=== PATIENT | male | born 1935 | race Caucasian/White ===

== ENCOUNTER 2017-08-26 12:34 | Emergency (ER) | payer OTHER, BC ==
--- NOTE | 2017-08-26 14:22 | ER ---
Nurse's Notes [facility] Name: Reji Dan Age: 82 yrs Sex: Male : 1935 Arrival Date: 08/26/2017 Time: 12:41 Bed 12 Private MD: Zaina Snowden Diagnosis: Abrasion of right forearm Presentation: 08/26 13:26 Presenting complaint: Patient states: Reports scratch on posterior right forearm that aj has been slowly bleeding since Thursday. Not currently bleeding at this time. Transition of care: patient was not received from another setting of care. Onset of symptoms was August 21, 2017. Initial Sepsis Screen: Does the patient meet any 2 criteria? No. Patient's initial sepsis screen is negative. Does the patient have a suspected source of infection? No. Patient's initial sepsis screen is negative. Care prior to arrival: None. 13:26 Method Of Arrival: Ambulatory aj 13:26 Acuity: SILVINO 4 aj Triage Assessment: 13:28 General: Appears in no apparent distress. comfortable, Behavior is calm, cooperative, aj appropriate for age. Pain: Denies pain. Neuro: Level of Consciousness is awake, alert, obeys commands, Oriented to person, place, time, situation. Respiratory: Airway is patent Respiratory effort is even, unlabored, Respiratory pattern is regular, symmetrical. Derm: Skin is intact, is healthy with good turgor, Skin is pink, warm \\T\\ dry. normal. Injury Description: Puncture sustained to palmar aspect of right forearm is superficial, was sustained 5 days. Historical: - Allergies: 13:28 Clindamycin; aj 13:28 Iodinated Contrast Media - IV Dye; aj - PMHx: 13:28 High Cholesterol; Hypertension; Hypothyroidism; Pacemaker; aj - PSHx: 13:28 Tonsillectomy; Adenoids; aj - Immunization history:: Last tetanus immunization: up to date. - Social history:: Smoking status: Patient/guardian denies using tobacco. Screenin:14 Abuse screen: Denies threats or abuse. Nutritional screening: No deficits noted. tw2 Tuberculosis screening: No symptoms or risk factors identified. Fall Risk None identified. Assessment: 14:12 Reassessment: Patient appears in no apparent distress at this time. No changes from tw2 previously documented assessment. Patient and/or family updated on plan of care and expected duration. Pain level reassessed. Patient is alert, oriented x 3, equal unlabored respirations, skin warm/dry/pink. Cardiovascular: Denies chest pain, shortness of breath, Capillary refill < 3 seconds Patient's skin is warm and dry. Respiratory: Airway is patent Respiratory effort is even, unlabored, Respiratory pattern is regular, symmetrical. Derm: Skin is fragile, is thin, Skin temperature is warm. Injury Description: Abrasion sustained to dorsal aspect of right forearm is scabbed, pressure dressing applied. Vital Signs: 13:28 BP 118 / 73; Pulse 70; Resp 16; Temp 97.8; Pulse Ox 95% on R/A; Weight 87.09 kg; Height aj 6 ft. 0 in. (182.88 cm); Pain 0/10; 14:12 BP 105 / 48; Pulse 71; Resp 16; Pulse Ox 95% on R/A; tw2 13:28 Body Mass Index 26.04 (87.09 kg, 182.88 cm) aj ED Course: 12:41 Patient arrived in ED. as 12:42 Zaina Snowden MD is Private Physician. as 13:27 Triage completed. aj 13:28 Arm band placed on left wrist. Patient placed in waiting room, Patient notified of wait aj time. 14:03 Lexi Chew FNP-C [facility]. kb 14:03 Denzel Herrera MD is Attending Physician. kb 14:12 Blanca Rascon, RN is Primary Nurse. tw2 14:14 Bed in low position. Call light in reach. Pulse ox on. NIBP on. tw2 14:24 No provider procedures requiring assistance completed. Patient did not have IV access tw2 during this emergency room visit. Administered Medications: No medications were administered Outcome: 14:22 Discharge ordered by . kb 14:24 Discharged to home ambulatory. tw2 14:24 Condition: stable 14:24 Discharge instructions given to patient, Instructed on discharge instructions, follow up and referral plans. Demonstrated understanding of instructions, follow-up care, pressure dressing, pt left PRIOR to signing discharge papers 14:25 Patient left the ED. tw2 Signatures: Lexi Chew FNP-C FNP-Ckb Myers, Amanda, RN RN aj Martinez, Amelia as Blanca Rascon, DANIELLE RN tw2 Corrections: (The following items were deleted from the chart) 14:25 14:24 Discharge instructions given to patient, Instructed on discharge instructions, tw2 follow up and referral plans. Demonstrated understanding of instructions, follow-up care, pressure dressing, pt left PRIOR to signing discharge papers "i dont need to wait around for those papers" tw2
--- NOTE | 2017-08-26 14:22 | EDPHYS ---
Physician Documentation [facility] Name: Reji Dan Age: 82 yrs Sex: Male : 1935 Arrival Date: 08/26/2017 Time: 12:41 Bed 12 Private MD: Zaina Snowden ED Physician Denzel Herrera HPI: 08/26 14:20 This 82 yrs old Male presents to ER via Ambulatory with complaints of Wound kb Check. 14:20 The patient has a laceration related to: scratched area occurred at home, and kb continuous bleeding The injury was accidental. The laceration(s) is(are) located on the palmar aspect of right forearm. Onset: The symptoms/episode began/occurred 5 day(s) ago. Associated signs and symptoms: Pertinent positives: persistent bleeding, Pertinent negatives: deformity, dizziness, heavy bleeding, loss of consciousness, numbness distal to injury, suspected foreign body. The patient has not experienced similar symptoms in the past. The patient has not recently seen a physician. Pt reports he scratched his arm and has an open wound the size of a pin that has been bleeding continuously. States there is a drop every 15 seconds or so. . Historical: - Allergies: 13:28 Clindamycin; aj 13:28 Iodinated Contrast Media - IV Dye; aj - PMHx: 13:28 High Cholesterol; Hypertension; Hypothyroidism; Pacemaker; aj - PSHx: 13:28 Tonsillectomy; Adenoids; aj - Immunization history:: Last tetanus immunization: up to date. - Social history:: Smoking status: Patient/guardian denies using tobacco. ROS: 14:19 Constitutional: Negative for fever, chills, and weight loss, Cardiovascular: Negative kb for chest pain, palpitations, and edema, Respiratory: Negative for shortness of breath, cough, wheezing, and pleuritic chest pain, Abdomen/GI: Negative for abdominal pain, nausea, vomiting, diarrhea, and constipation, MS/Extremity: Negative for injury and deformity, Neuro: Negative for headache, weakness, numbness, tingling, and seizure. 14:19 Skin: Positive for abrasion(s), of the palmar aspect of right forearm. Exam: 14:19 Constitutional: This is a well developed, well nourished patient who is awake, alert, kb and in no acute distress. Head/Face: Normocephalic, atraumatic. Chest/axilla: Normal chest wall appearance and motion. Nontender with no deformity. No lesions are appreciated. Cardiovascular: Regular rate and rhythm with a normal S1 and S2. No gallops, murmurs, or rubs. Normal PMI, no JVD. No pulse deficits. Respiratory: Lungs have equal breath sounds bilaterally, clear to auscultation and percussion. No rales, rhonchi or wheezes noted. No increased work of breathing, no retractions or nasal flaring. Abdomen/GI: Soft, non-tender, with normal bowel sounds. No distension or tympany. No guarding or rebound. No evidence of tenderness throughout. MS/ Extremity: Pulses equal, no cyanosis. Neurovascular intact. Full, normal range of motion. Neuro: Awake and alert, GCS 15, oriented to person, place, time, and situation. Cranial nerves II-XII grossly intact. Motor strength 5/5 in all extremities. Sensory grossly intact. Cerebellar exam normal. Normal gait. 14:19 Skin: injury, abrasion(s), very small abrasion noted, of the palmar aspect of right forearm. Vital Signs: 13:28 BP 118 / 73; Pulse 70; Resp 16; Temp 97.8; Pulse Ox 95% on R/A; Weight 87.09 kg; Height aj 6 ft. 0 in. (182.88 cm); Pain 0/10; 14:12 BP 105 / 48; Pulse 71; Resp 16; Pulse Ox 95% on R/A; tw2 13:28 Body Mass Index 26.04 (87.09 kg, 182.88 cm) MDM: 14:03 Patient medically screened. kb 14:19 Data reviewed: vital signs, nurses notes. Data interpreted: Pulse oximetry: on room air kb is 95 %. Interpretation: normal. Counseling: I had a detailed discussion with the patient and/or guardian regarding: the historical points, exam findings, and any diagnostic results supporting the discharge/admit diagnosis, the need for outpatient follow up, a family practitioner, to return to the emergency department if symptoms worsen or persist or if there are any questions or concerns that arise at home. 14:22 ED course: Bleeding controlled.. kb Administered Medications: No medications were administered Disposition: 16:39 Co-signature as Attending Physician, Denzel Herrera MD. rn Disposition: 08/26/17 14:22 Discharged to Home. Impression: Abrasion of right forearm. - Condition is Stable. - Discharge Instructions: Abrasion, [id number]. - Medication Reconciliation Form, Thank You Letter, Antibiotic Education, Prescription Opioid Use form. - Follow up: Emergency Department; When: As needed; Reason: Worsening of condition. Follow up: Private Physician; When: 2 - 3 days; Reason: Recheck today's complaints, Continuance of care, Re-evaluation by your physician. Signatures: Lexi Chew, ELECTRONIC SECURITY SPECIALIST-C ELECTRONIC SECURITY SPECIALIST-Jayne Morales, RN RN Denzel Lora MD MD rn Wise, Tara RN RN tw2
[2017-08-26 14:30] VITALS: TEMP 97.8; O2SAT 95
[2017-08-26 14:32] VITALS: BP 105/48
== END 2017-08-26 14:25 | disposition home or self-care (01) ==
LOC: ER 12:34
DX: S50.811D Abrasion of right forearm, subsequent encounter (principal); X58.XXXD Exposure to other specified factors, subsequent encounter
CPT/HCPCS: 99283

== ENCOUNTER → 2018-02-04 | Day surgery (SDC) | payer OTHER, BC ==
[2018-02-03 13:14] LABS: Absolute Lymphocytes (CBC) 0.5 K/uL (0.7-4.9); Absolute Monocytes 0.8 K/uL (0.1-1.3); Absolute Neutrophil 4.3 K/uL (1.8-8.0); Basophils % 1.4 % (0-1.3); Hematocrit 40.8 % (39.6-49.0); Lymphocytes % 8.5 % (15.3-44.8); MCH 33.1 pg (27.0-35.0); MCV 97.4 fL (80-100); MPV 7.9 fL (7.6-11.3); Monocytes % 12.7 % (3.3-12.3); RBC Red Blood Cell Count 4.19 M/uL (4.33-5.43)
--- NOTE | 2018-02-03 13:14 | RAD REPORT ---
EXAM DESCRIPTION: Zafar Single View02/03/2018 1:05 pm CLINICAL HISTORY: Coronary artery disease. Preop. COMPARISON: 2014 FINDINGS: The lungs appear clear of acute infiltrate. The heart is moderately enlarged. Pacemaker l nikhil are in place. Blunting of the left costophrenic sulcus is unchanged probably representing pleura l thickening IMPRESSION: No acute abnormalities displayed
--- NOTE | 2018-02-03 15:15 | EKG ---
Test Date: 2018-02-03 Test Time: 12:55:37 Limb Driver: VIOLETA MEASUREMENT RESULTS: Intervals: Rate: 70 NE: QRSD: 158 QT: 484 QTc: 522 Cammal: P: NE: QRS: -81 T: 76 INTERPRETIVE STATEMENTS: Electronic ventricular pacemaker Compared to ECG 02/20/2016 07:17:19 No significant changes Electronically Signed On 02-03-18 15:14:36 CDT by Almas Hamilton
[~2018-02-04] MED LIST: ATROPINE SULF 1 MG/10 ML SYR IV ONE; FENTANYL CITR 100 MCG/2 ML ONE; HEPA 1000U/500MLS 1,000 UNIT/500 ML BAG IV ONE; LIDOCAINE 1% MPF 30 ML VIAL ONE; METHYLPREDNISOLONE 125 MG INJ ONE; MIDAZOLAM HCL 2 MG/2 ML INJ ONE; NA CHLORIDE 0.9% 0 ML IV ONE; NA CHLORIDE 0.9% 0 ML ONE; NA CHLORIDE 0.9% 100 ML IV ONE; NA CHLORIDE 0.9% 500 ML ONE
[2018-02-04 07:52] LABS: Protime INR 1.06
[2018-02-04 12:05] VITALS: BP 101/51; O2SAT 96
[2018-02-04 12:06] VITALS: TEMP 98.3
--- NOTE | 2018-02-04 18:21 | OP ---
Surgeon: Marco Albright MD Admitted to my service as an outpatient for left heart catheterization and right heart catheterizatio n. Indication: CAD and aortic stenosis that are symptomatic. Procedure In Detail: The patient brought to the lab tester, given 2 mg of Versed for IV sedation, was given 125 mg Solu-Medrol for allergy to contrast. 6-Tristanian sheath introduced in the right common fem oral artery. 7-Tristanian sheath introduced in the right common femoral vein. Buckhorn-Ernestine catheter was in troduced into the right atrium, then right ventricle, then the PA. O2 saturations were done in the P A, RV, RA, inferior vena cava, and femoral artery. Saturations are pending as at the time of the dic tation. Cardiac output was 3.93 L/minute. Left heart catheterization was done. The patient had 40% proximal and mid LAD, very large LAD, very large circumflex and RCA. No significant focal stenosis that needed to be intervened with. I attempted to cross the aortic valve for few minutes with a Worl ey wire and was unsuccessful. It was apparent the aortic valve was very calcified by fluoroscopy. T he patient has a pacemaker. 6-Tristanian catheters were used for the coronary angiogram. There were no complications. Blood Loss: 5 cc. Postoperative Diagnoses: Mild coronary artery disease, severe aortic stenosis. Plan: For possible TAVR. Co-humid system operator: Iwona Walter. Anesthesia: Conscious sedation was 45 minutes. NERIS/LORRI Voice ID: [id number] Report ID: [id number]
== END | disposition home or self-care (01) ==
LOC: CCL 06:29
DX: I35.0 Nonrheumatic aortic (valve) stenosis (principal); I25.10 Atherosclerotic heart disease of native coronary artery without angina pectoris; I10 Essential (primary) hypertension; E78.5 Hyperlipidemia, unspecified; J44.9 Chronic obstructive pulmonary disease, unspecified; I48.2 Chronic atrial fibrillation; Z95.0 Presence of cardiac pacemaker; Z87.891 Personal history of nicotine dependence; Z91.041 Radiographic dye allergy status
CPT/HCPCS: 36415; 71045; 85025; 85610; 85730; 93005; 93460; C1893; J2250; J2930; J3010; J0583

== ENCOUNTER 2018-09-22 13:31 | Emergency (ER) | payer OTHER, BC ==
--- OUTSIDE RECORDS SUMMARY | 2018-09-22 14:23 | XMS REPORT | Clinical Summary ---
:1935 Author Organization [facility] Address [address] [place] [address] Care Team Providers Name Role Phone Pcp, No Primary Care Provider Unavailable Allergies Active Allergy Reactions Severity Noted Date Comments Iodinated Contrast- Oral And 02/23/2018 Iv Dye Iodine And Iodide Containing Hives, Shortness Of Breath High 02/17/2018 contrast Products Medications Medication Sig Dispensed Refills Start End Status Date Date metoprolol Take 100 mg by 0 Active (TOPROL-XL) 100 MG mouth daily. 24 hr tablet spironolactone Take 25 mg by 0 Active (ALDACTONE) 25 MG mouth 3 (three) tablet times daily. rivaroxaban Take by mouth 0 Active (XARELTO) 15 mg daily with Tab tablet dinner. atorvastatin Take 40 mg by 0 Active (LIPITOR) 40 MG mouth daily. tablet potassium chloride Take 20 mEq by 0 Active SA mouth daily . (K-DUR,KLOR-CON) 20 MEQ tablet omeprazole Take 20 mg by 0 Active (PRILOSEC) 20 MG mouth daily. capsule furosemide (LASIX) Take 50 mg by 0 Active 20 MG tablet mouth daily Patient has the 20 mg tablets. He takes 2 and 1/2 tablets once daily. levothyroxine Take 50 mcg by 0 Active (SYNTHROID, mouth Every LEVOTHROID) 50 MCG morning on an tablet empty stomach. fluticasone-vilant Inhale 1 puff by 0 Active cecilio (BREO mouth via inhaler ELLIPTA) 200-25 daily. mcg/dose DsDv predniSONE Take 10 mg by 0 Active (DELTASONE) 10 MG mouth 2 (two) tablet times daily as needed . albuterol Take 1 ampule by 0 Active (ACCUNEB) 0.63 nebulization 2 mg/3 mL nebulizer (two) times daily solution as needed for Wheezing . vitamins Take by mouth 2 0 Active A,C,D-jumx-qkqssl (two) times (PRESERVISION daily. AREDS) [phone] wgzo-lo-zypu Cap docusate sodium Take 200 mg by 0 Active (COLACE) 100 MG mouth 2 (two) capsule times daily. glucosamine-chondr Take 1 tablet by 0 Active oitin 500-400 mg mouth 2 (two) tablet times daily. omega Take 1 capsule by 0 Active 8-vds-nao-fish oil mouth daily. (FISH OIL) 1,000 mg (120 mg-180 mg) Cap polycarbophil Take 1,000 mg by 0 Active (EQUALACTIN) 500 mouth 2 (two) mg Chew chewable times daily. tablet lactobacillus Take 1 capsule by 0 Active rhamnosus, GG, mouth daily. (CULTURELLE) 10 billion cell capsule magnesium oxide Take 400 mg by 0 Active (MAG-OX) 400 mg mouth 2 (two) tablet times daily. metOLazone Take 1.5 mg by 0 Active (ZAROXOLYN) 2.5 MG mouth daily. tablet arformoterol Take 2 mLs (15 0 09/22/19 Active (BROVANA) 15 mcg/2 mcg total) by 19 mL nebulizer nebulization 2 solution (two) times daily. aspirin 81 MG EC Take 1 tablet (81 0 09/23/19 Active tablet mg total) by 19 020 mouth daily. bisacodyl Take 2 tablets 30 tablet 0 09/22/19 Active (DULCOLAX) 5 mg EC (10 mg total) by 19 019 tablet mouth daily as needed for Constipation for up to [address] 1 12 suppository 0 09/22/19 Active (DULCOLAX) 10 mg suppository (10 019 suppository mg total) rectally daily as needed for up to 10 days. dextrose 50 % in Inject 25 mLs 0 09/22/19 Active water (DEXTROSE (12.5 g total) 19 50%, D50W,) Syrg intravenously as injection needed (blood sugar less than 70 and patient unable to take PO juice or soda). insulin lispro Inject 0-12 Units 10 mL 0 09/22/19 Active (HUMALOG) 100 subcutaneously as 19 020 unit/mL injection needed (High blood sugar). insulin lispro Inject 0-4 Units 10 mL 0 09/22/19 Active (HUMALOG) 100 subcutaneously 19 020 unit/mL injection every night as needed (High blood sugar). ipratropium-albute Take 3 mLs by 0 09/22/19 Active rol (DUO-NEB) 0.5 nebulization 19 020 mg-3 mg(2.5 mg every 6 (six) base)/3 mL hours for 360 nebulizer solution days. metoprolol Take 1 tablet (25 0 09/22/19 Active (LOPRESSOR) 25 MG mg total) by 19 020 tablet mouth 2 (two) times daily. pantoprazole Take 1 tablet (40 0 09/23/19 Active (PROTONIX) 40 MG mg total) by 19 tablet mouth daily. polyethylene Take 17 g by 14 each 0 09/22/19 Active glycol (GLYCOLAX) mouth 2 (two) 19 019 17 gram packet times daily for 3 days. senna-docusate Take 2 tablets by 0 09/22/19 Active (SENOKOT S) 8.6-50 mouth 2 (two) 19 020 mg per tablet times daily. sildenafil, Take 0.5 tablets 0 09/22/19 Active antihypertensive, (10 mg total) by 020 (REVATIO,VIAGRA) mouth 2 (two) 20 mg tablet times daily. acetaminophen-code Take 1 tablet by 30 tablet 0 09/22/19 Active ine (TYLENOL #3) mouth every 4 019 300-30 mg per (four) hours as tablet needed for up to 10 days. Max Daily Amount: 6 tablets tadalafil (CIALIS) Take 5 mg by 0 Discontinued 5 MG tablet mouth 2 (two) 019 times daily . METOLAZONE ORAL Take 1.5 mg by 0 Discontinued mouth daily. 019 ferrous sulfate Take 325 mg by 0 Discontinued 325 (65 FE) MG mouth daily with 019 tablet breakfast. ECHINACEA, BULK, by Miscellaneous 0 Discontinued MISC route daily. 019 HYDROcodone-acetam Take 1 tablet by 30 tablet 0 09/22/19 Discontinued inophen (NORCO mouth every 6 19 019 5-325) 5-325 mg (six) hours as per tablet needed for up to 10 days. Max Daily Amount: 4 tablets traMADol (ULTRAM) Take 1 tablet (50 30 tablet 0 09/22/19 Discontinued 50 mg tablet mg total) by 19 019 mouth every 6 (six) hours as needed for Pain for up to 10 days. Max Daily Amount: 200 mg Active Problems Problem Noted Date Mitral regurgitation 09/13/2018 S/P MVR bioprosthetic, LAAL 09/13/[address] Brand 09/13/2018 Acute respiratory insufficiency, postoperative 09/13/2018 Pulmonary hypertension 09/13/2018 Aortic stenosis 03/04/2018 Pacemaker Hypertension Persistent atrial fibrillation CHF (congestive heart failure) Advanced age COPD with hypoxia Severe aortic stenosis Encounters Date Type Specialty Care Team Description 09/14/2018 Travel 09/13/2018 Surgery Pillo Brand REPLACEMENT,VALVE MD Camelia MITRAL MINIMALLY INVASIVE 09/13/2018 Anesthesia Event Roderick Merchant MD 09/13/2018 - Hospital Encounter Cardiology Pillo Brand Mitral valve insufficiency, unspecified etiology; 09/21/2018 MD Camelia Acute respiratory insufficiency, postoperative; Rani Dominguez Chronic obstructive pulmonary disease, unspecified COPD type (HCC); MD Amanda Pacemaker; Persistent atrial fibrillation (HCC); Pulmonary hypertension (HCC); S/P MVR (mitral valve replacement) 09/07/2018 Hospital Encounter Pre-Admission Pillo Brand Advanced age Testing MD Camelia 09/07/2018 Orders Only General Internal Medicine 03/04/2018 Anesthesia Event Nupur Marin MD 03/04/2018 Surgery Mauricio Clark TAVR / JANET GAYE Garrison MD IP PROC ONLY 03/04/2018 - Hospital Encounter Cardiology Mauricio Clark 03/05/2018 MD Bladimir (Primary Dx) 03/04/2018 Orders Only General Internal Medicine 03/02/2018 Office Visit Cardiology Shane Heck Severe aortic MD Ana stenosis 02/18/2018 Office Visit Cardiology Jesse Hayes Pacemaker; MD Brennen Essential hypertension; Chronic atrial fibrillation (HCC); Chronic diastolic congestive heart failure (HCC); Advanced age; Chronic obstructive pulmonary disease, unspecified COPD type (HCC) 02/17/2018 Hospital Encounter Radiology Mauricio Clark Abdominal aortic aneurysm without rupture (HCC); MD Bladimir Nonrheumatic aortic valve disorder 02/17/2018 Hospital Encounter Radiology Mauricio Clark Nonrheumatic aortic valve disorder; MD Bladimir Abdominal aortic aneurysm without rupture (HCC) 02/15/2018 Outside Orders Central Scheduling Mauricio Clark Nonrheumatic aortic valve stenosis (Primary Dx); MD Bladimir Nonrheumatic aortic valve disorder; Abdominal aortic aneurysm without rupture (HCC) after 09/21/2017 Family History Medical History Relation Name Comments Cancer Brother Heart disease Brother Aortic stenosis Father Heart attack Father Heart disease Father Cancer Mother Heart failure Paternal Grandfather Stroke Paternal Grandmother Relation Name Status Comments Brother Father Mother Paternal Grandfather Paternal Grandmother Social History Tobacco Use Types Packs/Day Years Used Date Former Smoker 1 24 Quit: 05/1980 Smokeless Tobacco: Never Used Alcohol Use Drinks/Week oz/Week Comments Yes 1 or 2 drinks a month Sex Assigned at Date Recorded Not on file Job Start Date Occupation Industry Not on file Not on file Not on file Travel History Travel Start Travel End No recent travel history available. Last Filed Vital Signs Vital Sign Reading Time Taken Blood Pressure 102/58 09/21/2018 11:20 AM CDT Pulse 79 09/21/2018 11:20 AM CDT Temperature 36.6 C (97.8 F) 09/21/2018 11:20 AM CDT Respiratory Rate 18 09/21/2018 11:20 AM CDT Oxygen Saturation 97% 09/21/2018 11:20 AM CDT Inhaled Oxygen Concentration 32% 09/15/2018 8:37 AM CDT Weight 99.6 kg (219 lb 9.6 oz) 09/20/2018 5:56 AM CDT Height 182.9 cm (6') 09/13/2018 6:19 AM CDT Body Mass Index 29.78 09/20/2018 5:56 AM CDT Plan of Treatment Not on file Implants Implanted Type Area Bonderizer Device Shelf Model / Identifier Expiration Serial / Lot Date Patch Vasc Paulette-Grd 4x4cm [id number] - [id number] IMPLANTS N/A: [employer] 12/23/2022 [id number] / Implanted: Qty: 1 on 09/13/2018 by Pillo Brand MD Chest TECH: SURG INNOV / [id number] Valve Mitrl Epic 33mm [id number] - [id number] IMPLANTS N/A: [facility] MARVA 06/2021 [id number] / Implanted: Qty: 1 on 09/13/2018 by Pillo Brand MD Chest MED: CARDIAC SURG [id number] / Valve Heart Bambi 3 29mm [id number] - [id number] Valves Aorta KENT LIFESCI 12/15/2019 [id number] / Implanted: Qty: 1 on 03/04/2018 by Mauricio Clark MD [id number] / Procedures Procedure Name Priority Date/Time Associated Diagnosis Comments RHYTHM STRIP - SCAN 09/22/2018 1:31 PM CDT RHYTHM STRIP - SCAN 09/22/2018 11:04 AM CDT POCT-GLUCOSE METER Routine 09/21/2018 12:24 PM Results for this CDT procedure are in the results section. CBC (HEMOGRAM ONLY) Routine 09/21/2018 6:14 AM Results for this CDT procedure are in the results section. MAGNESIUM Routine 09/21/2018 6:14 AM Results for this CDT procedure are in the results section. BASIC METABOLIC Routine 09/21/2018 6:14 AM Results for this PANEL (7) CDT procedure are in the results section. CBC (HEMOGRAM ONLY) Routine 09/20/2018 10:39 AM Results for this CDT procedure are in the results section. MAGNESIUM Routine 09/20/2018 4:47 AM Results for this CDT procedure are in the results section. BASIC METABOLIC Routine 09/20/2018 4:47 AM Results for this PANEL (7) CDT procedure are in the results section. BLOOD GAS, ARTERIAL STAT 09/19/2018 4:25 PM Results for this CDT procedure are in the results section. POCT-GLUCOSE METER Routine 09/19/2018 7:47 AM Results for this CDT procedure are in the results section. XR CHEST 1 VIEW Routine 09/19/2018 6:48 AM Results for this PORTABLE/BEDSIDE CDT procedure are in the results section. MAGNESIUM Routine 09/19/2018 6:40 AM Results for this CDT procedure are in the results section. BASIC METABOLIC Routine 09/19/2018 6:40 AM Results for this PANEL (7) CDT procedure are in the results section. POCT-GLUCOSE METER Routine 09/18/2018 9:26 PM Results for this CDT procedure are in the results section. POCT-GLUCOSE METER Routine 09/18/2018 5:34 PM Results for this CDT procedure are in the results section. POCT-GLUCOSE METER Routine 09/18/2018 11:58 AM Results for this CDT procedure are in the results section. POCT-GLUCOSE METER Routine 09/18/2018 7:22 AM Results for this CDT procedure are in the results section. XR CHEST 1 VIEW Routine 09/18/2018 5:59 AM Results for this PORTABLE/BEDSIDE CDT procedure are in the results section. MAGNESIUM STAT 09/18/2018 1:04 AM Results for this CDT procedure are in the results section. BASIC METABOLIC STAT 09/18/2018 1:04 AM Results for this PANEL (7) CDT procedure are in the results section. ECG 12-LEAD STAT 09/18/2018 12:54 AM Results for this CDT procedure are in the results section. ECG 12-LEAD Routine 09/18/2018 12:54 AM CDT Procedure Note - Interface, External Ris In - 09/18/2018 12:58 AM CDT Ventricular Rate 80 BPM Atrial Rate 80 BPM QRS Duration 150 ms Q-T Interval 438 ms QTC Calculation(Bazett) 505 ms R Nedrow 268 degrees T Nedrow 79 degrees Ventricular-paced rhythm Abnormal ECG When compared with ECG of 13-SEP-2018 17:27, No significant change was found ECG 12-LEAD STAT 09/18/2018 12:54 AM CDT XR CHEST 1 VIEW Routine 09/17/2018 10:26 PM CDT Results for this PORTABLE/BEDSIDE procedure are in the results section. POCT-GLUCOSE METER Routine 09/17/2018 9:18 PM CDT POCT-GLUCOSE METER Routine 09/17/2018 5:08 PM CDT POCT-GLUCOSE METER Routine 09/17/2018 12:34 PM CDT XR CHEST 1 VIEW Routine 09/17/2018 9:07 AM CDT Results for this PORTABLE/BEDSIDE procedure are in the results section. POCT-GLUCOSE METER Routine 09/17/2018 8:50 AM CDT CBC W/PLT COUNT & AUTO Routine 09/17/2018 5:49 AM CDT Results for this DIFFERENTIAL procedure are in the results section. CBC W/PLT COUNT & AUTO Routine 09/17/2018 5:49 AM CDT Results for this DIFFERENTIAL procedure are in the results section. MAGNESIUM Routine 09/17/2018 5:49 AM CDT BASIC METABOLIC PANEL (7) Routine 09/17/2018 5:49 AM CDT POCT-GLUCOSE METER Routine 09/16/2018 5:28 PM CDT POCT-GLUCOSE METER Routine 09/16/2018 11:50 AM CDT POCT-GLUCOSE METER Routine 09/16/2018 7:40 AM CDT OXYGEN SATURATION, MEASURED Routine 09/16/2018 6:01 AM CDT CBC (HEMOGRAM ONLY) Routine 09/16/2018 6:01 AM CDT CALCIUM, IONIZED Routine 09/16/2018 6:01 AM CDT BLOOD GAS, ARTERIAL Routine 09/16/2018 6:01 AM CDT MAGNESIUM Routine 09/16/2018 6:01 AM CDT BASIC METABOLIC PANEL (7) Routine 09/16/2018 6:01 AM CDT XR CHEST 1 VIEW Routine 09/16/2018 5:08 AM CDT Results for this PORTABLE/BEDSIDE procedure are in the results section. POCT-GLUCOSE METER Routine 09/15/2018 10:21 PM CDT POCT-GLUCOSE METER Routine 09/15/2018 4:56 PM CDT POTASSIUM Routine 09/15/2018 3:32 PM CDT POCT-GLUCOSE METER Routine 09/15/2018 11:53 AM CDT POTASSIUM Routine 09/15/2018 11:53 AM CDT CALCIUM, IONIZED Routine 09/15/2018 11:51 AM CDT XR CHEST 1 VIEW STAT 09/15/2018 9:51 AM CDT Results for this PORTABLE/BEDSIDE procedure are in the results section. POCT-GLUCOSE METER Routine 09/15/2018 7:51 AM CDT XR CHEST 1 VIEW Routine 09/15/2018 5:29 AM CDT Results for this PORTABLE/BEDSIDE procedure are in the results section. OXYGEN SATURATION, MEASURED STAT 09/15/2018 5:21 AM CDT OXYGEN SATURATION, MEASURED Routine 09/15/2018 4:21 AM CDT CBC (HEMOGRAM ONLY) Routine 09/15/2018 4:21 AM CDT CALCIUM, IONIZED Routine 09/15/2018 4:21 AM CDT BLOOD GAS, ARTERIAL Routine 09/15/2018 4:21 AM CDT MAGNESIUM Routine 09/15/2018 4:21 AM CDT BASIC METABOLIC PANEL (7) Routine 09/15/2018 4:21 AM CDT PHOSPHORUS Routine 09/15/2018 4:21 AM CDT POCT-GLUCOSE METER Routine 09/14/2018 9:57 PM CDT POCT-GLUCOSE METER Routine 09/14/2018 5:55 PM CDT POCT-GLUCOSE METER Routine 09/14/2018 1:01 PM CDT HEPATIC FUNCTION PANEL STAT 09/14/2018 10:12 AM CDT POCT-GLUCOSE METER Routine 09/14/2018 8:08 AM CDT POCT-GLUCOSE METER Routine 09/14/2018 6:34 AM CDT POCT-GLUCOSE METER Routine 09/14/2018 4:47 AM CDT BLOOD GAS, ARTERIAL Routine 09/14/2018 4:47 AM CDT XR CHEST 1 VIEW Routine 09/14/2018 4:27 AM CDT Results for this PORTABLE/BEDSIDE procedure are in the results section. CBC (HEMOGRAM ONLY) Routine 09/14/2018 2:46 AM CDT CALCIUM, IONIZED Routine 09/14/2018 2:46 AM CDT LACTIC ACID, ARTERIAL Routine 09/14/2018 2:46 AM CDT MAGNESIUM Routine 09/14/2018 2:46 AM CDT BASIC METABOLIC PANEL (7) Routine 09/14/2018 2:46 AM CDT PHOSPHORUS Routine 09/14/2018 2:46 AM CDT POCT-GLUCOSE METER Routine 09/14/2018 2:41 AM CDT OXYGEN SATURATION, MEASURED Routine 09/14/2018 2:41 AM CDT POCT-GLUCOSE METER Routine 09/14/2018 1:15 AM CDT LACTIC ACID, ARTERIAL Routine 09/14/2018 1:14 AM CDT OXYGEN SATURATION, MEASURED Routine 09/13/2018 11:37 PM CDT BLOOD GAS, ARTERIAL Routine 09/13/2018 11:37 PM CDT GLUCOSE-STAT LAB STAT 09/13/2018 11:37 PM CDT HGB/HCT (H&H) - STAT LAB STAT 09/13/2018 8:32 PM CDT POTASSIUM-STAT LAB STAT 09/13/2018 8:32 PM CDT SODIUM NA-STAT LAB STAT 09/13/2018 8:32 PM CDT BLOOD GAS, ARTERIAL STAT 09/13/2018 8:32 PM CDT MAGNESIUM Routine 09/13/2018 8:32 PM CDT LACTIC ACID, ARTERIAL Routine 09/13/2018 8:32 PM CDT OXYGEN SATURATION, MEASURED STAT 09/13/2018 8:32 PM CDT CALCIUM, IONIZED STAT 09/13/2018 8:32 PM CDT RRL CRITICAL LABS STAT 09/13/2018 8:32 PM CDT Results for this (ABG,NA,K,H&H,GLUCOSE) procedure are in the results section. LACTIC ACID, ARTERIAL NEVILLE 09/13/2018 6:08 PM CDT ECG 12-LEAD Routine 09/13/2018 5:28 PM CDT Procedure Note - Interface, External Ris In - 09/13/2018 5:52 PM CDT Ventricular Rate 80 BPM Atrial Rate 71 BPM QRS Duration 150 ms Q-T Interval 472 ms QTC Calculation(Bazett) 544 ms R Nedrow 267 degrees T Nedrow 69 degrees Ventricular-paced rhythm Abnormal ECG ECG 12-LEAD Routine 09/13/2018 5:27 PM CDT ECG 12-LEAD Routine 09/13/2018 5:27 PM CDT Procedure Note - Interface, External Ris In - 09/13/2018 5:51 PM CDT Ventricular Rate 80 BPM Atrial Rate 58 BPM QRS Duration 150 ms Q-T Interval 470 ms QTC Calculation(Bazett) 542 ms R Nedrow 268 degrees T Nedrow 65 degrees Ventricular-paced rhythm Abnormal ECG OXYGEN SATURATION, STAT 09/13/2018 4:20 Results for this MEASURED PM CDT procedure are in the results section. XR CHEST 1 VIEW STAT 09/13/2018 2:35 Results for this PORTABLE/BEDSIDE PM CDT procedure are in the results section. LACTIC ACID, STAT 09/13/2018 2:15 Results for this ARTERIAL PM CDT procedure are in the results section. FIBRINOGEN STAT 09/13/2018 2:15 Results for this PM CDT procedure are in the results section. CALCIUM, IONIZED STAT 09/13/2018 2:15 Results for this PM CDT procedure are in the results section. PROTHROMBIN TIME/INR STAT 09/13/2018 2:15 Results for this PM CDT procedure are in the results section. APTT STAT 09/13/2018 2:15 Results for this PM CDT procedure are in the results section. CBC W/PLT COUNT & STAT 09/13/2018 2:12 Results for this AUTO DIFFERENTIAL PM CDT procedure are in the results section. PHOSPHORUS STAT 09/13/2018 2:12 Results for this PM CDT procedure are in the results section. MAGNESIUM STAT 09/13/2018 2:12 Results for this PM CDT procedure are in the results section. BLOOD GAS, ARTERIAL STAT 09/13/2018 2:12 Results for this PM CDT procedure are in the results section. BASIC METABOLIC STAT 09/13/2018 2:12 Results for this PANEL (7) PM CDT procedure are in the results section. CBC W/PLT COUNT & STAT 09/13/2018 2:12 Results for this AUTO DIFFERENTIAL PM CDT procedure are in the results section. POCT-ACT Routine 09/13/2018 12:50 Results for this PM CDT procedure are in the results section. HGB/HCT (H&H) - STAT STAT 09/13/2018 12:47 Results for this LAB PM CDT procedure are in the results section. GLUCOSE-STAT LAB STAT 09/13/2018 12:47 Results for this PM CDT procedure are in the results section. POTASSIUM-STAT LAB STAT 09/13/2018 12:47 Results for this PM CDT procedure are in the results section. SODIUM NA-STAT LAB STAT 09/13/2018 12:47 Results for this PM CDT procedure are in the results section. BLOOD GAS, ARTERIAL STAT 09/13/2018 12:47 Results for this PM CDT procedure are in the results section. CALCIUM, IONIZED STAT 09/13/2018 12:47 Results for this PM CDT procedure are in the results section. RRL CRITICAL LABS STAT 09/13/2018 12:47 Results for this (ABG,NA,K,H&H,GLUCOS PM CDT procedure are in E) the results section. POCT-ACT Routine 09/13/2018 11:48 Results for this AM CDT procedure are in the results section. TISSUE EXAM AP Routine 09/13/2018 11:46 Results for this AM CDT procedure are in the results section. HGB/HCT (H&H) - STAT STAT 09/13/2018 11:45 Results for this LAB AM CDT procedure are in the results section. GLUCOSE-STAT LAB STAT 09/13/2018 11:45 Results for this AM CDT procedure are in the results section. POTASSIUM-STAT LAB STAT 09/13/2018 11:45 Results for this AM CDT procedure are in the results section. SODIUM NA-STAT LAB STAT 09/13/2018 11:45 Results for this AM CDT procedure are in the results section. BLOOD GAS, ARTERIAL STAT 09/13/2018 11:45 Results for this AM CDT procedure are in the results section. RRL CRITICAL LABS STAT 09/13/2018 11:45 Results for this (ABG,NA,K,H&H,GLUCOS AM CDT procedure are in E) the results section. POCT-ACT Routine 09/13/2018 11:20 Results for this AM CDT procedure are in the results section. LACTIC ACID, STAT 09/13/2018 11:17 Results for this ARTERIAL AM CDT procedure are in the results section. HGB/HCT (H&H) - STAT STAT 09/13/2018 11:17 Results for this LAB AM CDT procedure are in the results section. GLUCOSE-STAT LAB STAT 09/13/2018 11:17 Results for this AM CDT procedure are in the results section. POTASSIUM-STAT LAB STAT 09/13/2018 11:17 Results for this AM CDT procedure are in the results section. SODIUM NA-STAT LAB STAT 09/13/2018 11:17 Results for this AM CDT procedure are in the results section. BLOOD GAS, ARTERIAL STAT 09/13/2018 11:17 Results for this AM CDT procedure are in the results section. RRL CRITICAL LABS STAT 09/13/2018 11:17 Results for this (ABG,NA,K,H&H,GLUCOS AM CDT procedure are in E) the results section. POCT-ACT Routine 09/13/2018 10:47 Results for this AM CDT procedure are in the results section. HGB/HCT (H&H) - STAT STAT 09/13/2018 10:45 Results for this LAB AM CDT procedure are in the results section. GLUCOSE-STAT LAB STAT 09/13/2018 10:45 Results for this AM CDT procedure are in the results section. POTASSIUM-STAT LAB STAT 09/13/2018 10:45 Results for this AM CDT procedure are in the results section. SODIUM NA-STAT LAB STAT 09/13/2018 10:45 Results for this AM CDT procedure are in the results section. BLOOD GAS, ARTERIAL STAT 09/13/2018 10:45 Results for this AM CDT procedure are in the results section. RRL CRITICAL LABS STAT 09/13/2018 10:45 Results for this (ABG,NA,K,H&H,GLUCOS AM CDT procedure are in E) the results section. LACTIC ACID, STAT 09/13/2018 10:28 Results for this ARTERIAL AM CDT procedure are in the results section. POCT-ACT Routine 09/13/2018 10:14 Results for this AM CDT procedure are in the results section. HGB/HCT (H&H) - STAT STAT 09/13/2018 10:12 Results for this LAB AM CDT procedure are in the results section. GLUCOSE-STAT LAB STAT 09/13/2018 10:12 Results for this AM CDT procedure are in the results section. POTASSIUM-STAT LAB STAT 09/13/2018 10:12 Results for this AM CDT procedure are in the results section. SODIUM NA-STAT LAB STAT 09/13/2018 10:12 Results for this AM CDT procedure are in the results section. BLOOD GAS, ARTERIAL STAT 09/13/2018 10:12 Results for this AM CDT procedure are in the results section. RRL CRITICAL LABS STAT 09/13/2018 10:12 Results for this (ABG,NA,K,H&H,GLUCOS AM CDT procedure are in E) the results section. POCT-ACT Routine 09/13/2018 9:46 Results for this AM CDT procedure are in the results section. ANESTHESIA SRINIVASA Routine 09/13/2018 9:09 Results for this AM CDT procedure are in the results section. HGB/HCT (H&H) - STAT STAT 09/13/2018 9:02 Results for this LAB AM CDT procedure are in the results section. GLUCOSE-STAT LAB STAT 09/13/2018 9:02 Results for this AM CDT procedure are in the results section. POTASSIUM-STAT LAB STAT 09/13/2018 9:02 Results for this AM CDT procedure are in the results section. SODIUM NA-STAT LAB STAT 09/13/2018 9:02 Results for this AM CDT procedure are in the results section. BLOOD GAS, ARTERIAL STAT 09/13/2018 9:02 Results for this AM CDT procedure are in the results section. CALCIUM, IONIZED STAT 09/13/2018 9:02 Results for this AM CDT procedure are in the results section. RRL CRITICAL LABS STAT 09/13/2018 9:02 Results for this (ABG,NA,K,H&H,GLUCOS AM CDT procedure are in E) the results section. SRINIVASA 09/13/2018 8:00 Mitral valve AM CDT insufficiency, unspecified etiology Case Notes 4 HOURS Special Needs (TISSUE VALVE, ICU BED) LIGATION,ATRIAL APPENDAGE 09/13/2018 8:00 AM CDT Mitral valve insufficiency, unspecified etiology Case Notes 4 HOURS Special Needs (TISSUE VALVE, ICU BED) REPLACEMENT,VALVE MITRAL 09/13/2018 8:00 AM CDT Mitral valve insufficiency , MINIMALLY INVASIVE unspecified etiology Case Notes 4 HOURS Special Needs (TISSUE VALVE, ICU BED) POCT-GLUCOSE METER Routine 09/13/2018 6:23 AM CDT TRANSFUSION SERVICE REPORT 09/08/2018 6:04 PM CDT - SCAN ECG 12-LEAD Routine 09/07/2018 2:04 PM CDT Procedure Note - Interface, External Ris In - 09/07/2018 4:18 PM CDT Ventricular Rate 70 BPM Atrial Rate 53 BPM QRS Duration 174 ms Q-T Interval 502 ms QTC Calculation(Bazett) 542 ms R Nedrow -89 degrees T Nedrow 81 degrees Ventricular-paced rhythm Biventricular pacemaker detected Abnormal ECG When compared with ECG of 04-MAR-2018 07:38, Premature ventricular complexes are no longer Present Vent. rate has decreased BY 3 BPM ECG 12-LEAD Routine 09/07/2018 2:04 PM CDT CBC W/PLT COUNT & AUTO Routine 09/07/2018 2:00 PM CDT Results for this DIFFERENTIAL procedure are in the results section. TYPE AND SCREEN, AUTOMATED Routine 09/07/2018 2:00 PM CDT MAGNESIUM Routine 09/07/2018 2:00 PM CDT APTT Routine 09/07/2018 2:00 PM CDT PROTHROMBIN TIME/INR Routine 09/07/2018 2:00 PM CDT LIPID PANEL Routine 09/07/2018 2:00 PM CDT CBC W/PLT COUNT & AUTO Routine 09/07/2018 2:00 PM CDT Results for this DIFFERENTIAL procedure are in the results section. HEMOGLOBIN A1C Routine 09/07/2018 2:00 PM CDT COMPREHENSIVE METABOLIC Routine 09/07/2018 2:00 PM CDT Results for this PANEL procedure are in the results section. CARDIAC CATH REPORT - SCAN 03/09/2018 10:40 AM MATERIALS AND PROCESSES MANAGER RHYTHM STRIP - SCAN 03/09/2018 10:40 AM MATERIALS AND PROCESSES MANAGER TRANSFUSION SERVICE REPORT - 03/05/2018 5:52 PM CDT SCAN ECHOCARDIOGRAM REPORT - SCAN 03/05/2018 10:20 AM CDT XR CHEST 1 VIEW Routine 03/05/2018 4:53 AM CDT Results for this PORTABLE/BEDSIDE procedure are in the results section. CBC W/PLT COUNT & AUTO Routine 03/05/2018 3:19 AM CDT Results for this DIFFERENTIAL procedure are in the results section. BASIC METABOLIC PANEL (7) Routine 03/05/2018 3:19 AM CDT CBC W/PLT COUNT & AUTO Routine 03/05/2018 3:19 AM CDT Results for this DIFFERENTIAL procedure are in the results section. PREPARE LEUKO-REDUCED RBC Routine 03/04/2018 11:52 AM CDT POCT-ACT Routine 03/04/2018 10:23 AM CDT HGB/HCT (H&H) - STAT LAB STAT 03/04/2018 10:10 AM CDT GLUCOSE-STAT LAB STAT 03/04/2018 10:10 AM CDT POTASSIUM-STAT LAB STAT 03/04/2018 10:10 AM CDT SODIUM NA-STAT LAB STAT 03/04/2018 10:10 AM CDT BLOOD GAS, ARTERIAL STAT 03/04/2018 10:10 AM CDT CALCIUM, IONIZED STAT 03/04/2018 10:10 AM CDT RRL CRITICAL LABS STAT 03/04/2018 10:10 AM CDT Results for this (ABG,NA,K,H&H,GLUCOSE) procedure are in the results section. ECG 12-LEAD Routine 03/04/2018 7:38 AM CDT Procedure Note - Interface, External Ris In - 03/04/2018 7:43 AM CDT Ventricular Rate 73 BPM Atrial Rate 70 BPM QRS Duration 156 ms Q-T Interval 446 ms QTC Calculation(Bazett) 491 ms R Nedrow -81 degrees T Nedrow 78 degrees Ventricular-paced rhythm with occasional Premature ventricular complexes Biventricular pacemaker detected Abnormal ECG No previous ECGs available ECG 12-LEAD Routine 03/04/2018 7:38 AM Results for this CDT procedure are in the results section. TRANSESOPHAGEAL ECHO Routine 03/04/2018 7:32 AM Results for this CDT procedure are in the results section. TAVR / JANET MCR - IP 03/04/2018 7:30 AM Acquired stenosis PROC ONLY CDT of aortic valve Case Notes (1) CASE POP6 SDA / TRD / TAVR SRINIVASA / CV ANESTHESIA CONT WAVE PULSED Routine 03/04/2018 7:01 AM DOPPLER CDT COLOR-FLOW MAPPING Routine 03/04/2018 7:01 AM CDT CBC W/PLT COUNT & STAT 03/04/2018 7:00 AM Results for this AUTO DIFFERENTIAL CDT procedure are in the results section. TYPE AND SCREEN, STAT 03/04/2018 7:00 AM Results for this AUTOMATED CDT procedure are in the results section. B-TYPE NATRIURETIC Routine 03/04/2018 7:00 AM Results for this FACTOR (BNP) CDT procedure are in the results section. ALBUMIN Routine 03/04/2018 7:00 AM Results for this CDT procedure are in the results section. PT/APTT Routine 03/04/2018 7:00 AM Results for this CDT procedure are in the results section. BASIC METABOLIC PANEL STAT 03/04/2018 7:00 AM Results for this (7) CDT procedure are in the results section. CBC W/PLT COUNT & STAT 03/04/2018 7:00 AM Results for this AUTO DIFFERENTIAL CDT procedure are in the results section. 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 after 09/21/2017 Results RHYTHM STRIP - SCAN (09/22/2018 1:31 PM CDT)Only the most recent of3 resultswithin the time period is included. Narrative Performed At POC-Glucose meter (09/21/2018 12:24 PM CDT)Only the most recent of26 resultswithin the time period is included. POC-Glucose Meter 151 (H)Comment: TESTED AT 70 - 110 mg/dL [address] [address] Specimen Blood Performing Organization Address City/State/Zipcode Phone Number [address] [phone] CENTER CBC (Hemogram only) (09/21/2018 6:14 AM CDT)Only the most recent of5 resultswithin the time period is included. WBC 7.8 3.5 - 10.5 K/L [facility] RBC 3.57 (L) 4.63 - 6.08 M/L [facility] Hemoglobin 10.9 (L) 13.7 - 17.5 GM/DL [facility] Hematocrit 36.5 (L) 40.1 - 51.0 % [facility] MCV 102.2 (H) 79.0 - 92.2 fL [facility] MCH 30.5 25.7 - 32.2 pg [facility] MCHC 29.9 (L) 32.3 - 36.5 GM/DL [facility] RDW 13.6 11.6 - 14.4 % [facility] Platelets 182 150 - 450 K/CU MM [facility] MPV 9.5 9.4 - 12.4 fL [facility] nRBC 0 0 - 0 /100 WBC [facility] Specimen Blood Performing Organization Address City/[facility] Phone Number [address] [address] [phone] CENTER Magnesium (09/21/2018 6:14 AM CDT)Only the most recent of11 resultswithin the time period is included. Magnesium 2.1 1.6 - 2.6 mg/dL [facility] Specimen Blood Performing Organization Address [facility] Phone Number [address] [address] CENTER Basic Metabolic Panel (09/21/2018 6:14 AM CDT)Only the most recent of11 resultswithin the time period is included. Sodium 138 136 - 145 meq/L [facility] Potassium 4.4 3.5 - 5.1 meq/L [facility] Chloride 97 (L) 98 - 107 meq/L [facility] CO2 34 (H) 22 - 29 meq/L [facility] BUN 19 7 - 21 mg/dL [facility] Creatinine 0.90 0.57 - 1.25 mg/dL [facility] Glucose 88 70 - 105 mg/dL [facility] Calcium 8.7 8.4 - 10.2 mg/dL [facility] EGFR 81Comment: ESTIMATED GFR IS mL/min/1.73 sq m [facility] NOT ACCURATE [facility] CLEARANCE IN PREDICTING GLOMERULAR FILTRATION RATE. ESTIMATED GFR IS NOT APPLICABLE FOR DIALYSIS PATIENTS. Specimen Blood Performing Organization Address City/[facility] Phone Number [facility] [address] [place], [place] [phone] [place] Blood gas, arterial (09/19/2018 4:25 PM CDT)Only the most recent of14 resultswithin the time period is included. pH, Arterial 7.48 (H) 7.35 - 7.45 [facility] pCO2, Arterial 52 (H) 35 - 45 mmHg [facility] pO2, Arterial 84 80 - 90 mmHg [facility] O2 Sat, Arterial 96.9 96.0 - 97.0 % [facility] HCO3, Arterial 38 (H) 21 - 29 mmol/L [facility] Base Excess, Arterial 12.8 (H) -2.0 - 3.0 mmol/L [facility] Patient Temperature 36.4 C [facility] FIO2 28.0 % [facility] Specimen Blood, Arterial Performing Organization Address City/[facility]/Zipcode Phone Number [facility] [address] [place] [address] [phone] [place] XR chest 1 view portable / bedside (09/19/2018 6:48 AM CDT)Only the most recent of10 resultswithin the time period is included. Specimen Narrative Performed At FINAL REPORT GE RIS Comparison: 09/18/2018 TECHNIQUE: Single view of the chest FINDINGS: There are nonspecific mildly prominent interstitial markings laterally. Small left pleural effusion with adjacent airspace disease. No gross new lung parenchymal changes. Support lines and tubes are stable. Signed: Dick Brown MD Report Verified Date/Time:09/19/2018 08:20:07 Reading Location: [facility] C0[facility] Transitional Reading Room Procedure Note Interface, External Ris In - 09/19/2018 8:22 AM CDT FINAL REPORT Comparison: 09/18/2018 TECHNIQUE: Single view of the chest FINDINGS: There are nonspecific mildly prominent interstitial markings laterally. Small left pleural effusion with adjacent airspace disease. No gross new lung parenchymal changes. Support lines and tubes are stable. Signed: Dick Brown MD Report Verified Date/Time: 09/19/2018 08:20:07 Reading Location: [facility] [id number] Transitional Reading Room Performing Organization Address City/[facility] Phone Number [employer] RIS ECG 12 lead (09/18/2018 12:54 AM CDT)Only the most recent of5 resultswithin the time period is included. Specimen Narrative Performed At Ventricular Rate 73 BPM GE MUSE Atrial Rate 43 BPM QRS Duration 156 ms Q-T Interval 442 ms QTC Calculation(Bazett) 486 ms R Nedrow -89 degrees T Nedrow 83 degrees Ventricular-paced rhythm Abnormal ECG When compared with ECG of 18-SEP-2018 00:54, Significant changes have occurred Confirmed by Alon ONEIL MICHAEL ([id number]) on 09/20/2018 7:44:57 AM Procedure Note Interface, External Ris In - 09/20/2018 7:45 AM CDT Ventricular Rate 73 BPM Atrial Rate 43 BPM QRS Duration 156 ms Q-T Interval 442 ms QTC Calculation(Bazett) 486 ms R Nedrow -89 degrees T Nedrow 83 degrees Ventricular-paced rhythm Abnormal ECG When compared with ECG of 18-SEP-2018 00:54, Significant changes have occurred Confirmed by Alon ONEIL MICHAEL ([id number]) on 09/20/2018 7:44:57 AM Performing Organization Address [facility] Phone Number [employer] MUSE CBC with platelet count + automated diff (09/17/2018 5:49 AM CDT)Only the most recent of5 resultswithin the time period is included. WBC 6.0 3.5 - 10.5 K/L [facility] RBC 3.15 (L) 4.63 - 6.08 M/L [facility] Hemoglobin 9.8 (L) 13.7 - 17.5 GM/DL [facility] Hematocrit 31.0 (L) 40.1 - 51.0 % [facility] MCV 98.4 (H) 79.0 - 92.2 fL [facility] MCH 31.1 25.7 - 32.2 pg [facility] MCHC 31.6 (L) 32.3 - 36.5 GM/DL [facility] RDW 13.6 11.6 - 14.4 % [facility] Platelets 95 (L) 150 - 450 K/CU MM [facility] MPV 10.2 9.4 - 12.4 fL [facility] nRBC 0 0 - 0 /100 WBC [facility] % Neutros 89 % [facility] % Lymphs 4 % [facility] % Monos 6 % [facility] % Eos 0 % [facility] % Baso 0 % [facility] # Neutros 5.30 1.78 - 5.38 K/L [facility] # Lymphs 0.25 (L) 1.32 - 3.57 K/L [facility] # Monos 0.38 0.30 - 0.82 K/L [facility] # Eos 0.00 (L) 0.04 - 0.54 K/L [facility] # Baso 0.01 0.01 - 0.08 K/L [facility] Immature Granulocytes-Relative 1 0 - 1 % [facility] Specimen Blood Performing Organization Address City/State/Zipcode Phone Number [facility] [address] [place] [address] [phone] CENTER Oxygen saturation, measured (09/16/2018 6:01 AM CDT)Only the most recent of7 resultswithin the time period is included. O2 Saturation (Measured) 69.7 % [facility] Specimen Blood Performing Organization Address [facility] Cent[facility]ode Phone Number [address] [address] [phone] [place] Calcium, Ionized (09/16/2018 6:01 AM CDT)Only the most recent of9 resultswithin the time period is included. Calcium, Ion 1.13 1.12 - 1.27 mmol/L [facility] pH, Blood 7.42 [facility] Specimen Blood Performing Organization Address [facility] Cent[facility]ode Phone Number [address] [address] [phone] CENTER Potassium (09/15/2018 3:32 PM CDT)Only the most recent of2 resultswithin the time period is included. Potassium 4.3 3.5 - 5.1 meq/L [facility] Specimen Blood Narrative Performed At Check Serum Potassium level 2 hours after [facility] oral potassium replacement completed or 30 min after intravenous potassium replacement. Performing Organization Address [facility] Phone Number [address] [address] CENTER Phosphorus (09/15/2018 4:21 AM CDT)Only the most recent of3 resultswithin the time period is included. Phosphorus 3.0 2.3 - 4.7 mg/dL [facility] Specimen Blood Performing Organization Address City/[facility]/Zipcode Phone Number [address] [address] [place] Hepatic function panel (09/14/2018 10:12 AM CDT) Protein, Total 5.4 (L) 6.0 - 8.3 gm/dL [facility] Albumin 3.1 (L) 3.5 - 5.0 g/dL [facility] Total Bilirubin 0.4 0.2 - 1.2 mg/dL [facility] Bilirubin, Direct 0.3 0.1 - 0.5 mg/dL [facility] Alkaline Phosphatase 36 (L) 40 - 150 U/L [facility] AST 53 (H) 5 - 34 U/L [facility] ALT 17 6 - 55 U/L [facility] Specimen Blood Performing Organization Address [facility] Phone Number [address] [address] [phone] CENTER Lactic Acid, Arterial (09/14/2018 2:46 AM CDT)Only the most recent of7 resultswithin the time period is included. Lactate, Art 2.9 (H) 0.5 - 2.2 mmol/L [facility] Specimen Blood, Arterial Performing Organization Address [facility] Phone Number [address] [address] CENTER Glucose-Stat Lab (09/13/2018 11:37 PM CDT)Only the most recent of8 resultswithin the time period is included. Glucose 192 (H) 70 - 110 mg/dL [facility] Specimen Blood, Arterial Performing Organization Address [facility] Phone Number [address] [address] [phone] CENTER Potassium-Stat Lab (09/13/2018 8:32 PM CDT)Only the most recent of8 resultswithin the time period is included. Potassium 3.2 (L) 3.6 - 5.5 meq/L [facility] Specimen Blood, Arterial Performing Organization Address [facility] Phone Number [address] [address] [phone] CENTER Sodium Na-Stat Lab (09/13/2018 8:32 PM CDT)Only the most recent of8 resultswithin the time period is included. Sodium 140 135 - 148 meq/L [facility] Specimen Blood, Arterial Performing Organization Address [facility] Phone Number [address] [address] [phone] CENTER HGB/HCT (H&H)-Stat Lab (09/13/2018 8:32 PM CDT)Only the most recent of8 resultswithin the time period is included. Hemoglobin 11.5 (L) 13.0 - 16.8 g/dL [facility] Hematocrit 34.0 (L) 40.0 - 50.0 % [facility] Specimen Blood, Arterial Performing Organization Address [facility] Phone Number [address] [address] CENTER aPTT (09/13/2018 2:15 PM CDT)Only the most recent of2 resultswithin the time period is included. PTT 30.0 22.5 - 36.0 seconds [facility] Specimen Blood Performing Organization Address [facility] Phone Number [address] [address] CENTER Prothrombin time/INR (09/13/2018 2:15 PM CDT)Only the most recent of2 resultswithin the time period is included. Protime 16.8 (H) 11.7 - 14.7 seconds [facility] INR 1.4 <=5.9 [facility] Specimen Blood Narrative Performed At RECOMMENDED COUMADIN/WARFARIN INR THERAPY [facility] RANGES STANDARD DOSE: 2.0 - 3.0 Includes: PROPHYLAXIS for venous thrombosis, systemic embolization; TREATMENT for venous thrombosis and/or pulmonary embolus. HIGH RISK: Target INR is 2.5-3.5 for patients with mechanical heart valves. Performing Organization Address City/[facility] Phone Number [address] [place] [address] [phone] CENTER Fibrinogen (09/13/2018 2:15 PM CDT) Fibrinogen 321 225 - 434 mg/dl [facility] Specimen Blood Performing Organization Address City/[facility] Phone Number [address] [address] CENTER POC ACTIVATED CLOTTING TIME (09/13/2018 12:50 PM CDT)Only the most recent of7 resultswithin the time period is included. Activated Clotting Time 114Comment: TESTED AT sec [address] [address] Specimen Blood Performing Organization Address [facility] Phone Number [address] [address] [place] Tissue Exam (09/13/2018 11:46 AM CDT) Case Report Surgical Pathology Report Case: [id number] [facility] Authorizing Provider:Pillo Brand, Collected: 09/13/2018 1146 [facility] MD Ordering Location: [facility] Received: 09/13/2018 1237 [employer] Pathologist: Yousif Alfonso MD Specimen:Leaflets DIAGNOSIS HEART, MITRAL VALVE, VALVULECTOMY: [facility] FIBROMYXOID THICKENING WITH FOCAL SCLEROSIS [facility] Signing Pathologist Direct Phone Line: [phone] CPT Code(s) 04583; 73238 [facility] CLINICAL HISTORY Mitral valve insufficiency, [facility] unspecified etiology [facility] GROSS DESCRIPTION The specimen is received in [facility] formalin labeled with the [facility] patient's information as well as "leaflets". It contains a 4.5 x 2.5 x 0.6 cm aggregate of ash-white membranous mitral valve leaflets. The leaflets are flexible ash-yellow focal flat end. Pinpoint calcification is present. No vegetations are seen. No masses are appreciated. The specimen is submitted representatively in a single cassette following decalcification. RC/pl MICROSCOPIC DESCRIPTION Performed [facility] Specimen Tissue Performing Organization Address City/State/Zipcode Phone Number [facility] [address] [place] [address] CENTER SRINIVASA (09/13/2018 9:09 AM CDT) Narrative Performed At Luis Armando Chew MD 09/13/20181:02 PM SRINIVASA Pre Intervention Summary: Aorta: No aneurysm, no dissection, grade III atheroma (distal arch,descending) AV: prosthetic valve visualized, no aortic stenosis, no aortic regurgitation LV: normal chamber size , no LVH, normal systolic function (EF 55% by qualitative assessment), no RWMA, no thrombus MV: P3 leaflet flail, severe mitral regurgitation (VC 0.7), no mitral stenosis LA: no IBAN thrombus, severely enlarged size and function PV: limited visualization RV: normal sized chamber, normal function, no thrombus TV: normal morphology, mild tricuspid regurgitation RA: no thrombus no PFO by color dopper flow All findings communicated to surgical team. Post Intervention Summary:S/p 33mm bioprosthetic MVR and LAAL. On 2 mcg/m epi gtt New bioprosthetic MVR appears well seated. Leaflets opening well. No paravalvular leak. Mean PG 3. No interval change in AV or TV. Mildly impaired RV function. No interval aortic pathology. The above was communicated to the surgical team Procedure Note Luis Armando Chew MD - 09/13/2018 9:09 AM CDT SRINIVASA Pre Intervention Summary: Aorta: No aneurysm, no dissection, grade III atheroma (distal arch,descending) AV: prosthetic valve visualized, no aortic stenosis, no aortic regurgitation LV: normal chamber size , no LVH, normal systolic function (EF 55% by qualitative assessment), no RWMA, no thrombus MV: P3 leaflet flail, severe mitral regurgitation (VC 0.7), no mitral stenosis LA: no IBAN thrombus, severely enlarged size and function PV: limited visualization RV: normal sized chamber, normal function, no thrombus TV: normal morphology, mild tricuspid regurgitation RA: no thrombus no PFO by color dopper flow All findings communicated to surgical team. Post Intervention Summary: S/p 33mm bioprosthetic MVR and LAAL. On 2 mcg/m epi gtt New bioprosthetic MVR appears well seated. Leaflets opening well. No paravalvular leak. Mean PG 3. No interval change in AV or TV. Mildly impaired RV function. No interval aortic pathology. The above was communicated to the surgical team TRANSFUSION SERVICE REPORT - SCAN (09/08/2018 6:04 PM CDT)Only the most recent of2 resultswithin the time period is included. Narrative Performed At Type and screen, automated (09/07/2018 2:00 PM CDT)Only the most recent of2 resultswithin the time period is included. ABO/RH AUTOMATED (BEAKER) A POSITIVE [facility] Ab Scrn NEGATIVE [facility] Specimen Blood Performing Organization Address City/[facility] Phone Number [address] [address] [phone] Hemoglobin A1c (09/07/2018 2:00 PM CDT) Hemoglobin A1C 6.0 4.3 - 6.1 % [facility] Specimen Blood Performing Organization Address [facility] Phone Number [address] [address] CENTER Lipid panel (09/07/2018 2:00 PM CDT) Triglycerides 143 mg/dL [facility] Cholesterol 143 mg/dL [facility] HDL 40 mg/dL [facility] LDL Calculated 74 mg/dL [facility] Specimen Blood Narrative Performed At Triglyceride Reference Range: [facility] Low Risk <150 [id number] High Risk 200-499 Very High Risk>=500 Cholesterol Reference Range: Low Risk <200 [id number] High Risk>240 HDL Cholesterol Reference Range: Low Risk >=60 High Risk <40 LDL Cholesterol Reference Range: Optimal<100 Near [id number] Very High >=190 Performing Organization Address City/[facility] Phone Number [place] [address] [place] [address] [phone] [place] Comprehensive metabolic panel (09/07/2018 2:00 PM CDT) Protein, Total 7.5 6.0 - 8.3 gm/dL [facility] Albumin 4.1 3.5 - 5.0 g/dL [facility] Alkaline Phosphatase 56 40 - 150 U/L [facility] Total Bilirubin 0.5 0.2 - 1.2 mg/dL [facility] Sodium 135 (L) 136 - 145 meq/L [facility] Potassium 3.0 (L) 3.5 - 5.1 meq/L [facility] Chloride 84 (L) 98 - 107 meq/L [facility] CO2 39 (H) 22 - 29 meq/L [facility] BUN 64 (H) 7 - 21 mg/dL [facility] Creatinine 1.96 (H) 0.57 - 1.25 mg/dL [facility] Glucose 114 (H) 70 - 105 mg/dL [facility] Calcium 9.9 8.4 - 10.2 mg/dL [facility] AST 23 5 - 34 U/L [facility] ALT 16 6 - 55 U/L [facility] EGFR 33Comment: ESTIMATED GFR mL/min/1.73 sq m [facility] IS NOT ACCURATE [facility] CREATININE CLEARANCE IN PREDICTING GLOMERULAR FILTRATION RATE. ESTIMATED GFR IS NOT APPLICABLE FOR DIALYSIS PATIENTS. Specimen Blood Performing Organization Address City/State/Zipcode Phone Number [address] [address] [place] CARDIAC CATH REPORT - SCAN (03/09/2018 10:40 AM MATERIALS AND PROCESSES MANAGER) Narrative Performed At ECHOCARDIOGRAM REPORT - SCAN (03/05/2018 10:20 AM CDT) Narrative Performed At Prepare Leuko-Red RBC (03/04/2018 11:52 AM CDT) CROSSMATCH COMPATIBLE SAFETRACE TX Unit ABO A Pos SAFETRACE TX UNIT NUMBER [id number] SAFETRACE TX Status RETURNED FROM ISSUE SAFETRACE TX Blood Bank Product RED BLOOD CELLS SAF[place]ACE [place] PRODUCT CODE [id number] SAFETRACE [place] CROSSMATCH COMPATIBLE SAFETRACE TX Unit ABO A Pos SAFETRACE TX UNIT NUMBER [id number] SAFETRACE [place] Status RETURNED FROM ISSUE SAFETRACE [place] Blood Bank Product RED BLOOD CELLS SAFETRACE [place] PRODUCT CODE [id number] SAFETRACE [place] Specimen Other Performing Organization Address City/State/Zipcode Phone Number [place] Transesophageal echo (03/04/2018 7:32 AM CDT) Ejection Fraction [facility] E[facility]ART[facility] Response [employer] [facility] Specimen Narrative Performed At Transesophageal Echocardiography Report (SRINIVASA) [facility] ECHO HEARTLAB [employer] [facility] Demographics Patient Name Billie DAN of Study 03/04/2018 MUSTAPHA [id number] GenderMale Visit Number [id number] [id number] Room Number C633 Number Date of Birth1935 Referring Physician Amber Martínez MD Age82 year(s) Machine Feeder Jam Lopez Physician MD Josep Fellow DANG Ellis Procedure Type of Study SRINIVASA procedure:TRANSESOPHAGEAL ECHO Indications:TAVR. Clinical History ANEMIA,A-FIB,CANCER,CHF,COPD,VELASCO,EDEMA,GERD,HLD,HT N,PACEMAKER,,SOB Height: 72 inches Weight: 92.08 kg (203 lbs) BSA: 2.14 m^2 BMI: 27.53 kg/m^2 HR: 72 bpm BP: 113/63 mmHg Procedure Informed Consent SRINIVASA procedure notes General endotracheal anesthesia (GETA) provided by CV Anesthesia. . Summary Pre-operative and post-operative SRINIVASA for TAVR deployment. Successful TAVR deployment. Following deployment, probably severe eccentric MR better characterized as noted. 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 No apparent segmental wall motion abnormalities. Mild tricuspid regurgitation. Estimated peak systolic PA pressure is 45-50 mmHg + RA pressure. Signature Findings LeftNormal left ventricular chamber size. Normal wall thickness. Ventricle Normal overall left ventricular systolic function. No apparent segmental wall motion abnormalities. Left Atrium LA is enlarged but severity assessment is unreliable due to known SRINIVASA sector size limitation. LA appendage thrombus is not present. Right The right ventricular chamber size and systolic function are Ventricle within normal limits. Right AtriumRA cavity size is normal . Atrial Septum A patent foramen ovale (PFO) is not demonstrated by color Doppler. Aortic ValveSevere aortic stenosis. Following TAVR depolyment: Prosthetic AoV regurgitaton is trivial to mild . Prosthetic AR locations(s) are paravalvular at approximately 4 and 11 o''clock. . AoV dimensionless obstructive index (DOI)) is 0.83 . Post deployment gradient are noted in the data columns Mitral ValveThere is prolapse of the P3 scallop with probable small chordal rupture. 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 Valve Mild tricuspid regurgitation. Estimated peak systolic PA pressure is 45-50 mmHg + RA pressure. Pericardium No pericardial effusion is visualized. Chambers/Structures Left Ventricle LVOT Diameter: 2.29 cm Doppler/Quantitative Measurements Aortic Valve Peak Velocity: 1.11 m/sMean Velocity: 0.65 m/s Peak Gradient: 4.92 mmHg Mean Gradient: 2.13 mmHg AV Area (continuity): 3.41 cm^2 AV VTI: 17.29 cm AV DVI: 0.83 LVOT Peak Velocity: 0.88 m/s Peak Gradient: 3.13 mmHg Mean Velocity: 0.61 m/s Mean Gradient: 1.67 mmHg LVOT Diameter: 2.29 cmLVOT VTI: 14.33 cm LVOT Area: 4.12 cm^2LVOT SV:58.99 ml LVOT CO: 4.25 l/min LVOT CI: 1.99 l/min/m^2 Tricuspid Valve TR Velocity: 3.38 m/s TR Gradient: 45.63 mmHg Procedure Note Interface, External Ris In - 03/05/2018 9:32 AM CDT Transesophageal Echocardiography Report (SRINIVASA) Demographics Patient Name REJI DAN Date of Study 03/04/2018 MUSTAPHA Gender Male Visit Number [id number] Race Unknown Room Number C633 Number Date of 1935 Referring Physician Amber Martínez MD Age 82 year(s) 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 Clinical History ANEMIA,A-FIB,CANCER,CHF,COPD,VELASCO,EDEMA,GERD,HLD,HTN,PACEMAKER,,SOB Height: 72 inches Weight: 92.08 kg (203 lbs) BSA: 2.14 m^2 BMI: 27.53 kg/m^2 HR: 72 bpm BP: 113/63 mmHg Procedure Informed Consent SRINIVASA procedure notes General endotracheal anesthesia (GETA) provided by CV Anesthesia. . Summary Pre-operative and post-operative SRINIVASA for TAVR deployment. Successful TAVR deployment. Following deployment, probably severe eccentric MR better characterized as noted. 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 No apparent segmental wall motion abnormalities. Mild tricuspid regurgitation. Estimated peak systolic PA pressure is 45-50 mmHg + RA pressure. Signature Findings Left Normal left ventricular chamber size. Normal wall thickness. Ventricle Normal overall left ventricular systolic function. No apparent segmental wall motion abnormalities. Left Atrium LA is enlarged but severity assessment is unreliable due to known SRINIVASA sector size limitation. LA appendage thrombus is not present. Right The right ventricular chamber size and systolic function are Ventricle within normal limits. Right Atrium RA cavity size is normal . Atrial Septum A patent foramen ovale (PFO) is not demonstrated by color Doppler. Aortic Valve Severe aortic stenosis. Following TAVR depolyment: Prosthetic AoV regurgitaton is trivial to mild . Prosthetic AR locations(s) are paravalvular at approximately 4 and 11 o''clock. . AoV dimensionless obstructive index (DOI)) is 0.83 . 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 Valve Mild tricuspid regurgitation. Estimated peak systolic PA pressure is 45-50 mmHg + RA pressure. Pericardium No pericardial effusion is visualized. Chambers/Structures Left Ventricle LVOT Diameter: 2.29 cm Doppler/Quantitative Measurements Aortic Valve Peak Velocity: 1.11 m/s Mean Velocity: 0.65 m/s Peak Gradient: 4.92 mmHg Mean Gradient: 2.13 mmHg AV Area (continuity): 3.41 cm^2 AV VTI: 17.29 cm AV DVI: 0.83 LVOT Peak Velocity: 0.88 m/s Peak Gradient: 3.13 mmHg Mean Velocity: 0.61 m/s Mean Gradient: 1.67 mmHg LVOT Diameter: 2.29 cm LVOT VTI: 14.33 cm LVOT Area: 4.12 cm^2 LVOT SV:58.99 ml LVOT CO: 4.25 l/min LVOT CI: 1.99 l/min/m^2 Tricuspid Valve TR Velocity: 3.38 m/s TR Gradient: 45.63 mmHg Performing Organization Address City/[facility]/Zipcode Phone Number [facility] ECHO HEARTLAB MKCKESSON CPACS PT/aPTT (03/04/2018 7:00 AM CDT) Protime 13.7 11.7 - 14.7 seconds [facility] INR 1.0 <=5.9 [facility] PTT 23.9 22.5 - 36.0 seconds [facility] Specimen Blood Narrative Performed At RECOMMENDED COUMADIN/WARFARIN INR THERAPY [facility] RANGES STANDARD DOSE: 2.0 - 3.0 Includes: PROPHYLAXIS for venous thrombosis, systemic embolization; TREATMENT for venous thrombosis and/or pulmonary embolus. HIGH RISK: Target INR is 2.5-3.5 for patients with mechanical heart valves. Performing Organization Address [facility] Phone Number [address] [address] [place] B-type Natriuretic Factor (BNP) (03/04/2018 7:00 AM CDT) BNP 187 (H) 0 - 100 pg/mL [facility] Specimen Blood Performing Organization Address [facility] Phone Number [address] [address] [place] Albumin (03/04/2018 7:00 AM CDT) Albumin 3.6 3.5 - 5.0 g/dL [facility] Specimen Blood Performing Organization Address [facility] Phone Number [address] [address] CENTER CTA chest (02/17/2018 2:27 PM CDT) Specimen Narrative Performed At Addendum Begins GE RIS REPORT STATUS:A Addendum: I agree with the previously described non vascular findings by Dr. Viramontes. Signed: Cleve Stacy MD Report Verified Date/Time:02/18/2018 14:14:33 Reading Location: [facility] B1 P048 Angio Body Reading Room Addendum Ends FINAL REPORT CT angiography of the thoracoabdominal aorta and pelvic arteries, 17 February 2018 INDICATION: This is and 82 years old male, with a diagnosis of aortic stenosis, presents for preprocedure TAVR assessment.This study is performed in an attempt to avoid an invasive procedure. TECHNIQUE: Spiral acquisition before and during intravenous contrast administration using a Art multidetector CT scanner. Images were obtained before and during the dynamic passage of intravenous contrast material.Multi-planar 3-D volume-rendering reconstruction was performed using an independent workstation interactively by the interpreting physician as well as the 3-D specialist for optimal visualization of the thoracoabdominal aorta, the pelvic arteries as well as its proximal branches. Please refer to the contrast sheet scanned in the EPIC system for the amount and route of contrast given. This exam was performed according to our departmental dose-optimisation programme, which includes automated exposure control, adjustment of the mA and/or kV according to patient size and/or use of iterative reconstruction technique. Dose modulation, iterative reconstruction, and/or weight based adjustment of the mA/kV was utilized to reduce the radiation dose to as low as reasonably achievable. FINDINGS: VASCULAR: An electronic device is identified in the left upper chest with pacing leads identified in the right-sided cardiac chambers. In addition, could be a CS lead identified. Assessment is limited; please correlate with implantation history. The central pulmonary artery is prominent. The cardiac chambers demonstrate normal atrioventricular and ventriculoarterial concordance, and systemic and pulmonary venous return. The left ventricle is minimally prominent. Left and right atrial enlargement are seen. Mitral annular calcification is seen anteriorly and posteriorly. Coronary artery origins are normal. Scattered coronary artery calcification is identified in the left main coronary artery, LAD, LCx, as well as in the RCA territories. Patient has a diagnosis of aortic stenosis. The aortic valve is tricuspid. Aortic Agatston score is 2818. The location of aortic valvular calcification can be seen in reformatted data set sent to PACS. Aortic valve area 69 sq mm by planimetry. Regarding the aorta, only minimal calcification is identified in the ascending thoracic aorta. Dilation is seen in the ascending thoracic aorta with dimensions as described below. The transverse arch and descending thoracic aorta also mild calcific atherosclerosis identified. There is circumferential calcification seen in the infrarenal abdominal aorta. No acute aortic pathology is seen and no dissection or contained rupture is identified. Left common carotid artery arises from the innominate artery, ache, and variant. Arch vessel branching pattern is normal. The left subclavian artery, at image 32, measures approximately 9 mm in diameter. The right subclavian artery, at image 27, measures approximately 8 mm in diameter. The common iliac, external iliac, common femoral, and the visualised superficial femoral arteries, bilaterally, widely patent with only eccentric nonobstructive calcific atherosclerosis identified. The coeliac axis is patent with minimal calcific atherosclerosis present. Proximally, it measures 1.2 cm in diameter. The hepatic and splenic arteries are well seen. The SMA is widely patent, with replaced right hepatic artery. The PRETTY is patent. There are single left and right renal arteries seen with eccentric nonobstructive calcific atherosclerosis identified. Single left and right renal veins are seen draining normally the IVC. Dimensions that may be helpful for TAVR as follows: Only minimal calcification is seen in the ascending thoracic aorta. The major and minor aortic annulus diameter measures 31.1 and 23.9 mm, respectively. The aortic annulus perimeter measured 88 mm and the cross-sectional area measures 588 mm2. The aortic annulus diameter at the traditional LVOT and coronal LVOT measures 26.9 and 28.0 mm, respectively. For reference purpose, per KENT S3 brochure, recommendation are as follows: CT area between 273 to 345 mm2 (20 mm valve); 338 to 430 mm2 (23 mm valve); 430 to 546 mm2 (26 mm valve); 540 to 683 mm2 (29 mm valve). For reference purpose, per CoreValve Evolut R brochure, recommendation are as follows: CT perimeter between 56.5-62.8 mm (23 mm valve); 62.8-72.3 mm (26 mm valve); 72.3-81.7 mm (29 mm valve); and 81.7-94.2. mm (34 mm valve). Agatston Score is 2818.Planimetry, aortic valve area 69 sq mm. The sinus of Valsalva height to the takeoff of the coronary artery ostium, RCC (diastole): 12.7 mm The sinus of Valsalva height to the takeoff of the coronary artery ostium, LCC (diastole): 14.5 mm The sinus of Valsalva diameter, RCC (diastole): 37.7 mm The sinus of Valsalva diameter, LCC (diastole): 39.8 mm The sinus of Valsalva diameter, NCC (diastole): 37.6 mm The mid ascending thoracic aorta measure 4.7 x 4.7 cm in diameter. The sinotubular junction measures approximately 4.5 x 4.2 cm. The aortic root angulation measures 43.3 degrees. The minimal and perpendicular abdominal aortic diameter measures 14.7 x 15.9 mm, respectively. There is no evidence of thoracoabdominal aortic aneurysm or stent placement present. The minimum and the perpendicular left common iliac artery measures 12.9 and 13.3 mm, respectively with mildtortuosity and minimal calcific atherosclerosis present. The minimum and the perpendicular left external iliac artery measures 9.1 and 9.3 mm, respectively with jyvt-ki-bqxljscvdencylcdvd and nocalcific atherosclerosis present. The minimum and the perpendicular left femoral artery measures 9.1 and 10.0 mm, respectively with minimaltortuosity and minimalcalcific atherosclerosis present. The minimum and the perpendicular right common iliac artery measures 13.7 and 13.8 mm, respectively with mildtortuosity and minimal calcific atherosclerosis present. The minimum and the perpendicular rightexternal iliac artery measures 9.3 and 9.4 mm, respectively with borderlinetortuosity and nocalcific atherosclerosis present. The minimum and the perpendicular right femoral artery measures 9.7 and 10.0 mm, respectively with minimaltortuosity and minimal calcific atherosclerosis present. NON-VASCULAR: The visualised thyroid gland appears unremarkable. The chest wall and mediastinum has no acute abnormalities identified. No pericardial effusion is seen. Some small lymph nodes identified in the mediastinum, considered nonspecific in nature. In the lung windows, no obvious endobronchial lesion is seen, and no pleural effusions identified. Some segmental atelectatic changes are seen especially in the left lungs. Overall, no suspicious pulmonary nodule is identified, i.e. no nodule greater than 6 mm is present. In the abdomen, the liver and spleen appears unremarkable. The liver edge is smooth. No abnormal enhancing structure is identified. The gallbladder is contracted. Small gallstones are seen in the gallbladder with no wall thickening identified. The adrenal glands are unremarkable. The pancreas unremarkable. No acute renal pathology is seen and no hydronephrosis or perirenal fluid collections identified. Some cortical scarring is present. Bowel is not well assessed by CT angiography as enteric contrast not given. No obvious bowel dilation is seen. A hiatus hernia is present. Small bilateral fat-containing inguinal hernia is present. The prostate gland appears unremarkable. The bladder is mildly dilated. No free air or free fluid seen abdomen and pelvis. No significant retroperitoneal adenopathy is identified. Some nonspecific para-aortic lymph nodes are seen. In the bony windows, no acute bony pathology is identified. Some degenerative changes are noted. CONCLUSIONS: 1.Patient has a diagnosis of aortic stenosis, presents for preprocedure TAVR assessment. Aortic valve is tricuspid, and the Agatston score is over 2800. By planimetry, aortic valve area 69 sq mm. Location of aortic valvular calcification can be seen in reformatted data set sent to PACS. The ascending thoracic aorta only had minimal calcific atherosclerosis identified though dilation is seen maximum diameter measure 4.7 cm at the mid ascending level. No acute aortic pathology is identified. Dimensions that may be helpful for TAVR as described above. 2.Normal coronary artery origins.Scattered coronary artery calcification is seen in all three coronary territories. 3.No acute pulmonary pathology is identified. The central pulmonary artery is prominent. Other findings as described above. 4.An addendum will be dictated by the Stone Sandblaster Radiologist regarding the nonvascular findings. Signed: Sg Viramontes MD Report Verified Date/Time:02/17/2018 16:19:13 Reading Location: [place] [address] Cardiology MRI Procedure Note Interface, External Ris In - 02/18/2018 2:16 PM CDT Addendum Begins REPORT STATUS:A Addendum: I agree with the previously described non vascular findings by Dr. Viramontes. Signed: Cleve Stacy MD Report Verified Date/Time: 02/18/2018 14:14:33 Reading Location: [place] [address] Angio Body Reading Room Addendum Ends FINAL REPORT CT angiography of the thoracoabdominal aorta and pelvic arteries, 17 February 2018 INDICATION: This is and 82 years old male, with a diagnosis of aortic stenosis, presents for preprocedure TAVR assessment. This study is performed in an attempt to avoid an invasive procedure. TECHNIQUE: Spiral acquisition before and during intravenous contrast administration using a Art multidetector CT scanner. Images were obtained before and during the dynamic passage of intravenous contrast material. Multi-planar 3-D volume-rendering reconstruction was performed using an independent workstation interactively by the interpreting physician as well as the 3-D specialist for optimal visualization of the thoracoabdominal aorta, the pelvic arteries as well as its proximal branches. Please refer to the contrast sheet scanned in the EPIC system for the amount and route of contrast given. This exam was performed according to our departmental dose-optimisation programme, which includes automated exposure control, adjustment of the mA and/or kV according to patient size and/or use of iterative reconstruction technique. Dose modulation, iterative reconstruction, and/or weight based adjustment of the mA/kV was utilized to reduce the radiation dose to as low as reasonably achievable. FINDINGS: VASCULAR: An electronic device is identified in the left upper chest with pacing leads identified in the right-sided cardiac chambers. In addition, could be a CS lead identified. Assessment is limited; please correlate with implantation history. The central pulmonary artery is prominent. The cardiac chambers demonstrate normal atrioventricular and ventriculoarterial concordance, and systemic and pulmonary venous return. The left ventricle is minimally prominent. Left and right atrial enlargement are seen. Mitral annular calcification is seen anteriorly and posteriorly. Coronary artery origins are normal. Scattered coronary artery calcification is identified in the left main coronary artery, LAD, LCx, as well as in the RCA territories. Patient has a diagnosis of aortic stenosis. The aortic valve is tricuspid. Aortic Agatston score is 2818. The location of aortic valvular calcification can be seen in reformatted data set sent to PACS. Aortic valve area 69 sq mm by planimetry. Regarding the aorta, only minimal calcification is identified in the ascending thoracic aorta. Dilation is seen in the ascending thoracic aorta with dimensions as described below. The transverse arch and descending thoracic aorta also mild calcific atherosclerosis identified. There is circumferential calcification seen in the infrarenal abdominal aorta. No acute aortic pathology is seen and no dissection or contained rupture is identified. Left common carotid artery arises from the innominate artery, ache, and variant. Arch vessel branching pattern is normal. The left subclavian artery, at image 32, measures approximately 9 mm in diameter. The right subclavian artery, at image 27, measures approximately 8 mm in diameter. The common iliac, external iliac, common femoral, and the visualised superficial femoral arteries, bilaterally, widely patent with only eccentric nonobstructive calcific atherosclerosis identified. The coeliac axis is patent with minimal calcific atherosclerosis present. Proximally, it measures 1.2 cm in diameter. The hepatic and splenic arteries are well seen. The SMA is widely patent, with replaced right hepatic artery. The PRETTY is patent. There are single left and right renal arteries seen with eccentric nonobstructive calcific atherosclerosis identified. Single left and right renal veins are seen draining normally the IVC. Dimensions that may be helpful for TAVR as follows: Only minimal calcification is seen in the ascending thoracic aorta. The major and minor aortic annulus diameter measures 31.1 and 23.9 mm, respectively. The aortic annulus perimeter measured 88 mm and the cross-sectional area measures 588 mm2. The aortic annulus diameter at the traditional LVOT and coronal LVOT measures 26.9 and 28.0 mm, respectively. For reference purpose, per KENT S3 brochure, recommendation are as follows: CT area between 273 to 345 mm2 (20 mm valve); 338 to 430 mm2 (23 mm valve); 430 to 546 mm2 (26 mm valve); 540 to 683 mm2 (29 mm valve). For reference purpose, per [employer]Valve Evolut R brochure, recommendation are as follows: CT perimeter between 56.5-62.8 mm (23 mm valve); 62.8-72.3 mm (26 mm valve); 72.3-81.7 mm (29 mm valve); and 81.7-94.2. mm (34 mm valve). Agatston Score is 2818. Planimetry, aortic valve area 69 sq mm. The sinus of Valsalva height to the takeoff of the coronary artery ostium, RCC (diastole): 12.7 mm The sinus of Valsalva height to the takeoff of the coronary artery ostium, LCC (diastole): 14.5 mm The sinus of Valsalva diameter, RCC (diastole): 37.7 mm The sinus of Valsalva diameter, LCC (diastole): 39.8 mm The sinus of Valsalva diameter, NCC (diastole): 37.6 mm The mid ascending thoracic aorta measure 4.7 x 4.7 cm in diameter. The sinotubular junction measures approximately 4.5 x 4.2 cm. The aortic root angulation measures 43.3 degrees. The minimal and perpendicular abdominal aortic diameter measures 14.7 x 15.9 mm, respectively. There is no evidence of thoracoabdominal aortic aneurysm or stent placement present. The minimum and the perpendicular left common iliac artery measures 12.9 and 13.3 mm, respectively with mild tortuosity and minimal calcific atherosclerosis present. The minimum and the perpendicular left external iliac artery measures 9.1 and 9.3 mm, respectively with udqr-yf-ljcqlsms tortuosity and no calcific atherosclerosis present. The minimum and the perpendicular left femoral artery measures 9.1 and 10.0 mm, respectively with minimal tortuosity and minimal calcific atherosclerosis present. The minimum and the perpendicular right common iliac artery measures 13.7 and 13.8 mm, respectively with mild tortuosity and minimal calcific atherosclerosis present. The minimum and the perpendicular right external iliac artery measures 9.3 and 9.4 mm, respectively with borderline tortuosity and no calcific atherosclerosis present. The minimum and the perpendicular right femoral artery measures 9.7 and 10.0 mm, respectively with minimal tortuosity and minimal calcific atherosclerosis present. NON-VASCULAR: The visualised thyroid gland appears unremarkable. The chest wall and mediastinum has no acute abnormalities identified. No pericardial effusion is seen. Some small lymph nodes identified in the mediastinum, considered nonspecific in nature. In the lung windows, no obvious endobronchial lesion is seen, and no pleural effusions identified. Some segmental atelectatic changes are seen especially in the left lungs. Overall, no suspicious pulmonary nodule is identified, i.e. no nodule greater than 6 mm is present. In the abdomen, the liver and spleen appears unremarkable. The liver edge is smooth. No abnormal enhancing structure is identified. The gallbladder is contracted. Small gallstones are seen in the gallbladder with no wall thickening identified. The adrenal glands are unremarkable. The pancreas unremarkable. No acute renal pathology is seen and no hydronephrosis or perirenal fluid collections identified. Some cortical scarring is present. Bowel is not well assessed by CT angiography as enteric contrast not given. No obvious bowel dilation is seen. A hiatus hernia is present. Small bilateral fat-containing inguinal hernia is present. The prostate gland appears unremarkable. The bladder is mildly dilated. No free air or free fluid seen abdomen and pelvis. No significant retroperitoneal adenopathy is identified. Some nonspecific para-aortic lymph nodes are seen. In the bony windows, no acute bony pathology is identified. Some degenerative changes are noted. CONCLUSIONS: 1. Patient has a diagnosis of aortic stenosis, presents for preprocedure TAVR assessment. Aortic valve is tricuspid, and the Agatston score is over 2800. By planimetry, aortic valve area 69 sq mm. Location of aortic valvular calcification can be seen in reformatted data set sent to PACS. The ascending thoracic aorta only had minimal calcific atherosclerosis identified though dilation is seen maximum diameter measure 4.7 cm at the mid ascending level. No acute aortic pathology is identified. Dimensions that may be helpful for TAVR as described above. 2. Normal coronary artery origins. Scattered coronary artery calcification is seen in all three coronary territories. 3. No acute pulmonary pathology is identified. The central pulmonary artery is prominent. Other findings as described above. 4. An addendum will be dictated by the Stone Sandblaster Radiologist regarding the nonvascular findings. Signed: Sg Viramontes MD Report Verified Date/Time: 02/17/2018 16:19:13 Reading Location: [place] [id number] Cardiology MRI Performing Organization Address City/State/Zipcode Phone Number [facility] CTA abdomen & pelvis (02/17/2018 2:27 PM CDT) Specimen Narrative Performed At Addendum Begins [facility] REPORT STATUS:A Addendum: I agree with the previously described non vascular findings by Dr. Viramontes. Signed: Cleve Stacy MD Report Verified Date/Time:02/18/2018 14:14:33 Reading Location: [facility] P048 Angio Body Reading Room Addendum Ends FINAL REPORT CT angiography of the thoracoabdominal aorta and pelvic arteries, 17 February 2018 INDICATION: This is and 82 years old male, with a diagnosis of aortic stenosis, presents for preprocedure TAVR assessment.This study is performed in an attempt to avoid an invasive procedure. TECHNIQUE: Spiral acquisition before and during intravenous contrast administration using a Art multidetector CT scanner. Images were obtained before and during the dynamic passage of intravenous contrast material.Multi-planar 3-D volume-rendering reconstruction was performed using an independent workstation interactively by the interpreting physician as well as the 3-D specialist for optimal visualization of the thoracoabdominal aorta, the pelvic arteries as well as its proximal branches. Please refer to the contrast sheet scanned in the EPIC system for the amount and route of contrast given. This exam was performed according to our departmental dose-optimisation programme, which includes automated exposure control, adjustment of the mA and/or kV according to patient size and/or use of iterative reconstruction technique. Dose modulation, iterative reconstruction, and/or weight based adjustment of the mA/kV was utilized to reduce the radiation dose to as low as reasonably achievable. FINDINGS: VASCULAR: An electronic device is identified in the left upper chest with pacing leads identified in the right-sided cardiac chambers. In addition, could be a CS lead identified. Assessment is limited; please correlate with implantation history. The central pulmonary artery is prominent. The cardiac chambers demonstrate normal atrioventricular and ventriculoarterial concordance, and systemic and pulmonary venous return. The left ventricle is minimally prominent. Left and right atrial enlargement are seen. Mitral annular calcification is seen anteriorly and posteriorly. Coronary artery origins are normal. Scattered coronary artery calcification is identified in the left main coronary artery, LAD, LCx, as well as in the RCA territories. Patient has a diagnosis of aortic stenosis. The aortic valve is tricuspid. Aortic Agatston score is 2818. The location of aortic valvular calcification can be seen in reformatted data set sent to PACS. Aortic valve area 69 sq mm by planimetry. Regarding the aorta, only minimal calcification is identified in the ascending thoracic aorta. Dilation is seen in the ascending thoracic aorta with dimensions as described below. The transverse arch and descending thoracic aorta also mild calcific atherosclerosis identified. There is circumferential calcification seen in the infrarenal abdominal aorta. No acute aortic pathology is seen and no dissection or contained rupture is identified. Left common carotid artery arises from the innominate artery, ache, and variant. Arch vessel branching pattern is normal. The left subclavian artery, at image 32, measures approximately 9 mm in diameter. The right subclavian artery, at image 27, measures approximately 8 mm in diameter. The common iliac, external iliac, common femoral, and the visualised superficial femoral arteries, bilaterally, widely patent with only eccentric nonobstructive calcific atherosclerosis identified. The coeliac axis is patent with minimal calcific atherosclerosis present. Proximally, it measures 1.2 cm in diameter. The hepatic and splenic arteries are well seen. The SMA is widely patent, with replaced right hepatic artery. The PRETTY is patent. There are single left and right renal arteries seen with eccentric nonobstructive calcific atherosclerosis identified. Single left and right renal veins are seen draining normally the IVC. Dimensions that may be helpful for TAVR as follows: Only minimal calcification is seen in the ascending thoracic aorta. The major and minor aortic annulus diameter measures 31.1 and 23.9 mm, respectively. The aortic annulus perimeter measured 88 mm and the cross-sectional area measures 588 mm2. The aortic annulus diameter at the traditional LVOT and coronal LVOT measures 26.9 and 28.0 mm, respectively. For reference purpose, per [employer] S3 brochure, recommendation are as follows: CT area between 273 to 345 mm2 (20 mm valve); 338 to 430 mm2 (23 mm valve); 430 to 546 mm2 (26 mm valve); 540 to 683 mm2 (29 mm valve). For reference purpose, per [employer] Evolut R brochure, recommendation are as follows: CT perimeter between 56.5-62.8 mm (23 mm valve); 62.8-72.3 mm (26 mm valve); 72.3-81.7 mm (29 mm valve); and 81.7-94.2. mm (34 mm valve). Agatston Score is 2818.Planimetry, aortic valve area 69 sq mm. The sinus of Valsalva height to the takeoff of the coronary artery ostium, RCC (diastole): 12.7 mm The sinus of Valsalva height to the takeoff of the coronary artery ostium, LCC (diastole): 14.5 mm The sinus of Valsalva diameter, RCC (diastole): 37.7 mm The sinus of Valsalva diameter, LCC (diastole): 39.8 mm The sinus of Valsalva diameter, NCC (diastole): 37.6 mm The mid ascending thoracic aorta measure 4.7 x 4.7 cm in diameter. The sinotubular junction measures approximately 4.5 x 4.2 cm. The aortic root angulation measures 43.3 degrees. The minimal and perpendicular abdominal aortic diameter measures 14.7 x 15.9 mm, respectively. There is no evidence of thoracoabdominal aortic aneurysm or stent placement present. The minimum and the perpendicular left common iliac artery measures 12.9 and 13.3 mm, respectively with mildtortuosity and minimal calcific atherosclerosis present. The minimum and the perpendicular left external iliac artery measures 9.1 and 9.3 mm, respectively with dbgr-[id number] and nocalcific atherosclerosis present. The minimum and the perpendicular left femoral artery measures 9.1 and 10.0 mm, respectively with minimaltortuosity and minimalcalcific atherosclerosis present. The minimum and the perpendicular right common iliac artery measures 13.7 and 13.8 mm, respectively with mildtortuosity and minimal calcific atherosclerosis present. The minimum and the perpendicular rightexternal iliac artery measures 9.3 and 9.4 mm, respectively with borderlinetortuosity and nocalcific atherosclerosis present. The minimum and the perpendicular right femoral artery measures 9.7 and 10.0 mm, respectively with minimaltortuosity and minimal calcific atherosclerosis present. NON-VASCULAR: The visualised thyroid gland appears unremarkable. The chest wall and mediastinum has no acute abnormalities identified. No pericardial effusion is seen. Some small lymph nodes identified in the mediastinum, considered nonspecific in nature. In the lung windows, no obvious endobronchial lesion is seen, and no pleural effusions identified. Some segmental atelectatic changes are seen especially in the left lungs. Overall, no suspicious pulmonary nodule is identified, i.e. no nodule greater than 6 mm is present. In the abdomen, the liver and spleen appears unremarkable. The liver edge is smooth. No abnormal enhancing structure is identified. The gallbladder is contracted. Small gallstones are seen in the gallbladder with no wall thickening identified. The adrenal glands are unremarkable. The pancreas unremarkable. No acute renal pathology is seen and no hydronephrosis or perirenal fluid collections identified. Some cortical scarring is present. Bowel is not well assessed by CT angiography as enteric contrast not given. No obvious bowel dilation is seen. A hiatus hernia is present. Small bilateral fat-containing inguinal hernia is present. The prostate gland appears unremarkable. The bladder is mildly dilated. No free air or free fluid seen abdomen and pelvis. No significant retroperitoneal adenopathy is identified. Some nonspecific para-aortic lymph nodes are seen. In the bony windows, no acute bony pathology is identified. Some degenerative changes are noted. CONCLUSIONS: 1.Patient has a diagnosis of aortic stenosis, presents for preprocedure TAVR assessment. Aortic valve is tricuspid, and the Agatston score is over 2800. By planimetry, aortic valve area 69 sq mm. Location of aortic valvular calcification can be seen in reformatted data set sent to PACS. The ascending thoracic aorta only had minimal calcific atherosclerosis identified though dilation is seen maximum diameter measure 4.7 cm at the mid ascending level. No acute aortic pathology is identified. Dimensions that may be helpful for TAVR as described above. 2.Normal coronary artery origins.Scattered coronary artery calcification is seen in all three coronary territories. 3.No acute pulmonary pathology is identified. The central pulmonary artery is prominent. Other findings as described above. 4.An addendum will be dictated by the Stone Sandblaster Radiologist regarding the nonvascular findings. Signed: Sg Viramontes MD Report Verified Date/Time:02/17/2018 16:19:13 Reading Location: [place] [id number] Cardiology MRI Procedure Note Interface, External Ris In - 02/18/2018 2:16 PM CDT Addendum Begins REPORT STATUS:A Addendum: I agree with the previously described non vascular findings by Dr. Viramontes. Signed: Cleve Stacy MD Report Verified Date/Time: 02/18/2018 14:14:33 Reading Location: [place] [address] Angio Body Reading Room Addendum Ends FINAL REPORT CT angiography of the thoracoabdominal aorta and pelvic arteries, 17 February 2018 INDICATION: This is and 82 years old male, with a diagnosis of aortic stenosis, presents for preprocedure TAVR assessment. This study is performed in an attempt to avoid an invasive procedure. TECHNIQUE: Spiral acquisition before and during intravenous contrast administration using a Art multidetector CT scanner. Images were obtained before and during the dynamic passage of intravenous contrast material. Multi-planar 3-D volume-rendering reconstruction was performed using an independent workstation interactively by the interpreting physician as well as the 3-D specialist for optimal visualization of the thoracoabdominal aorta, the pelvic arteries as well as its proximal branches. Please refer to the contrast sheet scanned in the EPIC system for the amount and route of contrast given. This exam was performed according to our departmental dose-optimisation programme, which includes automated exposure control, adjustment of the mA and/or kV according to patient size and/or use of iterative reconstruction technique. Dose modulation, iterative reconstruction, and/or weight based adjustment of the mA/kV was utilized to reduce the radiation dose to as low as reasonably achievable. FINDINGS: VASCULAR: An electronic device is identified in the left upper chest with pacing leads identified in the right-sided cardiac chambers. In addition, could be a CS lead identified. Assessment is limited; please correlate with implantation history. The central pulmonary artery is prominent. The cardiac chambers demonstrate normal atrioventricular and ventriculoarterial concordance, and systemic and pulmonary venous return. The left ventricle is minimally prominent. Left and right atrial enlargement are seen. Mitral annular calcification is seen anteriorly and posteriorly. Coronary artery origins are normal. Scattered coronary artery calcification is identified in the left main coronary artery, LAD, LCx, as well as in the RCA territories. Patient has a diagnosis of aortic stenosis. The aortic valve is tricuspid. Aortic Agatston score is 2818. The location of aortic valvular calcification can be seen in reformatted data set sent to PACS. Aortic valve area 69 sq mm by planimetry. Regarding the aorta, only minimal calcification is identified in the ascending thoracic aorta. Dilation is seen in the ascending thoracic aorta with dimensions as described below. The transverse arch and descending thoracic aorta also mild calcific atherosclerosis identified. There is circumferential calcification seen in the infrarenal abdominal aorta. No acute aortic pathology is seen and no dissection or contained rupture is identified. Left common carotid artery arises from the innominate artery, ache, and variant. Arch vessel branching pattern is normal. The left subclavian artery, at image 32, measures approximately 9 mm in diameter. The right subclavian artery, at image 27, measures approximately 8 mm in diameter. The common iliac, external iliac, common femoral, and the visualised superficial femoral arteries, bilaterally, widely patent with only eccentric nonobstructive calcific atherosclerosis identified. The coeliac axis is patent with minimal calcific atherosclerosis present. Proximally, it measures 1.2 cm in diameter. The hepatic and splenic arteries are well seen. The SMA is widely patent, with replaced right hepatic artery. The PRETTY is patent. There are single left and right renal arteries seen with eccentric nonobstructive calcific atherosclerosis identified. Single left and right renal veins are seen draining normally the IVC. Dimensions that may be helpful for TAVR as follows: Only minimal calcification is seen in the ascending thoracic aorta. The major and minor aortic annulus diameter measures 31.1 and 23.9 mm, respectively. The aortic annulus perimeter measured 88 mm and the cross-sectional area measures 588 mm2. The aortic annulus diameter at the traditional LVOT and coronal LVOT measures 26.9 and 28.0 mm, respectively. For reference purpose, per [employer] S3 brochure, recommendation are as follows: CT area between 273 to 345 mm2 (20 mm valve); 338 to 430 mm2 (23 mm valve); 430 to 546 mm2 (26 mm valve); 540 to 683 mm2 (29 mm valve). For reference purpose, per [employer] Evolut R brochure, recommendation are as follows: CT perimeter between 56.5-62.8 mm (23 mm valve); 62.8-72.3 mm (26 mm valve); 72.3-81.7 mm (29 mm valve); and 81.7-94.2. mm (34 mm valve). Agatston Score is 2818. Planimetry, aortic valve area 69 sq mm. The sinus of Valsalva height to the takeoff of the coronary artery ostium, RCC (diastole): 12.7 mm The sinus of Valsalva height to the takeoff of the coronary artery ostium, LCC (diastole): 14.5 mm The sinus of Valsalva diameter, RCC (diastole): 37.7 mm The sinus of Valsalva diameter, LCC (diastole): 39.8 mm The sinus of Valsalva diameter, NCC (diastole): 37.6 mm The mid ascending thoracic aorta measure 4.7 x 4.7 cm in diameter. The sinotubular junction measures approximately 4.5 x 4.2 cm. The aortic root angulation measures 43.3 degrees. The minimal and perpendicular abdominal aortic diameter measures 14.7 x 15.9 mm, respectively. There is no evidence of thoracoabdominal aortic aneurysm or stent placement present. The minimum and the perpendicular left common iliac artery measures 12.9 and 13.3 mm, respectively with mild tortuosity and minimal calcific atherosclerosis present. The minimum and the perpendicular left external iliac artery measures 9.1 and 9.3 mm, respectively with [id number] tortuosity and no calcific atherosclerosis present. The minimum and the perpendicular left femoral artery measures 9.1 and 10.0 mm, respectively with minimal tortuosity and minimal calcific atherosclerosis present. The minimum and the perpendicular right common iliac artery measures 13.7 and 13.8 mm, respectively with mild tortuosity and minimal calcific atherosclerosis present. The minimum and the perpendicular right external iliac artery measures 9.3 and 9.4 mm, respectively with borderline tortuosity and no calcific atherosclerosis present. The minimum and the perpendicular right femoral artery measures 9.7 and 10.0 mm, respectively with minimal tortuosity and minimal calcific atherosclerosis present. NON-VASCULAR: The visualised thyroid gland appears unremarkable. The chest wall and mediastinum has no acute abnormalities identified. No pericardial effusion is seen. Some small lymph nodes identified in the mediastinum, considered nonspecific in nature. In the lung windows, no obvious endobronchial lesion is seen, and no pleural effusions identified. Some segmental atelectatic changes are seen especially in the left lungs. Overall, no suspicious pulmonary nodule is identified, i.e. no nodule greater than 6 mm is present. In the abdomen, the liver and spleen appears unremarkable. The liver edge is smooth. No abnormal enhancing structure is identified. The gallbladder is contracted. Small gallstones are seen in the gallbladder with no wall thickening identified. The adrenal glands are unremarkable. The pancreas unremarkable. No acute renal pathology is seen and no hydronephrosis or perirenal fluid collections identified. Some cortical scarring is present. Bowel is not well assessed by CT angiography as enteric contrast not given. No obvious bowel dilation is seen. A hiatus hernia is present. Small bilateral fat-containing inguinal hernia is present. The prostate gland appears unremarkable. The bladder is mildly dilated. No free air or free fluid seen abdomen and pelvis. No significant retroperitoneal adenopathy is identified. Some nonspecific para-aortic lymph nodes are seen. In the bony windows, no acute bony pathology is identified. Some degenerative changes are noted. CONCLUSIONS: 1. Patient has a diagnosis of aortic stenosis, presents for preprocedure TAVR assessment. Aortic valve is tricuspid, and the Agatston score is over 2800. By planimetry, aortic valve area 69 sq mm. Location of aortic valvular calcification can be seen in reformatted data set sent to PACS. The ascending thoracic aorta only had minimal calcific atherosclerosis identified though dilation is seen maximum diameter measure 4.7 cm at the mid ascending level. No acute aortic pathology is identified. Dimensions that may be helpful for TAVR as described above. 2. Normal coronary artery origins. Scattered coronary artery calcification is seen in all three coronary territories. 3. No acute pulmonary pathology is identified. The central pulmonary artery is prominent. Other findings as described above. 4. An addendum will be dictated by the Stone Sandblaster Radiologist regarding the nonvascular findings. Signed: Sg Viramontes MD Report Verified Date/Time: 02/17/2018 16:19:13 Reading Location: [place] [address] Cardiology MRI Performing Organization Address City/[facility] Phone Number [facility] POC-Creatinine (02/17/2018 2:01 PM CDT) POC-Creatinine 1.7 (H)Comment: TESTED AT 0.6 - 1.3 mg/dL [facility] [address] [place] [address] POC-EGFR 39 mL/min/1.73M2 [facility] Specimen Blood Performing Organization Address City/[facility] Phone Number [facility] [address] [place] [address] CENTER after 09/21/2017 Insurance Payer Benefit Plan / Subscriber ID Type Phone Address Group MEDICARE MEDICARE A B xxxxxxxxxxx Medicare BLUE CROSS/BLUE BCBS INDEMNITY CT xxxxxxxxxxxx PPO [phone] [address] [place] [address] Advance Directives For more information, please contact:[address] [phone] Code Status Date Activated Date Inactivated Comments Full Code 09/14/2018 1:10 PM 09/21/2018 3:41 PM This code status was determined by: Patient Full Code 03/04/2018 1:51 PM 09/13/2018 6:19 AM This code status was determined by: Patient Full Code 03/04/2018 1:51 PM 03/04/2018 1:51 PM This code status was determined by: Patient
--- OUTSIDE RECORDS SUMMARY | 2018-09-22 14:26 | XMS REPORT ---
:1935 [facility] [address] [place] [address] [address] [place] [address] Care Team Providers Name Role Phone FARHAN BRAND Unavailable Unavailable KEISHA DIEHL Unavailable Unavailable Problems This patient has no known problems. Allergies, Adverse Reactions, Alerts This patient has no known allergies or adverse reactions. Medications This patient has no known medications. Results Test Description Test Time Test Comments Text Results Atomic Results Result Comments POCT-GLUCOSE METER 2018-09-21 12:26:00 Test Item Value Reference Range Comments POC-GLUCOSE METER (BEAKER) (test 151 mg/dL 70-110 TESTED AT [facility] [address] [facility] rqbd=1587) [facility] [address] [id number] 07:58:00 Test Item Value Reference Range Comments MAGNESIUM (BEAKER) (test swan=752) 2.1 mg/dL 1.6-2.6 BASIC METABOLIC [id number] 07:58:00 Test Item Value Reference Range Comments SODIUM (BEAKER) (test 138 meq/L 136-145 ttpo=139) POTASSIUM (BEAKER) (test 4.4 meq/L 3.5-5.1 hhcr=231) CHLORIDE (BEAKER) (test 97 meq/L 98-107 zfye=177) CO2 (BEAKER) (test 34 meq/L 22-29 uhkf=805) BLOOD UREA NITROGEN 19 mg/dL 7-21 (BEAKER) (test ixxq=089) CREATININE (BEAKER) (test 0.90 mg/dL 0.57-1.25 npbd=035) GLUCOSE RANDOM (BEAKER) 88 mg/dL 70-105 (test xlqd=157) CALCIUM (BEAKER) (test 8.7 mg/dL 8.4-10.2 mavc=015) EGFR (BEAKER) (test 81 mL/min/1.73 sq m ESTIMATED GFR IS NOT qeip=1411) ACCURATE CREATININE CLEARANCE IN PREDICTING GLOMERULAR FILTRATION RATE. ESTIMATED GFR IS NOT APPLICABLE FOR DIALYSIS PATIENTS. CBC (HEMOGRAM ONLY)2018-09-21 06:38:00 Test Item Value Reference Range Comments WHITE BLOOD CELL COUNT (BEAKER) (test xwha=426) 7.8 K/ L 3.5-10.5 RED BLOOD CELL COUNT (BEAKER) (test lpca=285) 3.57 M/ L 4.63-6.08 HEMOGLOBIN (BEAKER) (test xean=981) 10.9 GM/DL 13.7-17.5 HEMATOCRIT (BEAKER) (test xcop=981) 36.5 % 40.1-51.0 MEAN CORPUSCULAR VOLUME (BEAKER) (test nqpt=262) 102.2 fL 79.0-92.2 MEAN CORPUSCULAR HEMOGLOBIN (BEAKER) (test 30.5 pg 25.7-32.2 jvfh=924) MEAN CORPUSCULAR HEMOGLOBIN CONC (BEAKER) (test 29.9 GM/DL 32.3-36.5 rftc=476) RED CELL DISTRIBUTION WIDTH (BEAKER) (test 13.6 % 11.6-14.4 phws=568) PLATELET COUNT (BEAKER) (test njmo=770) 182 K/CU MM 150-450 MEAN PLATELET VOLUME (BEAKER) (test wagv=763) 9.5 fL 9.4-12.4 NUCLEATED RED BLOOD CELLS (BEAKER) (test 0 /100 WBC 0-0 opxj=176) TISSUE [id number] 11:06:00Surgical Pathology Report Case: [id number] Authorizing Provider: Farhan Brand, Collected: 09/13/2018 1146 OrderingLocation: [facility] Received: 2018 1237 PERIOPERATIVE SERVICES Pathologist: Yousif Alfonso MD Specimen: Leaflets HEART, MITRAL VALVE, VALVULECTOMY:FIBROMYXOID THICKENING WITH FOCAL SCLEROSIS Signing Pathologist Direct Phone Line:[phone] signed by Yousif Alfonso MD on 09/20/2018 at 11:06 [id number]; [id number] valve insufficiency, unspecified etiology The specimen is received in formalin labeled with the patient's information as well as "leaflets". It contains a 4.5 x 2.5 x 0.6 cm aggregate of ash-white membranous mitral valve leaflets. The leaflets are flexible ash-yellow focal flat end. Pinpoint calcification is present. No vegetations are seen. No masses are appreciated. The specimen is submitted representatively in a single cassette following decalcification. [facility]/ [facility] ([facility] ONLY)2018-09-20 10:51:00 Test Item Value Reference Range Comments WHITE BLOOD CELL COUNT (BEAKER) (test hxje=606) 9.3 K/ L 3.5-10.5 RED BLOOD CELL COUNT (BEAKER) (test cpct=266) 3.29 M/ L 4.63-6.08 HEMOGLOBIN (BEAKER) (test xync=148) 10.4 GM/DL 13.7-17.5 HEMATOCRIT (BEAKER) (test hzbm=105) 33.4 % 40.1-51.0 MEAN CORPUSCULAR VOLUME (BEAKER) (test msna=757) 101.5 fL 79.0-92.2 MEAN CORPUSCULAR HEMOGLOBIN (BEAKER) (test 31.6 pg 25.7-32.2 vwww=318) MEAN CORPUSCULAR HEMOGLOBIN CONC (BEAKER) (test 31.1 GM/DL 32.3-36.5 jfxf=970) RED CELL DISTRIBUTION WIDTH (BEAKER) (test 13.7 % 11.6-14.4 llxg=764) PLATELET COUNT (BEAKER) (test ecrq=053) 168 K/CU MM 150-450 MEAN PLATELET VOLUME (BEAKER) (test dpee=145) 9.7 fL 9.4-12.4 NUCLEATED RED BLOOD CELLS (BEAKER) (test 0 /100 WBC 0-0 rvwu=060) [id number] 05:51:00 Test Item Value Reference Range Comments MAGNESIUM (BEAKER) (test huri=832) 2.4 mg/dL 1.6-2.6 BASIC METABOLIC [id number] 05:51:00 Test Item Value Reference Range Comments SODIUM (BEAKER) (test 139 meq/L 136-145 wxvr=249) POTASSIUM (BEAKER) (test 4.5 meq/L 3.5-5.1 oubu=804) CHLORIDE (BEAKER) (test 95 meq/L 98-107 wdbs=086) CO2 (BEAKER) (test 38 meq/L 22-29 wqab=862) BLOOD UREA NITROGEN 20 mg/dL 7-21 (BEAKER) (test ebci=115) CREATININE (BEAKER) (test 0.90 mg/dL 0.57-1.25 ebyr=975) GLUCOSE RANDOM (BEAKER) 100 mg/dL 70-105 (test xtnb=609) CALCIUM (BEAKER) (test 8.8 mg/dL 8.4-10.2 xeqv=608) EGFR (BEAKER) (test 81 mL/min/1.73 sq m ESTIMATED GFR IS NOT akmf=7768) ACCURATE CREATININE CLEARANCE IN PREDICTING GLOMERULAR FILTRATION RATE. ESTIMATED GFR IS NOT APPLICABLE FOR DIALYSIS PATIENTS. BLOOD GAS, [id number] 16:58:00 Test Item Value Reference Range Comments PH ARTERIAL (BEAKER) (test gwvb=821) 7.48 7.35-7.45 PCO2 ARTERIAL (BEAKER) (test wrlo=044) 52 mmHg 35-45 PO2 ARTERIAL (BEAKER) (test hpvo=156) 84 mmHg 80-90 O2 SATURATION ARTERIAL (BEAKER) (test mqep=011) 96.9 % 96.0-97.0 HCO3 ARTERIAL (BEAKER) (test juyv=560) 38 mmol/L 21-29 BASE EXCESS ARTERIAL (BEAKER) (test dfdk=089) 12.8 mmol/L -2.0-3.0 PATIENT TEMPERATURE (BEAKER) (test nbzc=1126) 36.4 C FIO2 (BEAKER) (test rfxz=4372) 28.0 % RAD, CHEST, 1 VIEW, NON [id number] 08:20:00Reason for exam:->s/p MVRShould this be performed at the bedside?->YesFINAL REPORT Comparison: 09/18/2018 TECHNIQUE: Single view of the chest FINDINGS: There are nonspecific mildly prominent interstitial markings laterally. Small left pleural effusion with adjacent airspace disease. No gross new lung parenchymal changes. Support lines and tubes arestable. Signed: Dick Browneport Verified Date/Time: 09/19/2018 08:20:07 Reading Location: [address] Reading Room POCT-GLUCOSE [id number] 07:51:00 Test Item Value Reference Range Comments POC-GLUCOSE METER (BEAKER) 128 mg/dL 70-110 TESTED AT [address] (test atfs=0801) [facility] [address] BASIC METABOLIC [id number] 07:46:00 Test Item Value Reference Range Comments SODIUM (BEAKER) (test 140 meq/L 136-145 vsvp=469) POTASSIUM (BEAKER) (test 4.3 meq/L 3.5-5.1 kejh=327) CHLORIDE (BEAKER) (test 94 meq/L 98-107 dego=662) CO2 (BEAKER) (test 42 meq/L 22-29 ilii=379) BLOOD UREA NITROGEN 21 mg/dL 7-21 (BEAKER) (test rflj=356) CREATININE (BEAKER) (test 1.03 mg/dL 0.57-1.25 xzuy=287) GLUCOSE RANDOM (BEAKER) 97 mg/dL 70-105 (test iudp=989) CALCIUM (BEAKER) (test 8.8 mg/dL 8.4-10.2 qdkn=659) EGFR (BEAKER) (test 69 mL/min/1.73 sq m ESTIMATED GFR IS NOT ahig=5345) ACCURATE CREATININE CLEARANCE IN PREDICTING GLOMERULAR FILTRATION RATE. ESTIMATED GFR IS NOT APPLICABLE FOR DIALYSIS PATIENTS. [id number] 07:32:00 Test Item Value Reference Range Comments MAGNESIUM (BEAKER) (test vxpz=707) 2.2 mg/dL 1.6-2.6 POCT-GLUCOSE [id number] 21:39:00 Test Item Value Reference Range Comments POC-GLUCOSE METER (BEAKER) 131 mg/dL 70-110 TESTED AT [address] (test kufk=5855) [facility] [address] POCT-GLUCOSE [id number] 17:39:00 Test Item Value Reference Range Comments POC-GLUCOSE METER (BEAKER) 143 mg/dL 70-110 TESTED AT [address] (test tozf=9280) [facility] [address] POCT-GLUCOSE [id number] 12:32:00 Test Item Value Reference Range Comments POC-GLUCOSE METER (BEAKER) 123 mg/dL 70-110 TESTED AT [address] (test zdit=1471) [facility] [address] RAD, CHEST, 1 VIEW, NON [id number] 08:29:00Reason for exam:->s/p MVRShould this be performed at the bedside?->YesFINAL REPORT Chest one view. Clinical history: s/p MVR Comparison: September 17, 2018 Discussion: A frontal chest is provided. Cardiomediastinal contours are unchanged. Left-sided pacemaker again noted. Are small bilateral effusions. Minimal vascular prominence. Unchanged right upper lung linear opacities likely reflects scarring. No pneumothorax. Signed: Erin Marrero MDReport Verified Date/Time : 09/18/2018 08:29:07 Reading Location: [address] Neuro Reading Room POCT-GLUCOSE [id number] 08:06:00 Test Item Value Reference Range Comments POC-GLUCOSE METER (BEAKER) 97 mg/dL 70-110 TESTED AT [address] (test vrkd=7042) [place] [address] [id number] 01:49:00 Test Item Value Reference Range Comments MAGNESIUM (BEAKER) (test cvqd=715) 2.3 mg/dL 1.6-2.6 BASIC METABOLIC [id number] 01:49:00 Test Item Value Reference Range Comments SODIUM (BEAKER) (test 138 meq/L 136-145 zzmz=906) POTASSIUM (BEAKER) (test 3.8 meq/L 3.5-5.1 kygo=308) CHLORIDE (BEAKER) (test 94 meq/L 98-107 hxhe=495) CO2 (BEAKER) (test 36 meq/L 22-29 jixr=472) BLOOD UREA NITROGEN 30 mg/dL 7-21 (BEAKER) (test rwrh=947) CREATININE (BEAKER) (test 1.04 mg/dL 0.57-1.25 otnh=308) GLUCOSE RANDOM (BEAKER) 122 mg/dL 70-105 (test smgp=678) CALCIUM (BEAKER) (test 8.8 mg/dL 8.4-10.2 sape=324) EGFR (BEAKER) (test 69 mL/min/1.73 sq m ESTIMATED GFR IS NOT aail=5028) ACCURATE CREATININE CLEARANCE IN PREDICTING GLOMERULAR FILTRATION RATE. ESTIMATED GFR IS NOT APPLICABLE FOR DIALYSIS PATIENTS. RAD, CHEST, 1 VIEW, NON [id number] 22:42:00Reason for exam:->shortness of breathShould this be performed at the bedside?->YesFINAL REPORT Chest one view. Clinical history: shortness of breath Comparison: Chest radiograph 09/17/2018, 9:07 AM Technique: A single frontal view of the chest was obtained. Findings:There is a left-sided pacemaker with leads unchanged. The patient is status post TAVR.The cardiomediastinal contours are stable. There is persistent mild pulmonary vascular congestion. There is discoid atelectasis and/or linear scarring in the right upper lobe and right lung base. There is blunting of the left lateral costophrenic angle which may represent pleural thickening or small pleural effusion. There is no pneumothorax. Signed: Antonia Johnsoneport Verified Date/Time: 2018 22:42:10 Reading Location: [facility] C013Y CT Body Reading Room POCT- GLUCOSE [id number] 21:28:00 Test Item Value Reference Range Comments POC-GLUCOSE METER (BEAKER) 148 mg/dL 70-110 TESTED AT [address] (test uhbk=4200) [facility] [address] POCT-GLUCOSE [id number] 17:16:00 Test Item Value Reference Range Comments POC-GLUCOSE METER (BEAKER) 231 mg/dL 70-110 TESTED AT [address] (test lhaa=0826) [facility] [address] POCT-GLUCOSE [id number] 12:37:00 Test Item Value Reference Range Comments POC-GLUCOSE METER (BEAKER) 150 mg/dL 70-110 TESTED AT [address] (test orrs=2380) [facility] [address] RAD, CHEST, 1 VIEW, NON [id number] 09:37:00Reason for exam:->s/p MVRShould this be performed at the bedside?->YesFINAL REPORT Chest one view. Clinical history: s/p MVR Comparison: 2018Discussion: A frontal chest is provided. Cardiomediastinal contours are unchanged. 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 There is mild vascular congestion. Small bilateral pleural effusions. No new consolidation. No pneumothorax. Signed: Erin Marrero Verified Date/Time: 09/17/2018 09:37:37 Reading Location: [facility] Radiology Reading Room POCT-GLUCOSE [id number] 09:04:00 Test Item Value Reference Range Comments POC-GLUCOSE METER (BEAKER) 159 mg/dL 70-110 TESTED AT [facility] [address] [facility] (test wokt=6196) [facility] [address] [id number] 06:49:00 Test Item Value Reference Range Comments MAGNESIUM (BEAKER) (test dhhs=469) 1.8 mg/dL 1.6-2.6 BASIC METABOLIC [id number] 06:49:00 Test Item Value Reference Range Comments SODIUM (BEAKER) (test 135 meq/L 136-145 szth=638) POTASSIUM (BEAKER) (test 4.0 meq/L 3.5-5.1 xdwd=232) CHLORIDE (BEAKER) (test 94 meq/L 98-107 imsx=912) CO2 (BEAKER) (test 35 meq/L 22-29 knib=931) BLOOD UREA NITROGEN 28 mg/dL 7-21 (BEAKER) (test miro=559) CREATININE (BEAKER) (test 1.00 mg/dL 0.57-1.25 iuyr=447) GLUCOSE RANDOM (BEAKER) 141 mg/dL 70-105 (test wzcf=849) CALCIUM (BEAKER) (test 8.6 mg/dL 8.4-10.2 grmk=388) EGFR (BEAKER) (test 72 mL/min/1.73 sq m ESTIMATED GFR IS NOT igag=2874) ACCURATE CREATININE CLEARANCE IN PREDICTING GLOMERULAR FILTRATION RATE. ESTIMATED GFR IS NOT APPLICABLE FOR DIALYSIS PATIENTS. CBC W/PLT COUNT & AUTO [id number] 06:14:00 Test Item Value Reference Range Comments WHITE BLOOD CELL COUNT (BEAKER) (test bjub=961) 6.0 K/ L 3.5-10.5 RED BLOOD CELL COUNT (BEAKER) (test kfvw=801) 3.15 M/ L 4.63-6.08 HEMOGLOBIN (BEAKER) (test knwe=161) 9.8 GM/DL 13.7-17.5 HEMATOCRIT (BEAKER) (test tvge=245) 31.0 % 40.1-51.0 MEAN CORPUSCULAR VOLUME (BEAKER) (test ikrh=661) 98.4 fL 79.0-92.2 MEAN CORPUSCULAR HEMOGLOBIN (BEAKER) (test 31.1 pg 25.7-32.2 haib=932) MEAN CORPUSCULAR HEMOGLOBIN CONC (BEAKER) (test 31.6 GM/DL 32.3-36.5 dhpr=087) RED CELL DISTRIBUTION WIDTH (BEAKER) (test 13.6 % 11.6-14.4 fzcu=612) PLATELET COUNT (BEAKER) (test ovxy=452) 95 K/CU MM 150-450 MEAN PLATELET VOLUME (BEAKER) (test atyo=152) 10.2 fL 9.4-12.4 NUCLEATED RED BLOOD CELLS (BEAKER) (test 0 /100 WBC 0-0 iecb=590) NEUTROPHILS RELATIVE PERCENT (BEAKER) (test 89 % jczv=219) LYMPHOCYTES RELATIVE PERCENT (BEAKER) (test 4 % gymf=935) MONOCYTES RELATIVE PERCENT (BEAKER) (test 6 % ctwa=068) EOSINOPHILS RELATIVE PERCENT (BEAKER) (test 0 % njpj=493) BASOPHILS RELATIVE PERCENT (BEAKER) (test 0 % yicd=039) NEUTROPHILS ABSOLUTE COUNT (BEAKER) (test 5.30 K/ L 1.78-5.38 rlsk=166) LYMPHOCYTES ABSOLUTE COUNT (BEAKER) (test 0.25 K/ L 1.32-3.57 cgis=367) MONOCYTES ABSOLUTE COUNT (BEAKER) (test zvbr=894) 0.38 K/ L 0.30-0.82 EOSINOPHILS ABSOLUTE COUNT (BEAKER) (test 0.00 K/ L 0.04-0.54 mida=691) BASOPHILS ABSOLUTE COUNT (BEAKER) (test jqbn=082) 0.01 K/ L 0.01-0.08 IMMATURE GRANULOCYTES-RELATIVE PERCENT (BEAKER) 1 % 0-1 (test xwsh=6513) POCT-GLUCOSE [id number] 17:47:00 Test Item Value Reference Range Comments POC-GLUCOSE METER (BEAKER) 178 mg/dL 70-110 TESTED AT [address] (test xfky=1245) [facility] [address] POCT-GLUCOSE [id number] 15:19:00 Test Item Value Reference Range Comments POC-GLUCOSE METER (BEAKER) 173 mg/dL 70-110 TESTED AT [address] (test fxjx=8530) [facility] [address] POCT-GLUCOSE [id number] 12:18:00 Test Item Value Reference Range Comments POC-GLUCOSE METER (BEAKER) 166 mg/dL 70-110 TESTED AT [address] (test kmfb=7778) [facility] [address] POCT-GLUCOSE [id number] 07:56:00 Test Item Value Reference Range Comments POC-GLUCOSE METER (BEAKER) 127 mg/dL 70-110 TESTED AT [address] (test gays=4523) [facility] [address] [id number] 07:34:00 Test Item Value Reference Range Comments MAGNESIUM (BEAKER) (test dpzd=161) 2.0 mg/dL 1.6-2.6 BASIC METABOLIC [id number] 07:34:00 Test Item Value Reference Range Comments SODIUM (BEAKER) (test 133 meq/L 136-145 ofrv=341) POTASSIUM (BEAKER) (test 4.0 meq/L 3.5-5.1 muub=333) CHLORIDE (BEAKER) (test 98 meq/L 98-107 wdlf=091) CO2 (BEAKER) (test 30 meq/L 22-29 yxus=920) BLOOD UREA NITROGEN 22 mg/dL 7-21 (BEAKER) (test eqik=489) CREATININE (BEAKER) (test 0.93 mg/dL 0.57-1.25 gnwv=972) GLUCOSE RANDOM (BEAKER) 127 mg/dL 70-105 (test dycx=941) CALCIUM (BEAKER) (test 8.7 mg/dL 8.4-10.2 zzhu=890) EGFR (BEAKER) (test 78 mL/min/1.73 sq m ESTIMATED GFR IS NOT expx=2398) ACCURATE CREATININE CLEARANCE IN PREDICTING GLOMERULAR FILTRATION RATE. ESTIMATED GFR IS NOT APPLICABLE FOR DIALYSIS PATIENTS. OXYGEN SATURATION, [id number] 07:10:00 Test Item Value Reference Range Comments O2 SATURATION (MEASURED) (BEAKER) (test xyek=4835) 69.7 % CALCIUM, [id number] 07:05:00 Test Item Value Reference Range Comments CALCIUM IONIZED (BEAKER) (test rmax=166) 1.13 mmol/L 1.12-1.27 PH, BLOOD (BEAKER) (test nixg=3661) 7.42 RAD, CHEST, 1 VIEW, NON [id number] 06:56:00Reason for exam:->pOST oPShould this be performed at the bedside?->YesFINAL REPORT Chest one view. Clinical history: pOST oP Comparison: Chest radiograph 09/15/2018, 9:47 AM Technique: A single frontal view of the chest was obtained. Findings:There is a right IJ vascular sheath with tip in the SVC. The patient is status post TAVR. There is a left-sided pacemaker with leads overlying the right atrium and right ventricle.The cardiomediastinal contours are stable. There is improved aeration in the bilateral lung bases. There is a small left pleural effusion. There is discoid atelectasis in the right upper lobe and bilateral lower lobes. There is pulmonary vascular congestion. There is no pneumothorax. Signed: Antonia Johnson MDReport Verified Date/Time: 06:56:55 Reading Location: [address] Body Reading Room CBC ( HEMOGRAM ONLY)2018-09-16 06:54:00 Test Item Value Reference Range Comments WHITE BLOOD CELL COUNT (BEAKER) (test cedr=609) 6.6 K/ L 3.5-10.5 RED BLOOD CELL COUNT (BEAKER) (test jgoz=047) 3.02 M/ L 4.63-6.08 HEMOGLOBIN (BEAKER) (test bkoi=190) 9.6 GM/DL 13.7-17.5 HEMATOCRIT (BEAKER) (test rtui=132) 29.5 % 40.1-51.0 MEAN CORPUSCULAR VOLUME (BEAKER) (test adou=348) 97.7 fL 79.0-92.2 MEAN CORPUSCULAR HEMOGLOBIN (BEAKER) (test 31.8 pg 25.7-32.2 cora=018) MEAN CORPUSCULAR HEMOGLOBIN CONC (BEAKER) (test 32.5 GM/DL 32.3-36.5 gfbg=944) RED CELL DISTRIBUTION WIDTH (BEAKER) (test 13.6 % 11.6-14.4 xekj=458) PLATELET COUNT (BEAKER) (test zgne=623) 66 K/CU MM 150-450 MEAN PLATELET VOLUME (BEAKER) (test bkcy=677) 10.5 fL 9.4-12.4 NUCLEATED RED BLOOD CELLS (BEAKER) (test 0 /100 WBC 0-0 nsvx=188) BLOOD GAS, [id number] 06:45:00 Test Item Value Reference Range Comments PH ARTERIAL (BEAKER) (test sqes=872) 7.41 7.35-7.45 PCO2 ARTERIAL (BEAKER) (test cagk=622) 54 mmHg 35-45 PO2 ARTERIAL (BEAKER) (test rqib=222) 108 mmHg 80-90 O2 SATURATION ARTERIAL (BEAKER) (test lekc=552) 97.9 % 96.0-97.0 HCO3 ARTERIAL (BEAKER) (test bnlw=590) 34 mmol/L 21-29 BASE EXCESS ARTERIAL (BEAKER) (test ehwo=176) 8.1 mmol/L -2.0-3.0 PATIENT TEMPERATURE (BEAKER) (test sqkc=5228) 37.0 C FIO2 (BEAKER) (test btpb=6016) 32.0 % POCT-GLUCOSE [id number] 22:27:00 Test Item Value Reference Range Comments POC-GLUCOSE METER (BEAKER) 124 mg/dL 70-110 TESTED AT [address] (test acwp=3242) [facility] [address] POCT-GLUCOSE [id number] 17:04:00 Test Item Value Reference Range Comments POC-GLUCOSE METER (BEAKER) 118 mg/dL 70-110 TESTED AT [address] (test cxgd=3586) [place] [id number] 15:54:00 Test Item Value Reference Range Comments POTASSIUM (BEAKER) (test hkrc=713) 4.3 meq/L 3.5-5.1 Check Serum Potassium level 2 hours after oral potassium replacement completed or 30 min after intravenous potassium replacement.POCT-GLUCOSE [id number] 13:42:00 Test Item Value Reference Range Comments POC-GLUCOSE METER (BEAKER) 156 mg/dL 70-110 TESTED AT [address] (test graj=1922) [place] [id number] 12:27:00 Test Item Value Reference Range Comments POTASSIUM (BEAKER) (test jveq=808) 3.8 meq/L 3.5-5.1 Check Serum Potassium level 2 hours after oral potassium replacement completed or 30 min after intravenous potassium replacement.CALCIUM, [id number] 12: 00:00 Test Item Value Reference Range Comments CALCIUM IONIZED (BEAKER) (test frkl=893) 1.15 mmol/L 1.12-1.27 PH, BLOOD (BEAKER) (test uade=1712) 7.44 Check serum Ionized Calcium level after 4 hours after IV Calcium replacement.RAD , CHEST, 1 VIEW, NON [id number] 09:53:00Reason for exam:-> PneumothoraxShould this be performed at the bedside?->YesFINAL REPORT Portable chest. CLINICAL HISTORY: Pneumothorax. COMPARISON STUDY: September 15, 2018. FINDINGS: The cardiac silhouette is enlarged. A TAVR is noted. The pulmonary parenchyma demonstrates increased interstitial markings with atelectatic changes in the lung bases. The rightchest tube has been removed. A right jugular line remains. No pneumothorax is seen. Degenerative changes are noted. IMPRESSION: Status post right chest tube removal. No pneumothorax. Signed: Harris Salas MDReport Verified Date/Time: 09/15/2018 09:53:56 Reading Location: [facility] Radiology Reading Room POCT- GLUCOSE [id number] 08:07:00 Test Item Value Reference Range Comments POC-GLUCOSE METER (BEAKER) 148 mg/dL 70-110 TESTED AT [address] (test pfqv=6126) [place] [address] RAD, CHEST, 1 VIEW, NON [id number] 06:19:00Reason for exam:->pOST oPShould this be performed at the bedside?->YesFINAL REPORT RAD, CHEST, 1 VIEW, NON DEPT INDICATION: pOST oP COMPARISON: Prior day' s exam FINDINGS: Portable frontal view of the chest. IMPRESSION: Support Lines: Right-sidedchest tube and cardiac support hardware unchanged. Lungs and pleura: Mild basilar subsegmental atelectasis is unchanged No pneumothorax.Heart and mediastinum: Stable contours. Stable surgical changes.Additional findings: None. Signed: Vera Butlereport Verified Date/Time: 09/15/2018 06:19:31 Reading Location: [address] Neuro Reading Room OXYGEN SATURATION, [id number] 05:38:00 Test Item Value Reference Range Comments O2 SATURATION (MEASURED) (BEAKER) (test ffqv=9484) 70.0 % [id number] 05:28:00 Test Item Value Reference Range Comments PHOSPHORUS (BEAKER) (test mrcu=570) 3.0 mg/dL 2.3-4.7 [id number] 05:28:00 Test Item Value Reference Range Comments MAGNESIUM (BEAKER) (test nmnd=128) 2.3 mg/dL 1.6-2.6 BASIC METABOLIC [id number] 05:28:00 Test Item Value Reference Range Comments SODIUM (BEAKER) (test 137 meq/L 136-145 ximy=545) POTASSIUM (BEAKER) (test 3.6 meq/L 3.5-5.1 fknu=166) CHLORIDE (BEAKER) (test 101 meq/L 98-107 cpni=402) CO2 (BEAKER) (test 29 meq/L 22-29 oldt=256) BLOOD UREA NITROGEN 25 mg/dL 7-21 (BEAKER) (test fgay=504) CREATININE (BEAKER) (test 1.21 mg/dL 0.57-1.25 fywz=791) GLUCOSE RANDOM (BEAKER) 122 mg/dL 70-105 (test eiic=611) CALCIUM (BEAKER) (test 8.5 mg/dL 8.4-10.2 ddyt=676) EGFR (BEAKER) (test 58 mL/min/1.73 sq m ESTIMATED GFR IS NOT nzlj=6409) ACCURATE CREATININE CLEARANCE IN PREDICTING GLOMERULAR FILTRATION RATE. ESTIMATED GFR IS NOT APPLICABLE FOR DIALYSIS PATIENTS. CBC (HEMOGRAM ONLY)2018-09-15 05:00:00 Test Item Value Reference Range Comments WHITE BLOOD CELL COUNT (BEAKER) (test aprr=693) 6.8 K/ L 3.5-10.5 RED BLOOD CELL COUNT (BEAKER) (test xgmy=752) 3.13 M/ L 4.63-6.08 HEMOGLOBIN (BEAKER) (test vwlr=264) 9.7 GM/DL 13.7-17.5 HEMATOCRIT (BEAKER) (test ufpq=493) 31.2 % 40.1-51.0 MEAN CORPUSCULAR VOLUME (BEAKER) (test xyoc=044) 99.7 fL 79.0-92.2 MEAN CORPUSCULAR HEMOGLOBIN (BEAKER) (test 31.0 pg 25.7-32.2 fant=866) MEAN CORPUSCULAR HEMOGLOBIN CONC (BEAKER) (test 31.1 GM/DL 32.3-36.5 dbls=100) RED CELL DISTRIBUTION WIDTH (BEAKER) (test 13.9 % 11.6-14.4 ljsp=716) PLATELET COUNT (BEAKER) (test curm=106) 58 K/CU MM 150-450 MEAN PLATELET VOLUME (BEAKER) (test gdvr=547) 10.1 fL 9.4-12.4 NUCLEATED RED BLOOD CELLS (BEAKER) (test 0 /100 WBC 0-0 jddt=801) OXYGEN SATURATION, [id number] 04:53:00 Test Item Value Reference Range Comments O2 SATURATION (MEASURED) (BEAKER) (test bkcq=2547) 96.3 % CALCIUM, [id number] 04:52:00 Test Item Value Reference Range Comments CALCIUM IONIZED (BEAKER) (test gepj=564) 1.07 mmol/L 1.12-1.27 PH, BLOOD (BEAKER) (test dvxx=3692) 7.41 BLOOD GAS, [id number] 04:51:00 Test Item Value Reference Range Comments PH ARTERIAL (BEAKER) (test ujxg=129) 7.42 7.35-7.45 PCO2 ARTERIAL (BEAKER) (test ejht=244) 51 mmHg 35-45 PO2 ARTERIAL (BEAKER) (test jlux=835) 98 mmHg 80-90 O2 SATURATION ARTERIAL (BEAKER) (test rqtr=819) 97.6 % 96.0-97.0 HCO3 ARTERIAL (BEAKER) (test lbkl=240) 33 mmol/L 21-29 BASE EXCESS ARTERIAL (BEAKER) (test iqbd=718) 6.8 mmol/L -2.0-3.0 PATIENT TEMPERATURE (BEAKER) (test idea=6005) 36.5 C FIO2 (BEAKER) (test zkui=1911) 32.0 % POCT-GLUCOSE [id number] 22:08:00 Test Item Value Reference Range Comments POC-GLUCOSE METER (BEAKER) 139 mg/dL 70-110 TESTED AT [address] (test aqmz=2488) [facility] [address] POCT-GLUCOSE [id number] 18:13:00 Test Item Value Reference Range Comments POC-GLUCOSE METER (BEAKER) 137 mg/dL 70-110 TESTED AT [address] (test czsg=6305) [facility] [address] POCT-GLUCOSE [id number] 14:12:00 Test Item Value Reference Range Comments POC-GLUCOSE METER (BEAKER) 129 mg/dL 70-110 TESTED AT [address] (test hann=3493) [facility] [address] HEPATIC FUNCTION [id number] 10:48:00 Test Item Value Reference Range Comments TOTAL PROTEIN (BEAKER) (test wjqi=873) 5.4 gm/dL 6.0-8.3 ALBUMIN (BEAKER) (test zbzo=5713) 3.1 g/dL 3.5-5.0 BILIRUBIN TOTAL (BEAKER) (test omch=530) 0.4 mg/dL 0.2-1.2 BILIRUBIN DIRECT (BEAKER) (test cowt=150) 0.3 mg/dL 0.1-0.5 ALKALINE PHOSPHATASE (BEAKER) (test yzrw=223) 36 U/L 40-150 AST (SGOT) (BEAKER) (test gqrz=703) 53 U/L 5-34 ALT (SGPT) (BEAKER) (test qghu=421) 17 U/L 6-55 RAD, CHEST, 1 VIEW, NON [id number] 07:56:00Reason for exam:->pOST oPShould this be performed at the bedside?->YesFINAL REPORT Chest one view. Clinical history: pOST oP Comparison: 2018Discussion: A frontal chest is provided. Cardiomediastinal contours are unchanged. [place]-Ernestine catheter tip has been advanced, and now projects over the expected location of right interlobar/lower lobar artery. ET and feeding tube have been removed. Right IJ line, right chest tube are in stable position. There is mild interstitial edema. Small left effusion with mild bibasilar atelectasis. No pneumothorax. Signed: Erin Marrero Verified Date/Time: 07:56:51 Reading Location: [facility] Radiology Reading Room POCT-GLUCOSE [id number] 06:37:00 Test Item Value Reference Range Comments POC-GLUCOSE METER ([employer]) 128 mg/dL 70-110 TESTED AT [address] (test ixun=2241) [place] [address] POCT-GLUCOSE [id number] 06:37:00 Test Item Value Reference Range Comments POC-GLUCOSE METER ([employer]) 164 mg/dL 70-110 TESTED AT [address] (test onpy=1493) [place] [id number] 06:10:00 Test Item Value Reference Range Comments ACTIVATED CLOTTING TIME 114 sec TESTED AT [place] [address] [facility] ([employer]) (test cchj=355) [place] [address] [id number] 06:10:00 Test Item Value Reference Range Comments ACTIVATED CLOTTING TIME 522 sec TESTED AT [place] [id number] [facility] ([facility]) (test qmvm=319) [place] [address] [id number] 06:10:00 Test Item Value Reference Range Comments ACTIVATED CLOTTING TIME 510 sec TESTED AT [place] [address] [facility] ([employer]) (test hknl=133) [place] [address] [id number] 06:10:00 Test Item Value Reference Range Comments ACTIVATED CLOTTING TIME 549 sec TESTED AT [place] [address] [facility] ([employer]) (test rart=862) [place] [address] [id number] 06:10:00 Test Item Value Reference Range Comments ACTIVATED CLOTTING TIME 516 sec TESTED AT [place] [address] [facility] (test ulhg=337) [place] [address] [id number] 06:09:00 Test Item Value Reference Range Comments ACTIVATED CLOTTING TIME 472 sec TESTED AT [address] (BEAKER) (test rxlc=074) [place] [address] BLOOD GAS, [id number] 04:55:00 Test Item Value Reference Range Comments PH ARTERIAL (BEAKER) (test uebo=432) 7.37 7.35-7.45 PCO2 ARTERIAL (BEAKER) (test jspg=305) 54 mmHg 35-45 PO2 ARTERIAL (BEAKER) (test jbtn=622) 93 mmHg 80-90 O2 SATURATION ARTERIAL (BEAKER) (test vcok=093) 96.6 % 96.0-97.0 HCO3 ARTERIAL (BEAKER) (test mxwt=280) 30 mmol/L 21-29 BASE EXCESS ARTERIAL (BEAKER) (test pvjt=190) 4.3 mmol/L -2.0-3.0 PATIENT TEMPERATURE (BEAKER) (test xzis=9426) 37.3 C FIO2 (BEAKER) (test jhfa=4495) 40.0 % POCT-GLUCOSE [id number] 03:53:00 Test Item Value Reference Range Comments POC-GLUCOSE METER (BEAKER) 212 mg/dL 70-110 TESTED AT [address] (test hbkx=5968) [place] [address] POCT-GLUCOSE [id number] 03:53:00 Test Item Value Reference Range Comments POC-GLUCOSE METER (BEAKER) 211 mg/dL 70-110 TESTED AT [address] (test nrrb=8284) [place] [address] BASIC METABOLIC [id number] 03:23:00 Test Item Value Reference Range Comments SODIUM (BEAKER) (test 143 meq/L 136-145 ptnj=877) POTASSIUM (BEAKER) (test 4.2 meq/L 3.5-5.1 txli=861) CHLORIDE (BEAKER) (test 105 meq/L 98-107 cday=949) CO2 (BEAKER) (test 29 meq/L 22-29 znrt=116) BLOOD UREA NITROGEN 32 mg/dL 7-21 (BEAKER) (test hsxx=864) CREATININE (BEAKER) (test 1.43 mg/dL 0.57-1.25 mwmm=631) GLUCOSE RANDOM (BEAKER) 193 mg/dL 70-105 (test yhrb=915) CALCIUM (BEAKER) (test 8.2 mg/dL 8.4-10.2 cdkj=717) EGFR (BEAKER) (test 47 mL/min/1.73 sq m ESTIMATED GFR IS NOT aehu=2509) ACCURATE CREATININE CLEARANCE IN PREDICTING GLOMERULAR FILTRATION RATE. ESTIMATED GFR IS NOT APPLICABLE FOR DIALYSIS PATIENTS. [id number] 03:23:00 Test Item Value Reference Range Comments MAGNESIUM (BEAKER) (test vgth=304) 2.6 mg/dL 1.6-2.6 [id number] 03:23:00 Test Item Value Reference Range Comments PHOSPHORUS (BEAKER) (test posb=841) 3.0 mg/dL 2.3-4.7 LACTIC ACID, [id number] 03:17:00 Test Item Value Reference Range Comments LACTATE BLOOD ARTERIAL (2) (BEAKER) (test 2.9 mmol/L 0.5-2.2 lsnt=5970) CBC (HEMOGRAM ONLY)2018-09-14 02:56:00 Test Item Value Reference Range Comments WHITE BLOOD CELL COUNT (BEAKER) (test zctc=251) 8.2 K/ L 3.5-10.5 RED BLOOD CELL COUNT (BEAKER) (test bxda=145) 3.09 M/ L 4.63-6.08 HEMOGLOBIN (BEAKER) (test aggh=508) 9.8 GM/DL 13.7-17.5 HEMATOCRIT (BEAKER) (test rujv=114) 31.2 % 40.1-51.0 MEAN CORPUSCULAR VOLUME (BEAKER) (test vsmz=269) 101.0 fL 79.0-92.2 MEAN CORPUSCULAR HEMOGLOBIN (BEAKER) (test 31.7 pg 25.7-32.2 ynlr=387) MEAN CORPUSCULAR HEMOGLOBIN CONC (BEAKER) (test 31.4 GM/DL 32.3-36.5 guyo=222) RED CELL DISTRIBUTION WIDTH (BEAKER) (test 14.0 % 11.6-14.4 zmts=450) PLATELET COUNT (BEAKER) (test xgby=266) 76 K/CU MM 150-450 MEAN PLATELET VOLUME (BEAKER) (test sthg=277) 9.6 fL 9.4-12.4 NUCLEATED RED BLOOD CELLS (BEAKER) (test 0 /100 WBC 0-0 xpus=941) CALCIUM, [id number] 02:56:00 Test Item Value Reference Range Comments CALCIUM IONIZED (BEAKER) (test ghmg=041) 1.09 mmol/L 1.12-1.27 PH, BLOOD (BEAKER) (test xzye=5514) 7.32 OXYGEN SATURATION, [id number] 02:56:00 Test Item Value Reference Range Comments O2 SATURATION (MEASURED) (BEAKER) (test bsio=9868) 72.5 % LACTIC ACID, [id number] 02:25:00 Test Item Value Reference Range Comments LACTATE BLOOD ARTERIAL (2) (BEAKER) (test 3.2 mmol/L 0.5-2.2 hyeg=3347) BLOOD GAS, [id number] 23:43:00 Test Item Value Reference Range Comments PH ARTERIAL (BEAKER) (test tkat=594) 7.31 7.35-7.45 PCO2 ARTERIAL (BEAKER) (test kblt=528) 55 mmHg 35-45 PO2 ARTERIAL (BEAKER) (test vekg=356) 83 mmHg 80-90 O2 SATURATION ARTERIAL (BEAKER) (test aazj=416) 95.5 % 96.0-97.0 HCO3 ARTERIAL (BEAKER) (test pbyq=101) 27 mmol/L 21-29 BASE EXCESS ARTERIAL (BEAKER) (test xbfg=432) 0.3 mmol/L -2.0-3.0 PATIENT TEMPERATURE (BEAKER) (test kzeb=6610) 36.4 C FIO2 (BEAKER) (test yjcz=1560) 40.0 % GLUCOSE-STAT [id number] 23:43:00 Test Item Value Reference Range Comments GLUCOSE RANDOM (BEAKER) (test igdz=364) 192 mg/dL 70-110 OXYGEN SATURATION, [id number] 23:42:00 Test Item Value Reference Range Comments O2 SATURATION (MEASURED) (BEAKER) (test wavr=3630) 72.2 % BLOOD GAS, [id number] 21:02:00 Test Item Value Reference Range Comments PH ARTERIAL (BEAKER) (test zjnb=236) 7.35 7.35-7.45 PCO2 ARTERIAL (BEAKER) (test kftz=728) 49 mmHg 35-45 PO2 ARTERIAL (BEAKER) (test ybln=190) 78 mmHg 80-90 O2 SATURATION ARTERIAL (BEAKER) (test gtkz=189) 94.4 % 96.0-97.0 HCO3 ARTERIAL (BEAKER) (test rlyf=497) 26 mmol/L 21-29 BASE EXCESS ARTERIAL (BEAKER) (test cjda=600) 0.3 mmol/L -2.0-3.0 PATIENT TEMPERATURE (BEAKER) (test xolf=1496) 37.6 C FIO2 (BEAKER) (test dpat=9723) 40.0 % POTASSIUM-STAT [id number] 21:02:00 Test Item Value Reference Range Comments POTASSIUM (BEAKER) (test fgtg=289) 3.2 meq/L 3.6-5.5 HGB/HCT (H&H) - STAT [id number] 21:02:00 Test Item Value Reference Range Comments HEMOGLOBIN (BEAKER) (test gfqi=646) 11.5 g/dL 13.0-16.8 HEMATOCRIT (BEAKER) (test radw=979) 34.0 % 40.0-50.0 LACTIC ACID, [id number] 21:02:00 Test Item Value Reference Range Comments LACTATE BLOOD ARTERIAL (2) (BEAKER) (test 6.2 mmol/L 0.5-2.2 meuc=1895) SODIUM NA-STAT [id number] 21:01:00 Test Item Value Reference Range Comments SODIUM (BEAKER) (test ycqc=458) 140 meq/L 135-148 [id number] 21:01:00 Test Item Value Reference Range Comments MAGNESIUM (BEAKER) (test atbr=126) 2.6 mg/dL 1.6-2.6 OXYGEN SATURATION, [id number] 20:55:00 Test Item Value Reference Range Comments O2 SATURATION (MEASURED) (BEAKER) (test kvzp=0527) 66.6 % CALCIUM, [id number] 20:53:00 Test Item Value Reference Range Comments CALCIUM IONIZED (BEAKER) (test dmuj=171) 1.16 mmol/L 1.12-1.27 PH, BLOOD (BEAKER) (test emks=9252) 7.33 LACTIC ACID, [id number] 18:37:00 Test Item Value Reference Range Comments LACTATE BLOOD ARTERIAL (2) 3.9 mmol/L 0.5-2.2 Specimen slightly hemolyzed (BEAKER) (test llgs=5062) OXYGEN SATURATION, [id number] 16:34:00 Test Item Value Reference Range Comments O2 SATURATION (MEASURED) (BEAKER) (test odfy=9715) 68.1 % RAD, CHEST, 1 VIEW, NON [id number] 15:01:00Reason for exam:->pOST oPShould this be performed at the bedside?->YesFINAL REPORT EXAM: Frontal chest radiograph HISTORY PROVIDED: Postop COMPARISON: 03/05/2018 IMPRESSION:The tip of an endotracheal tube terminates approximately 3.8 cm above the ahsan. An enteric tube descends below the diaphragm with its tip off the field of view. The tip of a right IJ approach [place]-Ernestine catheter projects over the pulmonary outflow tract. Unchanged positioning of the left chest wall pacing device. A right thoracostomy tube is in place. There is pulmonary vascular congestion and bilateral interstitial opacities compatible with mild interstitial edema. A small right apical pneumothorax is suspected and a thoracostomy tube is already in place. Attention to thisarea is recommended upon follow-up. There is a small left pleural effusion with bibasilar opacities likely representing a combination of atelectasis and edema. The cardiac silhouette is enlarged. The patient is status post cardiac valve replacement. No acute osseous abnormality. Signed: Mike Neville MDReport Verified Date/Time: 09/13/2018 15:01:54 Reading Location: [facility] Reading Room [id number] 14:46:00 Test Item Value Reference Range Comments MAGNESIUM (BEAKER) (test 3.0 mg/dL 1.6-2.6 Specimen slightly hemolyzed wxic=999) [id number] 14:46:00 Test Item Value Reference Range Comments PHOSPHORUS (BEAKER) (test 2.0 mg/dL 2.3-4.7 Specimen slightly hemolyzed umgh=028) BASIC METABOLIC [id number] 14:46:00 Test Item Value Reference Range Comments SODIUM (BEAKER) (test 142 meq/L 136-145 wvys=614) POTASSIUM (BEAKER) (test 3.4 meq/L 3.5-5.1 Specimen slightly mcnn=831) hemolyzed CHLORIDE (BEAKER) (test 102 meq/L 98-107 vctm=239) CO2 (BEAKER) (test 29 meq/L 22-29 bqap=105) BLOOD UREA NITROGEN 33 mg/dL 7-21 (BEAKER) (test pthz=280) CREATININE (BEAKER) (test 1.23 mg/dL 0.57-1.25 Specimen slightly dtet=615) hemolyzed GLUCOSE RANDOM (BEAKER) 165 mg/dL 70-105 (test rwfq=763) CALCIUM (BEAKER) (test 8.8 mg/dL 8.4-10.2 btqo=934) EGFR (BEAKER) (test 56 mL/min/1.73 sq m ESTIMATED GFR IS NOT ljyi=2361) ACCURATE CREATININE CLEARANCE IN PREDICTING GLOMERULAR FILTRATION RATE. ESTIMATED GFR IS NOT APPLICABLE FOR DIALYSIS PATIENTS. LACTIC ACID, [id number] 14:42:00 Test Item Value Reference Range Comments LACTATE BLOOD ARTERIAL (2) 1.5 mmol/L 0.5-2.2 Specimen slightly hemolyzed (BEAKER) (test lsrq=9249) [id number] 14:38:00 Test Item Value Reference Range Comments FIBRINOGEN LEVEL (BEAKER) (test lafl=977) 321 mg/dl 225-434 [id number] 14:38:00 Test Item Value Reference Range Comments PARTIAL THROMBOPLASTIN TIME (BEAKER) (test 30.0 seconds 22.5-36.0 etfh=356) PROTHROMBIN [id number] 14:37:00 Test Item Value Reference Range Comments PROTIME (BEAKER) (test fkbr=881) 16.8 seconds 11.7-14.7 INR (BEAKER) (test hxij=859) 1.4 <=5.9 RECOMMENDED COUMADIN/WARFARIN INR THERAPY RANGESSTANDARD DOSE: 2.0 - 3.0 Includes: PROPHYLAXIS forvenous thrombosis, systemic embolization; TREATMENT for venous thrombosis and/or pulmonary embolus.HIGH RISK: Target INR is 2.5-3.5 for patients with mechanical heart valves.CBC W/PLT COUNT & AUTO [id number] 14:35:00 Test Item Value Reference Range Comments WHITE BLOOD CELL COUNT (BEAKER) (test akxm=257) 9.4 K/ L 3.5-10.5 RED BLOOD CELL COUNT (BEAKER) (test njmp=859) 3.49 M/ L 4.63-6.08 HEMOGLOBIN (BEAKER) (test tilh=881) 11.0 GM/DL 13.7-17.5 HEMATOCRIT (BEAKER) (test xaih=029) 34.5 % 40.1-51.0 MEAN CORPUSCULAR VOLUME (BEAKER) (test razc=886) 98.9 fL 79.0-92.2 MEAN CORPUSCULAR HEMOGLOBIN (BEAKER) (test 31.5 pg 25.7-32.2 yihu=149) MEAN CORPUSCULAR HEMOGLOBIN CONC (BEAKER) (test 31.9 GM/DL 32.3-36.5 srvz=249) RED CELL DISTRIBUTION WIDTH (BEAKER) (test 13.5 % 11.6-14.4 apap=209) PLATELET COUNT (BEAKER) (test haia=011) 91 K/CU MM 150-450 MEAN PLATELET VOLUME (BEAKER) (test pzhq=752) 9.5 fL 9.4-12.4 NUCLEATED RED BLOOD CELLS (BEAKER) (test 0 /100 WBC 0-0 ccpj=044) NEUTROPHILS RELATIVE PERCENT (BEAKER) (test 86 % dgcz=935) LYMPHOCYTES RELATIVE PERCENT (BEAKER) (test 5 % dvkb=216) MONOCYTES RELATIVE PERCENT (BEAKER) (test 8 % libx=475) EOSINOPHILS RELATIVE PERCENT (BEAKER) (test 0 % ccgk=619) BASOPHILS RELATIVE PERCENT (BEAKER) (test 1 % slhr=712) NEUTROPHILS ABSOLUTE COUNT (BEAKER) (test 8.01 K/ L 1.78-5.38 koig=762) LYMPHOCYTES ABSOLUTE COUNT (BEAKER) (test 0.48 K/ L 1.32-3.57 lomn=475) MONOCYTES ABSOLUTE COUNT (BEAKER) (test fpjk=680) 0.75 K/ L 0.30-0.82 EOSINOPHILS ABSOLUTE COUNT (BEAKER) (test 0.02 K/ L 0.04-0.54 tlns=111) BASOPHILS ABSOLUTE COUNT (BEAKER) (test vszt=360) 0.05 K/ L 0.01-0.08 IMMATURE GRANULOCYTES-RELATIVE PERCENT (BEAKER) 1 % 0-1 (test akvt=2663) CALCIUM, [id number] 14:24:00 Test Item Value Reference Range Comments CALCIUM IONIZED (BEAKER) (test jghg=440) 1.14 mmol/L 1.12-1.27 PH, BLOOD (BEAKER) (test ybiq=5272) 7.36 BLOOD GAS, [id number] 14:22:00 Test Item Value Reference Range Comments PH ARTERIAL (BEAKER) (test vdst=984) 7.41 7.35-7.45 PCO2 ARTERIAL (BEAKER) (test nzuj=330) 48 mmHg 35-45 PO2 ARTERIAL (BEAKER) (test dnng=994) 111 mmHg 80-90 O2 SATURATION ARTERIAL (BEAKER) (test fkdw=015) 98.1 % 96.0-97.0 HCO3 ARTERIAL (BEAKER) (test ecjz=481) 30 mmol/L 21-29 BASE EXCESS ARTERIAL (BEAKER) (test pmxd=060) 4.1 mmol/L -2.0-3.0 PATIENT TEMPERATURE (BEAKER) (test wgac=1366) 36.6 C FIO2 (BEAKER) (test ijfk=6391) 60.0 % SODIUM NA-STAT [id number] 12:58:00 Test Item Value Reference Range Comments SODIUM (BEAKER) (test pyby=394) 138 meq/L 135-148 CALCIUM, [id number] 12:58:00 Test Item Value Reference Range Comments CALCIUM IONIZED (BEAKER) (test mguy=791) 1.26 mmol/L 1.12-1.27 PH, BLOOD (BEAKER) (test pims=7631) 7.41 BLOOD GAS, [id number] 12:58:00 Test Item Value Reference Range Comments PH ARTERIAL (BEAKER) (test ypmy=409) 7.42 7.35-7.45 PCO2 ARTERIAL (BEAKER) (test yhhm=390) 53 mmHg 35-45 PO2 ARTERIAL (BEAKER) (test jgok=138) 237 mmHg 80-90 O2 SATURATION ARTERIAL (BEAKER) (test mxif=844) 99.5 % 96.0-97.0 HCO3 ARTERIAL (BEAKER) (test wtly=804) 34 mmol/L 21-29 BASE EXCESS ARTERIAL (BEAKER) (test jnqs=241) 7.7 mmol/L -2.0-3.0 PATIENT TEMPERATURE (BEAKER) (test wibt=3533) 36.4 C FIO2 (BEAKER) (test ptka=7766) 100.0 % POTASSIUM-STAT [id number] 12:58:00 Test Item Value Reference Range Comments POTASSIUM (BEAKER) (test wepn=810) 2.9 meq/L 3.6-5.5 GLUCOSE-STAT [id number] 12:58:00 Test Item Value Reference Range Comments GLUCOSE RANDOM (BEAKER) (test spvf=186) 162 mg/dL 70-110 HGB/HCT (H&H) - STAT [id number] 12:58:00 Test Item Value Reference Range Comments HEMOGLOBIN (BEAKER) (test bjub=407) 9.6 g/dL 13.0-16.8 HEMATOCRIT (BEAKER) (test cxtg=101) 28.0 % 40.0-50.0 LACTIC ACID, [id number] 11:53:00 Test Item Value Reference Range Comments LACTATE BLOOD ARTERIAL (2) 0.7 mmol/L 0.5-2.2 Specimen slightly hemolyzed (BEAKER) (test tccc=3145) SODIUM NA-STAT [id number] 11:52:00 Test Item Value Reference Range Comments SODIUM (BEAKER) (test gxas=725) 137 meq/L 135-148 POTASSIUM-STAT [id number] 11:52:00 Test Item Value Reference Range Comments POTASSIUM (BEAKER) (test wdrc=655) 3.9 meq/L 3.6-5.5 BLOOD GAS, [id number] 11:52:00 Test Item Value Reference Range Comments PH ARTERIAL (BEAKER) (test mpuf=626) 7.46 7.35-7.45 PCO2 ARTERIAL (BEAKER) (test ujpl=018) 47 mmHg 35-45 PO2 ARTERIAL (BEAKER) (test ecxz=301) 320 mmHg 80-90 O2 SATURATION ARTERIAL (BEAKER) (test hrfi=550) 99.7 % 96.0-97.0 HCO3 ARTERIAL (BEAKER) (test nncb=405) 33 mmol/L 21-29 BASE EXCESS ARTERIAL (BEAKER) (test fihe=489) 8.0 mmol/L -2.0-3.0 PATIENT TEMPERATURE (BEAKER) (test gvti=8239) 35.2 C FIO2 (BEAKER) (test pxhf=9630) 70.0 % GLUCOSE-STAT [id number] 11:52:00 Test Item Value Reference Range Comments GLUCOSE RANDOM (BEAKER) (test hjca=200) 161 mg/dL 70-110 HGB/HCT (H&H) - STAT [id number] 11:52:00 Test Item Value Reference Range Comments HEMOGLOBIN (BEAKER) (test bxws=769) 9.4 g/dL 13.0-16.8 HEMATOCRIT (BEAKER) (test jdwo=574) 28.0 % 40.0-50.0 BLOOD GAS, [id number] 11:25:00 Test Item Value Reference Range Comments PH ARTERIAL (BEAKER) (test ngjr=479) 7.46 7.35-7.45 PCO2 ARTERIAL (BEAKER) (test hcus=626) 48 mmHg 35-45 PO2 ARTERIAL (BEAKER) (test izpe=924) 294 mmHg 80-90 O2 SATURATION ARTERIAL (BEAKER) (test dtjp=757) 99.7 % 96.0-97.0 HCO3 ARTERIAL (BEAKER) (test rbcu=310) 36 mmol/L 21-29 BASE EXCESS ARTERIAL (BEAKER) (test lglp=397) 8.6 mmol/L -2.0-3.0 PATIENT TEMPERATURE (BEAKER) (test bnzh=1959) 30.8 C FIO2 (BEAKER) (test impy=3374) 65.0 % POTASSIUM-STAT [id number] 11:25:00 Test Item Value Reference Range Comments POTASSIUM (BEAKER) (test zdpf=353) 3.3 meq/L 3.6-5.5 GLUCOSE-STAT [id number] 11:25:00 Test Item Value Reference Range Comments GLUCOSE RANDOM (BEAKER) (test xcey=699) 152 mg/dL 70-110 HGB/HCT (H&H) - STAT [id number] 11:25:00 Test Item Value Reference Range Comments HEMOGLOBIN (BEAKER) (test ucdq=635) 10.5 g/dL 13.0-16.8 HEMATOCRIT (BEAKER) (test lpqh=304) 31.0 % 40.0-50.0 SODIUM NA-STAT [id number] 11:24:00 Test Item Value Reference Range Comments SODIUM (BEAKER) (test yvwd=879) 139 meq/L 135-148 BLOOD GAS, [id number] 10:59:00 Test Item Value Reference Range Comments PH ARTERIAL (BEAKER) (test pdro=315) 7.52 7.35-7.45 PCO2 ARTERIAL (BEAKER) (test srrb=906) 41 mmHg 35-45 PO2 ARTERIAL (BEAKER) (test mrnd=646) 278 mmHg 80-90 O2 SATURATION ARTERIAL (BEAKER) (test zbey=205) 99.7 % 96.0-97.0 HCO3 ARTERIAL (BEAKER) (test aoig=158) 35 mmol/L 21-29 BASE EXCESS ARTERIAL (BEAKER) (test mtub=846) 9.2 mmol/L -2.0-3.0 PATIENT TEMPERATURE (BEAKER) (test xogg=6675) 30.8 C FIO2 (BEAKER) (test qjzy=6484) 65.0 % POTASSIUM-STAT [id number] 10:59:00 Test Item Value Reference Range Comments POTASSIUM (BEAKER) (test fruo=346) 3.4 meq/L 3.6-5.5 GLUCOSE-STAT [id number] 10:59:00 Test Item Value Reference Range Comments GLUCOSE RANDOM (BEAKER) (test zqlo=728) 131 mg/dL 70-110 HGB/HCT (H&H) - STAT [id number] 10:59:00 Test Item Value Reference Range Comments HEMOGLOBIN (BEAKER) (test zwex=616) 10.1 g/dL 13.0-16.8 HEMATOCRIT (BEAKER) (test lnzb=540) 30.0 % 40.0-50.0 SODIUM NA-STAT [id number] 10:58:00 Test Item Value Reference Range Comments SODIUM (BEAKER) (test xcia=335) 137 meq/L 135-148 LACTIC ACID, [id number] 10:56:00 Test Item Value Reference Range Comments LACTATE BLOOD ARTERIAL (2) (BEAKER) (test 0.7 mmol/L 0.5-2.2 vejy=7839) POTASSIUM-STAT [id number] 10:28:00 Test Item Value Reference Range Comments POTASSIUM (BEAKER) (test zkbf=505) 2.3 meq/L 3.6-5.5 BLOOD GAS, [id number] 10:27:00 Test Item Value Reference Range Comments PH ARTERIAL (BEAKER) (test upwf=858) 7.50 7.35-7.45 PCO2 ARTERIAL (BEAKER) (test zefo=461) 45 mmHg 35-45 PO2 ARTERIAL (BEAKER) (test iarp=623) 393 mmHg 80-90 O2 SATURATION ARTERIAL (BEAKER) (test yiah=866) 99.8 % 96.0-97.0 HCO3 ARTERIAL (BEAKER) (test kxty=610) 37 mmol/L 21-29 BASE EXCESS ARTERIAL (BEAKER) (test qkvz=923) 10.4 mmol/L -2.0-3.0 PATIENT TEMPERATURE (BEAKER) (test txoz=1765) 30.5 C FIO2 (BEAKER) (test jkju=8373) 65.0 % GLUCOSE-STAT [id number] 10:27:00 Test Item Value Reference Range Comments GLUCOSE RANDOM (BEAKER) (test xada=384) 135 mg/dL 70-110 HGB/HCT (H&H) - STAT [id number] 10:27:00 Test Item Value Reference Range Comments HEMOGLOBIN (BEAKER) (test bgyz=914) 9.9 g/dL 13.0-16.8 HEMATOCRIT (BEAKER) (test ftwj=702) 29.0 % 40.0-50.0 SODIUM NA-STAT [id number] 10:26:00 Test Item Value Reference Range Comments SODIUM (BEAKER) (test eyqn=039) 136 meq/L 135-148 CALCIUM, [id number] 09:11:00 Test Item Value Reference Range Comments CALCIUM IONIZED (BEAKER) (test ctsp=159) 1.07 mmol/L 1.12-1.27 PH, BLOOD (BEAKER) (test vmpg=3175) 7.49 BLOOD GAS, [id number] 09:09:00 Test Item Value Reference Range Comments PH ARTERIAL (BEAKER) (test ipjp=722) 7.50 7.35-7.45 PCO2 ARTERIAL (BEAKER) (test ascw=247) 50 mmHg 35-45 PO2 ARTERIAL (BEAKER) (test qwsn=906) 450 mmHg 80-90 O2 SATURATION ARTERIAL (BEAKER) (test pcry=677) 99.9 % 96.0-97.0 HCO3 ARTERIAL (BEAKER) (test njqu=720) 39 mmol/L 21-29 BASE EXCESS ARTERIAL (BEAKER) (test cmty=473) 13.3 mmol/L -2.0-3.0 PATIENT TEMPERATURE (BEAKER) (test gnbr=4197) 36.0 C FIO2 (BEAKER) (test ppvd=5516) 100.0 % POTASSIUM-STAT [id number] 09:09:00 Test Item Value Reference Range Comments POTASSIUM (BEAKER) (test kgfr=607) 2.7 meq/L 3.6-5.5 GLUCOSE-STAT [id number] 09:09:00 Test Item Value Reference Range Comments GLUCOSE RANDOM (BEAKER) (test uajw=963) 120 mg/dL 70-110 HGB/HCT (H&H) - STAT [id number] 09:09:00 Test Item Value Reference Range Comments HEMOGLOBIN (BEAKER) (test ugfs=553) 12.2 g/dL 13.0-16.8 HEMATOCRIT (BEAKER) (test cpyp=822) 36.0 % 40.0-50.0 SODIUM NA-STAT [id number] 09:08:00 Test Item Value Reference Range Comments SODIUM (BEAKER) (test kmvj=712) 139 meq/L 135-148 POCT-GLUCOSE [id number] 06:29:00 Test Item Value Reference Range Comments POC-GLUCOSE METER (BEAKER) 124 mg/dL 70-110 TESTED AT [facility] [address] [place] [address] (test dnkk=3642) [facility] [address] HEMOGLOBIN [id number] 15:34:00 Test Item Value Reference Range Comments HEMOGLOBIN A1C (BEAKER) (test hthb=704) 6.0 % 4.3-6.1 [id number] 14:48:00 Test Item Value Reference Range Comments MAGNESIUM (BEAKER) (test mgya=955) 2.5 mg/dL 1.6-2.6 COMPREHENSIVE METABOLIC [id number] 14:48:00 Test Item Value Reference Range Comments TOTAL PROTEIN (BEAKER) 7.5 gm/dL 6.0-8.3 (test sygs=312) ALBUMIN (BEAKER) (test 4.1 g/dL 3.5-5.0 mcko=5274) ALKALINE PHOSPHATASE 56 U/L 40-150 (BEAKER) (test coob=999) BILIRUBIN TOTAL (BEAKER) 0.5 mg/dL 0.2-1.2 (test svzd=972) SODIUM (BEAKER) (test 135 meq/L 136-145 gqtq=578) POTASSIUM (BEAKER) (test 3.0 meq/L 3.5-5.1 nfcz=809) CHLORIDE (BEAKER) (test 84 meq/L 98-107 kyfc=885) CO2 (BEAKER) (test 39 meq/L 22-29 lzkx=371) BLOOD UREA NITROGEN 64 mg/dL 7-21 (BEAKER) (test mcmd=260) CREATININE (BEAKER) (test 1.96 mg/dL 0.57-1.25 scla=595) GLUCOSE RANDOM (BEAKER) 114 mg/dL 70-105 (test dtml=284) CALCIUM (BEAKER) (test 9.9 mg/dL 8.4-10.2 evnw=795) AST (SGOT) (BEAKER) (test 23 U/L 5-34 ioeb=624) ALT (SGPT) (BEAKER) (test 16 U/L 6-55 zikk=796) EGFR (BEAKER) (test 33 mL/min/1.73 sq m ESTIMATED GFR IS NOT lrqs=3853) ACCURATE CREATININE CLEARANCE IN PREDICTING GLOMERULAR FILTRATION RATE. ESTIMATED GFR IS NOT APPLICABLE FOR DIALYSIS PATIENTS. LIPID [id number] 14:48:00 Test Item Value Reference Range Comments TRIGLYCERIDES (BEAKER) (test kqmh=558) 143 mg/dL CHOLESTEROL (BEAKER) (test ozhd=660) 143 mg/dL HDL CHOLESTEROL (BEAKER) (test pzro=362) 40 mg/dL LDL CHOLESTEROL CALCULATED (BEAKER) (test 74 mg/dL xjvr=186) Triglyceride Reference Range: Low Risk <150 Borderline 150- 199 High Risk 200-499 Very High Risk >=500Cholesterol Reference Range: Low Risk <200 Borderline 200-239 High Risk > 240HDL Cholesterol Reference Range: Low Risk >=60 High Risk <40LDL Cholesterol Reference Range: Optimal <100 Near Optimal 100-129 Borderline 130-159 High 160-189 Very High >=190PROTHROMBIN TIME/[id number] 14:42:00 Test Item Value Reference Range Comments PROTIME (BEAKER) (test nbge=202) 15.8 seconds 11.7-14.7 INR (BEAKER) (test svyj=771) 1.3 <=5.9 RECOMMENDED COUMADIN/WARFARIN INR THERAPY RANGESSTANDARD DOSE: 2.0 - 3.0 Includes: PROPHYLAXIS forvenous thrombosis, systemic embolization; TREATMENT for venous thrombosis and/or pulmonary embolus.HIGH RISK: Target INR is 2.5-3.5 for patients with mechanical heart valves.[id number] 14:42:00 Test Item Value Reference Range Comments PARTIAL THROMBOPLASTIN TIME (BEAKER) (test 31.6 seconds 22.5-36.0 lcwe=614) CBC W/PLT COUNT & AUTO [id number] 14:34:00 Test Item Value Reference Range Comments WHITE BLOOD CELL COUNT (BEAKER) (test rnbi=947) 6.9 K/ L 3.5-10.5 RED BLOOD CELL COUNT (BEAKER) (test xbvt=423) 4.45 M/ L 4.63-6.08 HEMOGLOBIN (BEAKER) (test dfga=648) 13.9 GM/DL 13.7-17.5 HEMATOCRIT (BEAKER) (test nngf=390) 43.0 % 40.1-51.0 MEAN CORPUSCULAR VOLUME (BEAKER) (test bqht=199) 96.6 fL 79.0-92.2 MEAN CORPUSCULAR HEMOGLOBIN (BEAKER) (test 31.2 pg 25.7-32.2 gyzn=954) MEAN CORPUSCULAR HEMOGLOBIN CONC (BEAKER) (test 32.3 GM/DL 32.3-36.5 brlj=571) RED CELL DISTRIBUTION WIDTH (BEAKER) (test 13.2 % 11.6-14.4 mkox=970) PLATELET COUNT (BEAKER) (test omhw=947) 179 K/CU MM 150-450 MEAN PLATELET VOLUME (BEAKER) (test cwym=917) 9.8 fL 9.4-12.4 NUCLEATED RED BLOOD CELLS (BEAKER) (test 0 /100 WBC 0-0 ehna=700) NEUTROPHILS RELATIVE PERCENT (BEAKER) (test 74 % llau=853) LYMPHOCYTES RELATIVE PERCENT (BEAKER) (test 9 % eyib=136) MONOCYTES RELATIVE PERCENT (BEAKER) (test 13 % crmu=155) EOSINOPHILS RELATIVE PERCENT (BEAKER) (test 3 % ldci=750) BASOPHILS RELATIVE PERCENT (BEAKER) (test 1 % gpkc=650) NEUTROPHILS ABSOLUTE COUNT (BEAKER) (test 5.08 K/ L 1.78-5.38 gjro=710) LYMPHOCYTES ABSOLUTE COUNT (BEAKER) (test 0.58 K/ L 1.32-3.57 ozmq=983) MONOCYTES ABSOLUTE COUNT (BEAKER) (test 0.89 K/ L 0.30-0.82 gvpw=364) EOSINOPHILS ABSOLUTE COUNT (BEAKER) (test 0.20 K/ L 0.04-0.54 grns=394) BASOPHILS ABSOLUTE COUNT (BEAKER) (test 0.08 K/ L 0.01-0.08 qtro=932) IMMATURE GRANULOCYTES-RELATIVE PERCENT (BEAKER) 0 % 0-1 (test agbq=9362) RAD, CHEST, 1 VIEW, NON [id number] 05:11:00post-operative day 1Reason for exam:->chfShould this be performed at the bedside?->YesFINAL REPORT RAD, CHEST, 1 VIEW, NON DEPT INDICATION: chf COMPARISON: CTA chest dated 02/17/2018. FINDINGS: Portable frontal view of the chest. IMPRESSION: Support Lines: Leftchest wall pacer device with leads overlying the right ventricle and coronary sinus. Lungs and pleura: Blunting of the left costophrenic angle may be related to small pleural effusion versus scarring/ atelectasis. Left mid lung bandlike opacities consistent with atelectasis. No lobar consolidation. No pneumothorax.Heart and mediastinum: Enlarged cardiac mediastinal silhouette. Postsurgical changes of an aortic valve repair.Additional findings: Healed right posterior rib fracture deformities. Signed: Moses Simental Verified Date/Time: 03/05/2018 05:11:04 Reading Location: [address] Reading Room BASIC METABOLIC [id number] 04:22:00 Test Item Value Reference Range Comments SODIUM (BEAKER) (test 136 meq/L 136-145 aqxr=417) POTASSIUM (BEAKER) (test 4.9 meq/L 3.5-5.1 Specimen slightly yywu=708) hemolyzed CHLORIDE (BEAKER) (test 98 meq/L 98-107 qgnk=037) CO2 (BEAKER) (test 31 meq/L 22-29 smfy=383) BLOOD UREA NITROGEN 44 mg/dL 7-21 (BEAKER) (test nkoh=086) CREATININE (BEAKER) (test 1.48 mg/dL 0.57-1.25 Specimen slightly vayc=347) hemolyzed GLUCOSE RANDOM (BEAKER) 98 mg/dL 70-105 (test ifsh=471) CALCIUM (BEAKER) (test 9.6 mg/dL 8.4-10.2 wjxb=068) EGFR (BEAKER) (test 46 mL/min/1.73 sq m ESTIMATED GFR IS NOT fryi=5661) ACCURATE CREATININE CLEARANCE IN PREDICTING GLOMERULAR FILTRATION RATE. ESTIMATED GFR IS NOT APPLICABLE FOR DIALYSIS PATIENTS. CBC W/PLT COUNT & AUTO [id number] 03:39:00 Test Item Value Reference Range Comments WHITE BLOOD CELL COUNT (BEAKER) (test tcun=249) 10.2 K/ L 3.5-10.5 RED BLOOD CELL COUNT (BEAKER) (test gnxt=159) 4.09 M/ L 4.63-6.08 HEMOGLOBIN (BEAKER) (test kwcu=719) 13.0 GM/DL 13.7-17.5 HEMATOCRIT (BEAKER) (test apuo=227) 40.8 % 40.1-51.0 MEAN CORPUSCULAR VOLUME (BEAKER) (test ocqm=686) 99.8 fL 79.0-92.2 MEAN CORPUSCULAR HEMOGLOBIN (BEAKER) (test 31.8 pg 25.7-32.2 nktr=364) MEAN CORPUSCULAR HEMOGLOBIN CONC (BEAKER) (test 31.9 GM/DL 32.3-36.5 fett=151) RED CELL DISTRIBUTION WIDTH (BEAKER) (test 14.7 % 11.6-14.4 cytz=876) PLATELET COUNT (BEAKER) (test hdhd=909) 134 K/CU MM 150-450 MEAN PLATELET VOLUME (BEAKER) (test qpul=695) 9.6 fL 9.4-12.4 NUCLEATED RED BLOOD CELLS (BEAKER) (test 0 /100 WBC 0-0 vrnb=393) NEUTROPHILS RELATIVE PERCENT (BEAKER) (test 82 % cgws=024) LYMPHOCYTES RELATIVE PERCENT (BEAKER) (test 7 % sznv=333) MONOCYTES RELATIVE PERCENT (BEAKER) (test 9 % ivvg=233) EOSINOPHILS RELATIVE PERCENT (BEAKER) (test 1 % dqdb=965) BASOPHILS RELATIVE PERCENT (BEAKER) (test 0 % uwcj=705) NEUTROPHILS ABSOLUTE COUNT (BEAKER) (test 8.40 K/ L 1.78-5.38 tszu=061) LYMPHOCYTES ABSOLUTE COUNT (BEAKER) (test 0.73 K/ L 1.32-3.57 rpxh=312) MONOCYTES ABSOLUTE COUNT (BEAKER) (test 0.89 K/ L 0.30-0.82 lxjk=347) EOSINOPHILS ABSOLUTE COUNT (BEAKER) (test 0.07 K/ L 0.04-0.54 izfl=426) BASOPHILS ABSOLUTE COUNT (BEAKER) (test 0.01 K/ L 0.01-0.08 zwtz=985) IMMATURE GRANULOCYTES-RELATIVE PERCENT (BEAKER) 1 % 0-1 (test ubez=7168) [id number] 10:36:00 Test Item Value Reference Range Comments ACTIVATED CLOTTING TIME 235 sec TESTED AT [facility] [address] [facility] (BEAKER) (test kdns=319) [facility] [address] SODIUM NA-STAT [id number] 10:24:00 Test Item Value Reference Range Comments SODIUM (BEAKER) (test ulxq=889) 136 meq/L 135-148 POTASSIUM-STAT [id number] 10:24:00 Test Item Value Reference Range Comments POTASSIUM (BEAKER) (test jhhe=675) 4.2 meq/L 3.6-5.5 BLOOD GAS, [id number] 10:24:00 Test Item Value Reference Range Comments PH ARTERIAL (BEAKER) (test eytp=143) 7.40 7.35-7.45 PCO2 ARTERIAL (BEAKER) (test sqng=489) 50 mmHg 35-45 PO2 ARTERIAL (BEAKER) (test jcbr=234) 507 mmHg 80-90 O2 SATURATION ARTERIAL (BEAKER) (test tlob=295) 99.9 % 96.0-97.0 HCO3 ARTERIAL (BEAKER) (test ybyo=790) 30 mmol/L 21-29 BASE EXCESS ARTERIAL (BEAKER) (test gmwd=541) 4.3 mmol/L -2.0-3.0 PATIENT TEMPERATURE (BEAKER) (test uxxh=8328) 37.0 C FIO2 (BEAKER) (test zngi=0132) 21.0 % GLUCOSE-STAT [id number] 10:24:00 Test Item Value Reference Range Comments GLUCOSE RANDOM (BEAKER) (test lphd=942) 131 mg/dL 70-110 HGB/HCT (H&H) - STAT [id number] 10:24:00 Test Item Value Reference Range Comments HEMOGLOBIN (BEAKER) (test irbx=475) 13.2 g/dL 13.0-16.8 HEMATOCRIT (BEAKER) (test ydui=365) 39.0 % 40.0-50.0 CALCIUM, [id number] 10:24:00 Test Item Value Reference Range Comments CALCIUM IONIZED (BEAKER) (test gboz=109) 1.01 mmol/L 1.12-1.27 PH, BLOOD (BEAKER) (test vawl=0422) 7.40 B-TYPE NATRIURETIC FACTOR (BNP)2018-03-04 07:29:00 Test Item Value Reference Range Comments B-TYPE NATRIURETIC PEPTIDE (BEAKER) (test 187 pg/mL 0-100 pzyy=582) BASIC METABOLIC [id number] 07:22:00 Test Item Value Reference Range Comments SODIUM (BEAKER) (test 138 meq/L 136-145 nryn=055) POTASSIUM (BEAKER) (test 4.3 meq/L 3.5-5.1 ufsd=073) CHLORIDE (BEAKER) (test 98 meq/L 98-107 ggyq=529) CO2 (BEAKER) (test 32 meq/L 22-29 rqwk=173) BLOOD UREA NITROGEN 57 mg/dL 7-21 (BEAKER) (test oruq=612) CREATININE (BEAKER) (test 1.54 mg/dL 0.57-1.25 xnrw=679) GLUCOSE RANDOM (BEAKER) 115 mg/dL 70-105 (test mztt=145) CALCIUM (BEAKER) (test 9.3 mg/dL 8.4-10.2 ioan=671) EGFR (BEAKER) (test 44 mL/min/1.73 sq m ESTIMATED GFR IS NOT uzrx=8132) ACCURATE CREATININE CLEARANCE IN PREDICTING GLOMERULAR FILTRATION RATE. ESTIMATED GFR IS NOT APPLICABLE FOR DIALYSIS PATIENTS. [id number] 07:16:00 Test Item Value Reference Range Comments PROTIME (BEAKER) (test ddys=568) 13.7 seconds 11.7-14.7 INR (BEAKER) (test jmzq=449) 1.0 <=5.9 PARTIAL THROMBOPLASTIN TIME (BEAKER) (test 23.9 seconds 22.5-36.0 xqxo=002) RECOMMENDED COUMADIN/WARFARIN INR THERAPY RANGESSTANDARD DOSE: 2.0 - 3.0 Includes: PROPHYLAXIS forvenous thrombosis, systemic embolization; TREATMENT for venous thrombosis and/or pulmonary embolus.HIGH RISK: Target INR is 2.5-3.5 for patients with mechanical heart valves.[id number] 07:16:00 Test Item Value Reference Range Comments ALBUMIN (BEAKER) (test nzey=0418) 3.6 g/dL 3.5-5.0 CBC W/PLT COUNT & AUTO [id number] 07:11:00 Test Item Value Reference Range Comments WHITE BLOOD CELL COUNT (BEAKER) (test iara=438) 8.6 K/ L 3.5-10.5 RED BLOOD CELL COUNT (BEAKER) (test mgns=812) 4.62 M/ L 4.63-6.08 HEMOGLOBIN (BEAKER) (test ulzt=613) 14.6 GM/DL 13.7-17.5 HEMATOCRIT (BEAKER) (test jzqv=003) 46.0 % 40.1-51.0 MEAN CORPUSCULAR VOLUME (BEAKER) (test cblh=390) 99.6 fL 79.0-92.2 MEAN CORPUSCULAR HEMOGLOBIN (BEAKER) (test 31.6 pg 25.7-32.2 qvcn=963) MEAN CORPUSCULAR HEMOGLOBIN CONC (BEAKER) (test 31.7 GM/DL 32.3-36.5 beco=879) RED CELL DISTRIBUTION WIDTH (BEAKER) (test 14.7 % 11.6-14.4 wnyi=304) PLATELET COUNT (BEAKER) (test awhb=000) 160 K/CU MM 150-450 MEAN PLATELET VOLUME (BEAKER) (test zveh=734) 9.0 fL 9.4-12.4 NUCLEATED RED BLOOD CELLS (BEAKER) (test 0 /100 WBC 0-0 fdyr=635) NEUTROPHILS RELATIVE PERCENT (BEAKER) (test 89 % tgrg=122) LYMPHOCYTES RELATIVE PERCENT (BEAKER) (test 4 % pied=050) MONOCYTES RELATIVE PERCENT (BEAKER) (test 5 % ixsr=562) EOSINOPHILS RELATIVE PERCENT (BEAKER) (test 1 % ptit=325) BASOPHILS RELATIVE PERCENT (BEAKER) (test 0 % secn=284) NEUTROPHILS ABSOLUTE COUNT (BEAKER) (test 7.65 K/ L 1.78-5.38 aonc=231) LYMPHOCYTES ABSOLUTE COUNT (BEAKER) (test 0.34 K/ L 1.32-3.57 qnzi=133) MONOCYTES ABSOLUTE COUNT (BEAKER) (test 0.41 K/ L 0.30-0.82 esta=992) EOSINOPHILS ABSOLUTE COUNT (BEAKER) (test 0.06 K/ L 0.04-0.54 tpap=252) BASOPHILS ABSOLUTE COUNT (BEAKER) (test 0.02 K/ L 0.01-0.08 yfvb=873) IMMATURE GRANULOCYTES-RELATIVE PERCENT (BEAKER) 1 % 0-1 (test enpm=5206) CT, CTA, [id number] 14:14:00Addendum BeginsREPORT STATUS:A Addendum: I agree with the previously described non vascular findings by Dr. Viramontes. Signed: Cleve Stacy MDReport Verified Date/Time: 02/18/201814: 14:33 Reading Location: [place] [address] Angio Body Reading RoomAddendum EndsFINAL REPORT CT angiography of the thoracoabdominal aorta [...] the dynamic passage of intravenous contrast material. Multi- planar 3-D volume-rendering reconstruction was performed using an independent workstation interactively by the interpreting physician as well as the 3-D specialist for optimal visualization ofthe thoracoabdominal aorta, the pelvic arteries as well as its proximal branches. Please refer to the contrast sheet scanned in the EPIC system for the amount and route of contrast given. This exam wasperformed according to our departmental dose-optimisation programme, which [...] The SMA is widely patent, with replaced righthepatic artery. The PRETTY is patent. There are [...] mm valve); 430 to 546 mm2 (26 mmvalve); 540 to 683 mm2 (29 mm valve). For reference purpose, per [employer]ve [employer]ol[employer] R brochure, recommendation are as follows: CT perimeter between 56.5-62.8 mm (23 mm valve); 62.8-72.3 mm (26 mm valve);72.3-81.7 mm (29 mm valve); and 81.7-94.2. mm (34 mm valve). Agatston Score is 2818. Planimetry , aortic valve area 69 sq mm. The sinus of Valsalva height to the takeoff of the coronary artery ostium, RCC (diastole): 12.7 mmThe sinus of Valsalva height to the takeoff of the coronary artery ostium, LCC(diastole): 14.5 mm The sinus of Valsalva diameter, RCC (diastole): 37.7 mmThe sinus of Valsalva diameter, LCC (diastole): 39.8 mmThe sinus of Valsalva diameter, NCC (diastole): 37.6 [...] measures 9.1 and 9.3 mm, respectively with wbno-ew-nqntontm tortuosity and no calcific atherosclerosis present. The minimum and the perpendicular left femoral artery measures 9.1 and 10.0 mm, respectively with minimal tortuosity andminimal calcific atherosclerosis present. The minimum and the [...] in the mediastinum, considered nonspecific in nature. Inthe lung windows, no obvious endobronchial lesion is seen, and no pleural effusions identified. Somesegmental atelectatic changes are seen especially in the left lungs. Overall , no suspicious pulmonary nodule is identified, i.e. no nodule greater than 6 mm is present. In the abdomen, the liver and spleen appears unremarkable. The liver edge is smooth. No abnormal enhancing structure is identified. The gallbladder is contracted. Small gallstones are seen in the gallbladder with no wall thickening identified. The adrenal glands are unremarkable. The pancreas unremarkable. No acute renal pathology isseen and no hydronephrosis or perirenal fluid collections identified. Some cortical scarring is present. Bowel is not well assessed by CT angiography as enteric contrast not given. No obvious bowel dilation is seen. A hiatus hernia is present. Small bilateral fat- containing inguinal hernia is present.The prostate gland appears unremarkable. The bladder is [...] cm at the mid ascending level. No acuteaortic pathology is identified. Dimensions that may be helpful for TAVR as described above. 2. Normal coronary artery origins. Scattered coronary artery calcification is seen in all three coronary territories. 3. No acute pulmonary pathology is identified. The central pulmonary artery is prominent. Other findings as described above. 4. An addendum will be dictated by the [employer] Radiologist regarding the nonvascular findings. Signed: Sg Viramontes MDReport Verified Date/Time: 02/17/2018 16:19:13 Reading Location: [place] [address], CTA [id number] 14:14:00Addendum BeginsREPORT STATUS:A Addendum: I agree with the previously described non vascular findings by Dr. Viramontes. Signed: Cleve Stacy MDReport Verified Date/ Time: 02/18/201814:14:33 Reading Location: [place] [address] Angio Body Reading RoomAddendum EndsFINAL REPORT CT angiography of the thoracoabdominal aorta [...] as the 3-D specialist for optimal visualization ofthe thoracoabdominal aorta, the pelvic arteries as well as its proximal branches. Please refer to the contrast sheet scanned in the EPIC system for the amount and route of contrast given. This exam wasperformed according to our departmental dose-optimisation programme, which [...] The SMA is widely patent, with replaced righthepatic artery. The PRETTY is patent. There are [...] annulus perimeter measured 88 mm and the cross- sectional area measures 588 mm2. The aortic annulus diameter at the traditional LVOT and coronal LVOT measures 26.9 and 28.0 mm, respectively. For reference purpose, per [employer] S3 brochure, recommendation are as follows: CT area between 273 to 345 mm2 (20 mm valve); 338 to 430 mm2 (23 mm valve); 430 to 546 mm2 (26 mmvalve); 540 to 683 mm2 (29 mm valve). For reference purpose, per [employer]Valve Evolut R brochure, recommendation are as follows: CT perimeter between 56.5-62.8 mm (23 mm valve); 62.8-72.3 mm (26 mm valve);72.3-81.7 mm (29 mm valve); and 81.7-94.2. mm (34 mm valve). Agatston Score is 2818. Planimetry , aortic valve area 69 sq mm. The sinus of Valsalva height to the takeoff of the coronary artery ostium, RCC (diastole): 12.7 mmThe sinus of Valsalva height to the takeoff of the coronary artery ostium, LCC(diastole): 14.5 mm The sinus of Valsalva diameter, RCC (diastole): 37.7 mmThe sinus of Valsalva diameter, LCC (diastole): 39.8 mmThe sinus of Valsalva diameter, NCC (diastole): 37.6 [...] measures 9.1 and 9.3 mm, respectively with gcnt-in-htzesijz tortuosity and no calcific atherosclerosis present. The minimum and the perpendicular left femoral artery measures 9.1 and 10.0 mm, respectively with minimal tortuosity andminimal calcific atherosclerosis present. The minimum and the [...] in the mediastinum, considered nonspecific in nature. Inthe lung windows, no obvious endobronchial lesion is seen, and no pleural effusions identified. Somesegmental atelectatic changes are seen especially in the left lungs. Overall , no suspicious pulmonary nodule is identified, i.e. no nodule greater than 6 mm is present. In the abdomen, the liver and spleen appears unremarkable. The liver edge is smooth. No abnormal enhancing structure is identified. The gallbladder is contracted. Small gallstones are seen in the gallbladder with no wall thickening identified. The adrenal glands are unremarkable. The pancreas unremarkable. No acute renal pathology isseen and no hydronephrosis or perirenal fluid collections identified. Some cortical scarring is present. Bowel is not well assessed by CT angiography as enteric contrast not given. No obvious bowel dilation is seen. A hiatus hernia is present. Small bilateral fat- containing inguinal hernia is present.The prostate gland appears unremarkable. The bladder is [...] cm at the mid ascending level. No acuteaortic pathology is identified. Dimensions that may be helpful for TAVR as described above. 2. Normal coronary artery origins. Scattered coronary artery calcification is seen in all three coronary territories. 3. No acute pulmonary pathology is identified. The central pulmonary artery is prominent. Other findings as described above. 4. An addendum will be dictated by the [employer] Radiologist regarding the nonvascular findings. Signed: Sg Viramontes MDReport Verified Date/Time: 02/17/2018 16:19:13 Reading Location: [place] [address] Cardiology MRI [id number] 14:05:00 Test Item Value Reference Range Comments POC-CREATININE (NOE) 1.7 mg/dL 0.6-1.3 TESTED AT [facility] [address] [facility] (test bfak=5218) [facility] [address] POC-EGFR (BEAKER) (test 39 mL/min/1.73M2 svaf=4864)
--- OUTSIDE RECORDS SUMMARY | 2018-09-22 14:26 | XMS REPORT ---
:1935 Author Organization eClinicalWorks Care Team Providers Name Role Phone Zaina Snowden Provider Role Unavailable Allergies, Adverse Reactions, Alerts Substance Reaction Event Type Iodine breathing problems Drug Allergy Problems Problem Type Condition Code Onset Dates Condition Status Problem CHF (congestive heart failure) I50.9 Active Problem Hyperlipemia E78.5 Active Problem Murmur R01.1 Active Problem Pneumonia of left lower lobe due to J18.1 Active infectious organism Assessment Chronic kidney disease, unspecified N18.9 Active CKD stage Problem Hyperkalemia E87.5 Active Assessment Chronic obstructive pulmonary J44.9 Active disease, unspecified COPD type Assessment Hypothyroidism, unspecified type E03.9 Active Problem Peripheral edema R60.9 Active Problem Aortic valve stenosis I35.0 Active Problem Abdominal aortic aneurysm I71.4 Active Problem Cough R05 Active Problem Atrial fibrillation I48.91 Active Assessment Hypertension, unspecified type I10 Active Assessment Status cardiac pacemaker Z95.0 Active Assessment Peripheral edema R60.9 Active Problem Chronic kidney disease, unspecified N18.9 Active CKD stage Problem Hypothyroidism, unspecified type E03.9 Active Problem Hypokalemia E87.6 Active Problem Chronic obstructive pulmonary J44.9 Active disease, unspecified COPD type Problem Hypertension, unspecified type I10 Active Problem Status cardiac pacemaker Z95.0 Active Medications Medication Code Code Instructions Start End Status Dosage System Date Date Clonidine HCl [facility] 31949938362 0.3 MG Orally Active 1 tablet Once a day Lipitor [facility] 15542744711 40 MG Orally Active 1 tablet Once a day Breo Ellipta [facility] 33810221006 100-25 MCG/INH Active 1 puff Inhalation Once a day Albuterol Sulfate [facility] 66590107683 108 (90 Base) Active 2 puffs as HFA MCG/ACT needed Inhalation every 6 hrs Uloric [facility] 47501043493 40 MG Orally Active 1 tablet Once a day Omeprazole ND 46672006526 20 MG Orally Active 1 capsule Once a day Ferrous Gluconate [facility] 59571986807 324 (38 Fe) MG Active 1 tablet Orally Once a day Potassium [facility] 15282720552 20 MEQ Orally Active 1 packet Chloride Twice a day with food Magnesium [facility] 62678722800 400 MG Orally Active 1 capsule Twice a day with food PredniSONE [facility] 96668030862 10 MG Orally Active 1 tablet Once a day as needed Diamox Sequels NDC 0 Active not defined Nasonex [facility] 12229991071 50 MCG/ACT Active 2 sprays Nasally Once a in each day nostril Levothyroxine [facility] 35436113479 50 MCG Orally Active 1 tablet Sodium Once a day on an empty stomach in the morning Tadalafil [facility] 32161922288 5 MG Orally Active 1 tablet Eight a day as needed Furosemide [facility] 37797757988 20 MG Orally Active 1 tablet Three times a day Xarelto [facility] 33427808794 15 MG Orally Active 1 tablet Once a day with food Atorvastatin [facility] 46880547234 40 MG Orally Active 1 tablet Calcium Once a day Amoxicillin-Pot [facility] 01260396168 500-125 MG Active not Clavulanate Orally defined Docusate Sodium [facility] 41639867594 100 MG Orally Active 1 capsule Once a day as needed Colace [facility] 47144998936 100 MG Orally Active 1 capsule Once a day as needed Fish Oil [facility] 09273538239 1200 MG Orally Active 1 capsule Twice a day Metoprolol [facility] 14323344817 100 MG Orally Active 1 capsule Succinate Once a day MiraLax [facility] 43587171320 - Orally Once a Active 1 packet day mixed with 8 ounces of fluid Prilosec [facility] 74444490943 20 MG Orally Active 1 capsule Once a day Spironolactone [facility] 51570503228 25 MG Orally Active 1 tablet Three times a day Results No Known Results Summary Purpose eClinicalWorks Submission
--- OUTSIDE RECORDS SUMMARY | 2018-09-22 14:27 | XMS REPORT ---
:1935 Author Organization [employer] Care Team Providers Name Role Phone Zaina Snowden Provider Role Unavailable Allergies No Known Allergies Problems Problem Type Condition Code Onset Dates Condition Status Problem CHF (congestive heart failure) I50.9 Active Problem Hyperlipemia E78.5 Active Problem Murmur R01.1 Active Problem Pneumonia of left lower lobe due to J18.1 Active infectious organism Problem Hyperkalemia E87.5 Active Problem Peripheral edema R60.9 Active Problem Aortic valve stenosis I35.0 Active Problem Abdominal aortic aneurysm I71.4 Active Problem Cough R05 Active Problem Atrial fibrillation I48.91 Active Problem Chronic kidney disease, unspecified N18.9 Active CKD stage Problem Hypothyroidism, unspecified type E03.9 Active Problem Hypokalemia E87.6 Active Problem Chronic obstructive pulmonary J44.9 Active disease, unspecified COPD type Problem Hypertension, unspecified type I10 Active Problem Status cardiac pacemaker Z95.0 Active Medications No Known Medications Results No Known Results Summary Purpose [employer] Submission
[2018-09-22 14:51] LABS: Absolute Lymphocytes (CBC) 0.2 K/uL (0.7-4.9); Absolute Monocytes 0.5 K/uL (0.1-1.3); Absolute Neutrophil 7.2 K/uL (1.8-8.0); Basophils % 0.2 % (0-1.3); Eosinophils % 1.3 % (0-4.4); Hematocrit 31.8 % (39.6-49.0); Lymphocytes % 2.7 % (15.3-44.8); MPV 7.5 fL (7.6-11.3); Monocytes % 5.9 % (3.3-12.3); RBC Red Blood Cell Count 3.27 M/uL (4.33-5.43)
[2018-09-22 15:05] LABS: Potassium 4.8 mmol/L (3.5-5.1)
--- NOTE | 2018-09-22 15:13 | RAD REPORT ---
EXAM DESCRIPTION: RAD - Chest Single View - 09/22/2018 2:54 pm CLINICAL HISTORY: Chest pain, shortness of breath COMPARISON: April 2018 TECHNIQUE: AP portable chest image was obtained 1442 hours . FINDINGS: Scattered chronic interstitial lung changes are present. Left costophrenic angle blunting and parenchymal opacity at the left base are not clearly different from comparison. Left-sided pacema ker is in place. Ill-defined focal opacification present in the lateral mid right lung field. Heart a nd vasculature are normal. No measurable pleural effusion and no pneumothorax. No acute bony abnormal ity seen. No acute aortic findings suspected. IMPRESSION: Ill-defined opacification in the lateral right midlung field. This is seen on 1 of the t wo views and may be external soft tissue. Pneumonia or mass of the lung parenchyma lesser in likeliho od. No failure or volume overload.
--- NOTE | 2018-09-22 15:58 | RAD REPORT ---
EXAM DESCRIPTION: CT - Thorax Wo Con CLINICAL HISTORY: Chest pain drainage from GABRIELLE drain stoma COMPARISON: Thorax Wo Con dated 08/17/2018; Chest Single View dated 09/22/2018; CT CHEST ABD PELVIS WO CONT dated 05/17/2014 FINDINGS: Emphysematous changes are noted throughout the lungs. Linear atelectasis is present both l hira bases, greater on the left. Trace amount of pleural fluid bilaterally, slightly greater on the ri ght. No pneumothorax. Cardiac size is enlarged with mitral valve replacement changes as well as a multilead pacer device in place. A small hiatal hernia is present. Several gallstones are present gallbladder. A drain is not seen wit hin the chest cavity. All CT scans are performed using dose optimization technique as appropriate and may include automated exposure control or mA/KV adjustment according to patient size. IMPRESSION: No acute intrathoracic abnormality seen.
[2018-09-22 16:37] LABS: Platelet Estimate ADEQ; Toxic Granulation 1+
[2018-09-22 16:38] LABS: Blood Morphology Comment NOT SEEN (NOT SEEN)
--- NOTE | 2018-09-22 17:00 | EDPHYS ---
Physician Documentation [facility] Name: Reji Dan Age: 83 yrs Sex: Male : 1935 Arrival Date: 09/22/2018 Time: 13:35 Bed 3 Private MD: ED Physician Denzel Herrera HPI: 09/22 15:05 This 83 yrs old Male presents to ER via EMS with complaints of Incisional pm1 Drainage. 15:05 Drainage from GABRIELLE Drain stoma. Onset: The symptoms/episode began/occurred this morning. pm1 Severity of symptoms: in the emergency department the symptoms have resolved. The patient has not experienced similar symptoms in the past. Patient had a mitral valve replacement on 09/[address] Brand. On 09/15 or 09/16, his two GABRIELLE drains were removed. Patient reported some drainage initially on the day of removal but he had some drainage this AM. Patient was bending over and felt his shirt get wet. He did not know where the drainage came from until he coughed. [facility] and when cough and some fluid came out of the right chest medial GABRIELLE drainage stoma. No fevers, shortness of breath, or chest pain. Patient with dry cough. Historical: - Allergies: 13:50 Clindamycin; ph 13:50 Iodinated Contrast Media - IV Dye; ph - PMHx: 13:50 High Cholesterol; Hypertension; Hypothyroidism; Pacemaker; ph - PSHx: 13:50 Tonsillectomy; Adenoids; mitral valve repair; ph - Immunization history:: Adult Immunizations unknown. - Social history:: Smoking status: Patient/guardian denies using tobacco. - Ebola Screening: : No symptoms or risks identified at this time. ROS: 15:05 Constitutional: Negative for fever, chills, and weight loss, Eyes: Negative for injury, pm1 pain, redness, and discharge, ENT: Negative for injury, pain, and discharge, Neck: Negative for injury, pain, and swelling, Cardiovascular: Negative for chest pain, palpitations, and edema. 15:05 Abdomen/GI: Negative for abdominal pain, nausea, vomiting, diarrhea, and constipation, Back: Negative for injury and pain, : Negative for injury, bleeding, discharge, and swelling, MS/Extremity: Negative for injury and deformity, Skin: Negative for injury, rash, and discoloration, Neuro: Negative for headache, weakness, numbness, tingling, and seizure. 15:05 Respiratory: Negative for shortness of breath, sputum production, wheezing. Exam: 15:05 Constitutional: This is a well developed, well nourished patient who is awake, alert, pm1 and in no acute distress. Head/Face: Normocephalic, atraumatic. Neck: Trachea midline, no thyromegaly or masses palpated, and no cervical lymphadenopathy. Supple, full range of motion without nuchal rigidity, or vertebral point tenderness. No Meningismus. Cardiovascular: Regular rate and rhythm with a normal S1 and S2. No gallops, murmurs, or rubs. Normal PMI, no JVD. No pulse deficits. Respiratory: Lungs have equal breath sounds bilaterally, clear to auscultation and percussion. No rales, rhonchi or wheezes noted. No increased work of breathing, no retractions or nasal flaring. 15:05 Abdomen/GI: Soft, non-tender, with normal bowel sounds. No distension or tympany. No guarding or rebound. No evidence of tenderness throughout. Back: No spinal tenderness. No costovertebral tenderness. Full range of motion. Skin: Warm, dry with normal turgor. Normal color with no rashes, no lesions, and no evidence of cellulitis. MS/ Extremity: Pulses equal, no cyanosis. Neurovascular intact. Full, normal range of motion. 15:05 Chest/axilla: Inspection: well healing surgical incision without surrounding cellulitis, erythema, drainage, or dehiscence to right upper chest. Right lateral chest GABRIELLE drain stoma without surrounding cellulitis, erythema, or drainage. Right medial chest GABRIELLE drain stoma without surrounding cellulitis, erythema, or drainage, Palpation: crepitus, is not appreciated, tenderness, is not appreciated. 15:05 Neuro: Orientation: is normal, Motor: is normal, moves all fours. Vital Signs: 13:47 BP 106 / 70; Pulse 80; Resp 20; Temp 97.8; Pulse Ox 99% on 2 lpm NC; Weight 92.53 kg; ph Height 6 ft. 0 in. (182.88 cm); Pain 2/10; 13:51 BP 112 / 58; ph 15:00 BP 109 / 62; Pulse 80; Resp 18; Pulse Ox 98% on 2 lpm NC; ph 16:13 BP 104 / 56; Pulse 80; Resp 16; Pulse Ox 98% on 2 lpm NC; ph 17:30 BP 111 / 60; Pulse 81; Resp 16; Pulse Ox 98% on 2 lpm NC; ph 18:30 BP 106 / 64; Pulse 82; Resp 16; Temp 97.4(TE); Pulse Ox 98% on 2 lpm NC; ph 19:15 BP 102 / 69; Pulse 82; Resp 16 S; Temp 98.3(O); Pulse Ox 97% on R/A; cc3 19:34 BP 98 / 54; Pulse 80; Resp 16; Pulse Ox 98% on 2 lpm NC; oe 21:40 BP 123 / 85; Pulse 82; Resp 20; Pulse Ox 99% on 2 lpm NC; oe 13:47 Body Mass Index 27.67 (92.53 kg, 182.88 cm) ph MDM: 13:48 Patient medically screened. pm1 16:45 Physician consultation: Pillo Brand was called at 16:39, was contacted at 16:39, pm1 regarding consult, patient's condition, Discussed patient presentation with Neri Cheema who was next to Dr. Brand. Dr. Brand in surgery. Informed them of CT chest results and current labs. Can anticipate drainage from GABRIELLE drain stoma for 2 weeks and just to keep them covered with 4x4 to observe serosanguinous drainage. Keep the surgical sites clean. No need for transfer or hospitalization. Provided his direct number for any questions that Dr. Hill may have. [phone]. 16:51 Data reviewed: vital signs. Data interpreted: Pulse oximetry: on room air is 98 %. pm1 Interpretation: normal. 16:56 Physician consultation: Josiah Hill MD was called at 16:47, regarding Left message pm1 regarding consultation with Dr. Brand's PA, Neri Harvey. 16:57 Counseling: I had a detailed discussion with the patient and/or guardian regarding: the pm1 historical points, exam findings, and any diagnostic results supporting the discharge/admit diagnosis, lab results, radiology results, the need for outpatient follow up, to return to the emergency department if symptoms worsen or persist or if there are any questions or concerns that arise at home. 17:53 Physician consultation: Josiah Hill MD was contacted at 18:04, regarding patient's pm1 condition, Dr. Herrera discussed findings and consultation with Dr. Brand's P.A. that the patient's findings are normal and expected for 2-3 weeks. Patient does not need to be transferred to the medical center and a GABRIELLE drain does not need to be placed. 09/22 14:17 Order name: CBC with Manual Differential; Complete Time: 16:40 pm1 09/22 14:17 Order name: BMP; Complete Time: 15:33 pm1 09/22 14:17 Order name: IV Saline Lock; Complete Time: 14:41 pm1 09/22 14:17 Order name: Chest Single View XRAY; Complete Time: 15:33 pm1 09/22 15:39 Order name: CT Chest Wo Con; Complete Time: 16:01 pm1 Administered Medications: No medications were administered Disposition: 09/22/18 17:00 Discharged to Home. Impression: Drainage from incisional site - GABRIELLE drain stoma. - Condition is Stable. - Medication Reconciliation Form, Thank You Letter, Antibiotic Education, Prescription Opioid Use form. - Follow up: Emergency Department; When: As needed; Reason: Worsening of condition. Follow up: Private Physician; When: 2 - 3 days; Reason: Recheck today's complaints, Continuance of care, Re-evaluation by your physician. - Problem is new. - Symptoms have improved. Signatures: Dispatcher [employer] EDMS Denzel Herrera MD MD rn Hall, Patricia, RN RN Alberto Mackey, [employer] pm1 Marya Dyer cc3 Corrections: (The following items were deleted from the chart) 22:05 17:00 09/22/2018 17:00 Discharged to Home. Impression: Drainage from incisional site - cc3 GABRIELLE drain stoma. Condition is Stable. Forms are Medication Reconciliation Form, Thank You Letter, Antibiotic Education, Prescription Opioid Use. Follow up: Emergency Department; When: As needed; Reason: Worsening of condition. Follow up: Private Physician; When: 2 - 3 days; Reason: Recheck today's complaints, Continuance of care, Re-evaluation by your physician. Problem is new. Symptoms have improved. pm1
--- NOTE | 2018-09-22 17:00 | ER ---
Nurse's Notes [facility] Name: Reji Dan Age: 83 yrs Sex: Male : 1935 Arrival Date: 09/22/2018 Time: 13:35 Bed 3 Private MD: Diagnosis: Drainage from incisional site - GABRIELLE drain stoma Presentation: 09/22 13:44 Presenting complaint: EMS states: Pt from [facility], there for rehab r/t mitral valve ph sx on the , GABRIELLE drain in place, staff reports copious amount of serosanguinous drainage from site of drain, soaked through 2 dressings today and staff was concerned, dry dressing in place upon EMS arrival, VSS en route. Transition of care: patient was received from another setting of care (long-term care facility), [facility]. Onset of symptoms was September 22, 2018. Risk Assessment: Do you want to hurt yourself or someone else? Patient reports no desire to harm self or others. Initial Sepsis Screen: Does the patient meet any 2 criteria? No. Patient's initial sepsis screen is negative. Does the patient have a suspected source of infection? No. Patient's initial sepsis screen is negative. Care prior to arrival: None. 13:44 Method Of Arrival: EMS: [facility] ph 13:44 Acuity: SILVINO 3 ph 14:10 Note Pt reports that GABRIELLE drain was removed approx 3 days ago. ph Historical: - Allergies: 13:50 Clindamycin; ph 13:50 Iodinated Contrast Media - IV Dye; ph - PMHx: 13:50 High Cholesterol; Hypertension; Hypothyroidism; Pacemaker; ph - PSHx: 13:50 Tonsillectomy; Adenoids; mitral valve repair; ph - Immunization history:: Adult Immunizations unknown. - Social history:: Smoking status: Patient/guardian denies using tobacco. - Ebola Screening: : No symptoms or risks identified at this time. Screenin:31 Abuse screen: Denies threats or abuse. Denies injuries from another. Nutritional ph screening: No deficits noted. Tuberculosis screening: No symptoms or risk factors identified. Fall Risk No fall in past 12 months (0 pts). No secondary diagnosis (0 pts). IV access (20 points). Ambulatory Aid- None/Bed Rest/Nurse Assist (0 pts). Gait- Normal/Bed Rest/Wheelchair (0 pts) Mental Status- Oriented to own ability (0 pts). Total Cox Fall Scale indicates No Risk (0-24 pts). Assessment: 14:29 Reassessment: Patient appears in no apparent distress at this time. ERP at bedside to ak1 speak w/ pt, pt reports that GABRIELLE drain was removed apprx 3 days. 14:30 General: Appears in no apparent distress. comfortable, Behavior is calm, cooperative, ph appropriate for age, Denies fever, feeling ill. Pain: Complains of pain in right lateral anterior chest Pain currently is 2 out of 10 on a pain scale. Neuro: Level of Consciousness is awake, alert, obeys commands, Oriented to person, place, time, situation. Cardiovascular: Capillary refill < 3 seconds in bilateral fingers Patient's skin is warm and dry. Respiratory: Airway is patent Respiratory effort is even, unlabored, Respiratory pattern is regular, symmetrical, Denies shortness of breath. GI: No signs and/or symptoms were reported involving the gastrointestinal system. Patient currently denies abdominal pain, nausea, vomiting. Derm: Skin is healthy with good turgor, Skin is pink, warm \T\ dry. incisions x 2 to R side of chest, no bleeding noted at his time, vaseline gauze and dressings in place. 16:12 Reassessment: Patient appears in no apparent distress at this time. Patient and/or ph family updated on plan of care and expected duration. Pain level reassessed. Patient is alert, oriented x 3, equal unlabored respirations, skin warm/dry/pink. Pt resting quietly, awaiting radiology results, family at [facility]. 17:40 Reassessment: Patient appears in no apparent distress at this time. Patient and/or ph family updated on plan of care and expected duration. Pain level reassessed. Patient is alert, oriented x 3, equal unlabored respirations, skin warm/dry/pink. Pt to be d/c back to [facility], attempted to call report to [facility], nurse unavailable, was told that she would c all back. 18:05 Reassessment: Report given to Harriett SANTOS at [facility], facility to arrange transport. ph 18:49 Reassessment: Patient appears in no apparent distress at this time. Patient and/or ph family updated on plan of care and expected duration. Pain level reassessed. Patient is alert, oriented x 3, equal unlabored respirations, skin warm/dry/pink. Pt resting quietly, sitting at bedside eating chips, tolerating well, awaiting transport back to [facility]. 19:15 Reassessment: Patient appears in no apparent distress at this time. Patient and/or cc3 family updated on plan of care and expected duration. Pain level reassessed. Patient is alert, oriented x 3, equal unlabored respirations, skin warm/dry/pink. Received this male patient from morning shift RN Deb as a case of incisional drainage for discharge back to [facility] just waiting on transport as endorsed. No IV cannula in situ. Patient denies pain at this time. Patient states feeling better. 19:18 Reassessment: Charge nurse Shaista working on as to what time the transport from [address] will arrive, housekeeper cleaning cooking Izabella informed and will call [facility], patient's son informed. 19:47 Reassessment: Izabella Lopez Postulant spoke with [facility] and [facility] transport will arrive in 1 hour per [facility] staff. family informed. 20:48 Reassessment: Reassessment: pt family left to go attend to dog at home, will return ak1 before 2130. Pito, pt family, can be reached at [phone]. pt belongings are in a brown bag at bedside. 21:46 Reassessment: family back at bedside, [facility] contacted by [employer] stating ak1 they were picking up pt's oxygen from [facility]. [facility] is now at the bedside. 22:00 Reassessment: Patient appears in no apparent distress at this time. Patient and/or cc3 family updated on plan of care and expected duration. Pain level reassessed. Patient is alert, oriented x 3, equal unlabored respirations, skin warm/dry/pink. Patient discharged to [facility] fetched by [employer] by wheelchair and went out of ER vitally stable on oxygen therapy by nasal cannula. Patient denies pain at this time. Patient states feeling better. Patient states symptoms have improved. Vital Signs: 13:47 BP 106 / 70; Pulse 80; Resp 20; Temp 97.8; Pulse Ox 99% on 2 lpm NC; Weight 92.53 kg; ph Height 6 ft. 0 in. (182.88 cm); Pain 2/10; 13:51 BP 112 / 58; ph 15:00 BP 109 / 62; Pulse 80; Resp 18; Pulse Ox 98% on 2 lpm NC; ph 16:13 BP 104 / 56; Pulse 80; Resp 16; Pulse Ox 98% on 2 lpm NC; ph 17:30 BP 111 / 60; Pulse 81; Resp 16; Pulse Ox 98% on 2 lpm NC; ph 18:30 BP 106 / 64; Pulse 82; Resp 16; Temp 97.4(TE); Pulse Ox 98% on 2 lpm NC; ph 19:15 BP 102 / 69; Pulse 82; Resp 16 S; Temp 98.3(O); Pulse Ox 97% on R/A; cc3 19:34 BP 98 / 54; Pulse 80; Resp 16; Pulse Ox 98% on 2 lpm NC; oe 21:40 BP 123 / 85; Pulse 82; Resp 20; Pulse Ox 99% on 2 lpm NC; oe 13:47 Body Mass Index 27.67 (92.53 kg, 182.88 cm) ph ED Course: 13:35 Patient arrived in ED. hb 13:37 Alberto Guerrero NP is PHCP. pm1 13:37 Denzel Herrera MD is Attending Physician. pm1 13:47 Triage completed. ph 13:50 Arm band placed on Patient placed in an exam room, on a stretcher, on monitoring and evaluation advisor, ph on pulse oximetry. 14:28 Deb Ott, RN is Primary Nurse. ph 14:32 Patient has correct armband on for positive identification. Placed in gown. Bed in low ph position. Call light in reach. Side rails up X2. quality assurance monitor final on. Pulse ox on. NIBP on. Door closed. Noise minimized. Warm blanket given. 14:41 Initial lab(s) drawn, by me, sent to lab. Inserted saline lock: 22 gauge in left jb1 antecubital area, using aseptic technique. Blood collected. 14:43 Chest Single View XRAY In Process Unspecified. EDMS 15:52 CT Chest Wo Con In Process Unspecified. EDMS 16:20 CT completed. Patient tolerated procedure well. Patient moved to FL. Patient moved back va from CT. 17:34 No provider procedures requiring assistance completed. IV discontinued, intact, ph bleeding controlled, No redness/swelling at site. Pressure dressing applied. Administered Medications: No medications were administered Outcome: 17:00 Discharge ordered by MD. pm1 22:00 Discharged to [facility] cc3 22:00 Condition: stable 22:00 Discharge instructions given to patient, family, Instructed on discharge instructions, follow up and referral plans. Demonstrated understanding of instructions, follow-up care. 22:05 Patient left the ED. cc3 Signatures: Dispatcher [employer] EDMS Torsten Rg jb1 Mary Lou Hobson RN RN ak1 Deb Ott RN RN Alberto Guerrero, DRY CLEANER PRESSER DRY CLEANER PRESSER pm1 Christina Arboleda, DANIELLE RN Bhanu Gastelum Orlando oe Cordel, Charlene cc3 Corrections: (The following items were deleted from the chart) 16:21 14:30 Derm: Skin is healthy with good turgor, Skin is pink, warm \T\ dry. ph ph 20:53 14:29 Reassessment: Patient appears in no apparent distress at this time. ERP at ak1 bedside to speak w/ pt, pt reports that GABRIELLE drain was removed apprx 3 days ph 20:53 20:48 Reassessment: ak1 ak1 22:11 19:15 Reassessment: Patient appears in no apparent distress at this time. Patient cc3 and/or family updated on plan of care and expected duration. Pain level reassessed. Patient is alert, oriented x 3, equal unlabored respirations, skin warm/dry/pink. Received this male patient from morning shift DANIELLE Boyd as a case of incisional drainage for discharge back to [facility] just waiting on transport as endorsed. Patient denies pain at this time. Patient states feeling better. cc3
[2018-09-22 22:48] VITALS: TEMP 98.3
[2018-09-22 22:51] VITALS: BP 123/85; O2SAT 99
== END 2018-09-22 22:05 | disposition home or self-care (01) ==
LOC: ER 13:31
DX: T81.89XA Other complications of procedures, not elsewhere classified, initial encounter (principal)
CPT/HCPCS: 36415; 71045; 71250; 80048; 85025; 99285

== ENCOUNTER 2018-10-03 19:16 | Inpatient (IN) | payer OTHER, BC ==
--- OUTSIDE RECORDS SUMMARY | 2018-10-03 19:20 | XMS REPORT | Clinical Summary ---
:[address] [facility] Address [address] [place] [address] Care Team Providers Name Role Phone Pcp, [...] vitamins Take by mouth 2 0 Active A,C,R-bxqh-jnctfa (two) times (PRESERVISION daily. AREDS) [phone] jcdu-hl-fpma Cap docusate sodium Take 200 mg by 0 Active (COLACE) 100 MG mouth 2 (two) capsule times daily. glucosamine-chondr Take 1 tablet by 0 Active oitin 500-400 mg mouth 2 (two) tablet times daily. omega Take 1 capsule by 0 Active 1-wok-rfi-fish oil mouth daily. (FISH OIL) 1,000 mg [...] MG EC Take 1 tablet (81 0 09/23/192 Active tablet mg total) by 19 020 mouth daily. bisacodyl Take 2 tablets 30 tablet 0 09/22/1910/21/2 Active (DULCOLAX) 5 mg EC (10 mg total) by 19 019 tablet mouth daily as needed for Constipation for up to 30 days. dextrose 50 % in Inject 25 mLs 0 09/22/19 Active water (DEXTROSE (12.5 g total) 19 50%, D50W,) Syrg intravenously as injection needed (blood sugar less than 70 and patient unable to take PO juice or soda). insulin lispro Inject 0-12 Units 10 mL 0 09/22/19//2 Active (HUMALOG) 100 subcutaneously as 19 020 unit/mL injection needed (High blood sugar). insulin lispro Inject 0-4 Units 10 mL 0 09/22/19 05//2 Active (HUMALOG) 100 subcutaneously 19 020 unit/mL injection every night as needed (High blood sugar). ipratropium-albute Take 3 mLs by 0 09/21/ Active rol (DUO-NEB) 0.5 nebulization 19 020 mg-3 mg(2.5 mg every 6 (six) base)/3 mL hours for 360 nebulizer solution days. metoprolol Take 1 tablet (25 0 09/21/ Active (LOPRESSOR) 25 MG mg total) by 19 020 tablet mouth 2 (two) times daily. pantoprazole Take 1 tablet (40 0 09/23/19 Active (PROTONIX) 40 MG mg total) by 19 tablet mouth daily. senna-docusate Take 2 tablets by 0 09/22/19 Active (SENOKOT S) 8.6-50 mouth 2 (two) 19 020 mg per tablet times daily. sildenafil, Take 0.5 tablets 0 09/21/ Active antihypertensive, (10 mg total) by 020 (REVATIO,VIAGRA) mouth 2 (two) 20 mg tablet times daily. tadalafil (CIALIS) Take 5 mg by 0 Discontinued 5 MG tablet mouth 2 (two) 019 times daily . METOLAZONE ORAL Take 1.5 mg by 0 Discontinued mouth daily. 019 ferrous sulfate Take 325 mg by 0 Discontinued 325 (65 FE) MG mouth daily with 019 tablet breakfast. ECHINACEA, BULK, by Miscellaneous 0 Discontinued MISC route daily. [address] 1 12 suppository 0 09/22/19 (DULCOLAX) 10 mg suppository (10 019 suppository mg total) rectally daily as needed for up to 10 days. HYDROcodone-acetam Take 1 tablet by 30 tablet 0 09/21/ Discontinued inophen (NORCO mouth every 6 019 5-325) 5-325 mg (six) hours as per tablet needed for up to 10 days. Max Daily Amount: 4 tablets polyethylene Take 17 g by 14 each 0 09/21/09/24/ glycol (GLYCOLAX) mouth 2 (two) 019 17 gram packet times daily for 3 days. traMADol (ULTRAM) Take 1 tablet (50 30 tablet 0 05/21/20 05/21/2 Discontinued 50 mg tablet mg total) by 19 019 mouth every 6 (six) hours as needed for Pain for up to 10 days. Max Daily Amount: 200 mg acetaminophen-code Take 1 tablet by 30 tablet 0 09/22/19 ine (TYLENOL #3) mouth every 4 19 019 300-30 mg per (four) hours as tablet needed for up to 10 days. Max Daily Amount: 6 tablets Active Problems Problem Noted Date Mitral regurgitation [...] Abdominal aortic aneurysm without rupture (HCC) after 10/02/2017 Family History Medical History Relation Name Comments [...] Not on file Implants Implanted Type Area Journalism Intern Device Shelf Model / Identifier Expiration Serial / Lot Date Patch Vasc Paulette-Grd 4x4cm [id number] - [id number] IMPLANTS N/A: [employer] 12/23/2022 [id number] / Implanted: Qty: 1 on 09/13/2018 by Pillo Brand MD Chest TECH: SURG INNOV / [id number] Valve Mitrl Epic 33mm [id number] - [id number] IMPLANTS N/A: [facility] MARVA 06/2021 [id number] / Implanted: Qty: 1 on 09/13/2018 by Pillo Brand MD Chest MED: CARDIAC SURG [id number] / Valve Heart Bambi 3 29mm [id number] - [id number] Valves Aorta KENT [employer] 12/15/2019 [id number] / Implanted: Qty: 1 on 03/04/2018 by Mauricio Clark MD [id number] / Procedures Procedure Name Priority Date/Time Associated [...] 438 ms QTC Calculation(Bazett) 505 ms R [place] 268 degrees [place] 79 degrees Ventricular-paced rhythm Abnormal ECG When [...] 472 ms QTC Calculation(Bazett) 544 ms R [place] 267 degrees [place] 69 degrees Ventricular-paced rhythm Abnormal ECG ECG 12-LEAD Routine 09/13/2018 5:27 PM CDT ECG 12-LEAD Routine 09/13/2018 5:27 PM CDT Procedure Note - Interface, External Ris In - 09/13/2018 5:51 PM CDT Ventricular Rate 80 BPM Atrial Rate 58 BPM QRS Duration 150 ms Q-T Interval 470 ms QTC Calculation(Bazett) 542 ms R [place] 268 degrees [place] 65 degrees Ventricular-paced rhythm Abnormal ECG OXYGEN [...] 502 ms QTC Calculation(Bazett) 542 ms [place] -89 degrees [place] 81 degrees Ventricular-paced rhythm Biventricular pacemaker detected [...] CATH REPORT - SCAN 03/09/2018 10:40 AM CLAIMS VICE PRESIDENT RHYTHM STRIP - SCAN 03/09/2018 10:40 AM CLAIMS VICE PRESIDENT TRANSFUSION SERVICE REPORT - 03/05/2018 5:52 PM [...] 446 ms QTC Calculation(Bazett) 491 ms R [place] -81 degrees [place] 78 degrees Ventricular-paced rhythm with occasional Premature [...] procedure are in the results section. after 10/02/2017 Results RHYTHM STRIP - SCAN (09/22/2018 1:31 PM CDT)Only the most recent of3 resultswithin the time period is included. Narrative Performed At POC-Glucose meter (09/21/2018 12:24 PM CDT)Only the most recent of26 resultswithin the time period is included. POC-Glucose Meter 151 (H)Comment: TESTED AT 70 - 110 mg/dL [place] [id number] [facility] [id number] Specimen Blood Performing Organization Address City/State/Zipcode Phone Number [address] [phone] CENTER CBC (Hemogram only) (09/21/2018 6:14 AM CDT)Only the most recent of5 resultswithin the time period is included. WBC 7.8 3.5 - 10.5 K/L [facility] RBC 3.57 (L) 4.63 - 6.08 M/L [facility] Hemoglobin 10.9 (L) 13.7 - 17.5 GM/DL [facility] Hematocrit 36.5 (L) 40.1 - 51.0 % [facility] MCV 102.2 (H) 79.0 - 92.2 fL [facility] MCH 30.5 25.7 - 32.2 pg [facility] MCHC 29.9 (L) 32.3 - 36.5 GM/DL [facility] RDW 13.6 11.6 - 14.4 % [facility] Platelets 182 150 - 450 K/CU MM [facility] MPV 9.5 9.4 - 12.4 fL [facility] nRBC 0 0 - 0 /100 WBC [facility] Specimen Blood Performing Organization Address City/[facility]/Zipcode Phone Number [address] [phone] CENTER Magnesium (09/21/2018 6:14 AM CDT)Only the most recent of11 resultswithin the time period is included. Magnesium 2.1 1.6 - 2.6 mg/dL [facility] Specimen Blood Performing Organization Address [facility] Phone Number [address] [phone] CENTER Basic Metabolic Panel (09/21/2018 6:14 AM CDT)Only the most recent of11 resultswithin the time period is included. Sodium 138 136 - 145 meq/L [facility] Potassium 4.4 3.5 - 5.1 meq/L [facility] Chloride 97 (L) 98 - 107 meq/L [facility] CO2 34 (H) 22 - 29 meq/L [facility] BUN 19 7 - 21 mg/dL [facility] Creatinine 0.90 0.57 - 1.25 mg/dL [facility] Glucose 88 70 - 105 mg/dL [facility] Calcium 8.7 8.4 - 10.2 mg/dL [facility] EGFR 81Comment: ESTIMATED GFR IS mL/min/1.73 sq m [facility] NOT ACCURATE [facility] CLEARANCE IN PREDICTING GLOMERULAR FILTRATION RATE. ESTIMATED GFR IS NOT APPLICABLE FOR DIALYSIS PATIENTS. Specimen Blood Performing Organization Address City/State/Zipcode Phone Number [facility] [address] [place] [phone] [place] Blood gas, arterial (09/19/2018 4:25 PM CDT)Only the most recent of14 resultswithin the time period is included. pH, Arterial 7.48 (H) 7.35 - 7.45 [facility] pCO2, Arterial 52 (H) 35 - 45 mmHg [facility] pO2, Arterial 84 80 - 90 mmHg [facility] O2 Sat, Arterial 96.9 96.0 - 97.0 % [facility] HCO3, Arterial 38 (H) 21 - 29 mmol/L [facility] Base Excess, Arterial 12.8 (H) -2.0 - 3.0 mmol/L [facility] Patient Temperature 36.4 C [facility] FIO2 28.0 % [facility] Specimen Blood, Arterial Performing Organization Address City/[facility]/Zipcode Phone Number [facility] [address] [place] [phone] [place] XR chest 1 view portable / bedside [...] MD Report Verified Date/Time:09/19/2018 08:20:07 Reading Location: [facility] C0[facility] Transitional Reading Room Procedure Note Interface, External [...] Report Verified Date/Time: 09/19/2018 08:20:07 Reading Location: [facility] C013T Transitional Reading Room Performing Organization Address City/[facility] Phone Number [employer] RIS ECG 12 lead (09/18/2018 12:54 AM CDT)Only the most recent of5 resultswithin the time period is included. Specimen Narrative Performed At Ventricular Rate 73 BPM GE MUSE Atrial Rate 43 BPM QRS Duration 156 ms Q-T Interval 442 ms QTC Calculation(Bazett) 486 ms R [place] -89 degrees T [place] 83 degrees Ventricular-paced rhythm Abnormal ECG When compared with ECG of 18-SEP-2018 00:54, Significant changes have occurred Confirmed by Alon ONEIL MICHAEL ([id number]) on 09/20/2018 7:44:57 AM Procedure Note Interface, External Ris In - 09/20/2018 7:45 AM CDT Ventricular Rate 73 BPM Atrial Rate 43 BPM QRS Duration 156 ms Q-T Interval 442 ms QTC Calculation(Bazett) 486 ms R [place] -89 degrees [place] 83 degrees Ventricular-paced rhythm Abnormal ECG When compared with ECG of 18-SEP-2018 00:54, Significant changes have occurred Confirmed by Alon ONEIL MICHAEL ([id number]) on 09/20/2018 7:44:57 AM Performing Organization Address [facility] Phone Number THUBIT CBC with platelet count + automated diff (09/17/2018 5:49 AM CDT)Only the most recent of5 resultswithin the time period is included. WBC 6.0 3.5 - 10.5 K/L [facility] RBC 3.15 (L) 4.63 - 6.08 M/L [facility] Hemoglobin 9.8 (L) 13.7 - 17.5 GM/DL [facility] Hematocrit 31.0 (L) 40.1 - 51.0 % [facility] MCV 98.4 (H) 79.0 - 92.2 fL [facility] MCH 31.1 25.7 - 32.2 pg [facility] MCHC 31.6 (L) 32.3 - 36.5 GM/DL [facility] RDW 13.6 11.6 - 14.4 % [facility] Platelets 95 (L) 150 - 450 K/CU MM [facility] MPV 10.2 9.4 - 12.4 fL [facility] nRBC 0 0 - 0 /100 WBC [facility] % Neutros 89 % [facility] % Lymphs 4 % [facility] % Monos 6 % [facility] % Eos 0 % [facility] % Baso 0 % [facility] # Neutros 5.30 1.78 - 5.38 K/L [facility] # Lymphs 0.25 (L) 1.32 - 3.57 K/L [facility] # Monos 0.38 0.30 - 0.82 K/L [facility] # Eos 0.00 (L) 0.04 - 0.54 K/L [facility] # Baso 0.01 0.01 - 0.08 K/L [facility] Immature Granulocytes-Relative 1 0 - 1 % [facility] Specimen Blood Performing Organization Address City/State/Zipcode Phone Number [facility] [address] [place] [address] CENTER Oxygen saturation, measured (09/16/2018 6:01 AM CDT)Only the most recent of7 resultswithin the time period is included. O2 Saturation (Measured) 69.7 % [facility] Specimen Blood Performing Organization Address City/State/Zipcode Phone Number [address] [address] CENTER Calcium, Ionized (09/16/2018 6:01 AM CDT)Only the most recent of9 resultswithin the time period is included. Calcium, Ion 1.13 1.12 - 1.27 mmol/L [facility] pH, Blood 7.42 [facility] Specimen Blood Performing Organization Address City/[facility]/Zipcode Phone Number [address] [address] CENTER Potassium (09/15/2018 3:32 PM CDT)Only the most recent of2 resultswithin the time period is included. Potassium 4.3 3.5 - 5.1 meq/L [facility] Specimen Blood Narrative Performed At Check Serum Potassium level 2 hours after [facility] oral potassium replacement completed or 30 min after intravenous potassium replacement. Performing Organization Address City/[facility] Phone Number [address] [address] [phone] CENTER Phosphorus (09/15/2018 4:21 AM CDT)Only the most recent of3 resultswithin the time period is included. Phosphorus 3.0 2.3 - 4.7 mg/dL [facility] Specimen Blood Performing Organization Address City/State/Zipcode Phone Number [address] [address] CENTER Hepatic function panel (09/14/2018 10:12 AM CDT) Protein, Total 5.4 (L) 6.0 - 8.3 gm/dL [facility] Albumin 3.1 (L) 3.5 - 5.0 g/dL [facility] Total Bilirubin 0.4 0.2 - 1.2 mg/dL [facility] Bilirubin, Direct 0.3 0.1 - 0.5 mg/dL [facility] Alkaline Phosphatase 36 (L) 40 - 150 U/L [facility] AST 53 (H) 5 - 34 U/L [facility] ALT 17 6 - 55 U/L [facility] Specimen Blood Performing Organization Address [facility] Phone Number [address] [address] [phone] CENTER Lactic Acid, Arterial (09/14/2018 2:46 AM CDT)Only the most recent of7 resultswithin the time period is included. Lactate, Art 2.9 (H) 0.5 - 2.2 mmol/L [facility] Specimen Blood, Arterial Performing Organization Address [facility] Phone Number [address] [address] [phone] CENTER Glucose-Stat Lab (09/13/2018 11:37 PM CDT)Only the most recent of8 resultswithin the time period is included. Glucose 192 (H) 70 - 110 mg/dL [facility] Specimen Blood, Arterial Performing Organization Address [facility] Phone Number [address] [address] CENTER Potassium-Stat Lab (09/13/2018 8:32 PM CDT)Only the most recent of8 resultswithin the time period is included. Potassium 3.2 (L) 3.6 - 5.5 meq/L [facility] Specimen Blood, Arterial Performing Organization Address [facility] Phone Number [address] [address] [phone] CENTER Sodium Na-Stat Lab (09/13/2018 8:32 PM CDT)Only the most recent of8 resultswithin the time period is included. Sodium 140 135 - 148 meq/L [facility] Specimen Blood, Arterial Performing Organization Address [facility] Phone Number [address] [address] CENTER HGB/HCT (H&H)-Stat Lab (09/13/2018 8:32 PM CDT)Only the most recent of8 resultswithin the time period is included. Hemoglobin 11.5 (L) 13.0 - 16.8 g/dL [facility] Hematocrit 34.0 (L) 40.0 - 50.0 % [facility] Specimen Blood, Arterial Performing Organization Address [facility] Phone Number [address] [address] [phone] CENTER aPTT (09/13/2018 2:15 PM CDT)Only the most recent of2 resultswithin the time period is included. PTT 30.0 22.5 - 36.0 seconds [facility] Specimen Blood Performing Organization Address [facility] Phone Number [address] [address] [phone] CENTER Prothrombin time/INR (09/13/2018 2:15 PM CDT)Only the most recent of2 resultswithin the time period is included. Protime 16.8 (H) 11.7 - 14.7 seconds [facility] INR 1.4 <=5.9 [facility] Specimen Blood Narrative Performed At RECOMMENDED COUMADIN/WARFARIN INR THERAPY [facility] RANGES STANDARD DOSE: 2.0 - 3.0 Includes: PROPHYLAXIS for venous thrombosis, systemic embolization; TREATMENT for venous thrombosis and/or pulmonary embolus. HIGH RISK: Target INR is 2.5-3.5 for patients with mechanical heart valves. Performing Organization Address City/[facility] Phone Number [facility] [address] [address] [place] Fibrinogen (09/13/2018 2:15 PM CDT) Fibrinogen 321 225 - 434 mg/dl [facility] Specimen Blood Performing Organization Address City/[facility] Phone Number [address] [address] [phone] CENTER POC ACTIVATED CLOTTING TIME (09/13/2018 12:50 PM CDT)Only the most recent of7 resultswithin the time period is included. Activated Clotting Time 114Comment: TESTED AT sec [facility] [address] [address] Specimen Blood Performing Organization Address [facility] Phone Number [address] [address] [place] Tissue Exam (09/13/2018 11:46 AM CDT) Case Report Surgical Pathology Report Case: [id number] [facility] Authorizing Provider:Pillo Brand, Collected: 09/13/2018 1146 [facility] Ordering Location: [facility] Received: 09/13/2018 1237 [employer] [employer] Pathologist: Yousif Alfonso MD Specimen:Leaflets DIAGNOSIS HEART, MITRAL VALVE, VALVULECTOMY: [facility] FIBROMYXOID THICKENING WITH FOCAL SCLEROSIS [facility] Signing Pathologist Direct Phone Line: [phone] CPT Code(s) 26792; 15086 [facility] CLINICAL HISTORY Mitral valve insufficiency, [facility] unspecified etiology [facility] GROSS DESCRIPTION The specimen is received in [facility] formalin labeled with the [facility] patient's information as well as "leaflets". It contains a 4.5 x 2.5 x 0.6 cm aggregate of ash-white membranous mitral valve leaflets. The leaflets are flexible ash-yellow focal flat end. Pinpoint calcification is present. No vegetations are seen. No masses are appreciated. The specimen is submitted representatively in a single cassette following decalcification. RC/pl MICROSCOPIC DESCRIPTION Performed [facility] Specimen Tissue Performing Organization Address City/State/Zipcode Phone Number [facility] [address] [place] [address] CENTER SRINIVASA (09/13/2018 9:09 AM CDT) Narrative [...] is included. ABO/RH AUTOMATED (BEAKER) A POSITIVE [facility] Ab Scrn NEGATIVE [facility] Specimen Blood Performing Organization Address City/[facility] Phone Number [address] [address] Hemoglobin A1c (09/07/2018 2:00 PM CDT) Hemoglobin A1C 6.0 4.3 - 6.1 % [facility] Specimen Blood Performing Organization Address City/[facility] Phone Number [address] [address] [phone] CENTER Lipid panel (09/07/2018 2:00 PM CDT) Triglycerides 143 mg/dL [facility] Cholesterol 143 mg/dL [facility] HDL 40 mg/dL [facility] LDL Calculated 74 mg/dL [facility] Specimen Blood Narrative Performed At Triglyceride Reference Range: [facility] Low Risk <150 [id number] High Risk 200-499 Very High Risk>=500 Cholesterol Reference Range: Low Risk <200 [id number] High Risk>240 HDL Cholesterol Reference Range: Low Risk >=60 High Risk <40 LDL Cholesterol Reference Range: Optimal<100 Near [id number] [id number] Very High >=190 Performing Organization Address City/[facility] Phone Number [facility] [address] [place] [address] [place] Comprehensive metabolic panel (09/07/2018 2:00 PM CDT) Protein, Total 7.5 6.0 - 8.3 gm/dL [facility] Albumin 4.1 3.5 - 5.0 g/dL [facility] Alkaline Phosphatase 56 40 - 150 U/L [facility] Total Bilirubin 0.5 0.2 - 1.2 mg/dL [facility] Sodium 135 (L) 136 - 145 meq/L [facility] Potassium 3.0 (L) 3.5 - 5.1 meq/L [facility] Chloride 84 (L) 98 - 107 meq/L [facility] CO2 39 (H) 22 - 29 meq/L [facility] BUN 64 (H) 7 - 21 mg/dL [facility] Creatinine 1.96 (H) 0.57 - 1.25 mg/dL [facility] Glucose 114 (H) 70 - 105 mg/dL [facility] Calcium 9.9 8.4 - 10.2 mg/dL [facility] AST 23 5 - 34 U/L [facility] ALT 16 6 - 55 U/L [facility] EGFR 33Comment: ESTIMATED GFR mL/min/1.[address] [facility] IS NOT ACCURATE [facility] CREATININE CLEARANCE IN PREDICTING GLOMERULAR FILTRATION RATE. ESTIMATED GFR IS NOT APPLICABLE FOR DIALYSIS PATIENTS. Specimen Blood Performing Organization Address City/State/Zipcode Phone Number [facility] [address] [place] [address] [place] CARDIAC CATH REPORT - SCAN (03/09/2018 10:40 AM CLAIMS VICE PRESIDENT) Narrative Performed At ECHOCARDIOGRAM REPORT - SCAN (03/05/2018 10:20 AM CDT) Narrative Performed At Prepare Leuko-Red RBC (03/04/2018 11:52 AM CDT) CROSSMATCH COMPATIBLE SAFETRACE TX Unit ABO A Pos SAFETRACE TX UNIT NUMBER [id number] SAFETRACE TX Status RETURNED FROM ISSUE SAFETRACE TX Blood Bank Product RED BLOOD CELLS SAFETRACE TX PRODUCT CODE [id number] SAFETRACE TX CROSSMATCH COMPATIBLE SAFETRACE TX Unit ABO A Pos SAFETRACE TX UNIT NUMBER [id number] SAFETRACE TX Status RETURNED FROM ISSUE SAFETRACE TX Blood Bank Product RED BLOOD CELLS SAFETRACE TX PRODUCT CODE [id number] SAFETRACE TX Specimen Other Performing Organization Address City/State/Zipcode Phone Number SAFETRACE [place] Transesophageal echo (03/04/2018 7:32 AM CDT) Ejection Fraction [facility] ECHO HEARTLAB MKCKESSON CPA Specimen Narrative Performed At Transesophageal Echocardiography Report (SRINIVASA) [facility] Demographics Patient Name Billie DAN of Study 03/04/2018 MUSTAPHA [id number] GenderMale Visit Number [id number] RaceUnkno [id number] Room Number C633 Number Date of Birth1935 Referring Physician Amber Martínez MD Age82 year(s) 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 Resource 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 Jam Lopez Physician MD Josep Fellow DANG [...] Study 03/04/2018 MUSTAPHA Gender Male Visit Number [id number] Race Unknown Room Number C633 Number Date of 1935 Referring Physician Amber Martínez MD Age 82 year(s) 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 Resource Specialist Jam Lopez Physician MD Josep Fellow DANG [...] TR Gradient: 45.63 mmHg Performing Organization Address City/[facility] Cent[facility] Phone Number [facility] MKCKESSON CPACS PT/aPTT (03/04/2018 7:00 AM CDT) Protime 13.7 11.7 - 14.7 seconds [facility] INR 1.0 <=5.9 [facility] PTT 23.9 22.5 - 36.0 seconds [facility] Specimen Blood Narrative Performed At RECOMMENDED COUMADIN/WARFARIN INR THERAPY [facility] RANGES STANDARD DOSE: 2.0 - 3.0 Includes: PROPHYLAXIS for venous thrombosis, systemic embolization; TREATMENT for venous thrombosis and/or pulmonary embolus. HIGH RISK: Target INR is 2.5-3.5 for patients with mechanical heart valves. Performing Organization Address [facility] Phone Number [address] [address] [phone] NEVIS B-type Natriuretic Factor (BNP) (03/04/2018 7:00 AM CDT) BNP 187 (H) 0 - 100 pg/mL [facility] Specimen Blood Performing Organization Address [facility] Phone Number [address] [address] NEVIS Albumin (03/04/2018 7:00 AM CDT) Albumin 3.6 3.5 - 5.0 g/dL [facility] Specimen Blood Performing Organization Address [facility] Phone Number [address] [address] CENTER CTA chest (02/17/2018 2:27 PM CDT) Specimen Narrative Performed At Addendum Begins GE RIS REPORT STATUS:A Addendum: I agree with the previously described non vascular findings by Dr. Viramontes. Signed: Cleve Stacy MD Report Verified Date/Time:02/18/2018 14:14:33 Reading Location: [facility] P048 Angio Body Reading Room Addendum Ends [...] measures 9.1 and 9.3 mm, respectively with zyli-tc-vbbcyhaidagciyqmry and nocalcific atherosclerosis present. The minimum and [...] 4.An addendum will be dictated by the Phototypesetter Operator Radiologist regarding the nonvascular findings. Signed: Sg Viramontes MD Report Verified Date/Time:02/17/2018 16:19:13 Reading Location: [place] [address] Cardiology MRI Procedure Note Interface, External Ris In - 02/18/2018 2:16 PM CDT Addendum Begins REPORT STATUS:A Addendum: I agree with the previously described non vascular findings by Dr. Viramontes. Signed: Cleve Stacy MD Report Verified Date/Time: 02/18/2018 14:14:33 Reading Location: [place] [address] Angio Body Reading Room Addendum Ends FINAL [...] measures 9.1 and 9.3 mm, respectively with qivd-eg-znnzouks tortuosity and no calcific atherosclerosis present. The [...] An addendum will be dictated by the Phototypesetter Operator Radiologist regarding the nonvascular findings. Signed: Sg Viramontes MD Report Verified Date/Time: 02/17/2018 16:19:13 Reading Location: [place] [id number] Cardiology MRI Performing Organization Address City/State/Zipcode Phone Number [facility]creen CTA abdomen & pelvis (02/17/2018 2:27 PM CDT) Specimen Narrative Performed At Addendum Begins [facility] REPORT STATUS:A Addendum: I agree with the previously described non vascular findings by Dr. Viramontes. Signed: Cleve Stacy MD Report Verified Date/Time:02/18/2018 14:14:33 Reading Location: [facility] P048 Angio Body Reading Room Addendum Ends [...] measures 9.1 and 9.3 mm, respectively with vmcu-av-uaguzccueieevopjvh and nocalcific atherosclerosis present. The minimum and [...] 4.An addendum will be dictated by the Phototypesetter Operator Radiologist regarding the nonvascular findings. Signed: Sg Viramontes MD Report Verified Date/Time:02/17/2018 16:19:13 Reading Location: [place] [address] Cardiology MRI Procedure Note Interface, External Ris In - 02/18/2018 2:16 PM CDT Addendum Begins REPORT STATUS:A Addendum: I agree with the previously described non vascular findings by Dr. Viramontes. Signed: Cleve Stacy MD Report Verified Date/Time: 02/18/2018 14:14:33 Reading Location: [place] [address] Angio Body Reading Room Addendum Ends FINAL [...] measures 9.1 and 9.3 mm, respectively with hfne-xl-esspattp tortuosity and no calcific atherosclerosis present. The [...] An addendum will be dictated by the Phototypesetter Operator Radiologist regarding the nonvascular findings. Signed: Sg Viramontes MD Report Verified Date/Time: 02/17/2018 16:19:13 Reading Location: [place] [address] Cardiology MRI Performing Organization Address City/[facility] Cent[facility]ode Phone Number GE RIS POC-Creatinine (02/17/2018 2:01 PM CDT) POC-Creatinine 1.7 (H)Comment: TESTED AT 0.6 - 1.3 mg/dL [facility] [address] [place] [address] POC-EGFR 39 mL/min/1.73M2 [facility] Specimen Blood Performing Organization Address [facility] Centercode Phone Number [facility] [address] [place] [address] CENTER after 10/02/2017 Insurance Payer Benefit Plan / Subscriber ID Type Phone Address Group MEDICARE MEDICARE A B xxxxxxxxxxx Medicare BLUE CROSS/BLUE [place] xxxxxxxxxxxx PPO [phone] [address] [facility] [place] [address] Advance Directives For more information, please contact:[address] [phone] Code Status Date Activated Date Inactivated Comments Full Code 09/14/2018 1:10 PM 09/21/2018 3:41 PM This code status was determined by: Patient Full Code 03/04/2018 1:51 PM 09/13/2018 6:19 AM This code status was determined by: Patient Full Code 03/04/2018 1:51 PM 03/04/2018 1:51 PM This code status was determined by: Patient
--- OUTSIDE RECORDS SUMMARY | 2018-10-03 19:23 | XMS REPORT ---
:1935 Author Organization [facility] Address [address] [place] [address] [address] [place] [address] Care Team Providers Name Role Phone FARHAN [...] (BEAKER) (test 151 mg/dL 70-[address] [facility] [address] [facility] icdt=1405) [facility] [address] [id number] 07:58:00 Test Item Value Reference Range Comments MAGNESIUM (BEAKER) (test sbgg=240) 2.1 mg/dL 1.6-2.6 BASIC METABOLIC [id number] 07:58:00 Test Item Value Reference Range Comments SODIUM (BEAKER) (test 138 meq/L 136-145 drxg=864) POTASSIUM (BEAKER) (test 4.4 meq/L 3.5-5.1 pdtj=549) CHLORIDE (BEAKER) (test 97 meq/L 98-107 nkey=785) CO2 (BEAKER) (test 34 meq/L 22-29 opjh=438) BLOOD UREA NITROGEN 19 mg/dL 7-21 (BEAKER) (test ferd=090) CREATININE (BEAKER) (test 0.90 mg/dL 0.57-1.25 wpkc=695) GLUCOSE RANDOM (BEAKER) 88 mg/dL 70-105 (test vujt=259) CALCIUM (BEAKER) (test 8.7 mg/dL 8.4-10.2 gsfr=746) EGFR (BEAKER) (test 81 mL/min/1.73 sq m ESTIMATED GFR IS NOT hpcj=5525) ACCURATE CREATININE CLEARANCE IN PREDICTING GLOMERULAR FILTRATION RATE. ESTIMATED GFR IS NOT APPLICABLE FOR DIALYSIS PATIENTS. CBC (HEMOGRAM ONLY)2018-09-21 06:38:00 Test Item Value Reference Range Comments WHITE BLOOD CELL COUNT (BEAKER) (test zgsj=902) 7.8 K/ L 3.5-10.5 RED BLOOD CELL COUNT (BEAKER) (test muoe=308) 3.57 M/ L 4.63-6.08 HEMOGLOBIN (BEAKER) (test bosk=545) 10.9 GM/DL 13.7-17.5 HEMATOCRIT (BEAKER) (test oymh=458) 36.5 % 40.1-51.0 MEAN CORPUSCULAR VOLUME (BEAKER) (test lwhr=544) 102.2 fL 79.0-92.2 MEAN CORPUSCULAR HEMOGLOBIN (BEAKER) (test 30.5 pg 25.7-32.2 lytu=414) MEAN CORPUSCULAR HEMOGLOBIN CONC (BEAKER) (test 29.9 GM/DL 32.3-36.5 xcuo=214) RED CELL DISTRIBUTION WIDTH (BEAKER) (test 13.6 % 11.6-14.4 wusn=076) PLATELET COUNT (BEAKER) (test jvvf=566) 182 K/CU MM 150-450 MEAN PLATELET VOLUME (BEAKER) (test essh=649) 9.5 fL 9.4-12.4 NUCLEATED RED BLOOD CELLS (BEAKER) (test 0 /100 WBC 0-0 zcqb=365) TISSUE [id number] 11:06:00Surgical Pathology Report Case: [id number] Authorizing Provider: Farhan Brand, Collected: 09/13/2018 1146 OrderingLocation: [facility] Received: 2018 1237 PERIOPERATIVE SERVICES Pathologist: Yousif Alfonso MD Specimen: Leaflets HEART, MITRAL VALVE, VALVULECTOMY:FIBROMYXOID THICKENING WITH FOCAL SCLEROSIS Signing Pathologist Direct Phone Line:[phone] signed by Yousif Alfonso MD on 09/20/2018 at 11:06 [id number]; [id number] valve insufficiency, unspecified etiology The specimen is [...] in a single cassette following decalcification. [facility] ([facility] ONLY)2018-09-20 10:51:00 Test Item Value Reference Range Comments WHITE BLOOD CELL COUNT (BEAKER) (test ppol=716) 9.3 K/ L 3.5-10.5 RED BLOOD CELL COUNT (BEAKER) (test kaya=946) 3.29 M/ L 4.63-6.08 HEMOGLOBIN (BEAKER) (test jctc=557) 10.4 GM/DL 13.7-17.5 HEMATOCRIT (BEAKER) (test kqdx=469) 33.4 % 40.1-51.0 MEAN CORPUSCULAR VOLUME (BEAKER) (test appz=367) 101.5 fL 79.0-92.2 MEAN CORPUSCULAR HEMOGLOBIN (BEAKER) (test 31.6 pg 25.7-32.2 iuqv=833) MEAN CORPUSCULAR HEMOGLOBIN CONC (BEAKER) (test 31.1 GM/DL 32.3-36.5 tfen=136) RED CELL DISTRIBUTION WIDTH (BEAKER) (test 13.7 % 11.6-14.4 ghnj=887) PLATELET COUNT (BEAKER) (test fzag=818) 168 K/CU MM 150-450 MEAN PLATELET VOLUME (BEAKER) (test ufxa=805) 9.7 fL 9.4-12.4 NUCLEATED RED BLOOD CELLS (BEAKER) (test 0 /100 WBC 0-0 pxop=835) [id number] 05:51:00 Test Item Value Reference Range Comments MAGNESIUM (BEAKER) (test jkrp=607) 2.4 mg/dL 1.6-2.6 BASIC METABOLIC [id number] 05:51:00 Test Item Value Reference Range Comments SODIUM (BEAKER) (test 139 meq/L 136-145 ssee=724) POTASSIUM (BEAKER) (test 4.5 meq/L 3.5-5.1 jezo=359) CHLORIDE (BEAKER) (test 95 meq/L 98-107 hgqt=765) CO2 (BEAKER) (test 38 meq/L 22-29 zalg=867) BLOOD UREA NITROGEN 20 mg/dL 7-21 (BEAKER) (test uhwh=820) CREATININE (BEAKER) (test 0.90 mg/dL 0.57-1.25 yogq=706) GLUCOSE RANDOM (BEAKER) 100 mg/dL 70-105 (test xbha=787) CALCIUM (BEAKER) (test 8.8 mg/dL 8.4-10.2 mpoa=400) EGFR (BEAKER) (test 81 mL/min/1.73 sq m ESTIMATED GFR IS NOT xczt=2579) ACCURATE CREATININE CLEARANCE IN PREDICTING GLOMERULAR FILTRATION RATE. ESTIMATED GFR IS NOT APPLICABLE FOR DIALYSIS PATIENTS. BLOOD GAS, [id number] 16:58:00 Test Item Value Reference Range Comments PH ARTERIAL (BEAKER) (test ljyl=138) 7.48 7.35-7.45 PCO2 ARTERIAL (BEAKER) (test ehus=302) 52 mmHg 35-45 PO2 ARTERIAL (BEAKER) (test csbi=686) 84 mmHg 80-90 O2 SATURATION ARTERIAL (BEAKER) (test nxrl=417) 96.9 % 96.0-97.0 HCO3 ARTERIAL (BEAKER) (test nekw=459) 38 mmol/L 21-29 BASE EXCESS ARTERIAL (BEAKER) (test yyty=781) 12.8 mmol/L -2.0-3.0 PATIENT TEMPERATURE (BEAKER) (test qnhn=1991) 36.4 C FIO2 (BEAKER) (test algi=3845) 28.0 % RAD, CHEST, 1 VIEW, NON [id number] 08:20:00Reason for exam:->s/p MVRShould this be performed at the bedside?->YesFINAL REPORT Comparison: 09/18/2018 TECHNIQUE: Single view of the chest FINDINGS: There are nonspecific mildly prominent interstitial markings laterally. Small left pleural effusion with adjacent airspace disease. No gross new lung parenchymal changes. Support lines and tubes arestable. Signed: Dick [place] Verified Date/Time: 09/19/2018 08:20:07 Reading Location: [address] Reading Room POCT-GLUCOSE [id number] 07:51:00 Test Item Value Reference Range Comments POC-GLUCOSE METER (BEAKER) 128 mg/dL 70-[address] (test vwij=1265) [facility] [address] BASIC METABOLIC [id number] 07:46:00 Test Item Value Reference Range Comments SODIUM (BEAKER) (test 140 meq/L 136-145 kzvz=245) POTASSIUM (BEAKER) (test 4.3 meq/L 3.5-5.1 iymv=763) CHLORIDE (BEAKER) (test 94 meq/L 98-107 lcjd=362) CO2 (BEAKER) (test 42 meq/L 22-29 ichn=313) BLOOD UREA NITROGEN 21 mg/dL 7-21 (BEAKER) (test jdxd=794) CREATININE (BEAKER) (test 1.03 mg/dL 0.57-1.25 ivmy=478) GLUCOSE RANDOM (BEAKER) 97 mg/dL 70-105 (test ychq=473) CALCIUM (BEAKER) (test 8.8 mg/dL 8.4-10.2 pjky=653) EGFR (BEAKER) (test 69 mL/min/1.73 sq m ESTIMATED GFR IS NOT owkh=3950) ACCURATE CREATININE CLEARANCE IN PREDICTING GLOMERULAR FILTRATION RATE. ESTIMATED GFR IS NOT APPLICABLE FOR DIALYSIS PATIENTS. [id number] 07:32:00 Test Item Value Reference Range Comments MAGNESIUM (BEAKER) (test lrvn=693) 2.2 mg/dL 1.6-2.6 POCT-GLUCOSE [id number] 21:39:00 Test Item Value Reference Range Comments POC-GLUCOSE METER (BEAKER) 131 mg/dL 70-[address] (test weny=7943) [facility] [address] POCT-GLUCOSE [id number] 17:39:00 Test Item Value Reference Range Comments POC-GLUCOSE METER (BEAKER) 143 mg/dL 70-[address] (test knjp=5134) [facility] [address] POCT-GLUCOSE [id number] 12:32:00 Test Item Value Reference Range Comments POC-GLUCOSE METER (BEAKER) 123 mg/dL 70-[address] (test kwtx=2912) [facility] [address] RAD, CHEST, 1 VIEW, NON [id number] 08:29:00Reason for exam:->s/p MVRShould this be performed [...] Verified Date/Time : 09/18/2018 08:29:07 Reading Location: [address] Neuro Reading Room POCT-GLUCOSE [id number] 08:06:00 Test Item Value Reference Range Comments POC-GLUCOSE METER (BEAKER) 97 mg/dL 70-[address] (test zkuc=8490) [place] [address] [id number] 01:49:00 Test Item Value Reference Range Comments MAGNESIUM (BEAKER) (test jmcj=160) 2.3 mg/dL 1.6-2.6 BASIC METABOLIC [id number] 01:49:00 Test Item Value Reference Range Comments SODIUM (BEAKER) (test 138 meq/L 136-145 aifq=168) POTASSIUM (BEAKER) (test 3.8 meq/L 3.5-5.1 oenu=585) CHLORIDE (BEAKER) (test 94 meq/L 98-107 plgu=687) CO2 (BEAKER) (test 36 meq/L 22-29 ybks=664) BLOOD UREA NITROGEN 30 mg/dL 7-21 (BEAKER) (test alix=692) CREATININE (BEAKER) (test 1.04 mg/dL 0.57-1.25 asbw=504) GLUCOSE RANDOM (BEAKER) 122 mg/dL 70-105 (test omqb=756) CALCIUM (BEAKER) (test 8.8 mg/dL 8.4-10.2 okon=373) EGFR (BEAKER) (test 69 mL/min/1.73 sq m ESTIMATED GFR IS NOT rebg=9569) ACCURATE CREATININE CLEARANCE IN PREDICTING GLOMERULAR FILTRATION RATE. ESTIMATED GFR IS NOT APPLICABLE FOR DIALYSIS PATIENTS. RAD, CHEST, 1 VIEW, NON [id number] 22:42:00Reason for exam:->shortness of breathShould this be [...] [place] Verified Date/Time: 2018 22:42:10 Reading Location: [facility] C013Y CT Body Reading Room POCT- GLUCOSE [id number] 21:28:00 Test Item Value Reference Range Comments POC-GLUCOSE METER (BEAKER) 148 mg/dL 70-[address] (test ydhi=8741) [facility] [address] POCT-GLUCOSE [id number] 17:16:00 Test Item Value Reference Range Comments POC-GLUCOSE METER (BEAKER) 231 mg/dL 70-[address] (test jlky=4127) [facility] [address] POCT-GLUCOSE [id number] 12:37:00 Test Item Value Reference Range Comments POC-GLUCOSE METER (BEAKER) 150 mg/dL 70-[address] (test zdye=4892) [facility] [address] RAD, CHEST, 1 VIEW, NON [id number] 09:37:00Reason for exam:->s/p MVRShould this be performed at the bedside?->YesFINAL REPORT Chest one view. Clinical history: s/p MVR Comparison: 2018Discussion: A frontal chest is provided. Cardiomediastinal contours are unchanged. 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 There is mild vascular congestion. Small bilateral pleural effusions. No new consolidation. No pneumothorax. Signed: Erin Marrero Verified Date/Time: 09/17/2018 09:37:37 Reading Location: [facility] Radiology Reading Room POCT-GLUCOSE [id number] 09:04:00 Test Item Value Reference Range Comments POC-GLUCOSE METER (BEAKER) 159 mg/dL 70-[address] [facility] [address] [facility] (test lqon=0753) [facility] [address] [id number] 06:49:00 Test Item Value Reference Range Comments MAGNESIUM (BEAKER) (test mtnk=809) 1.8 mg/dL 1.6-2.6 BASIC METABOLIC [id number] 06:49:00 Test Item Value Reference Range Comments SODIUM (BEAKER) (test 135 meq/L 136-145 flji=490) POTASSIUM (BEAKER) (test 4.0 meq/L 3.5-5.1 oceb=843) CHLORIDE (BEAKER) (test 94 meq/L 98-107 fzrl=458) CO2 (BEAKER) (test 35 meq/L 22-29 rnsc=545) BLOOD UREA NITROGEN 28 mg/dL 7-21 (BEAKER) (test dlow=850) CREATININE (BEAKER) (test 1.00 mg/dL 0.57-1.25 fzmh=111) GLUCOSE RANDOM (BEAKER) 141 mg/dL 70-105 (test iunf=404) CALCIUM (BEAKER) (test 8.6 mg/dL 8.4-10.2 zouu=534) EGFR (BEAKER) (test 72 mL/min/1.73 sq m ESTIMATED GFR IS NOT jtph=7444) ACCURATE CREATININE CLEARANCE IN PREDICTING GLOMERULAR FILTRATION RATE. ESTIMATED GFR IS NOT APPLICABLE FOR DIALYSIS PATIENTS. CBC W/PLT COUNT & AUTO [id number] 06:14:00 Test Item Value Reference Range Comments WHITE BLOOD CELL COUNT (BEAKER) (test oymw=113) 6.0 K/ L 3.5-10.5 RED BLOOD CELL COUNT (BEAKER) (test dkln=580) 3.15 M/ L 4.63-6.08 HEMOGLOBIN (BEAKER) (test nfgd=975) 9.8 GM/DL 13.7-17.5 HEMATOCRIT (BEAKER) (test wewq=186) 31.0 % 40.1-51.0 MEAN CORPUSCULAR VOLUME (BEAKER) (test jftr=078) 98.4 fL 79.0-92.2 MEAN CORPUSCULAR HEMOGLOBIN (BEAKER) (test 31.1 pg 25.7-32.2 jjyu=713) MEAN CORPUSCULAR HEMOGLOBIN CONC (BEAKER) (test 31.6 GM/DL 32.3-36.5 ejug=003) RED CELL DISTRIBUTION WIDTH (BEAKER) (test 13.6 % 11.6-14.4 ptgz=629) PLATELET COUNT (BEAKER) (test phcb=608) 95 K/CU MM 150-450 MEAN PLATELET VOLUME (BEAKER) (test rxhz=396) 10.2 fL 9.4-12.4 NUCLEATED RED BLOOD CELLS (BEAKER) (test 0 /100 WBC 0-0 kauh=948) NEUTROPHILS RELATIVE PERCENT (BEAKER) (test 89 % ixix=386) LYMPHOCYTES RELATIVE PERCENT (BEAKER) (test 4 % yzqf=974) MONOCYTES RELATIVE PERCENT (BEAKER) (test 6 % lyjg=373) EOSINOPHILS RELATIVE PERCENT (BEAKER) (test 0 % dtvo=677) BASOPHILS RELATIVE PERCENT (BEAKER) (test 0 % rxbq=729) NEUTROPHILS ABSOLUTE COUNT (BEAKER) (test 5.30 K/ L 1.78-5.38 atrm=716) LYMPHOCYTES ABSOLUTE COUNT (BEAKER) (test 0.25 K/ L 1.32-3.57 lgfr=869) MONOCYTES ABSOLUTE COUNT (BEAKER) (test anyn=964) 0.38 K/ L 0.30-0.82 EOSINOPHILS ABSOLUTE COUNT (BEAKER) (test 0.00 K/ L 0.04-0.54 iasc=704) BASOPHILS ABSOLUTE COUNT (BEAKER) (test mbxb=940) 0.01 K/ L 0.01-0.08 IMMATURE GRANULOCYTES-RELATIVE PERCENT (BEAKER) 1 % 0-1 (test paqw=4921) POCT-GLUCOSE [id number] 17:47:00 Test Item Value Reference Range Comments POC-GLUCOSE METER (BEAKER) 178 mg/dL 70-[address] (test cpbj=9340) [facility] [address] POCT-GLUCOSE [id number] 15:19:00 Test Item Value Reference Range Comments POC-GLUCOSE METER (BEAKER) 173 mg/dL 70-[address] (test xtlz=9714) [facility] [address] POCT-GLUCOSE [id number] 12:18:00 Test Item Value Reference Range Comments POC-GLUCOSE METER (BEAKER) 166 mg/dL 70-[address] (test bkgy=4330) [facility] [address] POCT-GLUCOSE [id number] 07:56:00 Test Item Value Reference Range Comments POC-GLUCOSE METER (BEAKER) 127 mg/dL 70-[address] (test tedj=6467) [facility] [address] [id number] 07:34:00 Test Item Value Reference Range Comments MAGNESIUM (BEAKER) (test xska=299) 2.0 mg/dL 1.6-2.6 BASIC METABOLIC [id number] 07:34:00 Test Item Value Reference Range Comments SODIUM (BEAKER) (test 133 meq/L 136-145 ixec=288) POTASSIUM (BEAKER) (test 4.0 meq/L 3.5-5.1 yzgw=790) CHLORIDE (BEAKER) (test 98 meq/L 98-107 jvgz=483) CO2 (BEAKER) (test 30 meq/L 22-29 tmza=442) BLOOD UREA NITROGEN 22 mg/dL 7-21 (BEAKER) (test dwdv=365) CREATININE (BEAKER) (test 0.93 mg/dL 0.57-1.25 kzpl=795) GLUCOSE RANDOM (BEAKER) 127 mg/dL 70-105 (test qrko=148) CALCIUM (BEAKER) (test 8.7 mg/dL 8.4-10.2 olmb=074) EGFR (BEAKER) (test 78 mL/min/1.73 sq m ESTIMATED GFR IS NOT mfyt=3938) ACCURATE CREATININE CLEARANCE IN PREDICTING GLOMERULAR FILTRATION RATE. ESTIMATED GFR IS NOT APPLICABLE FOR DIALYSIS PATIENTS. OXYGEN SATURATION, [id number] 07:10:00 Test Item Value Reference Range Comments O2 SATURATION (MEASURED) (BEAKER) (test cnjg=8824) 69.7 % CALCIUM, [id number] 07:05:00 Test Item Value Reference Range Comments CALCIUM IONIZED (BEAKER) (test kpzi=640) 1.13 mmol/L 1.12-1.27 PH, BLOOD (BEAKER) (test okgh=2758) 7.42 RAD, CHEST, 1 VIEW, NON [id number] 06:56:00Reason for exam:->pOST oPShould this be performed [...] [place] Verified Date/Time: 06:56:55 Reading Location: [address] Body Reading Room CBC ( HEMOGRAM ONLY)2018-09-16 06:54:00 Test Item Value Reference Range Comments WHITE BLOOD CELL COUNT (BEAKER) (test vpte=763) 6.6 K/ L 3.5-10.5 RED BLOOD CELL COUNT (BEAKER) (test vnxy=242) 3.02 M/ L 4.63-6.08 HEMOGLOBIN (BEAKER) (test tvac=055) 9.6 GM/DL 13.7-17.5 HEMATOCRIT (BEAKER) (test chbk=887) 29.5 % 40.1-51.0 MEAN CORPUSCULAR VOLUME (BEAKER) (test qzql=125) 97.7 fL 79.0-92.2 MEAN CORPUSCULAR HEMOGLOBIN (BEAKER) (test 31.8 pg 25.7-32.2 astv=238) MEAN CORPUSCULAR HEMOGLOBIN CONC (BEAKER) (test 32.5 GM/DL 32.3-36.5 xkon=040) RED CELL DISTRIBUTION WIDTH (BEAKER) (test 13.6 % 11.6-14.4 tpsn=270) PLATELET COUNT (BEAKER) (test ltay=962) 66 K/CU MM 150-450 MEAN PLATELET VOLUME (BEAKER) (test upzc=960) 10.5 fL 9.4-12.4 NUCLEATED RED BLOOD CELLS (BEAKER) (test 0 /100 WBC 0-0 fpdb=983) BLOOD GAS, [id number] 06:45:00 Test Item Value Reference Range Comments PH ARTERIAL (BEAKER) (test iyla=447) 7.41 7.35-7.45 PCO2 ARTERIAL (BEAKER) (test zath=024) 54 mmHg 35-45 PO2 ARTERIAL (BEAKER) (test jabd=728) 108 mmHg 80-90 O2 SATURATION ARTERIAL (BEAKER) (test omlv=993) 97.9 % 96.0-97.0 HCO3 ARTERIAL (BEAKER) (test nrmv=252) 34 mmol/L 21-29 BASE EXCESS ARTERIAL (BEAKER) (test gdii=129) 8.1 mmol/L -2.0-3.0 PATIENT TEMPERATURE (BEAKER) (test lwqa=5750) 37.0 C FIO2 (BEAKER) (test msyt=7573) 32.0 % POCT-GLUCOSE [id number] 22:27:00 Test Item Value Reference Range Comments POC-GLUCOSE METER (BEAKER) 124 mg/dL 70-[address] (test grmf=8369) [facility] [address] POCT-GLUCOSE [id number] 17:04:00 Test Item Value Reference Range Comments POC-GLUCOSE METER (BEAKER) 118 mg/dL 70-[address] (test xokr=7336) [place] [id number] 15:54:00 Test Item Value Reference Range Comments POTASSIUM (BEAKER) (test ptay=274) 4.3 meq/L 3.5-5.1 Check Serum Potassium level 2 hours after oral potassium replacement completed or 30 min after intravenous potassium replacement.POCT-GLUCOSE [id number] 13:42:00 Test Item Value Reference Range Comments POC-GLUCOSE METER (BEAKER) 156 mg/dL 70-[address] (test dudi=8373) [place] [id number] [id number] 12:27:00 Test Item Value Reference Range Comments POTASSIUM (BEAKER) (test uxac=697) 3.8 meq/L 3.5-5.1 Check Serum Potassium level 2 hours after oral potassium replacement completed or 30 min after intravenous potassium replacement.CALCIUM, [id number] 12: 00:00 Test Item Value Reference Range Comments CALCIUM IONIZED (BEAKER) (test vjeu=557) 1.15 mmol/L 1.12-1.27 PH, BLOOD (BEAKER) (test vdce=2398) 7.44 Check serum Ionized Calcium level after 4 hours after IV Calcium replacement.RAD , CHEST, 1 VIEW, NON [id number] 09:53:00Reason for exam:-> PneumothoraxShould this be performed [...] [place] Verified Date/Time: 09/15/2018 09:53:56 Reading Location: [facility] Radiology Reading Room POCT- GLUCOSE [id number] 08:07:00 Test Item Value Reference Range Comments POC-GLUCOSE METER (BEAKER) 148 mg/dL 70-[address] (test edzg=4794) [place] [address] RAD, CHEST, 1 VIEW, NON [id number] 06:19:00Reason for exam:->pOST oPShould this be performed [...] [place] Verified Date/Time: 09/15/2018 06:19:31 Reading Location: [address] Neuro Reading Room OXYGEN SATURATION, [id number] 05:38:00 Test Item Value Reference Range Comments O2 SATURATION (MEASURED) (BEAKER) (test lnol=4321) 70.0 % [id number] 05:28:00 Test Item Value Reference Range Comments PHOSPHORUS (BEAKER) (test msym=724) 3.0 mg/dL 2.3-4.7 [id number] 05:28:00 Test Item Value Reference Range Comments MAGNESIUM (BEAKER) (test yjxl=795) 2.3 mg/dL 1.6-2.6 BASIC METABOLIC [id number] 05:28:00 Test Item Value Reference Range Comments SODIUM (BEAKER) (test 137 meq/L 136-145 zzun=575) POTASSIUM (BEAKER) (test 3.6 meq/L 3.5-5.1 ekks=719) CHLORIDE (BEAKER) (test 101 meq/L 98-107 qmlx=528) CO2 (BEAKER) (test 29 meq/L 22-29 rkcz=892) BLOOD UREA NITROGEN 25 mg/dL 7-21 (BEAKER) (test uyci=010) CREATININE (BEAKER) (test 1.21 mg/dL 0.57-1.25 fsho=132) GLUCOSE RANDOM (BEAKER) 122 mg/dL 70-105 (test hcro=324) CALCIUM (BEAKER) (test 8.5 mg/dL 8.4-10.2 tums=732) EGFR (BEAKER) (test 58 mL/min/1.73 sq m ESTIMATED GFR IS NOT khsw=1355) ACCURATE CREATININE CLEARANCE IN PREDICTING GLOMERULAR FILTRATION RATE. ESTIMATED GFR IS NOT APPLICABLE FOR DIALYSIS PATIENTS. CBC (HEMOGRAM ONLY)2018-09-15 05:00:00 Test Item Value Reference Range Comments WHITE BLOOD CELL COUNT (BEAKER) (test wldz=328) 6.8 K/ L 3.5-10.5 RED BLOOD CELL COUNT (BEAKER) (test hjkc=529) 3.13 M/ L 4.63-6.08 HEMOGLOBIN (BEAKER) (test hcxy=302) 9.7 GM/DL 13.7-17.5 HEMATOCRIT (BEAKER) (test ehby=034) 31.2 % 40.1-51.0 MEAN CORPUSCULAR VOLUME (BEAKER) (test hafy=013) 99.7 fL 79.0-92.2 MEAN CORPUSCULAR HEMOGLOBIN (BEAKER) (test 31.0 pg 25.7-32.2 uhiu=701) MEAN CORPUSCULAR HEMOGLOBIN CONC (BEAKER) (test 31.1 GM/DL 32.3-36.5 zsvn=398) RED CELL DISTRIBUTION WIDTH (BEAKER) (test 13.9 % 11.6-14.4 twcx=749) PLATELET COUNT (BEAKER) (test lxmh=676) 58 K/CU MM 150-450 MEAN PLATELET VOLUME (BEAKER) (test ngxi=968) 10.1 fL 9.4-12.4 NUCLEATED RED BLOOD CELLS (BEAKER) (test 0 /100 WBC 0-0 kwyj=361) OXYGEN SATURATION, [id number] 04:53:00 Test Item Value Reference Range Comments O2 SATURATION (MEASURED) (BEAKER) (test vecl=5018) 96.3 % CALCIUM, [id number] 04:52:00 Test Item Value Reference Range Comments CALCIUM IONIZED (BEAKER) (test whkh=207) 1.07 mmol/L 1.12-1.27 PH, BLOOD (BEAKER) (test skqo=9255) 7.41 BLOOD GAS, [id number] 04:51:00 Test Item Value Reference Range Comments PH ARTERIAL (BEAKER) (test slcx=863) 7.42 7.35-7.45 PCO2 ARTERIAL (BEAKER) (test veby=074) 51 mmHg 35-45 PO2 ARTERIAL (BEAKER) (test dluq=105) 98 mmHg 80-90 O2 SATURATION ARTERIAL (BEAKER) (test auoe=547) 97.6 % 96.0-97.0 HCO3 ARTERIAL (BEAKER) (test wsjk=492) 33 mmol/L 21-29 BASE EXCESS ARTERIAL (BEAKER) (test mypr=784) 6.8 mmol/L -2.0-3.0 PATIENT TEMPERATURE (BEAKER) (test iozx=8157) 36.5 C FIO2 (BEAKER) (test dmys=7904) 32.0 % POCT-GLUCOSE [id number] 22:08:00 Test Item Value Reference Range Comments POC-GLUCOSE METER (BEAKER) 139 mg/dL 70-[address] (test qtjk=9104) [facility] [address] POCT-GLUCOSE [id number] 18:13:00 Test Item Value Reference Range Comments POC-GLUCOSE METER (BEAKER) 137 mg/dL 70-[address] (test kawe=4401) [facility] [address] POCT-GLUCOSE [id number] 14:12:00 Test Item Value Reference Range Comments POC-GLUCOSE METER (BEAKER) 129 mg/dL 70-[address] (test vrbd=8521) [facility] [address] HEPATIC FUNCTION [id number] 10:48:00 Test Item Value Reference Range Comments TOTAL PROTEIN (BEAKER) (test hxzb=579) 5.4 gm/dL 6.0-8.3 ALBUMIN (BEAKER) (test xqyr=3820) 3.1 g/dL 3.5-5.0 BILIRUBIN TOTAL (BEAKER) (test cjuj=804) 0.4 mg/dL 0.2-1.2 BILIRUBIN DIRECT (BEAKER) (test yrsc=659) 0.3 mg/dL 0.1-0.5 ALKALINE PHOSPHATASE (BEAKER) (test klfh=623) 36 U/L 40-150 AST (SGOT) (BEAKER) (test byiz=249) 53 U/L 5-34 ALT (SGPT) (BEAKER) (test uoay=730) 17 U/L 6-55 RAD, CHEST, 1 VIEW, NON [id number] 07:56:00Reason for exam:->pOST oPShould this be performed at the bedside?->YesFINAL REPORT Chest one view. Clinical history: pOST oP Comparison: 2018Discussion: A frontal chest is provided. Cardiomediastinal contours are unchanged. [place] catheter tip has been advanced, and now projects over the expected location of right interlobar/lower lobar artery. ET and feeding tube have been removed. Right IJ line, right chest tube are in stable position. There is mild interstitial edema. Small left effusion with mild bibasilar atelectasis. No pneumothorax. Signed: Erin Marrero Verified Date/Time: 07:56:51 Reading Location: [facility] Radiology Reading Room POCT-GLUCOSE [id number] 06:37:00 Test Item Value Reference Range Comments POC-GLUCOSE METER (ObsEva) 128 mg/dL 70-[address] (test scck=4126) [place] [address] POCT-GLUCOSE [id number] 06:37:00 Test Item Value Reference Range Comments POC-GLUCOSE METER (ObsEva) 164 mg/dL 70-[address] (test yzip=1298) [place] [id number] 06:10:00 Test Item Value Reference Range Comments ACTIVATED CLOTTING TIME 114 sec TESTED AT [place] [address] [facility] ([facility]) (test pvbw=992) [place] [address] [id number] 06:10:00 Test Item Value Reference Range Comments ACTIVATED CLOTTING TIME 522 sec TESTED AT [place] [id number] [facility] ([facility]) (test zdpd=034) [place] [address] [id number] 06:10:00 Test Item Value Reference Range Comments ACTIVATED CLOTTING TIME 510 sec TESTED AT [place] [address] [facility] ([employer]) (test zvju=820) [place] [address] [id number] 06:10:00 Test Item Value Reference Range Comments ACTIVATED CLOTTING TIME 549 sec TESTED AT [place] [address] [facility] ([employer]) (test vitb=095) [place] [address] [id number] 06:10:00 Test Item Value Reference Range Comments ACTIVATED CLOTTING TIME 516 sec TESTED AT [place] [address] [facility] (test iwzu=549) [place] [address] [id number] 06:09:00 Test Item Value Reference Range Comments ACTIVATED CLOTTING TIME 472 sec TESTED AT [address] (BEAKER) (test rvbm=898) [place] [address] BLOOD GAS, [id number] 04:55:00 Test Item Value Reference Range Comments PH ARTERIAL (BEAKER) (test obqi=729) 7.37 7.35-7.45 PCO2 ARTERIAL (BEAKER) (test jlum=098) 54 mmHg 35-45 PO2 ARTERIAL (BEAKER) (test rgjo=115) 93 mmHg 80-90 O2 SATURATION ARTERIAL (BEAKER) (test lguj=064) 96.6 % 96.0-97.0 HCO3 ARTERIAL (BEAKER) (test mrvo=609) 30 mmol/L 21-29 BASE EXCESS ARTERIAL (BEAKER) (test kjka=018) 4.3 mmol/L -2.0-3.0 PATIENT TEMPERATURE (BEAKER) (test dpii=3189) 37.3 C FIO2 (BEAKER) (test pwyh=7347) 40.0 % POCT-GLUCOSE [id number] 03:53:00 Test Item Value Reference Range Comments POC-GLUCOSE METER (BEAKER) 212 mg/dL 70-[address] (test sfol=5312) [place] [address] POCT-GLUCOSE [id number] 03:53:00 Test Item Value Reference Range Comments POC-GLUCOSE METER (BEAKER) 211 mg/dL 70-110 [address] AT [address] (test asqw=5067) [place] [address] BASIC METABOLIC [id number] 03:23:00 Test Item Value Reference Range Comments SODIUM (BEAKER) (test 143 meq/L 136-145 doub=980) POTASSIUM (BEAKER) (test 4.2 meq/L 3.5-5.1 jokl=903) CHLORIDE (BEAKER) (test 105 meq/L 98-107 qmry=909) CO2 (BEAKER) (test 29 meq/L 22-29 xdmk=778) BLOOD UREA NITROGEN 32 mg/dL 7-21 (BEAKER) (test jtfl=409) CREATININE (BEAKER) (test 1.43 mg/dL 0.57-1.25 comr=584) GLUCOSE RANDOM (BEAKER) 193 mg/dL 70-105 (test tbsy=191) CALCIUM (BEAKER) (test 8.2 mg/dL 8.4-10.2 idbn=506) EGFR (BEAKER) (test 47 mL/min/1.73 sq m ESTIMATED GFR IS NOT zadv=0894) ACCURATE CREATININE CLEARANCE IN PREDICTING GLOMERULAR FILTRATION RATE. ESTIMATED GFR IS NOT APPLICABLE FOR DIALYSIS PATIENTS. [id number] 03:23:00 Test Item Value Reference Range Comments MAGNESIUM (BEAKER) (test sveg=585) 2.6 mg/dL 1.6-2.6 [id number] 03:23:00 Test Item Value Reference Range Comments PHOSPHORUS (BEAKER) (test lycz=418) 3.0 mg/dL 2.3-4.7 LACTIC ACID, [id number] 03:17:00 Test Item Value Reference Range Comments LACTATE BLOOD ARTERIAL (2) (BEAKER) (test 2.9 mmol/L 0.5-2.2 yfst=0143) CBC (HEMOGRAM ONLY)[id number] 02:56:00 Test Item Value Reference Range Comments WHITE BLOOD CELL COUNT (BEAKER) (test bfta=784) 8.2 K/ L 3.5-10.5 RED BLOOD CELL COUNT (BEAKER) (test acca=598) 3.09 M/ L 4.63-6.08 HEMOGLOBIN (BEAKER) (test oxmg=840) 9.8 GM/DL 13.7-17.5 HEMATOCRIT (BEAKER) (test bouz=147) 31.2 % 40.1-51.0 MEAN CORPUSCULAR VOLUME (BEAKER) (test lzty=984) 101.0 fL 79.0-92.2 MEAN CORPUSCULAR HEMOGLOBIN (BEAKER) (test 31.7 pg 25.7-32.2 jgzm=254) MEAN CORPUSCULAR HEMOGLOBIN CONC (BEAKER) (test 31.4 GM/DL 32.3-36.5 fwoe=422) RED CELL DISTRIBUTION WIDTH (BEAKER) (test 14.0 % 11.6-14.4 tcwc=867) PLATELET COUNT (BEAKER) (test jpex=663) 76 K/CU MM 150-450 MEAN PLATELET VOLUME (BEAKER) (test ljzb=282) 9.6 fL 9.4-12.4 NUCLEATED RED BLOOD CELLS (BEAKER) (test 0 /100 WBC 0-0 bqgi=334) CALCIUM, [id number] 02:56:00 Test Item Value Reference Range Comments CALCIUM IONIZED (BEAKER) (test zskr=871) 1.09 mmol/L 1.12-1.27 PH, BLOOD (BEAKER) (test tvan=1174) 7.32 OXYGEN SATURATION, [id number] 02:56:00 Test Item Value Reference Range Comments O2 SATURATION (MEASURED) (BEAKER) (test iymk=8460) 72.5 % LACTIC ACID, [id number] 02:25:00 Test Item Value Reference Range Comments LACTATE BLOOD ARTERIAL (2) (BEAKER) (test 3.2 mmol/L 0.5-2.2 uqcn=5611) BLOOD GAS, [id number] 23:43:00 Test Item Value Reference Range Comments PH ARTERIAL (BEAKER) (test esxb=491) 7.31 7.35-7.45 PCO2 ARTERIAL (BEAKER) (test ujfs=041) 55 mmHg 35-45 PO2 ARTERIAL (BEAKER) (test hnfp=523) 83 mmHg 80-90 O2 SATURATION ARTERIAL (BEAKER) (test bxqf=542) 95.5 % 96.0-97.0 HCO3 ARTERIAL (BEAKER) (test pxrl=797) 27 mmol/L 21-29 BASE EXCESS ARTERIAL (BEAKER) (test lusc=098) 0.3 mmol/L -2.0-3.0 PATIENT TEMPERATURE (BEAKER) (test gkcq=0256) 36.4 C FIO2 (BEAKER) (test atdp=7503) 40.0 % GLUCOSE-STAT [id number] 23:43:00 Test Item Value Reference Range Comments GLUCOSE RANDOM (BEAKER) (test emht=356) 192 mg/dL 70-110 OXYGEN SATURATION, [id number] 23:42:00 Test Item Value Reference Range Comments O2 SATURATION (MEASURED) (BEAKER) (test milj=8742) 72.2 % BLOOD GAS, [id number] 21:02:00 Test Item Value Reference Range Comments PH ARTERIAL (BEAKER) (test ufzb=157) 7.35 7.35-7.45 PCO2 ARTERIAL (BEAKER) (test fnpn=297) 49 mmHg 35-45 PO2 ARTERIAL (BEAKER) (test mygi=450) 78 mmHg 80-90 O2 SATURATION ARTERIAL (BEAKER) (test lher=385) 94.4 % 96.0-97.0 HCO3 ARTERIAL (BEAKER) (test opki=099) 26 mmol/L 21-29 BASE EXCESS ARTERIAL (BEAKER) (test vexd=696) 0.3 mmol/L -2.0-3.0 PATIENT TEMPERATURE (BEAKER) (test hsdb=3851) 37.6 C FIO2 (BEAKER) (test kswm=6599) 40.0 % POTASSIUM-STAT [id number] 21:02:00 Test Item Value Reference Range Comments POTASSIUM (BEAKER) (test esxz=267) 3.2 meq/L 3.6-5.5 HGB/HCT (H&H) - STAT [id number] 21:02:00 Test Item Value Reference Range Comments HEMOGLOBIN (BEAKER) (test iaoa=446) 11.5 g/dL 13.0-16.8 HEMATOCRIT (BEAKER) (test difi=082) 34.0 % 40.0-50.0 LACTIC ACID, [id number] 21:02:00 Test Item Value Reference Range Comments LACTATE BLOOD ARTERIAL (2) (BEAKER) (test 6.2 mmol/L 0.5-2.2 afwg=7069) SODIUM NA-STAT [id number] 21:01:00 Test Item Value Reference Range Comments SODIUM (BEAKER) (test gytu=623) 140 meq/L 135-148 [id number] 21:01:00 Test Item Value Reference Range Comments MAGNESIUM (BEAKER) (test pqzo=954) 2.6 mg/dL 1.6-2.6 OXYGEN SATURATION, [id number] 20:55:00 Test Item Value Reference Range Comments O2 SATURATION (MEASURED) (BEAKER) (test zzmp=4874) 66.6 % CALCIUM, [id number] 20:53:00 Test Item Value Reference Range Comments CALCIUM IONIZED (BEAKER) (test foei=246) 1.16 mmol/L 1.12-1.27 PH, BLOOD (BEAKER) (test ydon=1920) 7.33 LACTIC ACID, [id number] 18:37:00 Test Item Value Reference Range Comments LACTATE BLOOD ARTERIAL (2) 3.9 mmol/L 0.5-2.2 Specimen slightly hemolyzed (BEAKER) (test klbw=7789) OXYGEN SATURATION, [id number] 16:34:00 Test Item Value Reference Range Comments O2 SATURATION (MEASURED) (BEAKER) (test wcvl=5790) 68.1 % RAD, CHEST, 1 VIEW, NON [id number] 15:01:00Reason for exam:->pOST oPShould this be performed at the bedside?->YesFINAL REPORT EXAM: Frontal chest radiograph HISTORY PROVIDED: Postop COMPARISON: 03/05/2018 IMPRESSION:The tip of an endotracheal tube terminates approximately 3.8 cm above the ahsan. An enteric tube descends below the diaphragm with its tip off the field of view. The tip of a right IJ approach [place] catheter projects over the pulmonary outflow tract. [...] MDReport Verified Date/Time: 09/13/2018 15:01:54 Reading Location: [facility] Reading Room [id number] 14:46:00 Test Item Value Reference Range Comments MAGNESIUM (BEAKER) (test 3.0 mg/dL 1.6-2.6 Specimen slightly hemolyzed xenh=989) [id number] 14:46:00 Test Item Value Reference Range Comments PHOSPHORUS (BEAKER) (test 2.0 mg/dL 2.3-4.7 Specimen slightly hemolyzed lhgk=650) BASIC METABOLIC [id number] 14:46:00 Test Item Value Reference Range Comments SODIUM (BEAKER) (test 142 meq/L 136-145 awlw=571) POTASSIUM (BEAKER) (test 3.4 meq/L 3.5-5.1 Specimen slightly cklb=632) hemolyzed CHLORIDE (BEAKER) (test 102 meq/L 98-107 nzff=235) CO2 (BEAKER) (test 29 meq/L 22-29 rfxu=248) BLOOD UREA NITROGEN 33 mg/dL 7-21 (BEAKER) (test xcob=915) CREATININE (BEAKER) (test 1.23 mg/dL 0.57-1.25 Specimen slightly ojlj=056) hemolyzed GLUCOSE RANDOM (BEAKER) 165 mg/dL 70-105 (test gaoy=548) CALCIUM (BEAKER) (test 8.8 mg/dL 8.4-10.2 pyiy=368) EGFR (BEAKER) (test 56 mL/min/1.73 sq m ESTIMATED GFR IS NOT vvsu=2066) ACCURATE CREATININE CLEARANCE IN PREDICTING GLOMERULAR FILTRATION RATE. ESTIMATED GFR IS NOT APPLICABLE FOR DIALYSIS PATIENTS. LACTIC ACID, [id number] 14:42:00 Test Item Value Reference Range Comments LACTATE BLOOD ARTERIAL (2) 1.5 mmol/L 0.5-2.2 Specimen slightly hemolyzed (BEAKER) (test ybqo=1525) [id number] 14:38:00 Test Item Value Reference Range Comments FIBRINOGEN LEVEL (BEAKER) (test xbqa=102) 321 mg/dl 225-434 [id number] 14:38:00 Test Item Value Reference Range Comments PARTIAL THROMBOPLASTIN TIME (BEAKER) (test 30.0 seconds 22.5-36.0 bles=673) PROTHROMBIN [id number] 14:37:00 Test Item Value Reference Range Comments PROTIME (BEAKER) (test paho=761) 16.8 seconds 11.7-14.7 INR (BEAKER) (test nidy=134) 1.4 <=5.9 RECOMMENDED COUMADIN/WARFARIN INR THERAPY RANGESSTANDARD DOSE: 2.0 - 3.0 Includes: PROPHYLAXIS forvenous thrombosis, systemic embolization; TREATMENT for venous thrombosis and/or pulmonary embolus.HIGH RISK: Target INR is 2.5-3.5 for patients with mechanical heart valves.CBC W/PLT COUNT & AUTO [id number] 14:35:00 Test Item Value Reference Range Comments WHITE BLOOD CELL COUNT (BEAKER) (test kyoh=253) 9.4 K/ L 3.5-10.5 RED BLOOD CELL COUNT (BEAKER) (test chpe=101) 3.49 M/ L 4.63-6.08 HEMOGLOBIN (BEAKER) (test hxcm=230) 11.0 GM/DL 13.7-17.5 HEMATOCRIT (BEAKER) (test bunr=418) 34.5 % 40.1-51.0 MEAN CORPUSCULAR VOLUME (BEAKER) (test zlox=561) 98.9 fL 79.0-92.2 MEAN CORPUSCULAR HEMOGLOBIN (BEAKER) (test 31.5 pg 25.7-32.2 vkdz=085) MEAN CORPUSCULAR HEMOGLOBIN CONC (BEAKER) (test 31.9 GM/DL 32.3-36.5 zxxv=808) RED CELL DISTRIBUTION WIDTH (BEAKER) (test 13.5 % 11.6-14.4 stvo=019) PLATELET COUNT (BEAKER) (test pwmg=508) 91 K/CU MM 150-450 MEAN PLATELET VOLUME (BEAKER) (test rxue=956) 9.5 fL 9.4-12.4 NUCLEATED RED BLOOD CELLS (BEAKER) (test 0 /100 WBC 0-0 gtzj=366) NEUTROPHILS RELATIVE PERCENT (BEAKER) (test 86 % pmrc=228) LYMPHOCYTES RELATIVE PERCENT (BEAKER) (test 5 % npbr=381) MONOCYTES RELATIVE PERCENT (BEAKER) (test 8 % gmjw=502) EOSINOPHILS RELATIVE PERCENT (BEAKER) (test 0 % xkmx=213) BASOPHILS RELATIVE PERCENT (BEAKER) (test 1 % xqlh=786) NEUTROPHILS ABSOLUTE COUNT (BEAKER) (test 8.01 K/ L 1.78-5.38 leim=354) LYMPHOCYTES ABSOLUTE COUNT (BEAKER) (test 0.48 K/ L 1.32-3.57 wcyq=046) MONOCYTES ABSOLUTE COUNT (BEAKER) (test zyyr=842) 0.75 K/ L 0.30-0.82 EOSINOPHILS ABSOLUTE COUNT (BEAKER) (test 0.02 K/ L 0.04-0.54 sggi=794) BASOPHILS ABSOLUTE COUNT (BEAKER) (test ouep=740) 0.05 K/ L 0.01-0.08 IMMATURE GRANULOCYTES-RELATIVE PERCENT (BEAKER) 1 % 0-1 (test cahb=0501) CALCIUM, [id number] 14:24:00 Test Item Value Reference Range Comments CALCIUM IONIZED (BEAKER) (test ugrs=952) 1.14 mmol/L 1.12-1.27 PH, BLOOD (BEAKER) (test smec=4134) 7.36 BLOOD GAS, [id number] 14:22:00 Test Item Value Reference Range Comments PH ARTERIAL (BEAKER) (test ksbe=880) 7.41 7.35-7.45 PCO2 ARTERIAL (BEAKER) (test gnwk=821) 48 mmHg 35-45 PO2 ARTERIAL (BEAKER) (test yfef=585) 111 mmHg 80-90 O2 SATURATION ARTERIAL (BEAKER) (test cqav=989) 98.1 % 96.0-97.0 HCO3 ARTERIAL (BEAKER) (test vked=376) 30 mmol/L 21-29 BASE EXCESS ARTERIAL (BEAKER) (test faif=031) 4.1 mmol/L -2.0-3.0 PATIENT TEMPERATURE (BEAKER) (test cfue=0727) 36.6 C FIO2 (BEAKER) (test zujq=5477) 60.0 % SODIUM NA-STAT [id number] 12:58:00 Test Item Value Reference Range Comments SODIUM (BEAKER) (test jlgw=647) 138 meq/L 135-148 CALCIUM, [id number] 12:58:00 Test Item Value Reference Range Comments CALCIUM IONIZED (BEAKER) (test ftfl=183) 1.26 mmol/L 1.12-1.27 PH, BLOOD (BEAKER) (test jppj=4814) 7.41 BLOOD GAS, [id number] 12:58:00 Test Item Value Reference Range Comments PH ARTERIAL (BEAKER) (test oaoj=418) 7.42 7.35-7.45 PCO2 ARTERIAL (BEAKER) (test xhxd=819) 53 mmHg 35-45 PO2 ARTERIAL (BEAKER) (test sewv=032) 237 mmHg 80-90 O2 SATURATION ARTERIAL (BEAKER) (test ebmg=486) 99.5 % 96.0-97.0 HCO3 ARTERIAL (BEAKER) (test jhlb=213) 34 mmol/L 21-29 BASE EXCESS ARTERIAL (BEAKER) (test hnma=303) 7.7 mmol/L -2.0-3.0 PATIENT TEMPERATURE (BEAKER) (test tdel=8115) 36.4 C FIO2 (BEAKER) (test xskx=4394) 100.0 % POTASSIUM-STAT [id number] 12:58:00 Test Item Value Reference Range Comments POTASSIUM (BEAKER) (test jqst=174) 2.9 meq/L 3.6-5.5 GLUCOSE-STAT [id number] 12:58:00 Test Item Value Reference Range Comments GLUCOSE RANDOM (BEAKER) (test zmem=833) 162 mg/dL 70-110 HGB/HCT (H&H) - STAT [id number] 12:58:00 Test Item Value Reference Range Comments HEMOGLOBIN (BEAKER) (test kqll=073) 9.6 g/dL 13.0-16.8 HEMATOCRIT (BEAKER) (test hjbf=889) 28.0 % 40.0-50.0 LACTIC ACID, [id number] 11:53:00 Test Item Value Reference Range Comments LACTATE BLOOD ARTERIAL (2) 0.7 mmol/L 0.5-2.2 Specimen slightly hemolyzed (BEAKER) (test touz=0849) SODIUM NA-STAT [id number] 11:52:00 Test Item Value Reference Range Comments SODIUM (BEAKER) (test vdid=026) 137 meq/L 135-148 POTASSIUM-STAT [id number] 11:52:00 Test Item Value Reference Range Comments POTASSIUM (BEAKER) (test vfgb=662) 3.9 meq/L 3.6-5.5 BLOOD GAS, [id number] 11:52:00 Test Item Value Reference Range Comments PH ARTERIAL (BEAKER) (test iokl=836) 7.46 7.35-7.45 PCO2 ARTERIAL (BEAKER) (test pbis=346) 47 mmHg 35-45 PO2 ARTERIAL (BEAKER) (test wyhq=193) 320 mmHg 80-90 O2 SATURATION ARTERIAL (BEAKER) (test pvde=616) 99.7 % 96.0-97.0 HCO3 ARTERIAL (BEAKER) (test megv=045) 33 mmol/L 21-29 BASE EXCESS ARTERIAL (BEAKER) (test sjaa=407) 8.0 mmol/L -2.0-3.0 PATIENT TEMPERATURE (BEAKER) (test fvkw=6976) 35.2 C FIO2 (BEAKER) (test utgp=3318) 70.0 % GLUCOSE-STAT [id number] 11:52:00 Test Item Value Reference Range Comments GLUCOSE RANDOM (BEAKER) (test ebrx=163) 161 mg/dL 70-110 HGB/HCT (H&H) - STAT [id number] 11:52:00 Test Item Value Reference Range Comments HEMOGLOBIN (BEAKER) (test emhh=407) 9.4 g/dL 13.0-16.8 HEMATOCRIT (BEAKER) (test ifor=856) 28.0 % 40.0-50.0 BLOOD GAS, [id number] 11:25:00 Test Item Value Reference Range Comments PH ARTERIAL (BEAKER) (test eyxd=012) 7.46 7.35-7.45 PCO2 ARTERIAL (BEAKER) (test lvww=710) 48 mmHg 35-45 PO2 ARTERIAL (BEAKER) (test kivt=382) 294 mmHg 80-90 O2 SATURATION ARTERIAL (BEAKER) (test abcv=954) 99.7 % 96.0-97.0 HCO3 ARTERIAL (BEAKER) (test hybe=615) 36 mmol/L 21-29 BASE EXCESS ARTERIAL (BEAKER) (test akqf=354) 8.6 mmol/L -2.0-3.0 PATIENT TEMPERATURE (BEAKER) (test rtkd=7946) 30.8 C FIO2 (BEAKER) (test eguh=9805) 65.0 % POTASSIUM-STAT [id number] 11:25:00 Test Item Value Reference Range Comments POTASSIUM (BEAKER) (test ycce=430) 3.3 meq/L 3.6-5.5 GLUCOSE-STAT [id number] 11:25:00 Test Item Value Reference Range Comments GLUCOSE RANDOM (BEAKER) (test lfkk=104) 152 mg/dL 70-110 HGB/HCT (H&H) - STAT [id number] 11:25:00 Test Item Value Reference Range Comments HEMOGLOBIN (BEAKER) (test pbku=979) 10.5 g/dL 13.0-16.8 HEMATOCRIT (BEAKER) (test nsoc=269) 31.0 % 40.0-50.0 SODIUM NA-STAT [id number] 11:24:00 Test Item Value Reference Range Comments SODIUM (BEAKER) (test ybny=757) 139 meq/L 135-148 BLOOD GAS, [id number] 10:59:00 Test Item Value Reference Range Comments PH ARTERIAL (BEAKER) (test vlum=450) 7.52 7.35-7.45 PCO2 ARTERIAL (BEAKER) (test pbzn=832) 41 mmHg 35-45 PO2 ARTERIAL (BEAKER) (test rfxy=662) 278 mmHg 80-90 O2 SATURATION ARTERIAL (BEAKER) (test boyz=282) 99.7 % 96.0-97.0 HCO3 ARTERIAL (BEAKER) (test cllf=045) 35 mmol/L 21-29 BASE EXCESS ARTERIAL (BEAKER) (test smmh=066) 9.2 mmol/L -2.0-3.0 PATIENT TEMPERATURE (BEAKER) (test dgxp=1935) 30.8 C FIO2 (BEAKER) (test ijxv=4865) 65.0 % POTASSIUM-STAT [id number] 10:59:00 Test Item Value Reference Range Comments POTASSIUM (BEAKER) (test myvg=737) 3.4 meq/L 3.6-5.5 GLUCOSE-STAT [id number] 10:59:00 Test Item Value Reference Range Comments GLUCOSE RANDOM (BEAKER) (test vxhu=096) 131 mg/dL 70-110 HGB/HCT (H&H) - STAT [id number] 10:59:00 Test Item Value Reference Range Comments HEMOGLOBIN (BEAKER) (test ipbt=152) 10.1 g/dL 13.0-16.8 HEMATOCRIT (BEAKER) (test dltv=054) 30.0 % 40.0-50.0 SODIUM NA-STAT [id number] 10:58:00 Test Item Value Reference Range Comments SODIUM (BEAKER) (test nrmc=408) 137 meq/L 135-148 LACTIC ACID, [id number] 10:56:00 Test Item Value Reference Range Comments LACTATE BLOOD ARTERIAL (2) (BEAKER) (test 0.7 mmol/L 0.5-2.2 vukv=5050) POTASSIUM-STAT [id number] 10:28:00 Test Item Value Reference Range Comments POTASSIUM (BEAKER) (test ttkx=100) 2.3 meq/L 3.6-5.5 BLOOD GAS, [id number] 10:27:00 Test Item Value Reference Range Comments PH ARTERIAL (BEAKER) (test fatk=742) 7.50 7.35-7.45 PCO2 ARTERIAL (BEAKER) (test asrr=215) 45 mmHg 35-45 PO2 ARTERIAL (BEAKER) (test melc=572) 393 mmHg 80-90 O2 SATURATION ARTERIAL (BEAKER) (test ygya=514) 99.8 % 96.0-97.0 HCO3 ARTERIAL (BEAKER) (test phkt=966) 37 mmol/L 21-29 BASE EXCESS ARTERIAL (BEAKER) (test ebmq=008) 10.4 mmol/L -2.0-3.0 PATIENT TEMPERATURE (BEAKER) (test kfrp=9850) 30.5 C FIO2 (BEAKER) (test kxhy=2660) 65.0 % GLUCOSE-STAT [id number] 10:27:00 Test Item Value Reference Range Comments GLUCOSE RANDOM (BEAKER) (test enia=379) 135 mg/dL 70-110 HGB/HCT (H&H) - STAT [id number] 10:27:00 Test Item Value Reference Range Comments HEMOGLOBIN (BEAKER) (test vceh=179) 9.9 g/dL 13.0-16.8 HEMATOCRIT (BEAKER) (test hvds=832) 29.0 % 40.0-50.0 SODIUM NA-STAT [id number] 10:26:00 Test Item Value Reference Range Comments SODIUM (BEAKER) (test bysn=966) 136 meq/L 135-148 CALCIUM, [id number] 09:11:00 Test Item Value Reference Range Comments CALCIUM IONIZED (BEAKER) (test myxv=154) 1.07 mmol/L 1.12-1.27 PH, BLOOD (BEAKER) (test jvgb=2945) 7.49 BLOOD GAS, [id number] 09:09:00 Test Item Value Reference Range Comments PH ARTERIAL (BEAKER) (test wfhg=662) 7.50 7.35-7.45 PCO2 ARTERIAL (BEAKER) (test koca=992) 50 mmHg 35-45 PO2 ARTERIAL (BEAKER) (test jdtj=990) 450 mmHg 80-90 O2 SATURATION ARTERIAL (BEAKER) (test xyji=290) 99.9 % 96.0-97.0 HCO3 ARTERIAL (BEAKER) (test ciru=749) 39 mmol/L 21-29 BASE EXCESS ARTERIAL (BEAKER) (test eivz=741) 13.3 mmol/L -2.0-3.0 PATIENT TEMPERATURE (BEAKER) (test swes=0329) 36.0 C FIO2 (BEAKER) (test wxfv=7075) 100.0 % POTASSIUM-STAT [id number] 09:09:00 Test Item Value Reference Range Comments POTASSIUM (BEAKER) (test oiqe=795) 2.7 meq/L 3.6-5.5 GLUCOSE-STAT [id number] 09:09:00 Test Item Value Reference Range Comments GLUCOSE RANDOM (BEAKER) (test upsl=374) 120 mg/dL 70-110 HGB/HCT (H&H) - STAT [id number] 09:09:00 Test Item Value Reference Range Comments HEMOGLOBIN (BEAKER) (test stdo=753) 12.2 g/dL 13.0-16.8 HEMATOCRIT (BEAKER) (test xuuc=112) 36.0 % 40.0-50.0 SODIUM NA-STAT [id number] 09:08:00 Test Item Value Reference Range Comments SODIUM (BEAKER) (test klqo=331) 139 meq/L 135-148 POCT-GLUCOSE [id number] 06:29:00 Test Item Value Reference Range Comments POC-GLUCOSE METER (BEAKER) 124 mg/dL 70-[address] [facility] [address] [place] [address] (test ibih=1243) [facility] [address] HEMOGLOBIN [id number] 15:34:00 Test Item Value Reference Range Comments HEMOGLOBIN A1C (BEAKER) (test zkaf=705) 6.0 % 4.3-6.1 [id number] 14:48:00 Test Item Value Reference Range Comments MAGNESIUM (BEAKER) (test irhq=800) 2.5 mg/dL 1.6-2.6 COMPREHENSIVE METABOLIC [id number] 14:48:00 Test Item Value Reference Range Comments TOTAL PROTEIN (BEAKER) 7.5 gm/dL 6.0-8.3 (test rxtw=035) ALBUMIN (BEAKER) (test 4.1 g/dL 3.5-5.0 sgvi=8960) ALKALINE PHOSPHATASE 56 U/L 40-150 (BEAKER) (test dghk=789) BILIRUBIN TOTAL (BEAKER) 0.5 mg/dL 0.2-1.2 (test hhgj=239) SODIUM (BEAKER) (test 135 meq/L 136-145 oolw=662) POTASSIUM (BEAKER) (test 3.0 meq/L 3.5-5.1 iznd=687) CHLORIDE (BEAKER) (test 84 meq/L 98-107 arev=979) CO2 (BEAKER) (test 39 meq/L 22-29 zkhe=324) BLOOD UREA NITROGEN 64 mg/dL 7-21 (BEAKER) (test kjcq=873) CREATININE (BEAKER) (test 1.96 mg/dL 0.57-1.25 iqfd=393) GLUCOSE RANDOM (BEAKER) 114 mg/dL 70-105 (test arrz=462) CALCIUM (BEAKER) (test 9.9 mg/dL 8.4-10.2 kfno=464) AST (SGOT) (BEAKER) (test 23 U/L 5-34 pzfu=567) ALT (SGPT) (BEAKER) (test 16 U/L 6-55 fawx=580) EGFR (BEAKER) (test 33 mL/min/1.73 sq m ESTIMATED GFR IS NOT neey=3004) ACCURATE CREATININE CLEARANCE IN PREDICTING GLOMERULAR FILTRATION RATE. ESTIMATED GFR IS NOT APPLICABLE FOR DIALYSIS PATIENTS. LIPID [id number] 14:48:00 Test Item Value Reference Range Comments TRIGLYCERIDES (BEAKER) (test gzxd=586) 143 mg/dL CHOLESTEROL (BEAKER) (test zdve=294) 143 mg/dL HDL CHOLESTEROL (BEAKER) (test gbtc=199) 40 mg/dL LDL CHOLESTEROL CALCULATED (BEAKER) (test 74 mg/dL orvb=128) Triglyceride Reference Range: Low Risk <150 Borderline 150- 199 High Risk 200-499 Very High Risk >=500Cholesterol Reference Range: Low Risk <200 Borderline 200-239 High Risk > 240HDL Cholesterol Reference Range: Low Risk >=60 High Risk <40LDL Cholesterol Reference Range: Optimal <100 Near Optimal 100-129 Borderline 130-159 High 160-189 Very High >=190PROTHROMBIN [id number] 14:42:00 Test Item Value Reference Range Comments PROTIME (BEAKER) (test snjw=205) 15.8 seconds 11.7-14.7 INR (BEAKER) (test yudr=387) 1.3 <=5.9 RECOMMENDED COUMADIN/WARFARIN INR THERAPY RANGESSTANDARD DOSE: 2.0 - 3.0 Includes: PROPHYLAXIS forvenous thrombosis, systemic embolization; TREATMENT for venous thrombosis and/or pulmonary embolus.HIGH RISK: Target INR is 2.5-3.5 for patients with mechanical heart valves.[id number] 14:42:00 Test Item Value Reference Range Comments PARTIAL THROMBOPLASTIN TIME (BEAKER) (test 31.6 seconds 22.5-36.0 xicn=870) CBC W/PLT COUNT & AUTO [id number] 14:34:00 Test Item Value Reference Range Comments WHITE BLOOD CELL COUNT (BEAKER) (test ghrd=296) 6.9 K/ L 3.5-10.5 RED BLOOD CELL COUNT (BEAKER) (test arhj=969) 4.45 M/ L 4.63-6.08 HEMOGLOBIN (BEAKER) (test xasf=563) 13.9 GM/DL 13.7-17.5 HEMATOCRIT (BEAKER) (test sdau=013) 43.0 % 40.1-51.0 MEAN CORPUSCULAR VOLUME (BEAKER) (test smzj=494) 96.6 fL 79.0-92.2 MEAN CORPUSCULAR HEMOGLOBIN (BEAKER) (test 31.2 pg 25.7-32.2 zvpp=318) MEAN CORPUSCULAR HEMOGLOBIN CONC (BEAKER) (test 32.3 GM/DL 32.3-36.5 wnaq=382) RED CELL DISTRIBUTION WIDTH (BEAKER) (test 13.2 % 11.6-14.4 wucz=658) PLATELET COUNT (BEAKER) (test lewz=613) 179 K/CU MM 150-450 MEAN PLATELET VOLUME (BEAKER) (test qbbv=107) 9.8 fL 9.4-12.4 NUCLEATED RED BLOOD CELLS (BEAKER) (test 0 /100 WBC 0-0 xikw=979) NEUTROPHILS RELATIVE PERCENT (BEAKER) (test 74 % ezbu=653) LYMPHOCYTES RELATIVE PERCENT (BEAKER) (test 9 % agiv=292) MONOCYTES RELATIVE PERCENT (BEAKER) (test 13 % wkqb=375) EOSINOPHILS RELATIVE PERCENT (BEAKER) (test 3 % mgpd=317) BASOPHILS RELATIVE PERCENT (BEAKER) (test 1 % seda=049) NEUTROPHILS ABSOLUTE COUNT (BEAKER) (test 5.08 K/ L 1.78-5.38 glkb=020) LYMPHOCYTES ABSOLUTE COUNT (BEAKER) (test 0.58 K/ L 1.32-3.57 fxjv=431) MONOCYTES ABSOLUTE COUNT (BEAKER) (test 0.89 K/ L 0.30-0.82 wruo=283) EOSINOPHILS ABSOLUTE COUNT (BEAKER) (test 0.20 K/ L 0.04-0.54 pwue=869) BASOPHILS ABSOLUTE COUNT (BEAKER) (test 0.08 K/ L 0.01-0.08 atjo=818) IMMATURE GRANULOCYTES-RELATIVE PERCENT (BEAKER) 0 % 0-1 (test ahug=7109) RAD, CHEST, 1 VIEW, NON [id number] 05:11:00post-operative day 1Reason for exam:->chfShould this be [...] Simental Verified Date/Time: 03/05/2018 05:11:04 Reading Location: [address] Reading Room BASIC METABOLIC [id number] 04:22:00 Test Item Value Reference Range Comments SODIUM (BEAKER) (test 136 meq/L 136-145 glyp=556) POTASSIUM (BEAKER) (test 4.9 meq/L 3.5-5.1 Specimen slightly saxc=227) hemolyzed CHLORIDE (BEAKER) (test 98 meq/L 98-107 yrbe=412) CO2 (BEAKER) (test 31 meq/L 22-29 zemv=200) BLOOD UREA NITROGEN 44 mg/dL 7-21 (BEAKER) (test sauy=983) CREATININE (BEAKER) (test 1.48 mg/dL 0.57-1.25 Specimen slightly nubz=343) hemolyzed GLUCOSE RANDOM (BEAKER) 98 mg/dL 70-105 (test vpal=170) CALCIUM (BEAKER) (test 9.6 mg/dL 8.4-10.2 yeit=150) EGFR (BEAKER) (test 46 mL/min/1.73 sq m ESTIMATED GFR IS NOT nlcy=3244) ACCURATE CREATININE CLEARANCE IN PREDICTING GLOMERULAR FILTRATION RATE. ESTIMATED GFR IS NOT APPLICABLE FOR DIALYSIS PATIENTS. CBC W/PLT COUNT & AUTO [id number] 03:39:00 Test Item Value Reference Range Comments WHITE BLOOD CELL COUNT (BEAKER) (test utnb=131) 10.2 K/ L 3.5-10.5 RED BLOOD CELL COUNT (BEAKER) (test ccxf=060) 4.09 M/ L 4.63-6.08 HEMOGLOBIN (BEAKER) (test scjs=173) 13.0 GM/DL 13.7-17.5 HEMATOCRIT (BEAKER) (test laxj=426) 40.8 % 40.1-51.0 MEAN CORPUSCULAR VOLUME (BEAKER) (test snkx=563) 99.8 fL 79.0-92.2 MEAN CORPUSCULAR HEMOGLOBIN (BEAKER) (test 31.8 pg 25.7-32.2 zmtz=988) MEAN CORPUSCULAR HEMOGLOBIN CONC (BEAKER) (test 31.9 GM/DL 32.3-36.5 xeet=960) RED CELL DISTRIBUTION WIDTH (BEAKER) (test 14.7 % 11.6-14.4 dtnk=035) PLATELET COUNT (BEAKER) (test uoyv=654) 134 K/CU MM 150-450 MEAN PLATELET VOLUME (BEAKER) (test lwmy=075) 9.6 fL 9.4-12.4 NUCLEATED RED BLOOD CELLS (BEAKER) (test 0 /100 WBC 0-0 gmwt=640) NEUTROPHILS RELATIVE PERCENT (BEAKER) (test 82 % npxc=449) LYMPHOCYTES RELATIVE PERCENT (BEAKER) (test 7 % qshz=568) MONOCYTES RELATIVE PERCENT (BEAKER) (test 9 % bioz=367) EOSINOPHILS RELATIVE PERCENT (BEAKER) (test 1 % ezvp=940) BASOPHILS RELATIVE PERCENT (BEAKER) (test 0 % tttu=984) NEUTROPHILS ABSOLUTE COUNT (BEAKER) (test 8.40 K/ L 1.78-5.38 gbwo=053) LYMPHOCYTES ABSOLUTE COUNT (BEAKER) (test 0.73 K/ L 1.32-3.57 llsq=530) MONOCYTES ABSOLUTE COUNT (BEAKER) (test 0.89 K/ L 0.30-0.82 zwux=351) EOSINOPHILS ABSOLUTE COUNT (BEAKER) (test 0.07 K/ L 0.04-0.54 rzso=222) BASOPHILS ABSOLUTE COUNT (BEAKER) (test 0.01 K/ L 0.01-0.08 zydh=115) IMMATURE GRANULOCYTES-RELATIVE PERCENT (BEAKER) 1 % 0-1 (test zpng=0826) [id number] 10:36:00 Test Item Value Reference Range Comments ACTIVATED CLOTTING TIME [address] [facility] [address] [facility] (BEAKER) (test ioub=530) [facility] [address] SODIUM NA-STAT [id number] 10:24:00 Test Item Value Reference Range Comments SODIUM (BEAKER) (test jtqs=370) 136 meq/L 135-148 POTASSIUM-STAT [id number] 10:24:00 Test Item Value Reference Range Comments POTASSIUM (BEAKER) (test xsit=248) 4.2 meq/L 3.6-5.5 BLOOD GAS, [id number] 10:24:00 Test Item Value Reference Range Comments PH ARTERIAL (BEAKER) (test dqba=956) 7.40 7.35-7.45 PCO2 ARTERIAL (BEAKER) (test cqiw=723) 50 mmHg 35-45 PO2 ARTERIAL (BEAKER) (test urzi=130) 507 mmHg 80-90 O2 SATURATION ARTERIAL (BEAKER) (test jayv=605) 99.9 % 96.0-97.0 HCO3 ARTERIAL (BEAKER) (test gotn=303) 30 mmol/L 21-29 BASE EXCESS ARTERIAL (BEAKER) (test efrh=896) 4.3 mmol/L -2.0-3.0 PATIENT TEMPERATURE (BEAKER) (test jyud=1313) 37.0 C FIO2 (BEAKER) (test cfrt=6802) 21.0 % GLUCOSE-STAT [id number] 10:24:00 Test Item Value Reference Range Comments GLUCOSE RANDOM (BEAKER) (test eidg=655) 131 mg/dL 70-110 HGB/HCT (H&H) - STAT [id number] 10:24:00 Test Item Value Reference Range Comments HEMOGLOBIN (BEAKER) (test zhls=663) 13.2 g/dL 13.0-16.8 HEMATOCRIT (BEAKER) (test azle=335) 39.0 % 40.0-50.0 CALCIUM, [id number] 10:24:00 Test Item Value Reference Range Comments CALCIUM IONIZED (BEAKER) (test qzzm=298) 1.01 mmol/L 1.12-1.27 PH, BLOOD (BEAKER) (test twzl=3616) 7.40 B-TYPE NATRIURETIC FACTOR (BNP)2018-03-04 07:29:00 Test Item Value Reference Range Comments B-TYPE NATRIURETIC PEPTIDE (BEAKER) (test 187 pg/mL 0-100 onkw=545) BASIC METABOLIC [id number] 07:22:00 Test Item Value Reference Range Comments SODIUM (BEAKER) (test 138 meq/L 136-145 clmc=300) POTASSIUM (BEAKER) (test 4.3 meq/L 3.5-5.1 fcla=122) CHLORIDE (BEAKER) (test 98 meq/L 98-107 unzk=253) CO2 (BEAKER) (test 32 meq/L 22-29 afzc=685) BLOOD UREA NITROGEN 57 mg/dL 7-21 (BEAKER) (test qaht=508) CREATININE (BEAKER) (test 1.54 mg/dL 0.57-1.25 ibrm=880) GLUCOSE RANDOM (BEAKER) 115 mg/dL 70-105 (test rvkk=742) CALCIUM (BEAKER) (test 9.3 mg/dL 8.4-10.2 qijl=400) EGFR (BEAKER) (test 44 mL/min/1.73 sq m ESTIMATED GFR IS NOT afyo=5016) ACCURATE CREATININE CLEARANCE IN PREDICTING GLOMERULAR FILTRATION RATE. ESTIMATED GFR IS NOT APPLICABLE FOR DIALYSIS PATIENTS. [id number] 07:16:00 Test Item Value Reference Range Comments PROTIME (BEAKER) (test nfqo=571) 13.7 seconds 11.7-14.7 INR (BEAKER) (test rcgb=358) 1.0 <=5.9 PARTIAL THROMBOPLASTIN TIME (BEAKER) (test 23.9 seconds 22.5-36.0 zsja=796) RECOMMENDED COUMADIN/WARFARIN INR THERAPY RANGESSTANDARD DOSE: 2.0 - 3.0 Includes: PROPHYLAXIS forvenous thrombosis, systemic embolization; TREATMENT for venous thrombosis and/or pulmonary embolus.HIGH RISK: Target INR is 2.5-3.5 for patients with mechanical heart valves.[id number] 07:16:00 Test Item Value Reference Range Comments ALBUMIN (BEAKER) (test kada=9343) 3.6 g/dL 3.5-5.0 CBC W/PLT COUNT & AUTO [id number] 07:11:00 Test Item Value Reference Range Comments WHITE BLOOD CELL COUNT (BEAKER) (test dlgk=177) 8.6 K/ L 3.5-10.5 RED BLOOD CELL COUNT (BEAKER) (test sjgx=973) 4.62 M/ L 4.63-6.08 HEMOGLOBIN (BEAKER) (test fifv=947) 14.6 GM/DL 13.7-17.5 HEMATOCRIT (BEAKER) (test gywy=178) 46.0 % 40.1-51.0 MEAN CORPUSCULAR VOLUME (BEAKER) (test csfh=567) 99.6 fL 79.0-92.2 MEAN CORPUSCULAR HEMOGLOBIN (BEAKER) (test 31.6 pg 25.7-32.2 vtgl=565) MEAN CORPUSCULAR HEMOGLOBIN CONC (BEAKER) (test 31.7 GM/DL 32.3-36.5 ddqd=409) RED CELL DISTRIBUTION WIDTH (BEAKER) (test 14.7 % 11.6-14.4 aive=190) PLATELET COUNT (BEAKER) (test kkgb=092) 160 K/CU MM 150-450 MEAN PLATELET VOLUME (BEAKER) (test mzxw=102) 9.0 fL 9.4-12.4 NUCLEATED RED BLOOD CELLS (BEAKER) (test 0 /100 WBC 0-0 wkpj=964) NEUTROPHILS RELATIVE PERCENT (BEAKER) (test 89 % xfjk=888) LYMPHOCYTES RELATIVE PERCENT (BEAKER) (test 4 % rbmd=824) MONOCYTES RELATIVE PERCENT (BEAKER) (test 5 % lzbu=807) EOSINOPHILS RELATIVE PERCENT (BEAKER) (test 1 % arcl=200) BASOPHILS RELATIVE PERCENT (BEAKER) (test 0 % aukn=239) NEUTROPHILS ABSOLUTE COUNT (BEAKER) (test 7.65 K/ L 1.78-5.38 glem=454) LYMPHOCYTES ABSOLUTE COUNT (BEAKER) (test 0.34 K/ L 1.32-3.57 ckmz=584) MONOCYTES ABSOLUTE COUNT (BEAKER) (test 0.41 K/ L 0.30-0.82 zkwa=512) EOSINOPHILS ABSOLUTE COUNT (BEAKER) (test 0.06 K/ L 0.04-0.54 rugq=070) BASOPHILS ABSOLUTE COUNT (BEAKER) (test 0.02 K/ L 0.01-0.08 ogdm=608) IMMATURE GRANULOCYTES-RELATIVE PERCENT (BEAKER) 1 % 0-1 (test uctr=3233) CT, CTA, [id number] 14:14:00Addendum BeginsREPORT STATUS:A Addendum: I agree with the previously described non vascular findings by Dr. Viramontes. Signed: Cleve Stacy MDReport Verified Date/Time: 02/18/201814: 14:33 Reading Location: [place] [address] Angio Body Reading RoomAddendum EndsFINAL REPORT CT [...] measures 9.1 and 9.3 mm, respectively with sutn-lf-atfnruvy tortuosity and no calcific atherosclerosis present. The [...] An addendum will be dictated by the Game Manager Radiologist regarding the nonvascular findings. Signed: Sg Viramontes MDReport Verified Date/Time: 02/17/2018 16:19:13 Reading Location: [place] [address], CTA [id number] 14:14:00Addendum BeginsREPORT STATUS:A Addendum: I agree with the previously described non vascular findings by Dr. Viramontes. Signed: Cleve Stacy MDReport Verified Date/ Time: 02/18/201814:14:33 Reading Location: [place] [address] Angio Body Reading RoomAddendum EndsFINAL REPORT CT [...] measures 9.1 and 9.3 mm, respectively with zvrq-tf-xsbeddbq tortuosity and no calcific atherosclerosis present. The [...] An addendum will be dictated by the Game Manager Radiologist regarding the nonvascular findings. Signed: Sg Viramontes MDReport Verified Date/Time: 02/17/2018 16:19:13 Reading Location: [place] [address] Cardiology MRI [id number] 14:05:00 Test Item Value Reference Range Comments POC-CREATININE (NOE) 1.7 mg/dL 0.6-1.[address] [facility] [address] [facility] (test synk=8555) [facility] [address] POC-EGFR (BEAKER) (test 39 mL/min/1.73M2 jrwu=2400)
--- OUTSIDE RECORDS SUMMARY | 2018-10-03 19:23 | XMS REPORT ---
[...] Status Dosage System Date Date Clonidine HCl [facility] 28298923237 0.3 MG Orally Active 1 tablet Once a day Lipitor [facility] 98188444370 40 MG Orally Active 1 tablet Once a day Breo Ellipta [facility] 86378172104 100-25 MCG/INH Active 1 puff Inhalation Once a day Albuterol Sulfate [facility] 02460483402 108 (90 Base) Active 2 puffs as HFA MCG/ACT needed Inhalation every 6 hrs Uloric [facility] 81401795923 40 MG Orally Active 1 tablet Once a day Omeprazole ND 17084805677 20 MG Orally Active 1 capsule Once a day Ferrous Gluconate [facility] 57555711649 324 (38 Fe) MG Active 1 tablet Orally Once a day Potassium [facility] 44632242280 20 MEQ Orally Active 1 packet Chloride Twice a day with food Magnesium [facility] 13415851065 400 MG Orally Active 1 capsule Twice a day with food PredniSONE [facility] 38278821052 10 MG Orally Active 1 tablet Once a day as needed Diamox Sequels NDC 0 Active not defined Nasonex [facility] 52665728800 50 MCG/ACT Active 2 sprays Nasally Once a in each day nostril Levothyroxine [facility] 75900496244 50 MCG Orally Active 1 tablet Sodium Once a day on an empty stomach in the morning Tadalafil [facility] 94489606150 5 MG Orally Active 1 tablet Eight a day as needed Furosemide [facility] 93287510834 20 MG Orally Active 1 tablet Three times a day Xarelto [facility] 91405377817 15 MG Orally Active 1 tablet Once a day with food Atorvastatin [facility] 44031669602 40 MG Orally Active 1 tablet Calcium Once a day Amoxicillin-Pot [facility] 49813210303 500-125 MG Active not Clavulanate Orally defined Docusate Sodium [facility] 39934563139 100 MG Orally Active 1 capsule Once a day as needed Colace [facility] 52077983420 100 MG Orally Active 1 capsule Once a day as needed Fish Oil [facility] 20250536285 1200 MG Orally Active 1 capsule Twice a day Metoprolol [facility] 91957079612 100 MG Orally Active 1 capsule Succinate Once a day MiraLax [facility] 53181577582 - Orally Once a Active 1 packet day mixed with 8 ounces of fluid Prilosec [facility] 31817781823 20 MG Orally Active 1 capsule Once a day Spironolactone [facility] 42309089669 25 MG Orally Active 1 tablet Three times a day Results No Known Results Summary Purpose eClinicalWorks Submission
--- OUTSIDE RECORDS SUMMARY | 2018-10-03 19:24 | XMS REPORT ---
[...] Medications Results No Known Results Summary Purpose Smart Wire GridinicalTouchOfModern Submission
[2018-10-03 19:59] LABS: Arterial Blood Carboxyhemoglob 1.2 % (0-1.5); Blood Gas Oxyhemoglobin 96.1 % (94-97); Blood O2 Saturation 98.1 % (92-98.5)
[2018-10-03 20:14] LABS: Absolute Lymphocytes (CBC) 0.2 K/uL (0.7-4.9); Absolute Monocytes 0.7 K/uL (0.1-1.3); Absolute Neutrophil 10.1 K/uL (1.8-8.0); Basophils % 0.1 % (0-1.3); Eosinophils % 0.2 % (0-4.4); Hematocrit 35.5 % (39.6-49.0); Lymphocytes % 1.9 % (15.3-44.8); MPV 7.4 fL (7.6-11.3); Monocytes % 6.1 % (3.3-12.3); RBC Red Blood Cell Count 3.78 M/uL (4.33-5.43)
--- NOTE | 2018-10-03 20:31 | RAD REPORT ---
EXAM DESCRIPTION: Zafar Single View10/03/2018 8:23 pm CLINICAL HISTORY: Cough COMPARISON: September 22, 2018 FINDINGS: The lungs appear clear of acute infiltrate. The heart is mildly enlarged. Pacemaker leads are in place. IMPRESSION: No acute abnormalities displayed
[2018-10-03 20:34] LABS: ALT/SGPT 28 U/L (12-78); AST/SGOT 17 U/L (15-37); Albumin 2.6 g/dL (3.4-5.0); Alkaline Phosphatase 62 U/L (45-117); BUN Blood Urea Nitrogen 29 mg/dL (7-18); Bicarbonate 34 mmol/L (21-32); Bilirubin Direct < 0.1 mg/dL (0-0.2); Bilirubin Total 0.3 mg/dL (0.2-1.0); Glucose Level 131 mg/dL (74-106); Magnesium 1.9 mg/dL (1.8-2.4); NT PRO-BNP 2669 pg/mL (<450); Potassium 3.1 mmol/L (3.5-5.1); Protein, Total 6.6 g/dL (6.4-8.2); Sodium Level 127 mmol/L (136-145); Troponin (Emerg Dept Use Only) 0.02 ng/mL (0.0-0.045)
[2018-10-03 20:43] LABS: Protime INR 1.56
[2018-10-03 21:08] LABS: Blood Morphology Comment NOT SEEN (NOT SEEN); Platelet Estimate ADEQ
[2018-10-03] MEDS ORDERED: KCL 20 MEQ/100 mL IVPB 20 MEQ/100 ML BAG IV ONE (21:42)
[2018-10-03] MEDS ORDERED: NA CHLORIDE 0.9% 1,000 ML ONE (21:42)
--- NOTE | 2018-10-03 21:43 | ER ---
Nurse's Notes [facility] Name: Reji Dan Age: 83 yrs Sex: Male : 1935 Arrival Date: 10/03/2018 Time: 19:21 Bed 7 Private MD: Diagnosis: Hyponatremia. Hypokalemia. S/P Mitral valve replacement Presentation: 10/03 19:23 Presenting complaint: Patient states: I have not been feeling well for the last couple la1 days, have had a cough for the last few weeks, hx COPD. Transition of care: patient was not received from another setting of care. Onset of symptoms was October 03, 2018. Risk Assessment: Do you want to hurt yourself or someone else? Patient reports no desire to harm self or others. Initial Sepsis Screen: Does the patient meet any 2 criteria? No. Patient's initial sepsis screen is negative. Does the patient have a suspected source of infection? No. Patient's initial sepsis screen is negative. Care prior to arrival: None. 19:23 Method Of Arrival: EMS: [facility] la1 19:23 Acuity: SILVINO 3 la1 Historical: - Allergies: 19:26 Clindamycin; la1 19:26 Iodinated Contrast Media - IV Dye; la1 - Home Meds: 19:51 doxycycline hyclate 100 mg Oral cap 1 cap every 12 hours [Active]; arformoterol la1 inhalation inhalation [Active]; Kim-Tussin DM 10-100 mg/5 mL oral syrp 10 mL [Active]; Lasix 40 mg oral tab once daily [Active]; atorvastatin 40 mg oral tab 1 tab once daily [Active]; rivaroxaban oral 15mg oral once daily [Active]; metoprolol tartrate 25 mg Oral tab 1 tab 2 times per day [Active]; docusate sodium 100 mg Oral cap 1 cap once daily [Active]; PreserVision AREDS oral oral [Active]; Lactobacillus rhamnosus GG oral oral [Active]; GlycoLax oral oral [Active]; aspirin 81 mg Oral TbEC 1 tab once daily [Active]; MagOx 400 mg oral tab [Active]; sildenafil 10 mg bid oral tab [Active]; potassium chloride 20 mEq Oral pack 1 packet daily [Active]; Fish Oil oral oral [Active]; prednisone 10 mg Oral tab 1 tab 2 times per day [Active]; Breo Ellipta 200-25 mcg/dose inhalation dsdv 1 puff once daily [Active]; glucosamine-chondroitin oral oral twice a day [Active]; metoprolol succinate 100 mg Oral Tb24 1 tab once daily [Active]; omeprazole 20 mg Oral cpDR 1 cap once daily [Active]; spironolactone 25 mg Oral tab 1 tab once daily [Active]; metolazone 1.5mg oral tab 1 tab once daily [Active]; levothyroxine 50 mcg tab 1 tab once daily [Active]; ipratropium-albuterol inhalation Inhl [Active]; albuterol sulfate inhalation Inhl [Active]; bisacodyl 5 mg Oral TbEC 1 tab [Active]; - PMHx: 19:26 High Cholesterol; Hypertension; Hypothyroidism; Pacemaker; ADD/ADHD; la1 19:51 COPD; CHF; GERD; la1 - PSHx: 19:26 mitral and aortic valve relpacement; la1 - Immunization history:: Adult Immunizations up to date. - Social history:: Smoking status: Patient/guardian denies using tobacco. - Ebola Screening: : No symptoms or risks identified at this time. Screenin:29 Abuse screen: Denies threats or abuse. Nutritional screening: No deficits noted. la1 Tuberculosis screening: No symptoms or risk factors identified. Fall Risk None identified. Assessment: 19:28 General: Appears comfortable, Behavior is calm, cooperative. Pain: Denies pain. Neuro: la1 Level of Consciousness is awake, alert, obeys commands, Oriented to person, place, time, situation. Cardiovascular: Capillary refill < 3 seconds Patient's skin is warm and dry. Respiratory: Reports cough that is Airway is patent Respiratory effort is even, unlabored, Respiratory pattern is regular, symmetrical, Breath sounds are diminished bilaterally. GI: No signs and/or symptoms were reported involving the gastrointestinal system. : No signs and/or symptoms were reported regarding the genitourinary system. Vital Signs: 19:27 BP 114 / 73; Pulse 83; Resp 20; Temp 97.4; Pulse Ox 96% on 2 lpm NC; Weight 90.72 kg; la1 Height 6 ft. 0 in. (182.88 cm); 20:56 BP 95 / 72; Pulse 80; Resp 20; Pulse Ox 98% on 2 lpm NC; tl2 21:01 BP 116 / 60; Pulse 82; Resp 16; Pulse Ox 95% 2 lpm ; la1 21:16 BP 116 / 80; Pulse 80; Resp 16; Pulse Ox 94% on 2 lpm NC; tl2 21:51 BP 120 / 74; Pulse 85; Resp 16; Pulse Ox 98% ; la1 19:27 Body Mass Index 27.12 (90.72 kg, 182.88 cm) la1 ED Course: 19:21 Patient arrived in ED. tl2 19:21 Carlos Pavon MD is Attending Physician. pkl 19:22 Manny Padilla RN is Primary Nurse. la1 19:24 Triage completed. la1 19:26 Arm band placed on right wrist. la1 19:29 Bed in low position. Call light in reach. Side rails up X 1. quality assurance monitor body on. Pulse la1 ox on. NIBP on. 19:56 Inserted saline lock: 20 gauge in right antecubital area, using aseptic technique. ar5 Blood collected. 20:26 XRAY Chest (1 view) In Process Unspecified. EDMS 20:34 Second set of blood cultures drawn. tl2 20:48 Notified ED physician of a critical lab result(s). Ddimer 1019, Dr Pavon notified. bb 21:39 Edson Beyer MD is Hospitalizing Provider. pkl 22:44 No provider procedures requiring assistance completed. Patient admitted, IV remains in ak1 place. Administered Medications: 21:32 Drug: NS 0.9% 1000 ml Route: IV; Rate: 100 ml/hr; Site: right antecubital; la1 22:50 Follow up: IV Status: Infusion continued upon admission ak1 21:32 Drug: Potassium Chloride 20 mEq Route: IV; Rate: calculated rate; Site: right la1 antecubital; 22:50 Follow up: IV Status: Infusion continued upon admission ak1 Outcome: 21:42 Decision to Hospitalize by Provider. pkl 22:44 Admitted to Tele accompanied by tech, via stretcher, room 412, with chart, Report ak1 called to Michael SANTOS 22:44 Condition: good 22:44 Instructed on the need for admit. 23:39 Patient left the ED. ak1 Signatures: Dispatcher [employer] EDMS Carlos Pavon MD MD pkKiera Goodson RN RN bb Manny Padilla, RN RN la1 Mary Lou Hobson, RN RN carla1 Silvia Casey, RN RN tl2 Carole Noyola
--- NOTE | 2018-10-03 21:44 | EDPHYS ---
Physician Documentation [facility] Name: Reji Dan Age: 83 yrs Sex: Male : 1935 Arrival Date: 10/03/2018 Time: 19:21 Bed 7 Private MD: ED Physician Carlos Pavon HPI: 10/03 19:40 This 83 yrs old Male presents to ER via EMS with unknown complaint. pkl 19:40 Not feeling well, diaphoretic and weak for the last 2 days. S/P mitral valve pkl replacement about 3 weeks ago. Historical: - Allergies: 19:26 Clindamycin; la1 19:26 Iodinated Contrast Media - IV Dye; la1 - Home Meds: 19:51 doxycycline hyclate 100 mg Oral cap 1 cap every 12 hours [Active]; arformoterol la1 inhalation inhalation [Active]; Kim-Tussin DM 10-100 mg/5 mL oral syrp 10 mL [Active]; Lasix 40 mg oral tab once daily [Active]; atorvastatin 40 mg oral tab 1 tab once daily [Active]; rivaroxaban oral 15mg oral once daily [Active]; metoprolol tartrate 25 mg Oral tab 1 tab 2 times per day [Active]; docusate sodium 100 mg Oral cap 1 cap once daily [Active]; PreserVision AREDS oral oral [Active]; Lactobacillus rhamnosus GG oral oral [Active]; GlycoLax oral oral [Active]; aspirin 81 mg Oral TbEC 1 tab once daily [Active]; MagOx 400 mg oral tab [Active]; sildenafil 10 mg bid oral tab [Active]; potassium chloride 20 mEq Oral pack 1 packet daily [Active]; Fish Oil oral oral [Active]; prednisone 10 mg Oral tab 1 tab 2 times per day [Active]; Breo Ellipta 200-25 mcg/dose inhalation dsdv 1 puff once daily [Active]; glucosamine-chondroitin oral oral twice a day [Active]; metoprolol succinate 100 mg Oral Tb24 1 tab once daily [Active]; omeprazole 20 mg Oral cpDR 1 cap once daily [Active]; spironolactone 25 mg Oral tab 1 tab once daily [Active]; metolazone 1.5mg oral tab 1 tab once daily [Active]; levothyroxine 50 mcg tab 1 tab once daily [Active]; ipratropium-albuterol inhalation Inhl [Active]; albuterol sulfate inhalation Inhl [Active]; bisacodyl 5 mg Oral TbEC 1 tab [Active]; - PMHx: 19:26 High Cholesterol; Hypertension; Hypothyroidism; Pacemaker; ADD/ADHD; la1 19:51 COPD; CHF; GERD; la1 - PSHx: 19:26 mitral and aortic valve relpacement; la1 - Immunization history:: Adult Immunizations up to date. - Social history:: Smoking status: Patient/guardian denies using tobacco. - Ebola Screening: : No symptoms or risks identified at this time. ROS: 19:40 Eyes: Negative for injury, pain, redness, and discharge, ENT: Negative for injury, pkl pain, and discharge, Neck: Negative for injury, pain, and swelling, Cardiovascular: Negative for chest pain, palpitations, and edema. 19:40 Respiratory: Positive for cough, with yellow sputum, shortness of breath. 19:40 Abdomen/GI: Negative for abdominal pain, nausea, vomiting, and diarrhea. 19:40 Back: Negative for acute changes. 19:40 : Negative for urinary symptoms. 19:40 MS/extremity: Negative for acute changes. 19:40 Skin: Positive for diaphoresis. 19:40 Neuro: Negative for altered mental status, loss of consciousness. Exam: 19:40 Head/Face: Normocephalic, atraumatic. Eyes: Pupils equal round and reactive to light, pkl extra-ocular motions intact. Lids and lashes normal. Conjunctiva and sclera are non-icteric and not injected. Cornea within normal limits. Periorbital areas with no swelling, redness, or edema. ENT: Nares patent. No nasal discharge, no septal abnormalities noted. Tympanic membranes are normal and external auditory canals are clear. Oropharynx with no redness, swelling, or masses, exudates, or evidence of obstruction, uvula midline. Mucous membranes moist. Neck: Trachea midline, no thyromegaly or masses palpated, and no cervical lymphadenopathy. Supple, full range of motion without nuchal rigidity, or vertebral point tenderness. No Meningismus. Chest/axilla: Normal chest wall appearance and motion. Nontender with no deformity. No lesions are appreciated. Cardiovascular: Regular rate and rhythm with a normal S1 and S2. No gallops, murmurs, or rubs. Normal PMI, no JVD. No pulse deficits. Respiratory: Lungs have equal breath sounds bilaterally, clear to auscultation and percussion. No rales, rhonchi or wheezes noted. No increased work of breathing, no retractions or nasal flaring. Abdomen/GI: Soft, non-tender, with normal bowel sounds. No distension or tympany. No guarding or rebound. No evidence of tenderness throughout. Back: No spinal tenderness. No costovertebral tenderness. Full range of motion. Skin: Warm, dry with normal turgor. Normal color with no rashes, no lesions, and no evidence of cellulitis. MS/ Extremity: Pulses equal, no cyanosis. Neurovascular intact. Full, normal range of motion. Neuro: Awake and alert, GCS 15, oriented to person, place, time, and situation. Cranial nerves II-XII grossly intact. Motor strength 5/5 in all extremities. Sensory grossly intact. Cerebellar exam normal. Normal gait. Vital Signs: 19:27 BP 114 / 73; Pulse 83; Resp 20; Temp 97.4; Pulse Ox 96% on 2 lpm NC; Weight 90.72 kg; la1 Height 6 ft. 0 in. (182.88 cm); 20:56 BP 95 / 72; Pulse 80; Resp 20; Pulse Ox 98% on 2 lpm NC; tl2 21:01 BP 116 / 60; Pulse 82; Resp 16; Pulse Ox 95% 2 lpm ; la1 21:16 BP 116 / 80; Pulse 80; Resp 16; Pulse Ox 94% on 2 lpm NC; tl2 21:51 BP 120 / 74; Pulse 85; Resp 16; Pulse Ox 98% ; la1 19:27 Body Mass Index 27.12 (90.72 kg, 182.88 cm) la1 MDM: 19:21 Patient medically screened. pkl 21:37 Data reviewed: vital signs, nurses notes, lab test result(s), EKG, radiologic studies, pkl plain films. ED course: Talked to Dr. Beyer. for admission. 10/03 19:39 Order name: Basic Metabolic Panel; Complete Time: 20:58 pkl 10/03 19:39 Order name: CBC with Diff; Complete Time: 21:43 pkl 10/03 19:39 Order name: LFT's; Complete Time: 20:58 pkl /02 19:39 Order name: Magnesium; Complete Time: 20:58 pkl /02 19:39 Order name: NT PRO-BNP; Complete Time: 20:58 pkl /02 19:39 Order name: PT-INR; Complete Time: 20:58 pkl /02 19:39 Order name: Troponin (emerg Dept Use Only); Complete Time: 20:58 pkl /02 19:39 Order name: D-Dimer; Complete Time: 20:58 pkl /02 19:39 Order name: ABG; Complete Time: 20:23 pkl /02 19:39 Order name: Blood Culture Adult (2) pkl 10/03 19:39 Order name: Lactate; Complete Time: 20:58 pkl /02 19:39 Order name: Procalcitonin; Complete Time: 20:58 pkl /02 19:39 Order name: UA pkl 02 19:39 Order name: Sed Rate; Complete Time: 21:43 pkl 10/03 19:39 Order name: XRAY Chest (1 view); Complete Time: 20:58 pkl 02 19:39 Order name: EKG; Complete Time: 19:42 pkl /02 19:39 Order name: Cardiac monitoring; Complete Time: 19:52 pkl /02 19:39 Order name: EKG - Nurse/Tech; Complete Time: 19:42 pkl /02 19:39 Order name: IV Saline Lock; Complete Time: 19:52 pkl /02 19:39 Order name: Labs collected and sent; Complete Time: 19:53 pkl 02 19:39 Order name: O2 Per Protocol; Complete Time: 19:53 pkl /02 19:39 Order name: O2 Sat Monitoring; Complete Time: 19:53 pkl /02 20:38 Order name: Manual Differential; Complete Time: 21:43 EDMS 02 21:23 Order name: Urine Dipstick--Ancillary (enter results); Complete Time: 01:26 mw2 Administered Medications: 21:32 Drug: NS 0.9% 1000 ml Route: IV; Rate: 100 ml/hr; Site: right antecubital; la1 22:50 Follow up: IV Status: Infusion continued upon admission ak1 21:32 Drug: Potassium Chloride 20 mEq Route: IV; Rate: calculated rate; Site: right la1 antecubital; 22:50 Follow up: IV Status: Infusion continued upon admission ak1 Disposition: 10/03/18 21:42 Hospitalization ordered by Edson Beyer for Inpatient Admission. Preliminary diagnosis is Hyponatremia. Hypokalemia. S/P Mitral valve replacement. - Bed requested for Telemetry/MedSurg (Inpatient). - Status is Inpatient Admission. ak1 - Condition is Stable. - Problem is new. - Symptoms are unchanged. UTI on Admission? No Signatures: Dispatcher [employer] EDMS Carlos Pavon MD MD pkl Manny Padilla RN RN la1 Mary Lou Hobson RN RN ak1 Shea Gupta RN RN cg Corrections: (The following items were deleted from the chart) 22:24 21:42 Hospitalization Ordered by Edson Beyer MD for Inpatient Admission. Preliminary cg diagnosis is Hyponatremia. Hypokalemia. S/P Mitral valve replacement. Bed requested for Telemetry/MedSurg (Inpatient). Status is Inpatient Admission. Condition is Stable. Problem is new. Symptoms are unchanged. UTI on Admission? No. pkl 23:39 22:24 10/03/2018 21:42 Hospitalization Ordered by Edson Beyer MD for Inpatient ak1 Admission. Preliminary diagnosis is Hyponatremia. Hypokalemia. S/P Mitral valve replacement. Bed requested for Telemetry/MedSurg (Inpatient). Status is Inpatient Admission. Condition is Stable. Problem is new. Symptoms are unchanged. UTI on Admission? No. cg
[2018-10-03 22:07] LABS: Urine Blood NEGATIVE (NEG); Urine Glucose NEGATIVE (NEG); Urine Protein NEGATIVE (NEG); Urine Specific Gravity 1.015 (1.005-1.030)
--- NOTE | 2018-10-03 22:29 | P.HP ---
Certification for Inpatient Patient admitted to: Inpatient With expected LOS: >2 Midnights Practitioner: I am a practitioner with admitting privileges, knowledge of patient current condition, hospital course, and medical plan of care. Services: Services provided to patient in accordance with Admission requirements found in Title 42 Section 412.3 of the Code of Federal Regulations Patient History Date of Service: 10/03/18 Reason for admission: hyponatremia History of Present Illness: Mr Dan is an 83 years old male with multiple medical problems including COPD , HTN, CAD, chronic A.fib anticoagulated, ICD placement, 3 weeks ago MVR at [facility]. He is currently in a SNF recovering from his recent surgery, he is complaining dizziness and weakness, since 2 days ago. He has been started on doxycycline at [facility], assumed for possible COPD exacerbation, however, the patient did not have fever, increased SOB or worsening cough, according to him. Today, he told [facility] staff that he is feeling "shocky". They understood that the patient has been shocked by his ICD, then, he was sent to ED for evaluation. At arrival the patient was not in distress. BP on the lower side 95/72 the lowest reading, lab work remarkable for hyponatremia 127, hypokalemia 3.1, hypochloremia as well. The patient is on Lasix and aslo was started on Metolazone. CXR shows no acute abnormalities. Allergies Iodinated Contrast- Oral and IV Dye [Iodinated Contrast Media - IV Dye] Allergy (Intermediate, Verified 08/14/14 21:21) rash, sob Clindamycin Allergy (Uncoded 02/20/16 07:31) Unknown x-ray dye Allergy (Uncoded 05/26/15 20:16) Unknown Home Medications: Calcium Polycarbophil [Fibercon*] 2 tab PO BID 07/09/14 Docusate [Colace Cap*] 200 mg PO BID 07/09/14 Fluticasone/Vilanterol [Breo Ellipta 100-25 Mcg INH] 1 puff IH DAILY 07/09/14 Glu/Dajuan-MSM#1/D3/C/Mn/Maxi/Bor [Glucosamine-Chondr Complx Cplt] 1 tab PO BID 12/16 Levothyroxine [Synthroid*] 0.05 mg PO DAILY 07/09/14 Metoprolol Succinate [Toprol Xl*] 100 mg PO DAILY 07/09/14 [place]-3S/Dha/Epa/Fish Oil [[place]-3 Fish Oil 1,000 mg Sfgl] 1,200 mg PO BID 07/09 Polyethylene Glycol 3350 1 packet PO DAILY 07/09/14 Vit A,C & E/Lutein/Minerals [Ocuvite Tablet] 2 tab PO BID 07/09/14 cloNIDine HCl [Catapres*] 0.1 mg PO BEDTIME 07/09/14 predniSONE [Prednisone*] 10 mg PO BID 07/09/14 Rivaroxaban [Xarelto*] 15 mg PO 1700 08/15/14 Omeprazole 20 mg PO DAILY #30 tablet. 08/18/14 Lactobacillus Combo No.13 [Probiotic Pearls Complete] 1 each PO DAILY 05/15/15 Spironolactone 25 mg PO BID 05/15/15 Adcirca 40 mg PO DAILY 02/19/16 Albuterol Sulfate [Proventil Hfa] 90 mcg IN BID PRN 02/19/16 Atorvastatin Calcium [Lipitor*] 40 mg PO BEDTIME 02/19/16 Ferrous Sulfate [Iron] 65 mg PO BID 02/19/16 Furosemide [Lasix*] 20 mg PO BIDL 02/19/16 Mometasone Furoate [Nasonex] 17 gm NS BID PRN 02/19/16 Potassium Chloride 40 meq PO TID 02/19/16 Atorvastatin Calcium [Lipitor*] 40 mg PO BEDTIME #30 tab 02/21/16 Furosemide [Lasix*] 20 mg PO BIDL #60 tab 02/21/16 Magnesium Oxide [Mag 0X*] 400 mg PO BID #60 tab 02/21/16 Metoprolol Tartrate [Lopressor*] 50 mg PO BID #60 tab 02/21/16 - Past Medical/Surgical History Diabetic: No -: arthritis -: macular degeneration -: COPD -: high cholesterol -: pulmonary htn -: hiatal hernia -: slowed bowel -: aoritc stenosis severe, Pulmonary HTN -: AAA/CAD -: neuropathy -: anemia -: a-fib with rvr, chf -: back surgery -: tonsillectomy -: adenoids removed -: pacemaker implant -: cardiac catherization -: MVR - Family History Father -: Heart disease, Hypertension Mother -: Hypertension, Cancer Brother -: Cancer - Social History Smoking Status: Former smoker Alcohol use: Yes CD- Drugs: No Caffeine use: Yes Place of Residence: Home Review of Systems 10-point ROS is otherwise unremarkable Physical Examination - Physical Exam General: Alert, In no apparent distress HEENT: Atraumatic, PERRLA, Mucous membr. moist/pink, EOMI, Sclerae nonicteric Neck: Supple, 2+ carotid pulse no bruit, No LAD, Without JVD or thyroid abnormality Respiratory: Clear to auscultation bilaterally, Normal air movement Cardiovascular: Normal S1 S2, No gallops Gastrointestinal: Normal bowel sounds, No tenderness Musculoskeletal: No tenderness Integumentary: No rashes Neurological: Normal speech, Normal strength at 5/5 x4 extr, Normal tone, Normal affect Lymphatics: No axilla or inguinal lymphadenopathy - Studies Laboratory Data (last 24 hrs) 10/03/18 19:56: PT 18.1 H, INR 1.56 10/03/18 19:56: WBC 11.0 H D, Hgb 11.9 L, Hct 35.5 L, Plt Count 205 10/03/18 19:56: Sodium 127 L, Potassium 3.1 L, BUN 29 H, Creatinine 1.30, Glucose 131 H, Magnesium 1.9, Total Bilirubin 0.3, AST 17, ALT 28, Alkaline Phosphatase 62 Assessment and Plan - Problems (Diagnosis) (1) Hyponatremia Current Visit: Yes Status: Acute (2) Hypokalemia Current Visit: Yes Status: Acute (3) Weakness Onset Date: 07/10/14 Current Visit: No Status: Acute (4) COPD (chronic obstructive pulmonary disease) Current Visit: No Status: Chronic Qualifiers: COPD type: unspecified COPD Qualified Code(s): J44.9 - Chronic obstructive pulmonary disease, unspecified - Plan The patient will be admitted to the hospital due to hypovolemic hyponatreamia, hypokalemia, hypochloremia. This is most likely secondary to overdiuretic treatment. Will gently start IV NS infusion, close monitoring of BMP in order to avoid rapid sodium increase. - Advance Directives Does patient have a Living Will: No Does patient have a Durable POA for Healthcare: No - Code Status/Comfort Care Code Status Assessed: Yes Code Status: Full Code
[2018-10-03] MEDS ORDERED: ONDANSETRON 4 MG/2 ML VIAL IV PRN (23:20)
[2018-10-03] MEDS: NA CHLORIDE 0.9% 1,000 ML IV SCH (23:20)
[2018-10-03] MEDS ORDERED: IPRATROPIUM BROM 0.5MG/2.5ML NEB PRN (23:20)
[2018-10-03] MEDS ORDERED: ALBUTEROL 2.5 MG/3 ML NEB SOL NEB PRN (23:20)
[2018-10-04] MEDS ORDERED: ACETAMINOPHEN 500 MG TAB PO PRN (01:51)
[2018-10-04] MEDS ORDERED: KCL 20 MEQ/100 mL IVPB 20 MEQ/100 ML BAG IV SCH (02:00)
[2018-10-04 05:38] LABS: Potassium 3.5 mmol/L (3.5-5.1)
[2018-10-04 05:40] LABS: Absolute Lymphocytes (CBC) 0.4 K/uL (0.7-4.9); Absolute Monocytes 0.7 K/uL (0.1-1.3); Basophils % 0.3 % (0-1.3); Eosinophils % 1.2 % (0-4.4); Hematocrit 33.9 % (39.6-49.0); Lymphocytes % 5.1 % (15.3-44.8); MPV 8.3 fL (7.6-11.3); Monocytes % 8.6 % (3.3-12.3); RBC Red Blood Cell Count 3.67 M/uL (4.33-5.43)
--- NOTE | 2018-10-04 06:29 | EKG ---
Test Date: 2018-10-03 Test Time: 19:20:50 Data Entry Coordinator: ROSALBA MEASUREMENT RESULTS: Intervals: Rate: 84 NV: QRSD: 184 QT: 484 QTc: 571 [place]: P: NV: QRS: 102 T: -84 INTERPRETIVE STATEMENTS: Atrial-sensed ventricular-paced rhythm tracking sinus rhythm with PVC s Abnormal ECG Compared to ECG 02/03/2018 12:55:37 Ventricular premature complex(es) now present Electronically Signed On 10-04-18 06:28:45 CDT by Almas Hamilton
[2018-10-04] MEDS: NA CHLORIDE 0.9% 1,000 ML IV SCH ×2 (08:13→21:03)
[2018-10-04] MEDS ORDERED: POTASSIUM 25 MEQ EFFERV TAB PO ONE (09:00)
[2018-10-04] MEDS ORDERED: VANCOMYCIN 1 GM in NA CHLORIDE 0.9% 500 ML IVPB ONE (10:00)
[2018-10-04] MEDS: VANCOMYCIN 1.75 GM in NA CHLORIDE 0.9% 500 ML IVPB SCH (10:49)
--- NOTE | 2018-10-04 11:20 | P.PN ---
Subjective Date of Service: 10/04/18 Chief Complaint: hyponatremia Patient seen and examined chart reviewed and case discussed with RN and Dr. Paz. Patient denies any specific pain. Explained and when he said "shocky " he was started about feeling dizzy and lightheaded and woozy while urinating not having anything to do with his defibrillator Review of Systems 10-point ROS is otherwise unremarkable Physical Examination - Vital Signs Temperature: 98.7 F Blood Pressure: 101/61 Pulse: 80 Respirations: 18 Pulse Ox (%): 98 - Physical Exam General: Alert, Oriented x3, Mild distress, Other (Elderly male ill-appearing) HEENT: Atraumatic, PERRLA, EOMI Neck: Supple, JVD not distended Respiratory: Clear to auscultation bilaterally, Normal air movement Cardiovascular: No edema, Normal pulses, Regular rate/rhythm, Normal S1 S2 Gastrointestinal: Normal bowel sounds, Soft and benign, Non-distended, No tenderness Musculoskeletal: No clubbing, No tenderness Integumentary: Skin breakdown (Left groin wound not approximated and with pustular drainage. Smaller wound on right lateral chest wall) Neurological: Normal speech, Normal tone, Normal affect - Studies Laboratory Data (last 24 hrs) 10/03/18 19:56: PT 18.1 H, INR 1.56 10/03/18 19:56: WBC 11.0 H D, Hgb 11.9 L, Hct 35.5 L, Plt Count 205 10/03/18 19:56: Sodium 127 L, Potassium 3.1 L, BUN 29 H, Creatinine 1.30, Glucose 131 H, Magnesium 1.9, Total Bilirubin 0.3, AST 17, ALT 28, Alkaline Phosphatase 62 Medications List Reviewed: Yes Assessment And Plan - Current Problems (Diagnosis) (1) Skin wound from surgical incision Current Visit: Yes Status: Acute (2) Hypokalemia Current Visit: Yes Status: Acute (3) Hyponatremia Current Visit: Yes Status: Acute (4) Arrhythmia requiring replacement of cardiac pacemaker Onset Date: 02/20/16 Current Visit: No Status: Acute (5) CAD (coronary artery disease) Onset Date: 02/20/16 Current Visit: No Status: Acute Qualifiers: Coronary Disease-Associated Artery/Lesion type: [place] artery [place] vs. transplanted heart: [place] heart Associated angina: with unstable angina Qualified Code(s): I25.110 - Atherosclerotic heart disease of [place] coronary artery with unstable angina pectoris (6) CHF (congestive heart failure) Onset Date: 06/07/14 Current Visit: No Status: Acute Qualifiers: Heart failure type: diastolic Heart failure chronicity: chronic Qualified Code(s): I50.32 - Chronic diastolic (congestive) heart failure (7) COPD (chronic obstructive pulmonary disease) Current Visit: No Status: Chronic Qualifiers: COPD type: unspecified COPD Qualified Code(s): J44.9 - Chronic obstructive pulmonary disease, unspecified (8) Pulmonary hypertension Onset Date: 08/15/14 Current Visit: No Status: Chronic (9) Hypertensive heart disease Current Visit: Yes Status: Acute Qualifiers: Heart failure presence: with heart failure Heart failure type: diastolic Heart failure chronicity: chronic Qualified Code(s): I11.0 - Hypertensive heart disease with heart failure; I50.32 - Chronic diastolic (congestive) heart failure - Plan Start broad-spectrum IV antibiotics Consult surgery Wound cultures Wound healing Center consultation network services project manager consultation PT Reconcile home medications once available - Code Status/Comfort Care Code Status Assessed: Yes
--- NOTE | 2018-10-04 13:54 | P.CNS ---
Date of Consult: 10/04/18 PC: I was asked to see this 83-year-old male in reason guard to a open wound in his left groin, and a chest tube site on his right chest. HPC: Patient apparently underwent mitral valve replacement surgery. Had been at the residential was not feeling well. Was brought to the emergency room for evaluation and treatment. PMH: Mitral stenosis PSHx: Open-heart surgery SOC: Allergic to iodine SYS REVIEW: States that prior to this he was in relatively good health but just feels weak at the moment. O/E awake alert vital sustained HEENT: Not jaundice Chest: Chest has a wound on the lateral sides consistent with a chest tube. It is red and mildly erythematous but does not appear grossly infected. ABD: Soft LOCO: Left groin shows a incision approximately 2 inches in length. There appears to be a suture in the mid point. The upper lower portions are open with some fibrinous exudate on it. No active purulent drainage at the moment. IMPRESSION: Open cannulation site in the left groin skin however is loosely approximated over it PLAN: Recommend wet-to-dry dressing changes until the ax to date has been removed. This will most likely close spontaneously. Will follow with you while the patient is inpatient
[2018-10-04] MEDS: RIVAROXABAN 15 MG TABLET PO SCH (16:18)
[2018-10-04] MEDS ORDERED: predniSONE 10 MG TAB PO PRN (17:55)
[2018-10-04] MEDS ORDERED: POLYETHYL GLY 3350 17 GM/DOSE PO SCH (18:00)
[2018-10-04] MEDS: ARFORMOTEROL TARTRATE 15 MCG/2 ML VIAL.NEB IH SCH (20:00)
[2018-10-04] MEDS: SILDENAFIL CITRATE 20 MG TABLET PO SCH (20:26)
[2018-10-04] MEDS: DOCUSATE NA 100 MG CAP PO SCH (20:26)
[2018-10-04] MEDS: DOCUSATE NA/SENNA CONC 1 TAB PO SCH (20:26)
[2018-10-04] MEDS: ATORVASTATIN 40 MG TAB PO SCH (20:26)
[2018-10-04] MEDS: METOPROLOL TAR 25 MG TAB PO SCH (20:28)
[2018-10-04] MEDS: SPIRONOLACTONE 25 MG TABLET PO SCH (20:31)
[2018-10-04] MEDS: TEMAZEPAM 15 MG CAP PO PRN (21:31)
[2018-10-04] MEDS: GUAIFENESIN/CODEINE 5ML UCUP PO PRN (21:31)
[2018-10-05] MEDS: KCL 20 MEQ/100 mL IVPB 20 MEQ/100 ML BAG IV SCH ×2 (04:26→06:25)
[2018-10-05] MEDS: PANTOPRAZOLE 40MG TABLET PO SCH (06:24)
[2018-10-05] MEDS: LEVOTHYROXINE SOD 0.05 MG TABLET PO SCH (06:24)
[2018-10-05] MEDS ORDERED: METOLAZONE 5 MG TABLET PO SCH (09:00)
[2018-10-05] MEDS: HOME MED 1 EA UNK (Fluticasone/Vilanterol [Breo Ellipta 100-25 Mcg Inh] 1 PUFF) IH SCH (09:00)
[2018-10-05] MEDS: POTASSIUM CL SA 10 MEQ TAB PO SCH (09:00)
[2018-10-05] MEDS: VANCOMYCIN 1.75 GM in NA CHLORIDE 0.9% 500 ML IVPB SCH (09:12)
[2018-10-05] MEDS: NA CHLORIDE 0.9% 1,000 ML IV SCH ×3 (09:13→19:33)
[2018-10-05] MEDS: SPIRONOLACTONE 25 MG TABLET PO SCH ×3 (09:13→20:06)
[2018-10-05] MEDS: LACTOBACILLUS/ACIDOPHILUS TAB PO SCH (09:14)
[2018-10-05] MEDS: DOCUSATE NA 100 MG CAP PO SCH ×2 (09:14→20:05)
[2018-10-05] MEDS: ASPIRIN 81 MG CHEWABLE TABLET PO SCH (09:14)
[2018-10-05] MEDS: FUROSEMIDE 40 MG TABLET PO SCH (09:14)
[2018-10-05] MEDS: DOCUSATE NA/SENNA CONC 1 TAB PO SCH ×2 (09:14→20:06)
[2018-10-05] MEDS: METOPROLOL TAR 50 MG TAB PO SCH (09:15)
[2018-10-05] MEDS: METOPROLOL TAR 25 MG TAB PO SCH ×2 (09:15→20:05)
[2018-10-05] MEDS: SILDENAFIL CITRATE 20 MG TABLET PO SCH ×2 (09:16→20:04)
[2018-10-05] MEDS: TIOTROPIUM 5 SPRAYS/INHALER IH SCH (09:18)
[2018-10-05] MEDS: GUAIFENESIN/CODEINE 5ML UCUP PO PRN ×2 (09:37→22:18)
[2018-10-05] MEDS: FUROSEMIDE 20 MG TABLET PO SCH (11:43)
[2018-10-05] MEDS: ARFORMOTEROL TARTRATE 15 MCG/2 ML VIAL.NEB IH SCH ×2 (13:51→20:00)
--- NOTE | 2018-10-05 14:09 | P.PN ---
Date of Service: 10/05/18 S: No specific complaints today, says he actually feels a little bit better. O: Chest wound is fine, left groin wound had still some purulent drainage. The upper portion appears to be closing. The lower portion did have some material in it that on gentle pressure was expressed. Less erythema today. A: Patient appears to be responding, hand wounds are starting to close in response to wet-to-dry dressings P: Continue current therapy.
[2018-10-05] MEDS ORDERED: POTASSIUM CL SA 10 MEQ TAB PO ONE ×2 (15:12→22:12)
[2018-10-05] MEDS: RIVAROXABAN 15 MG TABLET PO SCH (17:15)
--- NOTE | 2018-10-05 18:43 | P.PN ---
Subjective Date of Service: 10/05/18 Chief Complaint: hyponatremia Patient seen and examined at bedside. No family at bedside. chart reviewed and case discussed with nursing staff. Patient denies any specific pain. Patient states he is feeling much better today. No acute events noted overnight. No complaints this morning other than side of wound still oozing. Review of Systems 10-point ROS is otherwise unremarkable Physical Examination - Vital Signs Temperature: 98.1 F Blood Pressure: 119/70 Pulse: 80 Respirations: 18 Pulse Ox (%): 98 - Physical Exam General: Alert, In no apparent distress, Oriented x3 HEENT: Atraumatic, PERRLA, EOMI Neck: Supple, JVD not distended Respiratory: Clear to auscultation bilaterally, Normal air movement Cardiovascular: Regular rate/rhythm, Normal S1 S2 Gastrointestinal: Normal bowel sounds, No tenderness Musculoskeletal: No tenderness Integumentary: Other (Left groin wound not approximated and with pustular drainage. Smaller wound on right lateral chest wall) Neurological: Normal speech, Normal tone, Normal affect Lymphatics: No axilla or inguinal lymphadenopathy - Studies Medications List Reviewed: Yes Assessment And Plan - Plan Assessment And Plan - Current Problems (Diagnosis) (1) Skin wound from surgical incision Current Visit: Yes Status: Acute (2) Hypokalemia Current Visit: Yes Status: Acute (3) Hyponatremia Current Visit: Yes Status: Acute (4) Arrhythmia requiring replacement of cardiac pacemaker Onset Date: 02/20/16 Current Visit: No Status: Acute (5) CAD (coronary artery disease) Onset Date: 02/20/16 Current Visit: No Status: Acute Qualifiers: Coronary Disease-Associated Artery/Lesion type: [place] artery [place] vs. transplanted heart: [place] heart Associated angina: with unstable angina Qualified Code(s): I25.110 - Atherosclerotic heart disease of [place] coronary artery with unstable angina pectoris (6) CHF (congestive heart failure) Onset Date: 06/07/14 Current Visit: No Status: Acute Qualifiers: Heart failure type: diastolic Heart failure chronicity: chronic Qualified Code(s): I50.32 - Chronic diastolic (congestive) heart failure (7) COPD (chronic obstructive pulmonary disease) Current Visit: No Status: Chronic Qualifiers: COPD type: unspecified COPD Qualified Code(s): J44.9 - Chronic obstructive pulmonary disease, unspecified (8) Pulmonary hypertension Onset Date: 08/15/14 Current Visit: No Status: Chronic (9) Hypertensive heart disease Current Visit: Yes Status: Acute Qualifiers: Heart failure presence: with heart failure Heart failure type: diastolic Heart failure chronicity: chronic Qualified Code(s): I11.0 - Hypertensive heart disease with heart failure; I50.32 - Chronic diastolic (congestive) heart failure - Plan Continue broad-spectrum IV antibiotics Consult surgery, recommendations appreciated Wound cultures Wound healing Center consultation-continue wound care as ordered. office services specialist consultation PT Discharge Plan: Intermediate Plan to discharge in: 48 Hours
[2018-10-05] MEDS: ATORVASTATIN 40 MG TAB PO SCH (20:05)
[2018-10-05] MEDS: TEMAZEPAM 15 MG CAP PO PRN (22:19)
[2018-10-06 02:36] LABS: Potassium 3.4 mmol/L (3.5-5.1)
[2018-10-06] MEDS ORDERED: POTASSIUM 25 MEQ EFFERV TAB PO ONE (04:00)
[2018-10-06] MEDS: NA CHLORIDE 0.9% 1,000 ML IV SCH ×4 (05:24→21:13)
[2018-10-06] MEDS: LEVOTHYROXINE SOD 0.05 MG TABLET PO SCH (05:30)
[2018-10-06] MEDS: PANTOPRAZOLE 40MG TABLET PO SCH (05:30)
[2018-10-06] MEDS: ARFORMOTEROL TARTRATE 15 MCG/2 ML VIAL.NEB IH SCH ×2 (08:00→20:00)
[2018-10-06] MEDS: POTASSIUM CL SA 10 MEQ TAB PO SCH (08:37)
[2018-10-06] MEDS: Levofloxacin500mg IV 500 MG/100 ML BAG IV SCH (08:37)
[2018-10-06] MEDS: SILDENAFIL CITRATE 20 MG TABLET PO SCH ×2 (08:38→20:59)
[2018-10-06] MEDS: LACTOBACILLUS/ACIDOPHILUS TAB PO SCH (08:39)
[2018-10-06] MEDS: METOLAZONE 2.5 MG TABLET PO SCH (08:39)
[2018-10-06] MEDS: METOPROLOL TAR 25 MG TAB PO SCH ×2 (08:41→21:01)
[2018-10-06] MEDS: DOCUSATE NA/SENNA CONC 1 TAB PO SCH ×2 (08:41→20:57)
[2018-10-06] MEDS: FUROSEMIDE 40 MG TABLET PO SCH (08:42)
[2018-10-06] MEDS: DOCUSATE NA 100 MG CAP PO SCH ×2 (08:42→20:56)
[2018-10-06] MEDS: ASPIRIN 81 MG CHEWABLE TABLET PO SCH (08:43)
[2018-10-06] MEDS: TIOTROPIUM 5 SPRAYS/INHALER IH SCH (08:43)
[2018-10-06] MEDS: METOPROLOL TAR 50 MG TAB PO SCH (08:43)
[2018-10-06] MEDS: SPIRONOLACTONE 25 MG TABLET PO SCH ×3 (08:44→21:01)
[2018-10-06] MEDS: HOME MED 1 EA UNK (Fluticasone/Vilanterol [Breo Ellipta 100-25 Mcg Inh] 1 PUFF) IH SCH (09:00)
[2018-10-06] MEDS ORDERED: POTASSIUM CL SA 10 MEQ TAB PO ONE ×2 (12:00→21:00)
[2018-10-06] MEDS: FUROSEMIDE 20 MG TABLET PO SCH (12:00)
[2018-10-06] MEDS: GUAIFENESIN/CODEINE 5ML UCUP PO PRN ×2 (12:42→22:30)
--- NOTE | 2018-10-06 15:26 | P.PN ---
Subjective Date of Service: 10/06/18 Chief Complaint: hyponatremia Subjective: Improving Patient seen and examined at bedside. No family at bedside. chart reviewed and case discussed with nursing staff. Patient denies any specific pain. Patient states he is feeling much better today. No acute events noted overnight. No complaints this morning other than side of wound still oozing. Review of Systems 10-point ROS is otherwise unremarkable Physical Examination - Vital Signs Temperature: 97.2 F Blood Pressure: 99/53 Pulse: 73 Respirations: 20 Pulse Ox (%): 98 - Physical Exam General: Alert, In no apparent distress, Oriented x3 HEENT: Atraumatic, PERRLA, EOMI Neck: Supple, JVD not distended Respiratory: Clear to auscultation bilaterally, Normal air movement Cardiovascular: Regular rate/rhythm, Normal S1 S2 Gastrointestinal: Normal bowel sounds, No tenderness Musculoskeletal: No tenderness Integumentary: Other (Groin: Minimal drainage from groin wound; ) Neurological: Normal speech, Normal tone, Normal affect - Studies Medications List Reviewed: Yes Assessment And Plan - Plan - Current Problems (Diagnosis) (1) Skin wound from surgical incision Current Visit: Yes Status: Acute (2) Hypokalemia Current Visit: Yes Status: Acute (3) Hyponatremia Current Visit: Yes Status: Acute (4) Arrhythmia requiring replacement of cardiac pacemaker Onset Date: 02/20/16 Current Visit: No Status: Acute (5) CAD (coronary artery disease) Onset Date: 02/20/16 Current Visit: No Status: Acute Qualifiers: Coronary Disease-Associated Artery/Lesion type: [place] artery [place] vs. transplanted heart: eagle heart Associated angina: with unstable angina Qualified Code(s): I25.110 - Atherosclerotic heart disease of [place] coronary artery with unstable angina pectoris (6) CHF (congestive heart failure) Onset Date: 06/07/14 Current Visit: No Status: Acute Qualifiers: Heart failure type: diastolic Heart failure chronicity: chronic Qualified Code(s): I50.32 - Chronic diastolic (congestive) heart failure (7) COPD (chronic obstructive pulmonary disease) Current Visit: No Status: Chronic Qualifiers: COPD type: unspecified COPD Qualified Code(s): J44.9 - Chronic obstructive pulmonary disease, unspecified (8) Pulmonary hypertension Onset Date: 08/15/14 Current Visit: No Status: Chronic (9) Hypertensive heart disease Current Visit: Yes Status: Acute Qualifiers: Heart failure presence: with heart failure Heart failure type: diastolic Heart failure chronicity: chronic Qualified Code(s): I11.0 - Hypertensive heart disease with heart failure; I50.32 - Chronic diastolic (congestive) heart failure - Plan Continue broad-spectrum IV antibiotics Consult surgery, recommendations appreciated Wound cultures positive for pseudomonas aeruginosa and proteus. Antibiotics adjusted to Levaquin. Wound healing Center consultation-continue wound care as ordered. guest services coordinator consultation PT Possible discharge in the next 24 hrs.
[2018-10-06] MEDS: RIVAROXABAN 15 MG TABLET PO SCH (16:32)
[2018-10-06] MEDS: TEMAZEPAM 15 MG CAP PO PRN (20:59)
[2018-10-06] MEDS: ATORVASTATIN 40 MG TAB PO SCH (21:01)
[2018-10-07] MEDS ORDERED: GUAIFENESIN/CODEINE 5ML UCUP PO ONE (03:29)
[2018-10-07] MEDS: LEVOTHYROXINE SOD 0.05 MG TABLET PO SCH (05:58)
[2018-10-07] MEDS: PANTOPRAZOLE 40MG TABLET PO SCH (05:58)
[2018-10-07] MEDS: Levofloxacin500mg IV 500 MG/100 ML BAG IV SCH (06:22)
[2018-10-07] MEDS: NA CHLORIDE 0.9% 1,000 ML IV SCH ×2 (06:36→17:20)
[2018-10-07] MEDS ORDERED: VANCOMYCIN 1.75 GM in NA CHLORIDE 0.9% 500 ML IVPB SCH (07:00)
[2018-10-07] MEDS ORDERED: VANCOMYCIN 1.25 GM in NA CHLORIDE 0.9% 250 ML IVPB SCH (07:00)
[2018-10-07 07:01] LABS: Potassium 3.4 mmol/L (3.5-5.1)
[2018-10-07] MEDS ORDERED: POTASSIUM CL SA 10 MEQ TAB PO ONE ×3 (07:19→23:31)
[2018-10-07] MEDS: ARFORMOTEROL TARTRATE 15 MCG/2 ML VIAL.NEB IH SCH ×2 (08:00→19:30)
[2018-10-07] MEDS ORDERED: TOBRAMYCIN IV ONE ×3 (08:00)
[2018-10-07] MEDS ORDERED: NA CHLORIDE 0.9% IV ONE ×3 (08:00)
[2018-10-07] MEDS: HOME MED 1 EA UNK (Fluticasone/Vilanterol [Breo Ellipta 100-25 Mcg Inh] 1 PUFF) IH SCH (09:00)
[2018-10-07] MEDS: POTASSIUM CL SA 10 MEQ TAB PO SCH (09:00)
[2018-10-07] MEDS: DOCUSATE NA 100 MG CAP PO SCH ×2 (09:00→20:31)
[2018-10-07] MEDS: METOPROLOL TAR 50 MG TAB PO SCH (09:04)
[2018-10-07] MEDS: LACTOBACILLUS/ACIDOPHILUS TAB PO SCH (09:05)
[2018-10-07] MEDS: METOPROLOL TAR 25 MG TAB PO SCH ×2 (09:06→20:31)
[2018-10-07] MEDS: ASPIRIN 81 MG CHEWABLE TABLET PO SCH (09:07)
[2018-10-07] MEDS: FUROSEMIDE 40 MG TABLET PO SCH (09:07)
[2018-10-07] MEDS: SILDENAFIL CITRATE 20 MG TABLET PO SCH ×2 (09:07→20:23)
[2018-10-07] MEDS: DOCUSATE NA/SENNA CONC 1 TAB PO SCH ×2 (09:12→20:31)
[2018-10-07] MEDS: METOLAZONE 2.5 MG TABLET PO SCH (09:13)
[2018-10-07] MEDS: TIOTROPIUM 5 SPRAYS/INHALER IH SCH (09:14)
[2018-10-07] MEDS: SPIRONOLACTONE 25 MG TABLET PO SCH ×3 (09:33→20:23)
[2018-10-07] MEDS: VANCOMYCIN 1.75 GM in NA CHLORIDE 0.9% 500 ML IVPB SCH (10:12)
[2018-10-07] MEDS: FUROSEMIDE 20 MG TABLET PO SCH (12:26)
--- NOTE | 2018-10-07 14:46 | P.DS ---
Admission Date: 10/03/18 Discharge Date: 10/07/18 Disposition: TRANSFER TO GROUP HOME Discharge Condition: GOOD Reason for Admission: hyponatremia Consultations: Dr. Paz, General Surgery Brief History of Present Illness: Mr Dan is an 83 years old male with multiple medical problems including COPD , HTN, CAD, chronic A.fib anticoagulated, ICD placement, 3 weeks ago MVR at [facility]. He is currently in a SNF recovering from his recent surgery, he is complaining dizziness and weakness, since 2 days ago. He has been started on doxycycline at halfway, assumed for possible COPD exacerbation, however, the patient did not have fever, increased SOB or worsening cough, according to him. Today, he told halfway staff that he is feeling "shocky". They understood that the patient has been shocked by his ICD, then, he was sent to ED for evaluation. At arrival the patient was not in distress. BP on the lower side 95/72 the lowest reading, lab work remarkable for hyponatremia 127, hypokalemia 3.1, hypochloremia as well. The patient is on Lasix and aslo was started on Metolazone. CXR shows no acute abnormalities. Hospital Course: The patient was admitted to the hospital due to hypovolemic hyponatreamia, hypokalemia, hypochloremia. This is most likely secondary to overdiuretic treatment. He was started on gentle hydration with NS. He was found to have a skin wound infection from a prior surgical incision. General surgery was consulted, wound cultures were taken and he was started on IV antibiotics. No surgical intervention was planned by general surgery. Patient's wound cultures were positive for proteus mirabilis, MRSA and Pseudomonas aeruginosa. Discussed with Dr. Paz - MRSA likely a colonization as he was not getting adequate wound care and dressing changes. He was discharged back to [facility] to complete his rehab on oral bactirm and levaquin. He otherwise did well throughout the stay. Vital Signs/Physical Exam: Temp Pulse Resp BP Pulse Ox 99.6 F 77 18 124/80 100 10/07/18 12:00 10/07/18 12:26 10/07/18 12:00 10/07/18 12:26 10/07/18 12:00 General: Alert, In no apparent distress, Oriented x3 HEENT: Atraumatic, PERRLA, EOMI Neck: Supple, JVD not distended Respiratory: Clear to auscultation bilaterally, Normal air movement Cardiovascular: Regular rate/rhythm, Normal S1 S2 Gastrointestinal: Normal bowel sounds, No tenderness Musculoskeletal: No tenderness Integumentary: Other (groin wound care: no discharge noted, improved. chest wound :improved. ) Neurological: Normal speech, Normal tone, Normal affect Lymphatics: No axilla or inguinal lymphadenopathy Laboratory Data at Discharge: WBC 8.3 K/uL (4.3-10.9) D 10/04/18 04:24 Hgb 11.7 g/dL (13.6-17.9) L 10/04/18 04:24 Hct 33.9 % (39.6-49.0) L 10/04/18 04:24 Plt Count 167 K/uL (152-406) 10/04/18 04:24 PT 18.1 SECONDS (9.5-12.5) H 10/03/18 19:56 INR 1.56 10/03/18 19:56 Sodium 131 mmol/L (136-145) L 10/07/18 06:35 Potassium 3.4 mmol/L (3.5-5.1) L 10/07/18 06:35 BUN 9 mg/dL (7-18) 10/07/18 06:35 Creatinine 0.87 mg/dL (0.55-1.3) 10/07/18 06:35 Glucose 107 mg/dL (74-106) H 10/07/18 06:35 Magnesium 1.9 mg/dL (1.8-2.4) 10/03/18 19:56 Total Bilirubin 0.3 mg/dL (0.2-1.0) 10/03/18 19:56 AST 17 U/L (15-37) 10/03/18 19:56 ALT 28 U/L (12-78) 10/03/18 19:56 Alkaline Phosphatase 62 U/L (45-117) 10/03/18 19:56 Home Medications: Calcium Polycarbophil [Fibercon*] 2 tab PO BID 07/09/14 Docusate [Colace Cap*] 200 mg PO BID 07/09/14 Fluticasone/Vilanterol [Breo Ellipta 100-25 Mcg INH] 1 puff IH DAILY 07/09/14 Glu/Dajuan-MSM#1/D3/C/Mn/Maxi/Bor [Glucosamine-Chondr Complx Cplt] 1 tab PO BID 12/16 Levothyroxine [Synthroid*] 50 mcg PO DAILY 07/09/14 Jackhorn-3S/Dha/Epa/Fish Oil [Jackhorn-3 Fish Oil 1,000 mg Sfgl] 1,000 mg PO DAILY 12/16 Polyethylene Glycol 3350 1 packet PO BID 07/09/14 predniSONE [Prednisone*] 10 mg PO BIDP PRN 07/09/14 Rivaroxaban [Xarelto*] 15 mg PO 1700 08/15/14 Omeprazole 20 mg PO DAILY #30 tablet. 08/18/14 Lactobacillus Combo No.13 [Probiotic Pearls Complete] 1 each PO DAILY 05/15/15 Spironolactone 25 mg PO TID 05/15/15 Albuterol Sulfate [Proventil Hfa] 90 mcg IN BID PRN 02/19/16 Furosemide [Lasix*] 40 mg PO DAILY 02/19/16 Potassium Chloride 40 meq PO DAILY 02/19/16 Atorvastatin Calcium [Lipitor*] 40 mg PO BEDTIME #30 tab 02/21/16 Magnesium Oxide [Mag 0X*] 400 mg PO BID #60 tab 02/21/16 Arformoterol Tartrate [Brovana] 15 mcg IH Q12H 10/04/18 Aspirin Chewable [Aspirin Chewable*] 1 tab PO DAILY 10/04/18 Doxycycline Hyclate [Vibramycin] 100 mg PO BID 10/04/18 Furosemide [Lasix*] 60 mg PO NOON 10/04/18 Guaifenesin/Dextromethorphan [Kim-Tussin Dm Syrup] 10 ml PO Q6HP PRN 10/04/18 Metoprolol Tartrate 100 mg PO DAILY 10/04/18 Metoprolol Tartrate [Lopressor*] 25 mg PO BID 10/04/18 Sennosides/Docusate Sodium [Senna-Docusate Sodium Tablet] 2 tab PO BID 10/04/18 Sildenafil Citrate [Revatio*] 10 mg PO BID 10/04/18 Tiotropium [Spiriva Handihaler*] 1 spray IH DAILY 10/04/18 Vit A/Vit C/Vit E/Zinc/Copper [Preservision Areds Softgel] 1 tab PO BID metOLazone [Zaroxolyn*] 3.75 mg PO DAILY 10/05/18 Levofloxacin [Levaquin] 500 mg PO DAILY #5 tablet 10/07/18 Sulfamethoxazole/Trimethoprim [Bactrim Ds Tablet] 2 each PO BID #10 tablet 10/07 New Medications: Levofloxacin [Levaquin] 500 mg PO DAILY #5 tablet Sulfamethoxazole/Trimethoprim [Bactrim Ds Tablet] 2 each PO BID #10 tablet Patient Discharge Instructions: Please follow up with your primary care physician in 2-3 days. Please follow up with Dr. Paz, General Surgery in [address] Paz for any wound care questions. His office number is: [phone]. Please return to the Emergency room for worsening symptoms. Diet: AHA Activity: Ad osiel Followup: Jesse Paz MD [ACTIVE - CAN ADMIT] - Time spent managing pt's care (in minutes): 55
[2018-10-07] MEDS: RIVAROXABAN 15 MG TABLET PO SCH (16:35)
[2018-10-07] MEDS: ATORVASTATIN 40 MG TAB PO SCH (20:23)
[2018-10-07] MEDS: TEMAZEPAM 15 MG CAP PO PRN (20:23)
[2018-10-07] MEDS: GUAIFENESIN/CODEINE 5ML UCUP PO PRN (20:36)
[2018-10-08] MEDS: VANCOMYCIN 1.75 GM in NA CHLORIDE 0.9% 500 ML IVPB SCH ×2 (01:05→19:46)
[2018-10-08] MEDS: NA CHLORIDE 0.9% 1,000 ML IV SCH ×2 (01:05→13:20)
[2018-10-08] MEDS: LEVOTHYROXINE SOD 0.05 MG TABLET PO SCH (06:03)
[2018-10-08] MEDS: Levofloxacin500mg IV 500 MG/100 ML BAG IV SCH (06:03)
[2018-10-08] MEDS: PANTOPRAZOLE 40MG TABLET PO SCH (06:03)
[2018-10-08 06:33] LABS: Potassium 3.6 mmol/L (3.5-5.1)
[2018-10-08] MEDS ORDERED: POTASSIUM CL SA 10 MEQ TAB PO ONE (06:36)
[2018-10-08 06:47] VITALS: BMI 28.7
[2018-10-08] MEDS: SILDENAFIL CITRATE 20 MG TABLET PO SCH ×2 (08:45→19:51)
[2018-10-08] MEDS: METOLAZONE 2.5 MG TABLET PO SCH (08:47)
[2018-10-08] MEDS: POTASSIUM CL SA 10 MEQ TAB PO SCH (08:49)
[2018-10-08] MEDS: METOPROLOL TAR 50 MG TAB PO SCH (08:50)
[2018-10-08] MEDS: LACTOBACILLUS/ACIDOPHILUS TAB PO SCH (08:50)
[2018-10-08] MEDS: FUROSEMIDE 40 MG TABLET PO SCH (08:51)
[2018-10-08] MEDS: TIOTROPIUM 5 SPRAYS/INHALER IH SCH (08:52)
[2018-10-08] MEDS: SPIRONOLACTONE 25 MG TABLET PO SCH ×3 (08:53→19:51)
[2018-10-08] MEDS: ASPIRIN 81 MG CHEWABLE TABLET PO SCH (08:53)
[2018-10-08] MEDS: DOCUSATE NA 100 MG CAP PO SCH ×2 (08:54→19:46)
[2018-10-08] MEDS: DOCUSATE NA/SENNA CONC 1 TAB PO SCH ×2 (08:54→19:47)
[2018-10-08] MEDS: HOME MED 1 EA UNK (Fluticasone/Vilanterol [Breo Ellipta 100-25 Mcg Inh] 1 PUFF) IH SCH (08:55)
[2018-10-08] MEDS: METOPROLOL TAR 25 MG TAB PO SCH ×2 (09:00→19:47)
[2018-10-08] MEDS: GUAIFENESIN/CODEINE 5ML UCUP PO PRN ×2 (09:13→22:18)
[2018-10-08] MEDS: FUROSEMIDE 20 MG TABLET PO SCH (12:00)
[2018-10-08] MEDS: ARFORMOTEROL TARTRATE 15 MCG/2 ML VIAL.NEB IH SCH ×2 (13:46→19:20)
[2018-10-08] MEDS: BENZONATATE 100 MG CAP PO PRN ×2 (14:07→19:47)
--- NOTE | 2018-10-08 16:33 | CON ---
History Of Present Illness: I was consulted for left groin and right chest wound. The patient has b een growing multidrug-resistant MRSA from the left groin area and Pseudomonas and Staph aureus on the chest wound. The patient is feeling slightly better today. Denies any fevers. No headache, nausea , vomiting, chest pain, abdominal pain, constipation, or diarrhea. Continue to have some cough and s ome shortness of breath. The patient is on home oxygen, currently being treated with IV antibiotic i ncluding vancomycin and Levaquin. Past Medical History: Include arthritis, macular degeneration, COPD, hypercholesteremia, pulmonary h ypertension, aortic stenosis, coronary artery disease, neuropathy, atrial fibrillation, back surgery, tonsillectomy, adenectomy, pacemaker implantation, cardiac catheterization, MVR. Social History: A former smoker, quit in . Social alcohol use. Family History: Noncontributory. Medications: See MARS. Allergies: IODINATED CONTRAST, ORAL AND IV. Review of Systems: A 10-point of review was performed. Physical Examination: General: This is an 83-year-old male, lying in bed, not in any acute cardiopulmonary distress. HEENT: Unremarkable. Neck: Supple. Lungs: Basal crackles. Heart S1, S2. Regular. Abdomen: Soft, nontender. Bowel sounds present. Extremity: Left groin wound noted and right chest wound noted. Laboratory Data: Shows WBC 8.3, hemoglobin 11.7, platelets are 167. Chemistry; sugar 133, sodium 3. 6, chloride 90, bicarb 40, BUN 9, creatinine 1.01, glucose is 102. Microdata shows Pseudomonas aerug inosa and Staph aureus in right chest wound and left groin wound with Proteus and MRSA and Pseudomona s aeruginosa. Assessment And Plan: Left groin wound with multidrug resistant infection. Continue packing right ch est wound with Staph aureus and seroma. Continue packing. The patient to continue IV antibiotic for at least 3 weeks. Consider getting a PICC line. We will follow the patient as needed. SANTOSH/LORRI Voice ID: [id number] Report ID: [id number]
[2018-10-08] MEDS: RIVAROXABAN 15 MG TABLET PO SCH (17:08)
--- NOTE | 2018-10-08 17:35 | P.PN ---
Subjective Date of Service: 10/08/18 Chief Complaint: hyponatremia Subjective: No C/O voiced Patient seen and examined at bedside. No family at bedside. chart reviewed and case discussed with nursing staff. Patient denies any specific pain. Patient states he is feeling much better today. No acute events noted overnight. No complaints this morning Review of Systems 10-point ROS is otherwise unremarkable Physical Examination - Vital Signs Temperature: 97.9 F Blood Pressure: 110/70 Pulse: 80 Respirations: 18 Pulse Ox (%): 96 - Physical Exam General: Alert, In no apparent distress Respiratory: Clear to auscultation bilaterally, Normal air movement Cardiovascular: Regular rate/rhythm, Normal S1 S2 Integumentary: Skin lesion - Studies Medications List Reviewed: Yes Assessment And Plan - Plan - Current Problems (Diagnosis) (1) Skin wound from surgical incision Current Visit: Yes Status: Acute (2) Hypokalemia Current Visit: Yes Status: Acute (3) Hyponatremia Current Visit: Yes Status: Acute (4) Arrhythmia requiring replacement of cardiac pacemaker Onset Date: 02/20/16 Current Visit: No Status: Acute (5) CAD (coronary artery disease) Onset Date: 02/20/16 Current Visit: No Status: Acute Qualifiers: Coronary Disease-Associated Artery/Lesion type: [place] artery [place] vs. transplanted heart: [place] heart Associated angina: with unstable angina Qualified Code(s): I25.110 - Atherosclerotic heart disease of [place] coronary artery with unstable angina pectoris (6) CHF (congestive heart failure) Onset Date: 06/07/14 Current Visit: No Status: Acute Qualifiers: Heart failure type: diastolic Heart failure chronicity: chronic Qualified Code(s): I50.32 - Chronic diastolic (congestive) heart failure (7) COPD (chronic obstructive pulmonary disease) Current Visit: No Status: Chronic Qualifiers: COPD type: unspecified COPD Qualified Code(s): J44.9 - Chronic obstructive pulmonary disease, unspecified (8) Pulmonary hypertension Onset Date: 08/15/14 Current Visit: No Status: Chronic (9) Hypertensive heart disease Current Visit: Yes Status: Acute Qualifiers: Heart failure presence: with heart failure Heart failure type: diastolic Heart failure chronicity: chronic Qualified Code(s): I11.0 - Hypertensive heart disease with heart failure; I50.32 - Chronic diastolic (congestive) heart failure - Plan Continue broad-spectrum IV antibiotics Consult surgery, recommendations appreciated Wound cultures positive for pseudomonas aeruginosa and proteus. Antibiotics adjusted to Levaquin. Wound healing Center consultation-continue wound care as ordered. business services officer consultation PT Discharge was held yesterday as patient was denied acceptance at [facility]. Patient then seen my ID here in hospital who recommended patient to be on IV antibiotics for 3 weeks. PICC line ordered, pending. Discharge to [facility] once PICC line is in and antibiotics set up at [facility].
--- NOTE | 2018-10-08 18:48 | RAD REPORT ---
EXAM DESCRIPTION: RAD - Chest Single View - 10/08/2018 6:41 pm CLINICAL HISTORY: Device placement PICC line placement FINDINGS: A PICC line has been inserted with its tip in the distal superior vena cava. The lungs appear clear of acute infiltrate. The heart is moderately enlarged. Pacemaker leads are in place IMPRESSION: PICC line with its tip in the distal superior vena cava
[2018-10-08] MEDS: ATORVASTATIN 40 MG TAB PO SCH (19:46)
[2018-10-08] MEDS: TEMAZEPAM 15 MG CAP PO PRN (20:17)
[2018-10-09 00:07] VITALS: BP 123/75; TEMP 98
[2018-10-09 00:25] VITALS: O2SAT 98
== END 2018-10-09 00:31 | DRG 641 ==
LOC: ER 19:16 → ERHOLD 22:11 → 4TH 22:52
PROVIDERS: ADMIT Internal Medicine; ATTEND Internal Medicine
PROC: 02HV33Z Insertion of Infusion Device into Superior Vena Cava, Percutaneous Approach (ICD-10-PCS; principal; 2018-10-08)
DX: E87.1 Hypo-osmolality and hyponatremia (principal); I50.32 Chronic diastolic (congestive) heart failure; E86.1 Hypovolemia; E87.6 Hypokalemia; E87.8 Other disorders of electrolyte and fluid balance, not elsewhere classified; L76.82 Other postprocedural complications of skin and subcutaneous tissue; B96.4 Proteus (mirabilis) (morganii) as the cause of diseases classified elsewhere; B96.5 Pseudomonas (aeruginosa) (mallei) (pseudomallei) as the cause of diseases classified elsewhere; B95.62 Methicillin resistant Staphylococcus aureus infection as the cause of diseases classified elsewhere; Y83.8 Other surgical procedures as the cause of abnormal reaction of the patient, or of later complication, without mention of misadventure at the time of the procedure; Y71.8 Miscellaneous cardiovascular devices associated with adverse incidents, not elsewhere classified; I25.10 Atherosclerotic heart disease of native coronary artery without angina pectoris; I48.2 Chronic atrial fibrillation; J44.9 Chronic obstructive pulmonary disease, unspecified; I11.0 Hypertensive heart disease with heart failure; I27.20 Pulmonary hypertension, unspecified; Z79.01 Long term (current) use of anticoagulants; Z95.810 Presence of automatic (implantable) cardiac defibrillator
CPT/HCPCS: 36415; 71045; 80048; 80076; 80202; 81003; 82805; 83605; 83735; 83880; 83930; 83935; 84132; 84145; 84484; 85025; 85379; 85610; 85652; 87040; 87070; 87077; 87186; 87205; 93005; 94640; 94760; 96365; 97163; 99285; J7030; J7605

== ENCOUNTER 2018-10-16 21:14 | Inpatient (IN) | payer OTHER, BC ==
--- OUTSIDE RECORDS SUMMARY | 2018-10-16 21:20 | XMS REPORT ---
:1935 Author Organization [facility] Address [address] [place] [address] [address] [place] [address] Care Team Providers Name Role Phone FARHAN [...] 151 mg/dL 70-[address] [facility] [address] [facility] hqgy=[phone]) [facility] [address] [id number] 07:58:00 Test Item Value Reference Range Comments MAGNESIUM (BEAKER) (test brde=207) 2.1 mg/dL 1.6-2.6 BASIC METABOLIC [id number] 07:58:00 Test Item Value Reference Range Comments SODIUM (BEAKER) (test 138 meq/L 136-145 ynfo=615) POTASSIUM (BEAKER) (test 4.4 meq/L 3.5-5.1 hehn=111) CHLORIDE (BEAKER) (test 97 meq/L 98-107 eotl=420) CO2 (BEAKER) (test 34 meq/L 22-29 dlrn=994) BLOOD UREA NITROGEN 19 mg/dL 7-21 (BEAKER) (test femj=697) CREATININE (BEAKER) (test 0.90 mg/dL 0.57-1.25 mmvn=936) GLUCOSE RANDOM (BEAKER) 88 mg/dL 70-105 (test qcpu=983) CALCIUM (BEAKER) (test 8.7 mg/dL 8.4-10.2 eouy=667) EGFR (BEAKER) (test 81 mL/min/1.73 sq m ESTIMATED GFR IS NOT medr=0579) ACCURATE CREATININE CLEARANCE IN PREDICTING GLOMERULAR FILTRATION RATE. ESTIMATED GFR IS NOT APPLICABLE FOR DIALYSIS PATIENTS. CBC (HEMOGRAM ONLY)2018-09-21 06:38:00 Test Item Value Reference Range Comments WHITE BLOOD CELL COUNT (BEAKER) (test ipbn=506) 7.8 K/ L 3.5-10.5 RED BLOOD CELL COUNT (BEAKER) (test pgiu=107) 3.57 M/ L 4.63-6.08 HEMOGLOBIN (BEAKER) (test pzdb=508) 10.9 GM/DL 13.7-17.5 HEMATOCRIT (BEAKER) (test htmv=307) 36.5 % 40.1-51.0 MEAN CORPUSCULAR VOLUME (BEAKER) (test tbvp=842) 102.2 fL 79.0-92.2 MEAN CORPUSCULAR HEMOGLOBIN (BEAKER) (test 30.5 pg 25.7-32.2 oatw=985) MEAN CORPUSCULAR HEMOGLOBIN CONC (BEAKER) (test 29.9 GM/DL 32.3-36.5 aoyd=060) RED CELL DISTRIBUTION WIDTH (BEAKER) (test 13.6 % 11.6-14.4 ralf=900) PLATELET COUNT (BEAKER) (test kopq=065) 182 K/CU MM 150-450 MEAN PLATELET VOLUME (BEAKER) (test uhxf=564) 9.5 fL 9.4-12.4 NUCLEATED RED BLOOD CELLS (BEAKER) (test 0 /100 WBC 0-0 yiwm=089) TISSUE [id number] 11:06:00Surgical Pathology Report Case: [id number] Authorizing Provider: Farhan Brand, Collected: 09/13/2018 1146 OrderingLocation: [facility] Received: 2018 1237 PERIOPERATIVE SERVICES Pathologist: Yousif Alfonso MD Specimen: Leaflets HEART, MITRAL VALVE, VALVULECTOMY:FIBROMYXOID THICKENING WITH FOCAL SCLEROSIS Signing Pathologist Direct Phone Line:[phone] signed by Yousif Alfonso MD on 09/20/2018 at 11:06 [id number]; [id number] valve insufficiency, unspecified etiology The specimen is [...] in a single cassette following decalcification. [facility]/ [facility] ([facility] ONLY)2018-09-20 10:51:00 Test Item Value Reference Range Comments WHITE BLOOD CELL COUNT (BEAKER) (test xeuz=497) 9.3 K/ L 3.5-10.5 RED BLOOD CELL COUNT (BEAKER) (test wfjv=035) 3.29 M/ L 4.63-6.08 HEMOGLOBIN (BEAKER) (test ofxi=671) 10.4 GM/DL 13.7-17.5 HEMATOCRIT (BEAKER) (test xrtn=001) 33.4 % 40.1-51.0 MEAN CORPUSCULAR VOLUME (BEAKER) (test sdjm=746) 101.5 fL 79.0-92.2 MEAN CORPUSCULAR HEMOGLOBIN (BEAKER) (test 31.6 pg 25.7-32.2 rixl=043) MEAN CORPUSCULAR HEMOGLOBIN CONC (BEAKER) (test 31.1 GM/DL 32.3-36.5 dwoh=688) RED CELL DISTRIBUTION WIDTH (BEAKER) (test 13.7 % 11.6-14.4 ywwj=058) PLATELET COUNT (BEAKER) (test iyba=185) 168 K/CU MM 150-450 MEAN PLATELET VOLUME (BEAKER) (test izul=475) 9.7 fL 9.4-12.4 NUCLEATED RED BLOOD CELLS (BEAKER) (test 0 /100 WBC 0-0 fnjh=965) [id number] 05:51:00 Test Item Value Reference Range Comments MAGNESIUM (BEAKER) (test enpv=791) 2.4 mg/dL 1.6-2.6 BASIC METABOLIC [id number] 05:51:00 Test Item Value Reference Range Comments SODIUM (BEAKER) (test 139 meq/L 136-145 iayx=132) POTASSIUM (BEAKER) (test 4.5 meq/L 3.5-5.1 vjeh=475) CHLORIDE (BEAKER) (test 95 meq/L 98-107 juqr=481) CO2 (BEAKER) (test 38 meq/L 22-29 shmn=929) BLOOD UREA NITROGEN 20 mg/dL 7-21 (BEAKER) (test mnjn=806) CREATININE (BEAKER) (test 0.90 mg/dL 0.57-1.25 cpjs=253) GLUCOSE RANDOM (BEAKER) 100 mg/dL 70-105 (test zfbq=502) CALCIUM (BEAKER) (test 8.8 mg/dL 8.4-10.2 jutw=578) EGFR (BEAKER) (test 81 mL/min/1.73 sq m ESTIMATED GFR IS NOT hwcm=8867) ACCURATE CREATININE CLEARANCE IN PREDICTING GLOMERULAR FILTRATION RATE. ESTIMATED GFR IS NOT APPLICABLE FOR DIALYSIS PATIENTS. BLOOD GAS, [id number] 16:58:00 Test Item Value Reference Range Comments PH ARTERIAL (BEAKER) (test ffav=683) 7.48 7.35-7.45 PCO2 ARTERIAL (BEAKER) (test sbzp=982) 52 mmHg 35-45 PO2 ARTERIAL (BEAKER) (test didj=801) 84 mmHg 80-90 O2 SATURATION ARTERIAL (BEAKER) (test xylr=884) 96.9 % 96.0-97.0 HCO3 ARTERIAL (BEAKER) (test xhmv=072) 38 mmol/L 21-29 BASE EXCESS ARTERIAL (BEAKER) (test khyf=601) 12.8 mmol/L -2.0-3.0 PATIENT TEMPERATURE (BEAKER) (test yqpu=6348) 36.4 C FIO2 (BEAKER) (test bili=1455) 28.0 % RAD, CHEST, 1 VIEW, NON [id number] 08:20:00Reason for exam:->s/p MVRShould this be performed at the bedside?->YesFINAL REPORT Comparison: 09/18/2018 TECHNIQUE: Single view of the chest FINDINGS: There are nonspecific mildly prominent interstitial markings laterally. Small left pleural effusion with adjacent airspace disease. No gross new lung parenchymal changes. Support lines and tubes arestable. Signed: Dick Brownep[place] Verified Date/Time: 09/19/2018 08:20:07 Reading Location: [address] Reading Room POCT-GLUCOSE [id number] 07:51:00 Test Item Value Reference Range Comments POC-GLUCOSE METER (BEAKER) 128 mg/dL 70-110 TESTED AT [address] (test niix=8469) [facility] [address] BASIC METABOLIC [id number] 07:46:00 Test Item Value Reference Range Comments SODIUM (BEAKER) (test 140 meq/L 136-145 cjro=436) POTASSIUM (BEAKER) (test 4.3 meq/L 3.5-5.1 trgk=177) CHLORIDE (BEAKER) (test 94 meq/L 98-107 xdok=117) CO2 (BEAKER) (test 42 meq/L 22-29 bjtg=954) BLOOD UREA NITROGEN 21 mg/dL 7-21 (BEAKER) (test yprf=595) CREATININE (BEAKER) (test 1.03 mg/dL 0.57-1.25 dmeb=766) GLUCOSE RANDOM (BEAKER) 97 mg/dL 70-105 (test mdfz=399) CALCIUM (BEAKER) (test 8.8 mg/dL 8.4-10.2 ojrb=767) EGFR (BEAKER) (test 69 mL/min/1.73 sq m ESTIMATED GFR IS NOT tgve=3230) ACCURATE CREATININE CLEARANCE IN PREDICTING GLOMERULAR FILTRATION RATE. ESTIMATED GFR IS NOT APPLICABLE FOR DIALYSIS PATIENTS. [id number] 07:32:00 Test Item Value Reference Range Comments MAGNESIUM (BEAKER) (test yapk=125) 2.2 mg/dL 1.6-2.6 POCT-GLUCOSE [id number] 21:39:00 Test Item Value Reference Range Comments POC-GLUCOSE METER (BEAKER) 131 mg/dL 70-110 TESTED AT [address] (test qwjy=8461) [facility] [address] POCT-GLUCOSE [id number] 17:39:00 Test Item Value Reference Range Comments POC-GLUCOSE METER (BEAKER) 143 mg/dL 70-110 TESTED AT [address] (test jfjz=9359) [facility] [address] POCT-GLUCOSE [id number] 12:32:00 Test Item Value Reference Range Comments POC-GLUCOSE METER (BEAKER) 123 mg/dL 70-110 TESTED AT [address] (test xegl=2845) [facility] [address] RAD, CHEST, 1 VIEW, NON [id number] 08:29:00Reason for exam:->s/p MVRShould this be performed [...] Verified Date/Time : 09/18/2018 08:29:07 Reading Location: [address] Neuro Reading Room POCT-GLUCOSE [id number] 08:06:00 Test Item Value Reference Range Comments POC-GLUCOSE METER (BEAKER) 97 mg/dL 70-110 TESTED AT [address] (test dsbj=4912) [place] [address] [id number] 01:49:00 Test Item Value Reference Range Comments MAGNESIUM (BEAKER) (test nxil=776) 2.3 mg/dL 1.6-2.6 BASIC METABOLIC [id number] 01:49:00 Test Item Value Reference Range Comments SODIUM (BEAKER) (test 138 meq/L 136-145 hqvy=542) POTASSIUM (BEAKER) (test 3.8 meq/L 3.5-5.1 ygqu=160) CHLORIDE (BEAKER) (test 94 meq/L 98-107 nvcz=929) CO2 (BEAKER) (test 36 meq/L 22-29 hjia=003) BLOOD UREA NITROGEN 30 mg/dL 7-21 (BEAKER) (test vyls=887) CREATININE (BEAKER) (test 1.04 mg/dL 0.57-1.25 poec=787) GLUCOSE RANDOM (BEAKER) 122 mg/dL 70-105 (test slcm=743) CALCIUM (BEAKER) (test 8.8 mg/dL 8.4-10.2 tioo=431) EGFR (BEAKER) (test 69 mL/min/1.73 sq m ESTIMATED GFR IS NOT kiir=0672) ACCURATE CREATININE CLEARANCE IN PREDICTING GLOMERULAR FILTRATION RATE. ESTIMATED GFR IS NOT APPLICABLE FOR DIALYSIS PATIENTS. RAD, CHEST, 1 VIEW, NON [id number] 22:42:00Reason for exam:->shortness of breathShould this be [...] [place] Verified Date/Time: 2018 22:42:10 Reading Location: [facility] Body Reading Room POCT- GLUCOSE [id number] 21:28:00 Test Item Value Reference Range Comments POC-GLUCOSE METER (BEAKER) 148 mg/dL 70-110 TESTED AT [address] (test fhmf=6440) [facility] [address] POCT-GLUCOSE [id number] 17:16:00 Test Item Value Reference Range Comments POC-GLUCOSE METER (BEAKER) 231 mg/dL 70-110 TESTED AT [address] (test wsjd=9735) [facility] [address] POCT-GLUCOSE [id number] 12:37:00 Test Item Value Reference Range Comments POC-GLUCOSE METER (BEAKER) 150 mg/dL 70-110 TESTED AT [address] (test ijcv=9902) [facility] [address] RAD, CHEST, 1 VIEW, NON [id number] 09:37:00Reason for exam:->s/p MVRShould this be performed at the bedside?->YesFINAL REPORT Chest one view. Clinical history: s/p MVR Comparison: 2018Discussion: A frontal chest is provided. Cardiomediastinal contours are unchanged. 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 There is mild vascular congestion. Small bilateral pleural effusions. No new consolidation. No pneumothorax. Signed: Erin Marrero Verified Date/Time: 09/17/2018 09:37:37 Reading Location: [facility] Radiology Reading Room POCT-GLUCOSE [id number] 09:04:00 Test Item Value Reference Range Comments POC-GLUCOSE METER (BEAKER) 159 mg/dL 70-[address] [facility] [address] [facility] (test gova=3421) [facility] [address] [id number] 06:49:00 Test Item Value Reference Range Comments MAGNESIUM (BEAKER) (test esry=632) 1.8 mg/dL 1.6-2.6 BASIC METABOLIC [id number] 06:49:00 Test Item Value Reference Range Comments SODIUM (BEAKER) (test 135 meq/L 136-145 xito=638) POTASSIUM (BEAKER) (test 4.0 meq/L 3.5-5.1 lwgp=444) CHLORIDE (BEAKER) (test 94 meq/L 98-107 uneq=159) CO2 (BEAKER) (test 35 meq/L 22-29 iapi=686) BLOOD UREA NITROGEN 28 mg/dL 7-21 (BEAKER) (test sihk=258) CREATININE (BEAKER) (test 1.00 mg/dL 0.57-1.25 iuoe=067) GLUCOSE RANDOM (BEAKER) 141 mg/dL 70-105 (test mwoe=629) CALCIUM (BEAKER) (test 8.6 mg/dL 8.4-10.2 mvzi=169) EGFR (BEAKER) (test 72 mL/min/1.73 sq m ESTIMATED GFR IS NOT aeud=3504) ACCURATE CREATININE CLEARANCE IN PREDICTING GLOMERULAR FILTRATION RATE. ESTIMATED GFR IS NOT APPLICABLE FOR DIALYSIS PATIENTS. CBC W/PLT COUNT & AUTO [id number] 06:14:00 Test Item Value Reference Range Comments WHITE BLOOD CELL COUNT (BEAKER) (test rfhx=398) 6.0 K/ L 3.5-10.5 RED BLOOD CELL COUNT (BEAKER) (test ikhr=484) 3.15 M/ L 4.63-6.08 HEMOGLOBIN (BEAKER) (test qbns=108) 9.8 GM/DL 13.7-17.5 HEMATOCRIT (BEAKER) (test oiko=866) 31.0 % 40.1-51.0 MEAN CORPUSCULAR VOLUME (BEAKER) (test geff=019) 98.4 fL 79.0-92.2 MEAN CORPUSCULAR HEMOGLOBIN (BEAKER) (test 31.1 pg 25.7-32.2 ilah=225) MEAN CORPUSCULAR HEMOGLOBIN CONC (BEAKER) (test 31.6 GM/DL 32.3-36.5 ujrv=671) RED CELL DISTRIBUTION WIDTH (BEAKER) (test 13.6 % 11.6-14.4 uixh=494) PLATELET COUNT (BEAKER) (test bxsm=743) 95 K/CU MM 150-450 MEAN PLATELET VOLUME (BEAKER) (test jtmw=715) 10.2 fL 9.4-12.4 NUCLEATED RED BLOOD CELLS (BEAKER) (test 0 /100 WBC 0-0 xxmp=859) NEUTROPHILS RELATIVE PERCENT (BEAKER) (test 89 % ufyl=551) LYMPHOCYTES RELATIVE PERCENT (BEAKER) (test 4 % rebb=467) MONOCYTES RELATIVE PERCENT (BEAKER) (test 6 % kewm=133) EOSINOPHILS RELATIVE PERCENT (BEAKER) (test 0 % bubh=805) BASOPHILS RELATIVE PERCENT (BEAKER) (test 0 % wdrk=448) NEUTROPHILS ABSOLUTE COUNT (BEAKER) (test 5.30 K/ L 1.78-5.38 nwzv=019) LYMPHOCYTES ABSOLUTE COUNT (BEAKER) (test 0.25 K/ L 1.32-3.57 ovxv=538) MONOCYTES ABSOLUTE COUNT (BEAKER) (test sced=575) 0.38 K/ L 0.30-0.82 EOSINOPHILS ABSOLUTE COUNT (BEAKER) (test 0.00 K/ L 0.04-0.54 kyxo=485) BASOPHILS ABSOLUTE COUNT (BEAKER) (test nnml=327) 0.01 K/ L 0.01-0.08 IMMATURE GRANULOCYTES-RELATIVE PERCENT (BEAKER) 1 % 0-1 (test pqvi=9189) POCT-GLUCOSE [id number] 17:47:00 Test Item Value Reference Range Comments POC-GLUCOSE METER (BEAKER) 178 mg/dL 70-110 TESTED AT [address] (test wpmt=2834) [facility] [address] POCT-GLUCOSE [id number] 15:19:00 Test Item Value Reference Range Comments POC-GLUCOSE METER (BEAKER) 173 mg/dL 70-110 TESTED AT [address] (test voko=2408) [facility] [address] POCT-GLUCOSE [id number] 12:18:00 Test Item Value Reference Range Comments POC-GLUCOSE METER (BEAKER) 166 mg/dL 70-110 TESTED AT [address] (test zkey=6376) [facility] [address] POCT-GLUCOSE [id number] 07:56:00 Test Item Value Reference Range Comments POC-GLUCOSE METER (BEAKER) 127 mg/dL 70-110 TESTED AT [address] (test duwk=9331) [facility] [address] [id number] 07:34:00 Test Item Value Reference Range Comments MAGNESIUM (BEAKER) (test vasu=684) 2.0 mg/dL 1.6-2.6 BASIC METABOLIC [id number] 07:34:00 Test Item Value Reference Range Comments SODIUM (BEAKER) (test 133 meq/L 136-145 nact=136) POTASSIUM (BEAKER) (test 4.0 meq/L 3.5-5.1 kmrf=849) CHLORIDE (BEAKER) (test 98 meq/L 98-107 uisd=847) CO2 (BEAKER) (test 30 meq/L 22-29 ujia=487) BLOOD UREA NITROGEN 22 mg/dL 7-21 (BEAKER) (test otfa=209) CREATININE (BEAKER) (test 0.93 mg/dL 0.57-1.25 njjs=625) GLUCOSE RANDOM (BEAKER) 127 mg/dL 70-105 (test grzj=945) CALCIUM (BEAKER) (test 8.7 mg/dL 8.4-10.2 bsqa=177) EGFR (BEAKER) (test 78 mL/min/1.73 sq m ESTIMATED GFR IS NOT iwyz=5034) ACCURATE CREATININE CLEARANCE IN PREDICTING GLOMERULAR FILTRATION RATE. ESTIMATED GFR IS NOT APPLICABLE FOR DIALYSIS PATIENTS. OXYGEN SATURATION, [id number] 07:10:00 Test Item Value Reference Range Comments O2 SATURATION (MEASURED) (BEAKER) (test jzvz=5070) 69.7 % CALCIUM, [id number] 07:05:00 Test Item Value Reference Range Comments CALCIUM IONIZED (BEAKER) (test ijky=224) 1.13 mmol/L 1.12-1.27 PH, BLOOD (BEAKER) (test ithe=5672) 7.42 RAD, CHEST, 1 VIEW, NON [id number] 06:56:00Reason for exam:->pOST oPShould this be performed [...] Johnson MDRep[place] Verified Date/Time: 06:56:55 Reading Location: [address] Body Reading Room CBC ( HEMOGRAM ONLY)2018-09-16 06:54:00 Test Item Value Reference Range Comments WHITE BLOOD CELL COUNT (BEAKER) (test avlo=417) 6.6 K/ L 3.5-10.5 RED BLOOD CELL COUNT (BEAKER) (test pnet=382) 3.02 M/ L 4.63-6.08 HEMOGLOBIN (BEAKER) (test rgdr=086) 9.6 GM/DL 13.7-17.5 HEMATOCRIT (BEAKER) (test eets=708) 29.5 % 40.1-51.0 MEAN CORPUSCULAR VOLUME (BEAKER) (test mscm=491) 97.7 fL 79.0-92.2 MEAN CORPUSCULAR HEMOGLOBIN (BEAKER) (test 31.8 pg 25.7-32.2 psmf=073) MEAN CORPUSCULAR HEMOGLOBIN CONC (BEAKER) (test 32.5 GM/DL 32.3-36.5 pfxo=052) RED CELL DISTRIBUTION WIDTH (BEAKER) (test 13.6 % 11.6-14.4 rvhg=305) PLATELET COUNT (BEAKER) (test ammb=636) 66 K/CU MM 150-450 MEAN PLATELET VOLUME (BEAKER) (test lkoi=797) 10.5 fL 9.4-12.4 NUCLEATED RED BLOOD CELLS (BEAKER) (test 0 /100 WBC 0-0 nhsb=943) BLOOD GAS, [id number] 06:45:00 Test Item Value Reference Range Comments PH ARTERIAL (BEAKER) (test orut=352) 7.41 7.35-7.45 PCO2 ARTERIAL (BEAKER) (test jhpv=593) 54 mmHg 35-45 PO2 ARTERIAL (BEAKER) (test uxsk=703) 108 mmHg 80-90 O2 SATURATION ARTERIAL (BEAKER) (test sepu=945) 97.9 % 96.0-97.0 HCO3 ARTERIAL (BEAKER) (test xnbf=100) 34 mmol/L 21-29 BASE EXCESS ARTERIAL (BEAKER) (test hkau=656) 8.1 mmol/L -2.0-3.0 PATIENT TEMPERATURE (BEAKER) (test itwv=8922) 37.0 C FIO2 (BEAKER) (test zkvm=6785) 32.0 % POCT-GLUCOSE [id number] 22:27:00 Test Item Value Reference Range Comments POC-GLUCOSE METER (BEAKER) 124 mg/dL 70-110 TESTED AT [address] (test gvpq=3323) [facility] [address] POCT-GLUCOSE [id number] 17:04:00 Test Item Value Reference Range Comments POC-GLUCOSE METER (BEAKER) 118 mg/dL 70-110 TESTED AT [address] (test ivrk=0442) [place] [id number] 15:54:00 Test Item Value Reference Range Comments POTASSIUM (BEAKER) (test cdft=100) 4.3 meq/L 3.5-5.1 Check Serum Potassium level 2 hours after oral potassium replacement completed or 30 min after intravenous potassium replacement.POCT-GLUCOSE [id number] 13:42:00 Test Item Value Reference Range Comments POC-GLUCOSE METER (BEAKER) 156 mg/dL 70-110 TESTED AT [address] (test nxni=7460) [place] [id number] 12:27:00 Test Item Value Reference Range Comments POTASSIUM (BEAKER) (test poiw=416) 3.8 meq/L 3.5-5.1 Check Serum Potassium level 2 hours after oral potassium replacement completed or 30 min after intravenous potassium replacement.CALCIUM, [id number] 12: 00:00 Test Item Value Reference Range Comments CALCIUM IONIZED (BEAKER) (test svur=908) 1.15 mmol/L 1.12-1.27 PH, BLOOD (BEAKER) (test qyyr=3653) 7.44 Check serum Ionized Calcium level after 4 hours after IV Calcium replacement.RAD , CHEST, 1 VIEW, NON [id number] 09:53:00Reason for exam:-> PneumothoraxShould this be performed [...] [place] Verified Date/Time: 09/15/2018 09:53:56 Reading Location: [facility] Radiology Reading Room POCT- GLUCOSE [id number] 08:07:00 Test Item Value Reference Range Comments POC-GLUCOSE METER (BEAKER) 148 mg/dL 70-110 TESTED AT [address] (test qfgq=1526) [place] [address] RAD, CHEST, 1 VIEW, NON [id number] 06:19:00Reason for exam:->pOST oPShould this be performed [...] [place] Verified Date/Time: 09/15/2018 06:19:31 Reading Location: [address] Neuro Reading Room OXYGEN SATURATION, [id number] 05:38:00 Test Item Value Reference Range Comments O2 SATURATION (MEASURED) (BEAKER) (test sjsv=9051) 70.0 % [id number] 05:28:00 Test Item Value Reference Range Comments PHOSPHORUS (BEAKER) (test arlm=807) 3.0 mg/dL 2.3-4.7 [id number] 05:28:00 Test Item Value Reference Range Comments MAGNESIUM (BEAKER) (test dkkc=326) 2.3 mg/dL 1.6-2.6 BASIC METABOLIC [id number] 05:28:00 Test Item Value Reference Range Comments SODIUM (BEAKER) (test 137 meq/L 136-145 qtvj=367) POTASSIUM (BEAKER) (test 3.6 meq/L 3.5-5.1 kycx=697) CHLORIDE (BEAKER) (test 101 meq/L 98-107 vmcy=087) CO2 (BEAKER) (test 29 meq/L 22-29 ynlz=591) BLOOD UREA NITROGEN 25 mg/dL 7-21 (BEAKER) (test taub=812) CREATININE (BEAKER) (test 1.21 mg/dL 0.57-1.25 lpbx=512) GLUCOSE RANDOM (BEAKER) 122 mg/dL 70-105 (test fptn=434) CALCIUM (BEAKER) (test 8.5 mg/dL 8.4-10.2 iuke=513) EGFR (BEAKER) (test 58 mL/min/1.73 sq m ESTIMATED GFR IS NOT arpg=6168) ACCURATE CREATININE CLEARANCE IN PREDICTING GLOMERULAR FILTRATION RATE. ESTIMATED GFR IS NOT APPLICABLE FOR DIALYSIS PATIENTS. CBC (HEMOGRAM ONLY)2018-09-15 05:00:00 Test Item Value Reference Range Comments WHITE BLOOD CELL COUNT (BEAKER) (test iedx=201) 6.8 K/ L 3.5-10.5 RED BLOOD CELL COUNT (BEAKER) (test lbtf=700) 3.13 M/ L 4.63-6.08 HEMOGLOBIN (BEAKER) (test aznn=175) 9.7 GM/DL 13.7-17.5 HEMATOCRIT (BEAKER) (test mybm=979) 31.2 % 40.1-51.0 MEAN CORPUSCULAR VOLUME (BEAKER) (test ckxa=879) 99.7 fL 79.0-92.2 MEAN CORPUSCULAR HEMOGLOBIN (BEAKER) (test 31.0 pg 25.7-32.2 aeri=988) MEAN CORPUSCULAR HEMOGLOBIN CONC (BEAKER) (test 31.1 GM/DL 32.3-36.5 tkrr=747) RED CELL DISTRIBUTION WIDTH (BEAKER) (test 13.9 % 11.6-14.4 wtjs=861) PLATELET COUNT (BEAKER) (test akrx=914) 58 K/CU MM 150-450 MEAN PLATELET VOLUME (BEAKER) (test yqke=016) 10.1 fL 9.4-12.4 NUCLEATED RED BLOOD CELLS (BEAKER) (test 0 /100 WBC 0-0 vwox=541) OXYGEN SATURATION, [id number] 04:53:00 Test Item Value Reference Range Comments O2 SATURATION (MEASURED) (BEAKER) (test xddg=9787) 96.3 % CALCIUM, [id number] 04:52:00 Test Item Value Reference Range Comments CALCIUM IONIZED (BEAKER) (test ddxs=096) 1.07 mmol/L 1.12-1.27 PH, BLOOD (BEAKER) (test ubfl=4525) 7.41 BLOOD GAS, [id number] 04:51:00 Test Item Value Reference Range Comments PH ARTERIAL (BEAKER) (test xfmh=901) 7.42 7.35-7.45 PCO2 ARTERIAL (BEAKER) (test rfnm=650) 51 mmHg 35-45 PO2 ARTERIAL (BEAKER) (test yybf=067) 98 mmHg 80-90 O2 SATURATION ARTERIAL (BEAKER) (test sxoa=830) 97.6 % 96.0-97.0 HCO3 ARTERIAL (BEAKER) (test diks=812) 33 mmol/L 21-29 BASE EXCESS ARTERIAL (BEAKER) (test uyqa=265) 6.8 mmol/L -2.0-3.0 PATIENT TEMPERATURE (BEAKER) (test pifu=2702) 36.5 C FIO2 (BEAKER) (test pspb=6732) 32.0 % POCT-GLUCOSE [id number] 22:08:00 Test Item Value Reference Range Comments POC-GLUCOSE METER (BEAKER) 139 mg/dL 70-110 TESTED AT [address] (test znlj=7405) [facility] [address] POCT-GLUCOSE [id number] 18:13:00 Test Item Value Reference Range Comments POC-GLUCOSE METER (BEAKER) 137 mg/dL 70-110 TESTED AT [address] (test qqzg=1644) [facility] [address] POCT-GLUCOSE [id number] 14:12:00 Test Item Value Reference Range Comments POC-GLUCOSE METER (BEAKER) 129 mg/dL 70-110 TESTED AT [address] (test cscf=5360) [facility] [address] HEPATIC FUNCTION [id number] 10:48:00 Test Item Value Reference Range Comments TOTAL PROTEIN (BEAKER) (test fytx=803) 5.4 gm/dL 6.0-8.3 ALBUMIN (BEAKER) (test uhso=8894) 3.1 g/dL 3.5-5.0 BILIRUBIN TOTAL (BEAKER) (test ulno=902) 0.4 mg/dL 0.2-1.2 BILIRUBIN DIRECT (BEAKER) (test xsjv=577) 0.3 mg/dL 0.1-0.5 ALKALINE PHOSPHATASE (BEAKER) (test beuy=218) 36 U/L 40-150 AST (SGOT) (BEAKER) (test qdvz=895) 53 U/L 5-34 ALT (SGPT) (BEAKER) (test pfbv=726) 17 U/L 6-55 RAD, CHEST, 1 VIEW, NON [id number] 07:56:00Reason for exam:->pOST oPShould this be performed at the bedside?->YesFINAL REPORT Chest one view. Clinical history: pOST oP Comparison: 2018Discussion: A frontal chest is provided. Cardiomediastinal contours are unchanged. [place] catheter tip has been advanced, and now projects over the expected location of right interlobar/lower lobar artery. ET and feeding tube have been removed. Right IJ line, right chest tube are in stable position. There is mild interstitial edema. Small left effusion with mild bibasilar atelectasis. No pneumothorax. Signed: Erin Marrero Verified Date/Time: 07:56:51 Reading Location: [facility] Radiology Reading Room POCT-GLUCOSE [id number] 06:37:00 Test Item Value Reference Range Comments POC-GLUCOSE METER ([employer]) 128 mg/dL 70-110 TESTED AT [address] (test bgij=4797) [place] [address] POCT-GLUCOSE [id number] 06:37:00 Test Item Value Reference Range Comments POC-GLUCOSE METER ([employer]) 164 mg/dL 70-110 TESTED AT [address] (test rvpf=8200) [place] [id number] 06:10:00 Test Item Value Reference Range Comments ACTIVATED CLOTTING TIME 114 sec TESTED AT [place] [address] [facility]) (test nlfx=399) [place] [address] [id number] 06:10:00 Test Item Value Reference Range Comments ACTIVATED CLOTTING TIME 522 sec TESTED AT [place] [id number] [facility]) (test srha=964) [place] [address] [id number] 06:10:00 Test Item Value Reference Range Comments ACTIVATED CLOTTING TIME 510 sec TESTED AT [place] [address] [facility] ([employer]) (test fzil=467) [place] [address] [id number] 06:10:00 Test Item Value Reference Range Comments ACTIVATED CLOTTING TIME 549 sec TESTED AT [place] [address] [facility] ([employer]) (test wvly=230) [place] [address] [id number] 06:10:00 Test Item Value Reference Range Comments ACTIVATED CLOTTING TIME 516 sec [facility]ED AT [place] [address] [facility] (test pbuf=335) [place] [address] [id number] 06:09:00 Test Item Value Reference Range Comments ACTIVATED CLOTTING TIME 472 sec TESTED AT [address] (BEAKER) (test sjtv=837) [place] [address] BLOOD GAS, [id number] 04:55:00 Test Item Value Reference Range Comments PH ARTERIAL (BEAKER) (test vgok=274) 7.37 7.35-7.45 PCO2 ARTERIAL (BEAKER) (test vjgz=992) 54 mmHg 35-45 PO2 ARTERIAL (BEAKER) (test yagj=654) 93 mmHg 80-90 O2 SATURATION ARTERIAL (BEAKER) (test wbsy=341) 96.6 % 96.0-97.0 HCO3 ARTERIAL (BEAKER) (test arcl=656) 30 mmol/L 21-29 BASE EXCESS ARTERIAL (BEAKER) (test ighk=290) 4.3 mmol/L -2.0-3.0 PATIENT TEMPERATURE (BEAKER) (test rlbn=8346) 37.3 C FIO2 (BEAKER) (test koel=6077) 40.0 % POCT-GLUCOSE [id number] 03:53:00 Test Item Value Reference Range Comments POC-GLUCOSE METER (BEAKER) 212 mg/dL 70-110 TESTED AT [address] (test pasy=7561) [place] [address] POCT-GLUCOSE [id number] 03:53:00 Test Item Value Reference Range Comments POC-GLUCOSE METER (BEAKER) 211 mg/dL 70-110 TESTED AT [address] (test vicp=7325) [place] [address] BASIC METABOLIC [id number] 03:23:00 Test Item Value Reference Range Comments SODIUM (BEAKER) (test 143 meq/L 136-145 uhvk=036) POTASSIUM (BEAKER) (test 4.2 meq/L 3.5-5.1 xdwv=217) CHLORIDE (BEAKER) (test 105 meq/L 98-107 nuaj=877) CO2 (BEAKER) (test 29 meq/L 22-29 lmhq=663) BLOOD UREA NITROGEN 32 mg/dL 7-21 (BEAKER) (test yujb=385) CREATININE (BEAKER) (test 1.43 mg/dL 0.57-1.25 xbos=390) GLUCOSE RANDOM (BEAKER) 193 mg/dL 70-105 (test dlmh=946) CALCIUM (BEAKER) (test 8.2 mg/dL 8.4-10.2 yydo=514) EGFR (BEAKER) (test 47 mL/min/1.73 sq m ESTIMATED GFR IS NOT hpns=4360) ACCURATE CREATININE CLEARANCE IN PREDICTING GLOMERULAR FILTRATION RATE. ESTIMATED GFR IS NOT APPLICABLE FOR DIALYSIS PATIENTS. [id number] 03:23:00 Test Item Value Reference Range Comments MAGNESIUM (BEAKER) (test dsqw=451) 2.6 mg/dL 1.6-2.6 [id number] 03:23:00 Test Item Value Reference Range Comments PHOSPHORUS (BEAKER) (test ixzz=600) 3.0 mg/dL 2.3-4.7 LACTIC ACID, [id number] 03:17:00 Test Item Value Reference Range Comments LACTATE BLOOD ARTERIAL (2) (BEAKER) (test 2.9 mmol/L 0.5-2.2 reni=5029) CBC (HEMOGRAM ONLY)2018-09-14 02:56:00 Test Item Value Reference Range Comments WHITE BLOOD CELL COUNT (BEAKER) (test mkqb=169) 8.2 K/ L 3.5-10.5 RED BLOOD CELL COUNT (BEAKER) (test yvmg=213) 3.09 M/ L 4.63-6.08 HEMOGLOBIN (BEAKER) (test dmak=947) 9.8 GM/DL 13.7-17.5 HEMATOCRIT (BEAKER) (test lxqn=723) 31.2 % 40.1-51.0 MEAN CORPUSCULAR VOLUME (BEAKER) (test nehi=055) 101.0 fL 79.0-92.2 MEAN CORPUSCULAR HEMOGLOBIN (BEAKER) (test 31.7 pg 25.7-32.2 wiyy=071) MEAN CORPUSCULAR HEMOGLOBIN CONC (BEAKER) (test 31.4 GM/DL 32.3-36.5 tkfl=677) RED CELL DISTRIBUTION WIDTH (BEAKER) (test 14.0 % 11.6-14.4 jvhi=639) PLATELET COUNT (BEAKER) (test huim=112) 76 K/CU MM 150-450 MEAN PLATELET VOLUME (BEAKER) (test wobz=967) 9.6 fL 9.4-12.4 NUCLEATED RED BLOOD CELLS (BEAKER) (test 0 /100 WBC 0-0 eywv=684) CALCIUM, [id number] 02:56:00 Test Item Value Reference Range Comments CALCIUM IONIZED (BEAKER) (test lvvg=156) 1.09 mmol/L 1.12-1.27 PH, BLOOD (BEAKER) (test fuok=7807) 7.32 OXYGEN SATURATION, [id number] 02:56:00 Test Item Value Reference Range Comments O2 SATURATION (MEASURED) (BEAKER) (test fvsr=1993) 72.5 % LACTIC ACID, [id number] 02:25:00 Test Item Value Reference Range Comments LACTATE BLOOD ARTERIAL (2) (BEAKER) (test 3.2 mmol/L 0.5-2.2 cwtc=5528) BLOOD GAS, [id number] 23:43:00 Test Item Value Reference Range Comments PH ARTERIAL (BEAKER) (test ffku=772) 7.31 7.35-7.45 PCO2 ARTERIAL (BEAKER) (test mfal=311) 55 mmHg 35-45 PO2 ARTERIAL (BEAKER) (test mbuu=994) 83 mmHg 80-90 O2 SATURATION ARTERIAL (BEAKER) (test qtfq=075) 95.5 % 96.0-97.0 HCO3 ARTERIAL (BEAKER) (test imde=685) 27 mmol/L 21-29 BASE EXCESS ARTERIAL (BEAKER) (test uphl=058) 0.3 mmol/L -2.0-3.0 PATIENT TEMPERATURE (BEAKER) (test wqzo=4646) 36.4 C FIO2 (BEAKER) (test lzbf=1935) 40.0 % GLUCOSE-STAT [id number] 23:43:00 Test Item Value Reference Range Comments GLUCOSE RANDOM (BEAKER) (test ewub=339) 192 mg/dL 70-110 OXYGEN SATURATION, [id number] 23:42:00 Test Item Value Reference Range Comments O2 SATURATION (MEASURED) (BEAKER) (test tdeh=0294) 72.2 % BLOOD GAS, [id number] 21:02:00 Test Item Value Reference Range Comments PH ARTERIAL (BEAKER) (test zwvy=761) 7.35 7.35-7.45 PCO2 ARTERIAL (BEAKER) (test uhix=498) 49 mmHg 35-45 PO2 ARTERIAL (BEAKER) (test ucul=923) 78 mmHg 80-90 O2 SATURATION ARTERIAL (BEAKER) (test aqlo=028) 94.4 % 96.0-97.0 HCO3 ARTERIAL (BEAKER) (test iuvf=403) 26 mmol/L 21-29 BASE EXCESS ARTERIAL (BEAKER) (test gymi=036) 0.3 mmol/L -2.0-3.0 PATIENT TEMPERATURE (BEAKER) (test tbim=2606) 37.6 C FIO2 (BEAKER) (test vecd=7827) 40.0 % POTASSIUM-STAT [id number] 21:02:00 Test Item Value Reference Range Comments POTASSIUM (BEAKER) (test brrm=528) 3.2 meq/L 3.6-5.5 HGB/HCT (H&H) - STAT [id number] 21:02:00 Test Item Value Reference Range Comments HEMOGLOBIN (BEAKER) (test zfkc=461) 11.5 g/dL 13.0-16.8 HEMATOCRIT (BEAKER) (test baex=192) 34.0 % 40.0-50.0 LACTIC ACID, [id number] 21:02:00 Test Item Value Reference Range Comments LACTATE BLOOD ARTERIAL (2) (BEAKER) (test 6.2 mmol/L 0.5-2.2 ccit=3233) SODIUM NA-STAT [id number] 21:01:00 Test Item Value Reference Range Comments SODIUM (BEAKER) (test wrln=219) 140 meq/L 135-148 [id number] 21:01:00 Test Item Value Reference Range Comments MAGNESIUM (BEAKER) (test fngu=956) 2.6 mg/dL 1.6-2.6 OXYGEN SATURATION, [id number] 20:55:00 Test Item Value Reference Range Comments O2 SATURATION (MEASURED) (BEAKER) (test sego=4109) 66.6 % CALCIUM, [id number] 20:53:00 Test Item Value Reference Range Comments CALCIUM IONIZED (BEAKER) (test cqty=524) 1.16 mmol/L 1.12-1.27 PH, BLOOD (BEAKER) (test txfh=2173) 7.33 LACTIC ACID, [id number] 18:37:00 Test Item Value Reference Range Comments LACTATE BLOOD ARTERIAL (2) 3.9 mmol/L 0.5-2.2 Specimen slightly hemolyzed (BEAKER) (test lpkp=1632) OXYGEN SATURATION, [id number] 16:34:00 Test Item Value Reference Range Comments O2 SATURATION (MEASURED) (BEAKER) (test qzrp=8552) 68.1 % RAD, CHEST, 1 VIEW, NON [id number] 15:01:00Reason for exam:->pOST oPShould this be performed at the bedside?->YesFINAL REPORT EXAM: Frontal chest radiograph HISTORY PROVIDED: Postop COMPARISON: 03/05/2018 IMPRESSION:The tip of an endotracheal tube terminates approximately 3.8 cm above the ahsan. An enteric tube descends below the diaphragm with its tip off the field of view. The tip of a right IJ approach [place] catheter projects over the pulmonary outflow tract. [...] MDReport Verified Date/Time: 09/13/2018 15:01:54 Reading Location: [facility] Reading Room [id number] 14:46:00 Test Item Value Reference Range Comments MAGNESIUM (BEAKER) (test 3.0 mg/dL 1.6-2.6 Specimen slightly hemolyzed tlsn=348) [id number] 14:46:00 Test Item Value Reference Range Comments PHOSPHORUS (BEAKER) (test 2.0 mg/dL 2.3-4.7 Specimen slightly hemolyzed zoro=893) BASIC METABOLIC [id number] 14:46:00 Test Item Value Reference Range Comments SODIUM (BEAKER) (test 142 meq/L 136-145 vzdm=633) POTASSIUM (BEAKER) (test 3.4 meq/L 3.5-5.1 Specimen slightly niei=978) hemolyzed CHLORIDE (BEAKER) (test 102 meq/L 98-107 zwzm=675) CO2 (BEAKER) (test 29 meq/L 22-29 yaka=793) BLOOD UREA NITROGEN 33 mg/dL 7-21 (BEAKER) (test oyij=011) CREATININE (BEAKER) (test 1.23 mg/dL 0.57-1.25 Specimen slightly fgsr=766) hemolyzed GLUCOSE RANDOM (BEAKER) 165 mg/dL 70-105 (test ltpq=241) CALCIUM (BEAKER) (test 8.8 mg/dL 8.4-10.2 sxtf=038) EGFR (BEAKER) (test 56 mL/min/1.73 sq m ESTIMATED GFR IS NOT kkaa=0567) ACCURATE CREATININE CLEARANCE IN PREDICTING GLOMERULAR FILTRATION RATE. ESTIMATED GFR IS NOT APPLICABLE FOR DIALYSIS PATIENTS. LACTIC ACID, [id number] 14:42:00 Test Item Value Reference Range Comments LACTATE BLOOD ARTERIAL (2) 1.5 mmol/L 0.5-2.2 Specimen slightly hemolyzed (BEAKER) (test thej=7966) [id number] 14:38:00 Test Item Value Reference Range Comments FIBRINOGEN LEVEL (BEAKER) (test iznd=362) 321 mg/dl 225-434 [id number] 14:38:00 Test Item Value Reference Range Comments PARTIAL THROMBOPLASTIN TIME (BEAKER) (test 30.0 seconds 22.5-36.0 wzfs=321) PROTHROMBIN [id number] 14:37:00 Test Item Value Reference Range Comments PROTIME (BEAKER) (test yosx=601) 16.8 seconds 11.7-14.7 INR (BEAKER) (test jfhg=432) 1.4 <=5.9 RECOMMENDED COUMADIN/WARFARIN INR THERAPY RANGESSTANDARD DOSE: 2.0 - 3.0 Includes: PROPHYLAXIS forvenous thrombosis, systemic embolization; TREATMENT for venous thrombosis and/or pulmonary embolus.HIGH RISK: Target INR is 2.5-3.5 for patients with mechanical heart valves.CBC W/PLT COUNT & AUTO [id number] 14:35:00 Test Item Value Reference Range Comments WHITE BLOOD CELL COUNT (BEAKER) (test fpbh=293) 9.4 K/ L 3.5-10.5 RED BLOOD CELL COUNT (BEAKER) (test gncd=578) 3.49 M/ L 4.63-6.08 HEMOGLOBIN (BEAKER) (test jixl=914) 11.0 GM/DL 13.7-17.5 HEMATOCRIT (BEAKER) (test psbt=135) 34.5 % 40.1-51.0 MEAN CORPUSCULAR VOLUME (BEAKER) (test ntai=260) 98.9 fL 79.0-92.2 MEAN CORPUSCULAR HEMOGLOBIN (BEAKER) (test 31.5 pg 25.7-32.2 bkvr=979) MEAN CORPUSCULAR HEMOGLOBIN CONC (BEAKER) (test 31.9 GM/DL 32.3-36.5 ufah=125) RED CELL DISTRIBUTION WIDTH (BEAKER) (test 13.5 % 11.6-14.4 qred=775) PLATELET COUNT (BEAKER) (test yuax=321) 91 K/CU MM 150-450 MEAN PLATELET VOLUME (BEAKER) (test maem=546) 9.5 fL 9.4-12.4 NUCLEATED RED BLOOD CELLS (BEAKER) (test 0 /100 WBC 0-0 zvxh=913) NEUTROPHILS RELATIVE PERCENT (BEAKER) (test 86 % cjvx=404) LYMPHOCYTES RELATIVE PERCENT (BEAKER) (test 5 % rqda=284) MONOCYTES RELATIVE PERCENT (BEAKER) (test 8 % hfai=011) EOSINOPHILS RELATIVE PERCENT (BEAKER) (test 0 % ihkv=650) BASOPHILS RELATIVE PERCENT (BEAKER) (test 1 % lspx=780) NEUTROPHILS ABSOLUTE COUNT (BEAKER) (test 8.01 K/ L 1.78-5.38 kxrp=259) LYMPHOCYTES ABSOLUTE COUNT (BEAKER) (test 0.48 K/ L 1.32-3.57 pcjg=957) MONOCYTES ABSOLUTE COUNT (BEAKER) (test ulwu=088) 0.75 K/ L 0.30-0.82 EOSINOPHILS ABSOLUTE COUNT (BEAKER) (test 0.02 K/ L 0.04-0.54 bwkq=321) BASOPHILS ABSOLUTE COUNT (BEAKER) (test liep=419) 0.05 K/ L 0.01-0.08 IMMATURE GRANULOCYTES-RELATIVE PERCENT (BEAKER) 1 % 0-1 (test hwvk=1246) CALCIUM, [id number] 14:24:00 Test Item Value Reference Range Comments CALCIUM IONIZED (BEAKER) (test fhlt=029) 1.14 mmol/L 1.12-1.27 PH, BLOOD (BEAKER) (test gjky=5705) 7.36 BLOOD GAS, [id number] 14:22:00 Test Item Value Reference Range Comments PH ARTERIAL (BEAKER) (test agas=752) 7.41 7.35-7.45 PCO2 ARTERIAL (BEAKER) (test jowh=857) 48 mmHg 35-45 PO2 ARTERIAL (BEAKER) (test aynj=581) 111 mmHg 80-90 O2 SATURATION ARTERIAL (BEAKER) (test snjf=332) 98.1 % 96.0-97.0 HCO3 ARTERIAL (BEAKER) (test tbbc=600) 30 mmol/L 21-29 BASE EXCESS ARTERIAL (BEAKER) (test mqqy=305) 4.1 mmol/L -2.0-3.0 PATIENT TEMPERATURE (BEAKER) (test vtis=5505) 36.6 C FIO2 (BEAKER) (test zvfo=9372) 60.0 % SODIUM NA-STAT [id number] 12:58:00 Test Item Value Reference Range Comments SODIUM (BEAKER) (test iwbh=998) 138 meq/L 135-148 CALCIUM, [id number] 12:58:00 Test Item Value Reference Range Comments CALCIUM IONIZED (BEAKER) (test ykwt=329) 1.26 mmol/L 1.12-1.27 PH, BLOOD (BEAKER) (test mwen=6549) 7.41 BLOOD GAS, [id number] 12:58:00 Test Item Value Reference Range Comments PH ARTERIAL (BEAKER) (test beid=516) 7.42 7.35-7.45 PCO2 ARTERIAL (BEAKER) (test vrsv=865) 53 mmHg 35-45 PO2 ARTERIAL (BEAKER) (test xtqv=655) 237 mmHg 80-90 O2 SATURATION ARTERIAL (BEAKER) (test ukzg=745) 99.5 % 96.0-97.0 HCO3 ARTERIAL (BEAKER) (test ahiy=541) 34 mmol/L 21-29 BASE EXCESS ARTERIAL (BEAKER) (test vkpr=530) 7.7 mmol/L -2.0-3.0 PATIENT TEMPERATURE (BEAKER) (test eipq=4621) 36.4 C FIO2 (BEAKER) (test owut=4250) 100.0 % POTASSIUM-STAT [id number] 12:58:00 Test Item Value Reference Range Comments POTASSIUM (BEAKER) (test qxlh=079) 2.9 meq/L 3.6-5.5 GLUCOSE-STAT [id number] 12:58:00 Test Item Value Reference Range Comments GLUCOSE RANDOM (BEAKER) (test ehvr=861) 162 mg/dL 70-110 HGB/HCT (H&H) - STAT [id number] 12:58:00 Test Item Value Reference Range Comments HEMOGLOBIN (BEAKER) (test mwlh=491) 9.6 g/dL 13.0-16.8 HEMATOCRIT (BEAKER) (test jqwj=416) 28.0 % 40.0-50.0 LACTIC ACID, [id number] 11:53:00 Test Item Value Reference Range Comments LACTATE BLOOD ARTERIAL (2) 0.7 mmol/L 0.5-2.2 Specimen slightly hemolyzed (BEAKER) (test xtaw=9522) SODIUM NA-STAT [id number] 11:52:00 Test Item Value Reference Range Comments SODIUM (BEAKER) (test offn=567) 137 meq/L 135-148 POTASSIUM-STAT [id number] 11:52:00 Test Item Value Reference Range Comments POTASSIUM (BEAKER) (test qnwb=845) 3.9 meq/L 3.6-5.5 BLOOD GAS, [id number] 11:52:00 Test Item Value Reference Range Comments PH ARTERIAL (BEAKER) (test delk=383) 7.46 7.35-7.45 PCO2 ARTERIAL (BEAKER) (test tlcq=480) 47 mmHg 35-45 PO2 ARTERIAL (BEAKER) (test rrow=248) 320 mmHg 80-90 O2 SATURATION ARTERIAL (BEAKER) (test aqdk=433) 99.7 % 96.0-97.0 HCO3 ARTERIAL (BEAKER) (test gcoj=798) 33 mmol/L 21-29 BASE EXCESS ARTERIAL (BEAKER) (test cdhc=078) 8.0 mmol/L -2.0-3.0 PATIENT TEMPERATURE (BEAKER) (test jnoz=6753) 35.2 C FIO2 (BEAKER) (test fhdy=0090) 70.0 % GLUCOSE-STAT [id number] 11:52:00 Test Item Value Reference Range Comments GLUCOSE RANDOM (BEAKER) (test rjvj=895) 161 mg/dL 70-110 HGB/HCT (H&H) - STAT [id number] 11:52:00 Test Item Value Reference Range Comments HEMOGLOBIN (BEAKER) (test umye=840) 9.4 g/dL 13.0-16.8 HEMATOCRIT (BEAKER) (test eewz=629) 28.0 % 40.0-50.0 BLOOD GAS, [id number] 11:25:00 Test Item Value Reference Range Comments PH ARTERIAL (BEAKER) (test ayes=527) 7.46 7.35-7.45 PCO2 ARTERIAL (BEAKER) (test xval=886) 48 mmHg 35-45 PO2 ARTERIAL (BEAKER) (test mnpb=078) 294 mmHg 80-90 O2 SATURATION ARTERIAL (BEAKER) (test whrd=841) 99.7 % 96.0-97.0 HCO3 ARTERIAL (BEAKER) (test svfg=218) 36 mmol/L 21-29 BASE EXCESS ARTERIAL (BEAKER) (test gxpx=858) 8.6 mmol/L -2.0-3.0 PATIENT TEMPERATURE (BEAKER) (test kvxu=0680) 30.8 C FIO2 (BEAKER) (test ezfx=9473) 65.0 % POTASSIUM-STAT [id number] 11:25:00 Test Item Value Reference Range Comments POTASSIUM (BEAKER) (test ssib=035) 3.3 meq/L 3.6-5.5 GLUCOSE-STAT [id number] 11:25:00 Test Item Value Reference Range Comments GLUCOSE RANDOM (BEAKER) (test gqgo=730) 152 mg/dL 70-110 HGB/HCT (H&H) - STAT [id number] 11:25:00 Test Item Value Reference Range Comments HEMOGLOBIN (BEAKER) (test zvvm=802) 10.5 g/dL 13.0-16.8 HEMATOCRIT (BEAKER) (test xcwn=268) 31.0 % 40.0-50.0 SODIUM NA-STAT [id number] 11:24:00 Test Item Value Reference Range Comments SODIUM (BEAKER) (test crtc=714) 139 meq/L 135-148 BLOOD GAS, [id number] 10:59:00 Test Item Value Reference Range Comments PH ARTERIAL (BEAKER) (test enlp=328) 7.52 7.35-7.45 PCO2 ARTERIAL (BEAKER) (test eyaz=238) 41 mmHg 35-45 PO2 ARTERIAL (BEAKER) (test jcmi=892) 278 mmHg 80-90 O2 SATURATION ARTERIAL (BEAKER) (test pjda=568) 99.7 % 96.0-97.0 HCO3 ARTERIAL (BEAKER) (test oiso=890) 35 mmol/L 21-29 BASE EXCESS ARTERIAL (BEAKER) (test rcpa=329) 9.2 mmol/L -2.0-3.0 PATIENT TEMPERATURE (BEAKER) (test spbs=2765) 30.8 C FIO2 (BEAKER) (test rcdj=2848) 65.0 % POTASSIUM-STAT [id number] 10:59:00 Test Item Value Reference Range Comments POTASSIUM (BEAKER) (test yeyu=085) 3.4 meq/L 3.6-5.5 GLUCOSE-STAT [id number] 10:59:00 Test Item Value Reference Range Comments GLUCOSE RANDOM (BEAKER) (test mzlt=812) 131 mg/dL 70-110 HGB/HCT (H&H) - STAT [id number] 10:59:00 Test Item Value Reference Range Comments HEMOGLOBIN (BEAKER) (test xikw=052) 10.1 g/dL 13.0-16.8 HEMATOCRIT (BEAKER) (test plzm=575) 30.0 % 40.0-50.0 SODIUM NA-STAT [id number] 10:58:00 Test Item Value Reference Range Comments SODIUM (BEAKER) (test nhga=429) 137 meq/L 135-148 LACTIC ACID, [id number] 10:56:00 Test Item Value Reference Range Comments LACTATE BLOOD ARTERIAL (2) (BEAKER) (test 0.7 mmol/L 0.5-2.2 ogkq=5347) POTASSIUM-STAT [id number] 10:28:00 Test Item Value Reference Range Comments POTASSIUM (BEAKER) (test jeyz=125) 2.3 meq/L 3.6-5.5 BLOOD GAS, [id number] 10:27:00 Test Item Value Reference Range Comments PH ARTERIAL (BEAKER) (test lhyp=093) 7.50 7.35-7.45 PCO2 ARTERIAL (BEAKER) (test uxci=566) 45 mmHg 35-45 PO2 ARTERIAL (BEAKER) (test uyeg=907) 393 mmHg 80-90 O2 SATURATION ARTERIAL (BEAKER) (test adlx=510) 99.8 % 96.0-97.0 HCO3 ARTERIAL (BEAKER) (test hgwz=455) 37 mmol/L 21-29 BASE EXCESS ARTERIAL (BEAKER) (test sapo=738) 10.4 mmol/L -2.0-3.0 PATIENT TEMPERATURE (BEAKER) (test seks=5567) 30.5 C FIO2 (BEAKER) (test ilzc=7712) 65.0 % GLUCOSE-STAT [id number] 10:27:00 Test Item Value Reference Range Comments GLUCOSE RANDOM (BEAKER) (test flgx=219) 135 mg/dL 70-110 HGB/HCT (H&H) - STAT [id number] 10:27:00 Test Item Value Reference Range Comments HEMOGLOBIN (BEAKER) (test rapp=309) 9.9 g/dL 13.0-16.8 HEMATOCRIT (BEAKER) (test tolv=526) 29.0 % 40.0-50.0 SODIUM NA-STAT [id number] 10:26:00 Test Item Value Reference Range Comments SODIUM (BEAKER) (test iygv=870) 136 meq/L 135-148 CALCIUM, [id number] 09:11:00 Test Item Value Reference Range Comments CALCIUM IONIZED (BEAKER) (test dsna=934) 1.07 mmol/L 1.12-1.27 PH, BLOOD (BEAKER) (test qvrd=3598) 7.49 BLOOD GAS, [id number] 09:09:00 Test Item Value Reference Range Comments PH ARTERIAL (BEAKER) (test nqsu=147) 7.50 7.35-7.45 PCO2 ARTERIAL (BEAKER) (test cxdx=615) 50 mmHg 35-45 PO2 ARTERIAL (BEAKER) (test lonb=757) 450 mmHg 80-90 O2 SATURATION ARTERIAL (BEAKER) (test yssu=500) 99.9 % 96.0-97.0 HCO3 ARTERIAL (BEAKER) (test frzu=043) 39 mmol/L 21-29 BASE EXCESS ARTERIAL (BEAKER) (test djvc=114) 13.3 mmol/L -2.0-3.0 PATIENT TEMPERATURE (BEAKER) (test zjsn=3560) 36.0 C FIO2 (BEAKER) (test khyz=8715) 100.0 % POTASSIUM-STAT [id number] 09:09:00 Test Item Value Reference Range Comments POTASSIUM (BEAKER) (test bibm=774) 2.7 meq/L 3.6-5.5 GLUCOSE-STAT [id number] 09:09:00 Test Item Value Reference Range Comments GLUCOSE RANDOM (BEAKER) (test hnsj=858) 120 mg/dL 70-110 HGB/HCT (H&H) - STAT [id number] 09:09:00 Test Item Value Reference Range Comments HEMOGLOBIN (BEAKER) (test lbmz=110) 12.2 g/dL 13.0-16.8 HEMATOCRIT (BEAKER) (test cekt=180) 36.0 % 40.0-50.0 SODIUM NA-STAT [id number] 09:08:00 Test Item Value Reference Range Comments SODIUM (BEAKER) (test zcxh=109) 139 meq/L 135-148 POCT-GLUCOSE [id number] 06:29:00 Test Item Value Reference Range Comments POC-GLUCOSE METER (BEAKER) 124 mg/dL 70-[address] [facility] [address] [place] [address] (test uzlg=7016) [facility] [address] HEMOGLOBIN [id number] 15:34:00 Test Item Value Reference Range Comments HEMOGLOBIN A1C (BEAKER) (test dgwk=539) 6.0 % 4.3-6.1 [id number] 14:48:00 Test Item Value Reference Range Comments MAGNESIUM (BEAKER) (test juye=594) 2.5 mg/dL 1.6-2.6 COMPREHENSIVE METABOLIC [id number] 14:48:00 Test Item Value Reference Range Comments TOTAL PROTEIN (BEAKER) 7.5 gm/dL 6.0-8.3 (test zlkb=067) ALBUMIN (BEAKER) (test 4.1 g/dL 3.5-5.0 lkae=3418) ALKALINE PHOSPHATASE 56 U/L 40-150 (BEAKER) (test nzfi=221) BILIRUBIN TOTAL (BEAKER) 0.5 mg/dL 0.2-1.2 (test xmuy=976) SODIUM (BEAKER) (test 135 meq/L 136-145 ddsb=425) POTASSIUM (BEAKER) (test 3.0 meq/L 3.5-5.1 qxip=894) CHLORIDE (BEAKER) (test 84 meq/L 98-107 phzb=374) CO2 (BEAKER) (test 39 meq/L 22-29 jgzq=423) BLOOD UREA NITROGEN 64 mg/dL 7-21 (BEAKER) (test jedn=829) CREATININE (BEAKER) (test 1.96 mg/dL 0.57-1.25 lupp=101) GLUCOSE RANDOM (BEAKER) 114 mg/dL 70-105 (test ewdt=663) CALCIUM (BEAKER) (test 9.9 mg/dL 8.4-10.2 ayvf=253) AST (SGOT) (BEAKER) (test 23 U/L 5-34 blkt=959) ALT (SGPT) (BEAKER) (test 16 U/L 6-55 lvaa=614) EGFR (BEAKER) (test 33 mL/min/1.73 sq m ESTIMATED GFR IS NOT naoh=7520) ACCURATE CREATININE CLEARANCE IN PREDICTING GLOMERULAR FILTRATION RATE. ESTIMATED GFR IS NOT APPLICABLE FOR DIALYSIS PATIENTS. LIPID [id number] 14:48:00 Test Item Value Reference Range Comments TRIGLYCERIDES (BEAKER) (test ikuh=568) 143 mg/dL CHOLESTEROL (BEAKER) (test zvyc=487) 143 mg/dL HDL CHOLESTEROL (BEAKER) (test gxsb=985) 40 mg/dL LDL CHOLESTEROL CALCULATED (BEAKER) (test 74 mg/dL ihnx=778) Triglyceride Reference Range: Low Risk <150 Borderline 150- 199 High Risk 200-499 Very High Risk >=500Cholesterol Reference Range: Low Risk <200 Borderline 200-239 High Risk > 240HDL Cholesterol Reference Range: Low Risk >=60 High Risk <40LDL Cholesterol Reference Range: Optimal <100 Near Optimal 100-129 Borderline 130-159 High 160-189 Very High >=190PROTHROMBIN TIME/[id number] 14:42:00 Test Item Value Reference Range Comments PROTIME (BEAKER) (test mrjy=682) 15.8 seconds 11.7-14.7 INR (BEAKER) (test skfp=496) 1.3 <=5.9 RECOMMENDED COUMADIN/WARFARIN INR THERAPY RANGESSTANDARD DOSE: 2.0 - 3.0 Includes: PROPHYLAXIS forvenous thrombosis, systemic embolization; TREATMENT for venous thrombosis and/or pulmonary embolus.HIGH RISK: Target INR is 2.5-3.5 for patients with mechanical heart valves.[id number] 14:42:00 Test Item Value Reference Range Comments PARTIAL THROMBOPLASTIN TIME (BEAKER) (test 31.6 seconds 22.5-36.0 yeos=769) CBC W/PLT COUNT & AUTO [id number] 14:34:00 Test Item Value Reference Range Comments WHITE BLOOD CELL COUNT (BEAKER) (test tphw=676) 6.9 K/ L 3.5-10.5 RED BLOOD CELL COUNT (BEAKER) (test zqpi=789) 4.45 M/ L 4.63-6.08 HEMOGLOBIN (BEAKER) (test pulh=426) 13.9 GM/DL 13.7-17.5 HEMATOCRIT (BEAKER) (test kfpq=486) 43.0 % 40.1-51.0 MEAN CORPUSCULAR VOLUME (BEAKER) (test meaq=757) 96.6 fL 79.0-92.2 MEAN CORPUSCULAR HEMOGLOBIN (BEAKER) (test 31.2 pg 25.7-32.2 wtzd=394) MEAN CORPUSCULAR HEMOGLOBIN CONC (BEAKER) (test 32.3 GM/DL 32.3-36.5 tkgu=281) RED CELL DISTRIBUTION WIDTH (BEAKER) (test 13.2 % 11.6-14.4 vzxe=357) PLATELET COUNT (BEAKER) (test ximi=031) 179 K/CU MM 150-450 MEAN PLATELET VOLUME (BEAKER) (test rpfz=609) 9.8 fL 9.4-12.4 NUCLEATED RED BLOOD CELLS (BEAKER) (test 0 /100 WBC 0-0 wnjq=064) NEUTROPHILS RELATIVE PERCENT (BEAKER) (test 74 % vhlt=696) LYMPHOCYTES RELATIVE PERCENT (BEAKER) (test 9 % wlbr=245) MONOCYTES RELATIVE PERCENT (BEAKER) (test 13 % bvdu=810) EOSINOPHILS RELATIVE PERCENT (BEAKER) (test 3 % vuzl=149) BASOPHILS RELATIVE PERCENT (BEAKER) (test 1 % rnpm=613) NEUTROPHILS ABSOLUTE COUNT (BEAKER) (test 5.08 K/ L 1.78-5.38 tots=616) LYMPHOCYTES ABSOLUTE COUNT (BEAKER) (test 0.58 K/ L 1.32-3.57 jtxw=368) MONOCYTES ABSOLUTE COUNT (BEAKER) (test 0.89 K/ L 0.30-0.82 uxex=332) EOSINOPHILS ABSOLUTE COUNT (BEAKER) (test 0.20 K/ L 0.04-0.54 vslk=928) BASOPHILS ABSOLUTE COUNT (BEAKER) (test 0.08 K/ L 0.01-0.08 gpvh=948) IMMATURE GRANULOCYTES-RELATIVE PERCENT (BEAKER) 0 % 0-1 (test mwgn=4042) RAD, CHEST, 1 VIEW, NON [id number] 05:11:00post-operative day 1Reason for exam:->chfShould this be [...] Simental Verified Date/Time: 03/05/2018 05:11:04 Reading Location: [address] Reading Room BASIC METABOLIC [id number] 04:22:00 Test Item Value Reference Range Comments SODIUM (BEAKER) (test 136 meq/L 136-145 eyak=915) POTASSIUM (BEAKER) (test 4.9 meq/L 3.5-5.1 Specimen slightly rdpk=588) hemolyzed CHLORIDE (BEAKER) (test 98 meq/L 98-107 yerj=835) CO2 (BEAKER) (test 31 meq/L 22-29 qsxe=259) BLOOD UREA NITROGEN 44 mg/dL 7-21 (BEAKER) (test hsmz=504) CREATININE (BEAKER) (test 1.48 mg/dL 0.57-1.25 Specimen slightly qusz=775) hemolyzed GLUCOSE RANDOM (BEAKER) 98 mg/dL 70-105 (test tzio=641) CALCIUM (BEAKER) (test 9.6 mg/dL 8.4-10.2 yiro=059) EGFR (BEAKER) (test 46 mL/min/1.73 sq m ESTIMATED GFR IS NOT opvv=4560) ACCURATE CREATININE CLEARANCE IN PREDICTING GLOMERULAR FILTRATION RATE. ESTIMATED GFR IS NOT APPLICABLE FOR DIALYSIS PATIENTS. CBC W/PLT COUNT & AUTO [id number] 03:39:00 Test Item Value Reference Range Comments WHITE BLOOD CELL COUNT (BEAKER) (test hrbx=689) 10.2 K/ L 3.5-10.5 RED BLOOD CELL COUNT (BEAKER) (test vivg=995) 4.09 M/ L 4.63-6.08 HEMOGLOBIN (BEAKER) (test ceai=741) 13.0 GM/DL 13.7-17.5 HEMATOCRIT (BEAKER) (test piwy=101) 40.8 % 40.1-51.0 MEAN CORPUSCULAR VOLUME (BEAKER) (test quvp=508) 99.8 fL 79.0-92.2 MEAN CORPUSCULAR HEMOGLOBIN (BEAKER) (test 31.8 pg 25.7-32.2 fang=270) MEAN CORPUSCULAR HEMOGLOBIN CONC (BEAKER) (test 31.9 GM/DL 32.3-36.5 dptn=154) RED CELL DISTRIBUTION WIDTH (BEAKER) (test 14.7 % 11.6-14.4 nuin=852) PLATELET COUNT (BEAKER) (test qtws=259) 134 K/CU MM 150-450 MEAN PLATELET VOLUME (BEAKER) (test nsnz=737) 9.6 fL 9.4-12.4 NUCLEATED RED BLOOD CELLS (BEAKER) (test 0 /100 WBC 0-0 srgh=371) NEUTROPHILS RELATIVE PERCENT (BEAKER) (test 82 % wrvv=968) LYMPHOCYTES RELATIVE PERCENT (BEAKER) (test 7 % cjxc=355) MONOCYTES RELATIVE PERCENT (BEAKER) (test 9 % dhhm=963) EOSINOPHILS RELATIVE PERCENT (BEAKER) (test 1 % hoic=621) BASOPHILS RELATIVE PERCENT (BEAKER) (test 0 % ltae=228) NEUTROPHILS ABSOLUTE COUNT (BEAKER) (test 8.40 K/ L 1.78-5.38 qzbb=168) LYMPHOCYTES ABSOLUTE COUNT (BEAKER) (test 0.73 K/ L 1.32-3.57 wfqj=542) MONOCYTES ABSOLUTE COUNT (BEAKER) (test 0.89 K/ L 0.30-0.82 ryuz=866) EOSINOPHILS ABSOLUTE COUNT (BEAKER) (test 0.07 K/ L 0.04-0.54 krgp=948) BASOPHILS ABSOLUTE COUNT (BEAKER) (test 0.01 K/ L 0.01-0.08 itpu=058) IMMATURE GRANULOCYTES-RELATIVE PERCENT (BEAKER) 1 % 0-1 (test zqbm=9956) [id number] 10:36:00 Test Item Value Reference Range Comments ACTIVATED CLOTTING TIME [address] [facility] [address] [facility] (BEAKER) (test ohjz=398) [facility] [address] SODIUM NA-STAT [id number] 10:24:00 Test Item Value Reference Range Comments SODIUM (BEAKER) (test iyif=607) 136 meq/L 135-148 POTASSIUM-STAT [id number] 10:24:00 Test Item Value Reference Range Comments POTASSIUM (BEAKER) (test kehy=176) 4.2 meq/L 3.6-5.5 BLOOD GAS, [id number] 10:24:00 Test Item Value Reference Range Comments PH ARTERIAL (BEAKER) (test tqzd=872) 7.40 7.35-7.45 PCO2 ARTERIAL (BEAKER) (test kbrc=999) 50 mmHg 35-45 PO2 ARTERIAL (BEAKER) (test inaq=041) 507 mmHg 80-90 O2 SATURATION ARTERIAL (BEAKER) (test asus=762) 99.9 % 96.0-97.0 HCO3 ARTERIAL (BEAKER) (test zvww=649) 30 mmol/L 21-29 BASE EXCESS ARTERIAL (BEAKER) (test xdar=701) 4.3 mmol/L -2.0-3.0 PATIENT TEMPERATURE (BEAKER) (test vstb=5967) 37.0 C FIO2 (BEAKER) (test ycto=9975) 21.0 % GLUCOSE-STAT [id number] 10:24:00 Test Item Value Reference Range Comments GLUCOSE RANDOM (BEAKER) (test cphp=793) 131 mg/dL 70-110 HGB/HCT (H&H) - STAT [id number] 10:24:00 Test Item Value Reference Range Comments HEMOGLOBIN (BEAKER) (test nlnk=663) 13.2 g/dL 13.0-16.8 HEMATOCRIT (BEAKER) (test ohim=648) 39.0 % 40.0-50.0 CALCIUM, [id number] 10:24:00 Test Item Value Reference Range Comments CALCIUM IONIZED (BEAKER) (test sutp=474) 1.01 mmol/L 1.12-1.27 PH, BLOOD (BEAKER) (test kphg=8952) 7.40 B-TYPE NATRIURETIC FACTOR (BNP)2018-03-04 07:29:00 Test Item Value Reference Range Comments B-TYPE NATRIURETIC PEPTIDE (BEAKER) (test 187 pg/mL 0-100 yiha=499) BASIC METABOLIC [id number] 07:22:00 Test Item Value Reference Range Comments SODIUM (BEAKER) (test 138 meq/L 136-145 ymwp=829) POTASSIUM (BEAKER) (test 4.3 meq/L 3.5-5.1 diuc=880) CHLORIDE (BEAKER) (test 98 meq/L 98-107 dsla=212) CO2 (BEAKER) (test 32 meq/L 22-29 lchv=005) BLOOD UREA NITROGEN 57 mg/dL 7-21 (BEAKER) (test zzoa=907) CREATININE (BEAKER) (test 1.54 mg/dL 0.57-1.25 tyul=845) GLUCOSE RANDOM (BEAKER) 115 mg/dL 70-105 (test titd=492) CALCIUM (BEAKER) (test 9.3 mg/dL 8.4-10.2 ijnu=244) EGFR (BEAKER) (test 44 mL/min/1.73 sq m ESTIMATED GFR IS NOT etjg=6799) ACCURATE CREATININE CLEARANCE IN PREDICTING GLOMERULAR FILTRATION RATE. ESTIMATED GFR IS NOT APPLICABLE FOR DIALYSIS PATIENTS. [id number] 07:16:00 Test Item Value Reference Range Comments PROTIME (BEAKER) (test buyn=144) 13.7 seconds 11.7-14.7 INR (BEAKER) (test ihft=672) 1.0 <=5.9 PARTIAL THROMBOPLASTIN TIME (BEAKER) (test 23.9 seconds 22.5-36.0 pfmm=958) RECOMMENDED COUMADIN/WARFARIN INR THERAPY RANGESSTANDARD DOSE: 2.0 - 3.0 Includes: PROPHYLAXIS forvenous thrombosis, systemic embolization; TREATMENT for venous thrombosis and/or pulmonary embolus.HIGH RISK: Target INR is 2.5-3.5 for patients with mechanical heart valves.[id number] 07:16:00 Test Item Value Reference Range Comments ALBUMIN (BEAKER) (test ujdn=5582) 3.6 g/dL 3.5-5.0 CBC W/PLT COUNT & AUTO [id number] 07:11:00 Test Item Value Reference Range Comments WHITE BLOOD CELL COUNT (BEAKER) (test xfid=399) 8.6 K/ L 3.5-10.5 RED BLOOD CELL COUNT (BEAKER) (test wwtw=091) 4.62 M/ L 4.63-6.08 HEMOGLOBIN (BEAKER) (test mcci=086) 14.6 GM/DL 13.7-17.5 HEMATOCRIT (BEAKER) (test qzjz=248) 46.0 % 40.1-51.0 MEAN CORPUSCULAR VOLUME (BEAKER) (test pxra=921) 99.6 fL 79.0-92.2 MEAN CORPUSCULAR HEMOGLOBIN (BEAKER) (test 31.6 pg 25.7-32.2 lgxl=557) MEAN CORPUSCULAR HEMOGLOBIN CONC (BEAKER) (test 31.7 GM/DL 32.3-36.5 ufpp=981) RED CELL DISTRIBUTION WIDTH (BEAKER) (test 14.7 % 11.6-14.4 aprj=839) PLATELET COUNT (BEAKER) (test wxri=739) 160 K/CU MM 150-450 MEAN PLATELET VOLUME (BEAKER) (test arcm=237) 9.0 fL 9.4-12.4 NUCLEATED RED BLOOD CELLS (BEAKER) (test 0 /100 WBC 0-0 uaou=741) NEUTROPHILS RELATIVE PERCENT (BEAKER) (test 89 % aijz=361) LYMPHOCYTES RELATIVE PERCENT (BEAKER) (test 4 % yahl=789) MONOCYTES RELATIVE PERCENT (BEAKER) (test 5 % aomy=927) EOSINOPHILS RELATIVE PERCENT (BEAKER) (test 1 % tyuh=420) BASOPHILS RELATIVE PERCENT (BEAKER) (test 0 % cmko=257) NEUTROPHILS ABSOLUTE COUNT (BEAKER) (test 7.65 K/ L 1.78-5.38 ngcn=275) LYMPHOCYTES ABSOLUTE COUNT (BEAKER) (test 0.34 K/ L 1.32-3.57 hcay=515) MONOCYTES ABSOLUTE COUNT (BEAKER) (test 0.41 K/ L 0.30-0.82 jvtn=549) EOSINOPHILS ABSOLUTE COUNT (BEAKER) (test 0.06 K/ L 0.04-0.54 vbcm=574) BASOPHILS ABSOLUTE COUNT (BEAKER) (test 0.02 K/ L 0.01-0.08 irwq=704) IMMATURE GRANULOCYTES-RELATIVE PERCENT (BEAKER) 1 % 0-1 (test lrrh=6078) CT, CTA, [id number] 14:14:00Addendum BeginsREPORT STATUS:A Addendum: I agree with the previously described non vascular findings by Dr. Viramontes. Signed: Cleve Stacy MDReport Verified Date/Time: 02/18/201814: 14:33 Reading Location: [place] [address] Angio Body Reading RoomAddendum EndsFINAL REPORT CT [...] measures 9.1 and 9.3 mm, respectively with vtfq-up-rhafotfu tortuosity and no calcific atherosclerosis present. The [...] An addendum will be dictated by the [employer] Worker Radiologist regarding the nonvascular findings. Signed: Sg Viramontes MDReport Verified Date/Time: 02/17/2018 16:19:13 Reading Location: [place] [address], CTA [id number] 14:14:00Addendum BeginsREPORT STATUS:A Addendum: I agree with the previously described non vascular findings by Dr. Viramontes. Signed: Cleve Stacy MDReport Verified Date/ Time: 02/18/201814:14:33 Reading Location: [place] [address] Angio Body Reading RoomAddendum EndsFINAL REPORT CT [...] measures 9.1 and 9.3 mm, respectively with jdrp-dh-fmzwjuix tortuosity and no calcific atherosclerosis present. The [...] An addendum will be dictated by the [employer] Worker Radiologist regarding the nonvascular findings. Signed: Sg Viramontes MDReport Verified Date/Time: 02/17/2018 16:19:13 Reading Location: [place] [address] Cardiology MRI [id number] 14:05:00 Test Item Value Reference Range Comments POC-CREATININE (NOE) 1.7 mg/dL 0.6-1.[address] [facility] [address] [facility] (test eexy=4984) [facility] [address] POC-EGFR (BEAKER) (test 39 mL/min/1.73M2 htxw=9629)
--- OUTSIDE RECORDS SUMMARY | 2018-10-16 21:21 | XMS REPORT ---
[...] Medications Results No Known Results Summary Purpose BackchatinicalVisionary Fun Submission
--- OUTSIDE RECORDS SUMMARY | 2018-10-16 21:21 | XMS REPORT ---
[...] Status Dosage System Date Date Clonidine HCl [facility] 14013132470 0.3 MG Orally Active 1 tablet Once a day Lipitor [facility] 24056072468 40 MG Orally Active 1 tablet Once a day Breo Ellipta [facility] 77765250375 100-25 MCG/INH Active 1 puff Inhalation Once a day Albuterol Sulfate [facility] 17243479905 108 (90 Base) Active 2 puffs as HFA MCG/ACT needed Inhalation every 6 hrs Uloric [facility] 06263561096 40 MG Orally Active 1 tablet Once a day Omeprazole ND 03442212711 20 MG Orally Active 1 capsule Once a day Ferrous Gluconate [facility] 14982757370 324 (38 Fe) MG Active 1 tablet Orally Once a day Potassium [facility] 19045604691 20 MEQ Orally Active 1 packet Chloride Twice a day with food Magnesium [facility] 05551089215 400 MG Orally Active 1 capsule Twice a day with food PredniSONE [facility] 97547417723 10 MG Orally Active 1 tablet Once a day as needed Diamox Sequels NDC 0 Active not defined Nasonex [facility] 18095659910 50 MCG/ACT Active 2 sprays Nasally Once a in each day nostril Levothyroxine [facility] 98219483365 50 MCG Orally Active 1 tablet Sodium Once a day on an empty stomach in the morning Tadalafil [facility] 54849702914 5 MG Orally Active 1 tablet Eight a day as needed Furosemide [facility] 53089359868 20 MG Orally Active 1 tablet Three times a day Xarelto [facility] 48561373843 15 MG Orally Active 1 tablet Once a day with food Atorvastatin [facility] 81963861900 40 MG Orally Active 1 tablet Calcium Once a day Amoxicillin-Pot [facility] 96476636405 500-125 MG Active not Clavulanate Orally defined Docusate Sodium [facility] 11290771896 100 MG Orally Active 1 capsule Once a day as needed Colace [facility] 55411753294 100 MG Orally Active 1 capsule Once a day as needed Fish Oil [facility] 80994372717 1200 MG Orally Active 1 capsule Twice a day Metoprolol [facility] 12054063872 100 MG Orally Active 1 capsule Succinate Once a day MiraLax [facility] 19136638840 - Orally Once a Active 1 packet day mixed with 8 ounces of fluid Prilosec [facility] 57688026527 20 MG Orally Active 1 capsule Once a day Spironolactone [facility] 40051860147 25 MG Orally Active 1 tablet Three times a day Results No Known Results Summary Purpose eClinicalWorks Submission
[2018-10-16 22:07] LABS: Urine Blood NEGATIVE (NEG); Urine Glucose TRACE (NEG); Urine Protein TRACE (NEG); Urine pH 7.5 (5.0-7.0)
[2018-10-16 22:11] LABS: Absolute Lymphocytes (CBC) 0.2 K/uL (0.7-4.9); Basophils % 0.1 % (0-1.3); Eosinophils % 0.2 % (0-4.4); Hematocrit 34.3 % (39.6-49.0); Lymphocytes % 2.7 % (15.3-44.8); MPV 7.1 fL (7.6-11.3); Monocytes % 7.1 % (3.3-12.3); RBC Red Blood Cell Count 3.81 M/uL (4.33-5.43)
[2018-10-16 22:17] LABS: Protime INR 2.11
[2018-10-16 22:33] LABS: Albumin 2.9 g/dL (3.4-5.0); Bilirubin Direct 0.2 mg/dL (0-0.2); Bilirubin Total 0.5 mg/dL (0.2-1.0); Magnesium 1.8 mg/dL (1.8-2.4); Potassium 3.7 mmol/L (3.5-5.1); Protein, Total 6.9 g/dL (6.4-8.2); Troponin (Emerg Dept Use Only) 0.04 ng/mL (0.0-0.045)
--- NOTE | 2018-10-16 22:39 | EDPHYS ---
Physician Documentation [facility] Name: Reji Dan Age: 83 yrs Sex: Male : 1935 Arrival Date: 10/16/2018 Time: 21:17 Bed 17 Private MD: ED Physician Francisco Nielson HPI: 10/16 22:34 This 83 yrs old Male presents to ER via EMS with complaints of Low Sodium. snw 22:34 The patient presents with dizziness, lightheadedness. Onset: The symptoms/episode snw began/occurred acutely, 3 day(s) ago, and became persistent. Context: occurred at a half-way or assisted living facility, occurred while the patient was lying down. Modifying factors: The symptoms are alleviated by nothing, the symptoms are aggravated by standing up. Severity of symptoms: At their worst the symptoms were moderate in the emergency department the symptoms are unchanged. The patient has experienced a previous episode, last month. The patient has been recently seen by a physician:. hx recent mitral valve replacement/ Left groin with post-op infection. Pt has had I\T\D, packing, Levaquin and Vanco therapy. Historical: - Allergies: 21:46 Clindamycin; ed1 21:46 Iodinated Contrast Media - IV Dye; ed1 - Home Meds: 21:46 Lasix 20 mg oral tab 1 tab once daily [Active]; vancomycin in 0.9% sodium Cl 1 gram/150 ed1 mL intravenous soln every 24 hours [Active]; Pyridium 100 mg Oral tab 1 tab 3 times per day [Active]; acetaminophen 325 mg Oral tab 2 tabs every 6 hours [Active]; Levaquin 500mg/100mL daily [Active]; Tessalon Perles 100 mg Oral cap 1 cap every 8 hours [Active]; Xarelto 15 mg oral tab 1 tab daily [Active]; Kim-Tussin DM 10-100 mg/5 mL Oral syrp 10 mL every 6 hours [Active]; atorvastatin 40 mg Oral tab 1 tab nightly [Active]; potassium chloride 20 mEq oral TbER 1 tab once daily [Active]; metoprolol tartrate 25 mg Oral tab 1 tab 2 times per day [Active]; docusate sodium 100 mg Oral cap 2 caps 2 times per day [Active]; PreserVision AREDS Oral 1 tab twice a day [Active]; Lactobacillus rhamnosus GG Oral 1 cap daily [Active]; GlycoLax 17 gram/dose oral powd 1 packet twice a day [Active]; aspirin 81 mg Oral TbEC 1 tab once daily [Active]; Senna with Docusate Sodium 8.6-50 mg oral tab 2 tabs twice a day [Active]; MagOx 400 mg Oral tab 1 tab twice a day [Active]; sildenafil 10 mg oral 1 tab twice a day [Active]; prednisone 10 mg Oral tab 1 tab 2 times per day [Active]; Breo Ellipta 200-25 mcg/dose inhalation dsdv 1 puff once daily [Active]; glucosamine-chondroitin Oral 1 tab twice a day [Active]; Fish Oil 1,000 mg oral cap 1 cap daily [Active]; omeprazole 20 mg Oral cpDR 1 cap once daily [Active]; spironolactone 25 mg Oral tab 1 tab 3 times per day [Active]; levothyroxine 50 mcg tab 1 tab once daily [Active]; metolazone 1.5mg Oral tab 1 tab once daily [Active]; ipratropium-albuterol 0.5 mg-3 mg(2.5 mg base)/3 mL inhalation nebu 3 mL every 6 hours [Active]; albuterol sulfate 0.63 mg/3 mL inhalation nebu 3 mL every 12 hours [Active]; - PMHx: 21:46 Constipation; GERD; Hypokalemia; MRSA; Mitral Valve Insufficiency; Painful urination; ed1 CHF; Macular degeneration; COPD; Dysphagia; Hypertension; High Cholesterol; Hypothyroidism; Pacemaker; - PSHx: 21:46 Prosthetic heart valve; ed1 - Immunization history:: Adult Immunizations up to date. - Social history:: Smoking status: Patient/guardian denies using tobacco. - Ebola Screening: : Patient negative for fever greater than or equal to 101.5 degrees Fahrenheit, and additional compatible Ebola Virus Disease symptoms Patient denies exposure to infectious person Patient denies travel to an Ebola-affected area in the 21 days before illness onset No symptoms or risks identified at this time. ROS: 22:30 Constitutional: Negative for fever, chills, and weight loss, Eyes: Negative for injury, snw pain, redness, and discharge, ENT: Negative for injury, pain, and discharge, Neck: Negative for injury, pain, and swelling, Cardiovascular: Negative for chest pain, palpitations, and edema, Respiratory: Negative for shortness of breath, cough, wheezing, and pleuritic chest pain, Abdomen/GI: Negative for abdominal pain, nausea, vomiting, diarrhea, and constipation, Back: Negative for injury and pain, : Negative for injury, bleeding, discharge, and swelling, MS/Extremity: Negative for injury and deformity, Skin: Negative for injury, rash, and discoloration. 22:30 Neuro: Positive for dizziness. Exam: 22:28 Head/Face: Normocephalic, atraumatic. ENT: Nares patent. No nasal discharge, no snw septal abnormalities noted. Tympanic membranes are normal and external auditory canals are clear. Oropharynx with no redness, swelling, or masses, exudates, or evidence of obstruction, uvula midline. Mucous membranes moist. Neck: Trachea midline, no thyromegaly or masses palpated, and no cervical lymphadenopathy. Supple, full range of motion without nuchal rigidity, or vertebral point tenderness. No Meningismus. Chest/axilla: Normal chest wall appearance and motion. Nontender with no deformity. No lesions are appreciated. Respiratory: Lungs have equal breath sounds bilaterally, clear to auscultation and percussion. No rales, rhonchi or wheezes noted. No increased work of breathing, no retractions or nasal flaring. Abdomen/GI: Soft, non-tender, with normal bowel sounds. No distension or tympany. No guarding or rebound. No evidence of tenderness throughout. 22:28 Back: No spinal tenderness. No costovertebral tenderness. Full range of motion. MS/ Extremity: Pulses equal, no cyanosis. Neurovascular intact. Full, normal range of motion. Neuro: Awake and alert, GCS 15, oriented to person, place, time, and situation. Cranial nerves II-XII grossly intact. Motor strength 5/5 in all extremities. Sensory grossly intact. Cerebellar exam normal. Normal gait. Psych: Awake, alert, with orientation to person, place and time. Behavior, mood, and affect are within normal limits. 22:28 Constitutional: The patient appears alert, listless, pale, jaundiced 22:28 Eyes: Sclera: icterus, is present. 22:28 Cardiovascular: Rate: normal, Rhythm: regular, Pulses: no pulse deficits are appreciated, Heart sounds: murmur, systolic, Edema: is not appreciated. 22:28 Skin: Appearance: Color: jaundiced, Wound recheck: packed wound at left groin, pt states it is looking better post Levaquin and Vancomycin therapy. Vital Signs: 21:46 BP 120 / 87; Pulse 80; Resp 18; Temp 98.2(O); Pulse Ox 98% on 2 lpm NC; Pain 0/10; ed1 23:02 BP 129 / 83; Pulse 80; Resp 17; Temp 98.1(TE); Pulse Ox 100% on 2 lpm NC; Pain 0/10; ed1 06/16 00:18 BP 126 / 74; Pulse 81; Resp 17; Pulse Ox 98% on 2 lpm NC; Pain 0/10; ed1 01:00 BP 120 / 74; Pulse 72; Resp 16; Temp 97.1(TE); Pulse Ox 98% on 2 lpm NC; Pain 0/10; ed1 MDM: 10/16 21:30 Patient medically screened. [facility] 22:39 Data reviewed: vital signs, nurses notes. Data interpreted: Pulse oximetry: on room air snw is 98 %. Interpretation: normal. Counseling: I had a detailed discussion with the patient and/or guardian regarding: the historical points, exam findings, and any diagnostic results supporting the discharge/admit diagnosis, lab results, the need for further work-up and treatment in the hospital. 10/16 21:32 Order name: Basic Metabolic Panel; Complete Time: 22:40 [facility] 10/16 21:32 Order name: CBC with Diff; Complete Time: 23:28 [facility] 10/16 21:32 Order name: LFT's; Complete Time: 22:40 [facility] 10/16 21:32 Order name: Magnesium; Complete Time: 22:40 [facility] 10/16 21:32 Order name: NT PRO-BNP; Complete Time: 22:40 [facility] 10/16 21:32 Order name: PT-INR; Complete Time: 22:24 [facility] 10/16 21:32 Order name: Troponin (emerg Dept Use Only); Complete Time: 22:40 [facility] 10/16 21:32 Order name: Urine Osmolality; Complete Time: 22:50 [facility] 10/16 21:32 Order name: Urine Sodium Random; Complete Time: 22:20 [facility] 10/16 21:32 Order name: Osmolality, Serum; Complete Time: 22:47 [facility] 10/16 21:32 Order name: Urine Culture [facility] 10/16 21:52 Order name: TS; Complete Time: 23:29 snw 10/16 22:00 Order name: Urine Dipstick--Ancillary (enter results); Complete Time: 22:10 ar5 10/16 23:26 Order name: CBC Smear Scan; Complete Time: 23:28 EDMS 10/16 21:32 Order name: XRAY Chest (1 view); Complete Time: 00:01 [facility] 10/16 21:32 Order name: EKG; Complete Time: 21:36 [facility] 10/16 21:32 Order name: Cardiac monitoring; Complete Time: 21:42 [facility] 10/16 21:32 Order name: EKG - Nurse/Tech; Complete Time: 21:42 [facility] 10/16 21:32 Order name: IV Saline Lock; Complete Time: 21:42 [facility] 10/16 21:32 Order name: Labs collected and sent; Complete Time: 21:59 [facility] 10/16 21:32 Order name: O2 Per Protocol; Complete Time: 21:42 [facility] 10/16 21:32 Order name: O2 Sat Monitoring; Complete Time: 21:42 [facility] 10/16 21:32 Order name: Seizure Precautions; Complete Time: 21:42 [facility] 10/16 21:32 Order name: Urine Dipstick-Ancillary (obtain specimen); Complete Time: 21:58 [facility] 10/17 00:20 Order name: Cordero; Complete Time: 00:38 snw Administered Medications: 22:52 Drug: NS 0.9% 500 ml Route: IV; Rate: bolus; Site: PICC; ed1 23:04 Follow up: IV Status: Completed infusion; IV Intake: 500ml ed1 22:53 Drug: NS 0.9% 1000 ml Route: IV; Rate: 75 ml/hr; Site: PICC; ed1 10/17 01:46 Follow up: IV Status: Infusion continued upon admission ed1 Disposition: 10/16/18 22:39 Hospitalization ordered by Edson Beyer for Inpatient Admission. Preliminary diagnosis are Hypo-osmolality and hyponatremia, Dizziness and giddiness, Urinary tract infection, site not specified. - Bed requested for Telemetry/MedSurg (Inpatient). - Status is Inpatient Admission. ed1 - Condition is Stable. - Problem is an acute exacerbation. - Symptoms have worsened. UTI on Admission? Yes Addendum: 10/18/2018 07:27 Co-signature as Attending Physician, Francisco Nielson MD I agree with the assessment and c ramirez plan of care. Signatures: Dispatcher [employer] Francisco Kendall MD MD cha Therrien, Shelly, SUPERVISOR BEAM DEPARTMENT-C SUPERVISOR BEAM DEPARTMENT-Csnw Estefania Hammonds RN RN ed1 Shea Gupta RN RN cg Corrections: (The following items were deleted from the chart) 10/16 22:31 22:28 Skin: Appearance: Color: jaundiced, snw snw 22:39 22:39 Hospitalization Ordered by Edson Beyer MD for Inpatient Admission. Preliminary snw diagnosis is Hypo-osmolality and hyponatremia; Dizziness and giddiness. Bed requested for Intensive Care Unit. Status is Inpatient Admission. Condition is Stable. Problem is an acute exacerbation. Symptoms have worsened. UTI on Admission? Yes. snw 10/17 00:20 10/16 22:39 10/16/2018 22:39 Hospitalization Ordered by Edson Beyer MD for Inpatient snw Admission. Preliminary diagnosis is Hypo-osmolality and hyponatremia; Dizziness and giddiness; Urinary tract infection, site not specified. Bed requested for Intensive Care Unit. Status is Inpatient Admission. Condition is Stable. Problem is an acute exacerbation. Symptoms have worsened. UTI on Admission? Yes. snw 10/17 00:57 00:20 10/16/2018 22:39 Hospitalization Ordered by Edson Beyer MD for Inpatient cg Admission. Preliminary diagnosis is Hypo-osmolality and hyponatremia; Dizziness and giddiness; Urinary tract infection, site not specified. Bed requested for Telemetry/MedSurg (Inpatient). Status is Inpatient Admission. Condition is Stable. Problem is an acute exacerbation. Symptoms have worsened. UTI on Admission? Yes. snw 01:46 00:57 10/16/2018 22:39 Hospitalization Ordered by Edson Beyer MD for Inpatient ed1 Admission. Preliminary diagnosis is Hypo-osmolality and hyponatremia; Dizziness and giddiness; Urinary tract infection, site not specified. Bed requested for Telemetry/MedSurg (Inpatient). Status is Inpatient Admission. Condition is Stable. Problem is an acute exacerbation. Symptoms have worsened. UTI on Admission? Yes. cg
--- NOTE | 2018-10-16 22:39 | ER ---
Nurse's Notes [facility] Name: Reji Dan Age: 83 yrs Sex: Male : 1935 Arrival Date: 10/16/2018 Time: 21:17 Bed 17 Private MD: Diagnosis: Hypo-osmolality and hyponatremia;Dizziness and giddiness;Urinary tract infection, site not specified Presentation: 10/16 21:22 Presenting complaint: EMS states: We were called out for a critical lab value. They ed1 said his sodium was low. Transition of care: patient was received from another setting of care ([facility]), [facility] [phone]. Onset of symptoms was October 16, 2018. Risk Assessment: Do you want to hurt yourself or someone else? Patient reports no desire to harm self or others. Initial Sepsis Screen: Does the patient meet any 2 criteria? No. Patient's initial sepsis screen is negative. Does the patient have a suspected source of infection? No. Patient's initial sepsis screen is negative. Care prior to arrival: None. 21:22 Method Of Arrival: EMS: [facility] ed1 21:22 Acuity: SILVINO 3 ed1 Triage Assessment: 21:46 General: Appears in no apparent distress. Behavior is calm, cooperative. Pain: Denies ed1 pain. EENT: No signs and/or symptoms were reported regarding the EENT system. Neuro: Level of Consciousness is awake, alert, obeys commands, Oriented to person, place, time, situation, Denies weakness blurred vision dizziness, headache. Cardiovascular: Denies chest pain, Heart tones S1 S2 present. Respiratory: Airway is patent Respiratory effort is even, unlabored, Respiratory pattern is regular, symmetrical, Breath sounds are clear bilaterally. Denies cough, shortness of breath. GI: No signs and/or symptoms were reported involving the gastrointestinal system. : No signs and/or symptoms were reported regarding the genitourinary system. Derm: Skin is healthy with good turgor, Skin is dry, Skin is normal, Skin temperature is warm Wound noted right groin. Musculoskeletal: Circulation, motion, and sensation intact. Historical: - Allergies: 21:46 Clindamycin; ed1 21:46 Iodinated Contrast Media - IV Dye; ed1 - Home Meds: 21:46 Lasix 20 mg oral tab 1 tab once daily [Active]; vancomycin in 0.9% sodium Cl 1 gram/150 ed1 mL intravenous soln every 24 hours [Active]; Pyridium 100 mg Oral tab 1 tab 3 times per day [Active]; acetaminophen 325 mg Oral tab 2 tabs every 6 hours [Active]; Levaquin 500mg/100mL daily [Active]; Tessalon Perles 100 mg Oral cap 1 cap every 8 hours [Active]; Xarelto 15 mg oral tab 1 tab daily [Active]; Kim-Tussin DM 10-100 mg/5 mL Oral syrp 10 mL every 6 hours [Active]; atorvastatin 40 mg Oral tab 1 tab nightly [Active]; potassium chloride 20 mEq oral TbER 1 tab once daily [Active]; metoprolol tartrate 25 mg Oral tab 1 tab 2 times per day [Active]; docusate sodium 100 mg Oral cap 2 caps 2 times per day [Active]; PreserVision AREDS Oral 1 tab twice a day [Active]; Lactobacillus rhamnosus GG Oral 1 cap daily [Active]; GlycoLax 17 gram/dose oral powd 1 packet twice a day [Active]; aspirin 81 mg Oral TbEC 1 tab once daily [Active]; Senna with Docusate Sodium 8.6-50 mg oral tab 2 tabs twice a day [Active]; MagOx 400 mg Oral tab 1 tab twice a day [Active]; sildenafil 10 mg oral 1 tab twice a day [Active]; prednisone 10 mg Oral tab 1 tab 2 times per day [Active]; Breo Ellipta 200-25 mcg/dose inhalation dsdv 1 puff once daily [Active]; glucosamine-chondroitin Oral 1 tab twice a day [Active]; Fish Oil 1,000 mg oral cap 1 cap daily [Active]; omeprazole 20 mg Oral cpDR 1 cap once daily [Active]; spironolactone 25 mg Oral tab 1 tab 3 times per day [Active]; levothyroxine 50 mcg tab 1 tab once daily [Active]; metolazone 1.5mg Oral tab 1 tab once daily [Active]; ipratropium-albuterol 0.5 mg-3 mg(2.5 mg base)/3 mL inhalation nebu 3 mL every 6 hours [Active]; albuterol sulfate 0.63 mg/3 mL inhalation nebu 3 mL every 12 hours [Active]; - PMHx: 21:46 Constipation; GERD; Hypokalemia; MRSA; Mitral Valve Insufficiency; Painful urination; ed1 CHF; Macular degeneration; COPD; Dysphagia; Hypertension; High Cholesterol; Hypothyroidism; Pacemaker; - PSHx: 21:46 Prosthetic heart valve; ed1 - Immunization history:: Adult Immunizations up to date. - Social history:: Smoking status: Patient/guardian denies using tobacco. - Ebola Screening: : Patient negative for fever greater than or equal to 101.5 degrees Fahrenheit, and additional compatible Ebola Virus Disease symptoms Patient denies exposure to infectious person Patient denies travel to an Ebola-affected area in the 21 days before illness onset No symptoms or risks identified at this time. Screenin:50 Abuse screen: Denies threats or abuse. Denies injuries from another. Nutritional ed1 screening: No deficits noted. Tuberculosis screening: No symptoms or risk factors identified. Fall Risk No fall in past 12 months (0 pts). No secondary diagnosis (0 pts). IV access (20 points). Ambulatory Aid- None/Bed Rest/Nurse Assist (0 pts). Gait- Weak (10 pts.). Mental Status- Oriented to own ability (0 pts). Total Cox Fall Scale indicates Low Risk Score (25-44 pts). Fall prevention measures have been instituted. Side Rails Up X 2 Placed close to Nursing Station Frequent Obs/Assesments occuring As available Patient and Family Educated on Fall Prevention Program and strategies. Assessment: 21:50 General: See triage assessment. ed1 23:02 Reassessment: Patient appears in no apparent distress at this time. No changes from ed1 previously documented assessment. Patient and/or family updated on plan of care and expected duration. Pain level reassessed. Patient is alert, oriented x 3, equal unlabored respirations, skin warm/dry/pink. Patient denies pain at this time. 10/17 00:18 Reassessment: Patient appears in no apparent distress at this time. Patient and/or ed1 family updated on plan of care and expected duration. Pain level reassessed. Patient is alert, oriented x 3, equal unlabored respirations, skin warm/dry/pink. Dr. Beyer at bedside to see pt Patient denies pain at this time. 01:07 Reassessment: Attempt to call report. Spoke with John, he stated "Fifi is busy and ed1 she will have to call you back.". Vital Signs: 10/16 21:46 BP 120 / 87; Pulse 80; Resp 18; Temp 98.2(O); Pulse Ox 98% on 2 lpm NC; Pain 0/10; ed1 23:02 BP 129 / 83; Pulse 80; Resp 17; Temp 98.1(TE); Pulse Ox 100% on 2 lpm NC; Pain 0/10; ed1 16 00:18 BP 126 / 74; Pulse 81; Resp 17; Pulse Ox 98% on 2 lpm NC; Pain 0/10; ed1 01:00 BP 120 / 74; Pulse 72; Resp 16; Temp 97.1(TE); Pulse Ox 98% on 2 lpm NC; Pain 0/10; ed1 ED Course: 10/16 21:17 Patient arrived in ED. ds1 21:22 Estefania Hammonds, RN is Primary Nurse. ed1 21:24 Triage completed. ed1 21:29 Penny Fiore FNP-C is PHCP. snw 21:29 Francisco Nielson MD is Attending Physician. snw 21:46 Arm band placed on. ed1 21:50 Patient has correct armband on for positive identification. Placed in gown. Bed in low ed1 position. Call light in reach. Side rails up X2. Seizure precautions initiated. manager pipeline on. Pulse ox on. NIBP on. Warm blanket given. 21:50 Accessed PICC line. Clean \\T\\ dry. Dressing intact. Good blood return. Flushes easily. ed1 22:02 Initial lab(s) drawn, by me, sent to lab. bb 22:16 XRAY Chest (1 view) In Process Unspecified. EDMS 22:35 Notified Nurse Practitioner and/or Physician Casket Coverer of a critical lab result(s), bb Sodium of 116, [place] 74. Penny Fiore ROAD CREW MEMBER notified. 22:38 Edson Beyer MD is Hospitalizing Provider. snw 23:03 Resting quietly. Awaiting bed assignment. ed1 16 00:37 Resting quietly. Awaiting bed assignment. ed1 00:38 Cordero cath inserted, using sterile technique, 16 Fr., by me, balloon inflated, to mt gravity drainage, clamped. 01:45 No provider procedures requiring assistance completed. Patient admitted, IV remains in ed1 place. intact, No redness/swelling at site. Administered Medications: 10/16 22:52 Drug: NS 0.9% 500 ml Route: IV; Rate: bolus; Site: PICC; ed1 23:04 Follow up: IV Status: Completed infusion; IV Intake: 500ml ed1 22:53 Drug: NS 0.9% 1000 ml Route: IV; Rate: 75 ml/hr; Site: PICC; ed1 10/17 01:46 Follow up: IV Status: Infusion continued upon admission ed1 Intake: 10/16 23:04 IV: 500ml; Total: 500ml. ed1 10/17 00:36 Cordero clamped; Dr. Beyer notified ed1 Output: 00:18 Urine: 250ml (Voided); Total: 250ml. ed1 00:36 Urine: 1800ml (Cordero); Total: 2050ml. ed1 00:36 Cordero clamped; Dr. Beyer notified ed1 Outcome: 10/16 22:39 Decision to Hospitalize by Provider. [facility] 10/17 01:45 Admitted to Med/surg accompanied by tech, via stretcher, room 232, with oxygen, with ed1 chart, Report called to DANIELLE Calix Condition: stable Discharge instructions given to patient, Instructed on the need for admit, Demonstrated understanding of instructions. 01:46 Patient left the ED. ed1 Signatures: Dispatcher [employer] EDWA Penny Fiore, JEFRYC WET MACHINE CUTTER-Ligia Alvarez ds1 Kiera Sosa, DANIELLE RN Estefania Hammonds RN RN ed1 Valerie Corona pr
[2018-10-16] MEDS ORDERED: NA CHLORIDE 0.9% 1,000 ML ONE (22:44)
[2018-10-16 23:24] LABS: Blood Morphology Comment NOT SEEN (NOT SEEN); Platelet Estimate ADEQ; Urine White Blood Cell Casts OK
--- NOTE | 2018-10-16 23:55 | RAD REPORT ---
EXAM DESCRIPTION: Zafar Single View10/16/2018 10:16 pm CLINICAL HISTORY: Cough COMPARISON: October 08, 2018 FINDINGS: The lungs appear clear of acute infiltrate. The heart is mildly enlarged. Pacemaker leads are in place. PICC line has its tip in the superior vena cava Left pleural thickening is unchanged IMPRESSION: No acute abnormalities displayed
--- NOTE | 2018-10-17 00:50 | P.HP ---
Certification for Inpatient Patient admitted to: Inpatient With expected LOS: >2 Midnights Practitioner: I am a practitioner with admitting privileges, knowledge of patient current condition, hospital course, and medical plan of care. Services: Services provided to patient in accordance with Admission requirements found in Title 42 Section 412.3 of the Code of Federal Regulations Patient History Date of Service: 10/17/18 Reason for admission: hyponatremia History of Present Illness: Mr Dan is an 83 years old male with history of multiple medical problems, admitted about 2 weeks ago due to hyponatremia, came to ER today complaining of dizziness. His symptoms started about 3 days ago. He states that every time he stand up to go to the restroom, he become very dizzy and is about to faint. He had a lab work done today, and was found hyponatremic again, sodium level was 116. Then he was transferred to ER for further evaluation. At my encounter, the patient is alert and oriented, able to provide a coherent story. Lab work in ER shows sodium level of 117, UA abnormal consistent with UTI. serum osmolality low , urine osmolality more than 100, consistent with SIADH. Allergies Iodinated Contrast- Oral and IV Dye [Iodinated Contrast Media - IV Dye] Allergy (Intermediate, Verified 08/14/14 21:21) rash, sob Clindamycin Allergy (Uncoded 02/20/16 07:31) Unknown x-ray dye Allergy (Uncoded 05/26/15 20:16) Unknown Home medications list reviewed: Yes Home Medications: Calcium Polycarbophil [Fibercon*] 2 tab PO BID 07/09/14 Docusate [Colace Cap*] 200 mg PO BID 07/09/14 Fluticasone/Vilanterol [Breo Ellipta 100-25 Mcg INH] 1 puff IH DAILY 07/09/14 Glu/Dajuan-MSM#1/D3/C/Mn/Maxi/Bor [Glucosamine-Chondr Complx Cplt] 1 tab PO BID 12/16 Levothyroxine [Synthroid*] 50 mcg PO DAILY 07/09/14 [place]-3S/Dha/Epa/Fish Oil [[place]-3 Fish Oil 1,000 mg Sfgl] 1,000 mg PO DAILY 12/16 Polyethylene Glycol 3350 1 packet PO BID 07/09/14 predniSONE [Prednisone*] 10 mg PO BIDP PRN 07/09/14 Rivaroxaban [Xarelto*] 15 mg PO 1700 08/15/14 Omeprazole 20 mg PO DAILY #30 tablet. 08/18/14 Lactobacillus Combo No.13 [Probiotic Pearls Complete] 1 each PO DAILY 05/15/15 Spironolactone 25 mg PO TID 05/15/15 Albuterol Sulfate [Proventil Hfa] 90 mcg IN BID PRN 02/19/16 Furosemide [Lasix*] 40 mg PO DAILY 02/19/16 Potassium Chloride 40 meq PO DAILY 02/19/16 Atorvastatin Calcium [Lipitor*] 40 mg PO BEDTIME #30 tab 02/21/16 Magnesium Oxide [Mag 0X*] 400 mg PO BID #60 tab 02/21/16 Arformoterol Tartrate [Brovana] 15 mcg IH Q12H 10/04/18 Aspirin Chewable [Aspirin Chewable*] 1 tab PO DAILY 10/04/18 Doxycycline Hyclate [Vibramycin] 100 mg PO BID 10/04/18 Furosemide [Lasix*] 60 mg PO NOON 10/04/18 Guaifenesin/Dextromethorphan [Kim-Tussin Dm Syrup] 10 ml PO Q6HP PRN 10/04/18 Metoprolol Tartrate 100 mg PO DAILY 10/04/18 Metoprolol Tartrate [Lopressor*] 25 mg PO BID 10/04/18 Sennosides/Docusate Sodium [Senna-Docusate Sodium Tablet] 2 tab PO BID 10/04/18 Sildenafil Citrate [Revatio*] 10 mg PO BID 10/04/18 Tiotropium [Spiriva Handihaler*] 1 spray IH DAILY 10/04/18 Vit A/Vit C/Vit E/Zinc/Copper [Preservision Areds Softgel] 1 tab PO BID metOLazone [Zaroxolyn*] 3.75 mg PO DAILY 10/05/18 Levofloxacin [Levaquin] 500 mg IV DAILY 28 Days #28 tablet 10/08/18 Vancomycin/0.9 % Sod Chloride [Vanco 1.75 gm/500 ml-0.9% NaCl] 1.75 gm IV Q18H 28 Days plast..bag 10/08/18 - Past Medical/Surgical History Diabetic: No -: arthritis -: macular degeneration -: COPD -: high cholesterol -: pulmonary htn -: hiatal hernia -: slowed bowel -: aoritc stenosis severe, Pulmonary HTN -: AAA/CAD -: neuropathy -: anemia -: a-fib with rvr, chf -: back surgery -: tonsillectomy -: adenoids removed -: pacemaker implant -: cardiac catherization -: MVR - Family History Father -: Heart disease, Hypertension Mother -: Hypertension, Cancer Brother -: Cancer - Social History Smoking Status: Former smoker Alcohol use: Yes CD- Drugs: No Caffeine use: Yes Place of Residence: Jail Review of Systems 10-point ROS is otherwise unremarkable Physical Examination - Physical Exam General: Alert, In no apparent distress, Oriented x3 HEENT: Atraumatic, PERRLA, Mucous membr. moist/pink, EOMI, Sclerae nonicteric Neck: Supple, 2+ carotid pulse no bruit, No LAD, Without JVD or thyroid abnormality Respiratory: Clear to auscultation bilaterally, Diminished Cardiovascular: Normal S1 S2, No gallops Gastrointestinal: Normal bowel sounds, No tenderness Musculoskeletal: No tenderness Integumentary: No rashes Neurological: Normal speech, Normal strength at 5/5 x4 extr, Normal tone, Normal affect Lymphatics: No axilla or inguinal lymphadenopathy - Studies Laboratory Data (last 24 hrs) 10/16/18 22:00: PT 24.2 H, INR 2.11 10/16/18 22:00: WBC 6.3, Hgb 11.5 L, Hct 34.3 L, Plt Count 215 10/16/18 22:00: Sodium 116 L*, Potassium 3.7, BUN 21 H, Creatinine 1.28, Glucose 123 H, Magnesium 1.8, Total Bilirubin 0.5, AST 24, ALT 23, Alkaline Phosphatase 58 Assessment and Plan - Problems (Diagnosis) (1) Chronic a-fib Current Visit: Yes Status: Acute (2) CAD (coronary artery disease) Onset Date: 02/20/16 Current Visit: No Status: Acute Qualifiers: Coronary Disease-Associated Artery/Lesion type: [place] artery [place] vs. transplanted heart: [place] heart Associated angina: with unstable angina Qualified Code(s): I25.110 - Atherosclerotic heart disease of [place] coronary artery with unstable angina pectoris (3) Hyponatremia Current Visit: No Status: Acute (4) COPD (chronic obstructive pulmonary disease) Current Visit: No Status: Chronic Qualifiers: COPD type: unspecified COPD Qualified Code(s): J44.9 - Chronic obstructive pulmonary disease, unspecified - Plan Will admit the patient due to hyponatremia. Likely due to SIADH. He also has abnormal urine consistent with UTI. Will start NS infusion, strict monitor of ins and out, BMP Q6hr to avoid rapid sodium increase. Will start empiric antibiotic therapy for UTI, urine culture in process. Consult nephrology for evaluation and recommendations. - Advance Directives Does patient have a Living Will: No Does patient have a Durable POA for Healthcare: No - Code Status/Comfort Care Code Status Assessed: Yes Code Status: Full Code
[2018-10-17] MEDS ORDERED: ONDANSETRON 4 MG/2 ML VIAL IV PRN (02:03)
[2018-10-17 02:22] VITALS: BMI 26.3
[2018-10-17] MEDS: NA CHLORIDE 0.9% 1,000 ML IV SCH ×3 (04:39→19:49)
[2018-10-17 08:33] LABS: Magnesium 1.9 mg/dL (1.8-2.4); Potassium 3.2 mmol/L (3.5-5.1)
[2018-10-17] MEDS ORDERED: CEFTRIAXONE 1 GM/NS 50 ML 1 GM/50 ML BAG IV SCH (09:00)
[2018-10-17] MEDS: CEFTRIAXONE/SWI 1gm 1 GM/10 ML SYR IVP SCH (10:30)
--- NOTE | 2018-10-17 10:33 | EKG ---
Test Date: 2018-10-16 Test Time: 21:42:13 Table Worker: MONSERRAT MEASUREMENT RESULTS: Intervals: Rate: 80 AK: QRSD: 156 QT: 458 QTc: 528 Olden: P: AK: QRS: -81 T: 110 INTERPRETIVE STATEMENTS: Rhythm consistent with VVI pacing Underlying atrial fibrillation with no AV conduction Abnormal ECG Compared to ECG 10/03/2018 19:20:50 Uncertain supraventricular rhythm now present Atrial-sensed ventricular-paced complex(es) or rhythm no longer present Sinus rhythm no longer present Ventricular premature complex(es) no longer present Electronically Signed On 10-17-18 10:32:49 CDT by Almas Hamilton
[2018-10-17] MEDS ORDERED: DOCUSATE NA/SENNA CONC 1 TAB PO PRN (12:51)
[2018-10-17] MEDS ORDERED: ALBUTEROL 2.5 MG/3 ML NEB SOL IH PRN (12:51)
[2018-10-17] MEDS ORDERED: ACETAMINOPHEN 650 MG PO PRN (12:51)
[2018-10-17] MEDS ORDERED: POLYETHYL GLY 3350 17 GM/DOSE PO PRN (12:51)
[2018-10-17] MEDS: IPRATROPIUM IH SCH ×2 (13:00→19:00)
[2018-10-17] MEDS: [UNRECOGNIZED DRUG - OTHER] IH SCH ×2 (13:00→19:00)
[2018-10-17] MEDS ORDERED: PHENAZOPYRIDINE 100MG TAB PO PRN (13:00)
[2018-10-17] MEDS: ALBUTEROL SULFATE IH SCH ×2 (13:00→19:00)
--- NOTE | 2018-10-17 13:03 | P.PN ---
Date of Service: 10/17/18 pt was admitted and seen earlier today by Dr Cabrera pt seen and examined pt admitted for hyponatremia labs reviewed Na 120 today nephrology consulted home meds resumed continue vancomycin and Levaquin for total of 28 days from 10/08/18 for wound infection continue rocephin for UTI and f/up Ucx
[2018-10-17] MEDS ORDERED: ACETAMINOPHEN 325 MG TABLET PO PRN (14:06)
[2018-10-17 14:47] LABS: Urine Appearance CLOUDY; Urine Bilirubin NEGATIVE (NEG); Urine Blood 3+ (NEG); Urine Color ORANGE; Urine Glucose NEGATIVE (NEG); Urine Protein TRACE (NEG); Urine Specific Gravity 1.015 (1.005-1.030)
[2018-10-17 14:52] LABS: Urine Microscopic Reflex ORDER UMIC
[2018-10-17] MEDS: guaiFENesin 100 MG/5 ML UCUP PO PRN (14:54)
[2018-10-17 14:59] LABS: Absolute Lymphocytes (CBC) 0.3 K/uL (0.7-4.9); Basophils % 0.4 % (0-1.3); Eosinophils % 1.6 % (0-4.4); Hematocrit 32.3 % (39.6-49.0); Lymphocytes % 3.6 % (15.3-44.8); MPV 7.5 fL (7.6-11.3); Monocytes % 11.7 % (3.3-12.3); RBC Red Blood Cell Count 3.59 M/uL (4.33-5.43)
[2018-10-17 15:09] LABS: Potassium 3.3 mmol/L (3.5-5.1)
[2018-10-17 15:10] LABS: Urine Bacteria >50 /HPF (NONE SEEN); Urine RBC TNTC /HPF (NONE SEEN)
[2018-10-17 15:11] LABS: Urine Culture Reflex Order REFLEXED
[2018-10-17] MEDS ORDERED: POTASSIUM CL SA 10 MEQ TAB PO ONE (16:00)
[2018-10-17] MEDS: RIVAROXABAN 15 MG TABLET PO SCH (16:07)
[2018-10-17] MEDS ORDERED: RIVAROXABAN 15 MG TABLET PO SCH (17:00)
--- NOTE | 2018-10-17 17:31 | CON ---
Date of Consultation: 10/17/2018 Reason For Consultation: Hyponatremia. History Of Present Illness: This is a pleasant 83-year-old gentleman with significant past medical h istory of congestive heart failure, arthritis, COPD, pulmonary hypertension, aortic stenosis, coronar y artery disease with AAA, AFib with RVR. The patient had recurrent admission with hyponatremia, rhiannon sarca. The patient apparently in the prison was complaining from dizziness. Labs show severe hyponatremia, sodium down to 116. For that reason, the patient was transferred to the emergency room . In the emergency room, confirmed sodium low and UTI. For that reason, we have been consulted. Th e patient admits that he has been drinking extra water. The patient denied taking any nonsteroidal. No IV contrast. Reviewing his medication, the patient being on metolazone and spironolactone. Past Medical History: Include: 1.Arthritis. 2.Macular degeneration. 3.COPD. 4.Coronary artery disease with AAA. 5.Atrial fibrillation with RVR, congestive heart failure. 6.Pulmonary hypertension. 7.Aortic stenosis. Past Surgical History: Include cardiac catheterization, ICD, adenoid removal, tonsillectomy, back jackson rgery. Family History: Positive for hypertension. Social History: Ex-smoker. Lives in prison. Active alcohol. Denies drug abuse. Review of Systems: Head and Neck: Has lightheaded. GI: No nausea, no vomiting. : No polyuria, no dysuria, no hematuria. Escape Wheel Tooth Cutter: Not applicable. Respiratory: Has chronic shortness of breath. Cardiovascular: No chest pain. Endocrine: No polydipsia. Skin: No rash. Physical Examination: Vital Signs: When I saw the patient, the patient sitting in the chair comfortable. Blood pressure o f 103/58, pulse of 83. Chest: Clear to auscultation. Heart: S1, S2. Systolic murmur. Abdomen: Soft, nontender. Extremity: Venous stasis changes. No edema. Ankle, which confirmed old edema, has been resolved. Laboratory Data: Reviewing the lab data from before with the patient back in April 2018, had echo cardiogram showing ejection fraction of 66, left ventricular hypertrophy, moderate pulmonary hyperten armen. WBC 6.3, H and H 11.5/34.3, platelets 215. Previous lab data early in this month, H and H of the same range. Sodium 120, potassium 3.2, chloride 78, bicarb 36, BUN 17, creatinine 0.9, calcium 8 .6, magnesium 1.9. Serum osmolality 246. BNP 2370. Chest x-ray; cardiomegaly with mild congestion, with questionable of infiltration on the left base. Urinalysis; specific gravity of 1.020, urine os molality of 395, urine sodium of 96. Current Medications: Include IV fluid of normal saline, ceftriaxone 1 g, albuterol, Xarelto, metopro lol, levothyroxine, breathing treatment. Assessment And Plan: 1.Natremia, chronic mostly secondary to currently the component secondary to over diuresis depletion al. I agree with IV fluid. I am going to go ahead and send for uric acid and urine electrolyte, and we will follow up. Keep holding spironolactone and hold metolazone and Lasix. I am going to go ahe ad and send for cortisol and TSH. 2.Hypokalemia. We will supplement. 3.Pulmonary hypertension, currently normal. Follow up with Cardiology. Hold diuresis. 4.Edema, resolved mostly secondary to pulmonary hypertension. Hold diuresis for the time being. Thank you, Dr. Laguna, for allowing us to participate in the care of your patient. LATISHA/LORRI Voice ID: [id number] Report ID: [id number]
[2018-10-17] MEDS: BENZONATATE 100 MG CAP PO PRN (19:49)
[2018-10-17] MEDS: METOPROLOL TAR 25 MG TAB PO SCH (20:37)
[2018-10-17] MEDS: ATORVASTATIN 40 MG TAB PO SCH (20:37)
[2018-10-17] MEDS: predniSONE 10 MG TAB PO SCH (20:37)
[2018-10-17] MEDS: SILDENAFIL CITRATE 20 MG TABLET PO SCH (20:37)
[2018-10-17] MEDS: MAGNESIUM OXIDE 400 MG TAB PO SCH (20:37)
[2018-10-17] MEDS ORDERED: MELATONIN 3 MG TABLET PO ONE (21:00)
[2018-10-17] MEDS: ANTIARTHRITIC COMBINATION NO 2 900 MG PO SCH (21:00)
[2018-10-18] MEDS: [UNRECOGNIZED DRUG - OTHER] IH SCH ×2 (00:12→06:41)
[2018-10-18] MEDS: ALBUTEROL SULFATE IH SCH ×2 (00:12→06:41)
[2018-10-18] MEDS: IPRATROPIUM IH SCH ×2 (00:12→06:41)
[2018-10-18 04:29] LABS: Absolute Lymphocytes (CBC) 0.2 K/uL (0.7-4.9); Basophils % 0.3 % (0-1.3); Eosinophils % 0.6 % (0-4.4); Hematocrit 31.3 % (39.6-49.0); Lymphocytes % 2.7 % (15.3-44.8); MPV 7.1 fL (7.6-11.3); Monocytes % 6.7 % (3.3-12.3); RBC Red Blood Cell Count 3.48 M/uL (4.33-5.43)
[2018-10-18 05:11] LABS: BUN Blood Urea Nitrogen 14 mg/dL (7-18); Bicarbonate 33 mmol/L (21-32); Glucose Level 116 mg/dL (74-106); Potassium 3.9 mmol/L (3.5-5.1); Sodium Level 122 mmol/L (136-145)
[2018-10-18] MEDS ORDERED: POTASSIUM CL SA 10 MEQ TAB PO ONE (05:14)
[2018-10-18] MEDS: LEVOTHYROXINE SOD 0.05 MG TABLET PO SCH (05:35)
[2018-10-18] MEDS: guaiFENesin 100 MG/5 ML UCUP PO PRN ×3 (08:23→20:48)
[2018-10-18] MEDS: POTASSIUM CL SA 10 MEQ TAB PO SCH (08:24)
[2018-10-18] MEDS: levoFLOXacin 500 MG TAB PO SCH (08:25)
[2018-10-18] MEDS: ASPIRIN EC 81 MG TAB PO SCH (08:25)
[2018-10-18] MEDS: PANTOPRAZOLE 40MG TABLET PO SCH (08:25)
[2018-10-18] MEDS: METOPROLOL TAR 25 MG TAB PO SCH ×2 (08:25→20:49)
[2018-10-18] MEDS: HOME MED 1 EA UNK (Fluticasone/Vilanterol [Breo Ellipta 200-25 Mcg Inh] 1 EACH) IH SCH (08:25)
[2018-10-18] MEDS: DOCOSAHEXANOIC AC/EPA 1000 MG PO SCH (08:25)
[2018-10-18] MEDS: SILDENAFIL CITRATE 20 MG TABLET PO SCH ×2 (08:25→21:31)
[2018-10-18] MEDS: MAGNESIUM OXIDE 400 MG TAB PO SCH ×2 (08:25→20:48)
[2018-10-18] MEDS: LACTOBACILLUS/ACIDOPHILUS TAB PO SCH (08:25)
[2018-10-18] MEDS: predniSONE 10 MG TAB PO SCH ×2 (08:25→20:49)
[2018-10-18] MEDS: ANTIARTHRITIC COMBINATION NO 2 900 MG PO SCH ×2 (08:26→21:00)
[2018-10-18] MEDS: ALBUTEROL 2.5 MG/3 ML NEB SOL IH SCH ×2 (08:30→19:35)
[2018-10-18] MEDS: VANCOMYCIN 1.5 GM in NA CHLORIDE 0.9% 500 ML IV SCH ×2 (08:32→20:48)
[2018-10-18] MEDS: CEFTRIAXONE/SWI 1gm 1 GM/10 ML SYR IVP SCH (08:32)
[2018-10-18] MEDS: BENZONATATE 100 MG CAP PO PRN ×2 (08:32→16:03)
[2018-10-18] MEDS ORDERED: ALBUTEROL 2.5 MG/3 ML NEB SOL IH PRN (08:57)
[2018-10-18] MEDS ORDERED: LEVAQUIN 500 MG IV SCH (09:00)
[2018-10-18] MEDS ORDERED: VANCOMYCIN/NS 1 gm 1 GM/250 ML BAG IV SCH (09:00)
[2018-10-18] MEDS ORDERED: CEFTRIAXONE 1 GM/NS 50 ML 1 GM/50 ML BAG IV SCH (09:00)
[2018-10-18] MEDS ORDERED: HOME MED 1 EA UNK (Omeprazole [Omeprazole] 20 MG) PO SCH (09:00)
[2018-10-18] MEDS ORDERED: HOME MED 1 EA UNK (Potassium Chloride [Potassium Chloride] 20 MEQ) PO SCH (09:00)
[2018-10-18] MEDS ORDERED: VANCOMYCIN 1 GM IV SCH (09:00)
[2018-10-18] MEDS: IPRATROPIUM BROM 0.5MG/2.5ML IH SCH ×2 (09:00→19:35)
[2018-10-18] MEDS ORDERED: CEFTRIAXONE/SWI 1gm 1 GM/10 ML SYR IVP SCH (10:00)
--- NOTE | 2018-10-18 14:28 | P.PN ---
Subjective Date of Service: 10/18/18 Chief Complaint: hyponatremia Patient seen and examined at bedside with RN. Chart reviewed. Case discussed with nephrology at this time. Currently patient is doing much better than before. No complaints to offer overnight. States that his weakness is getting better however still there. Review of Systems 10-point ROS is otherwise unremarkable Physical Examination - Vital Signs Temperature: 97.1 F Blood Pressure: 102/60 Pulse: 78 Respirations: 18 Pulse Ox (%): 97 - Physical Exam General: Alert, In no apparent distress HEENT: Atraumatic, PERRLA, EOMI Neck: Supple, JVD not distended Respiratory: Clear to auscultation bilaterally, Normal air movement Cardiovascular: Regular rate/rhythm, Normal S1 S2 Gastrointestinal: Normal bowel sounds, No tenderness Musculoskeletal: No tenderness Integumentary: No rashes Neurological: Normal speech, Normal tone, Normal affect Lymphatics: No axilla or inguinal lymphadenopathy - Studies Medications List Reviewed: Yes Assessment And Plan - Current Problems (Diagnosis) (1) Hyponatremia Current Visit: No Status: Acute Plan: Symptomatic hyponatremia. Currently symptoms resolved. SIADH versus medication side effect -nephrology consulted. Appreciated recommendations -currently patient on IV fluids NS at 100 mL an hr -sodium at 122 today -hold Lasix, spironolactone at this time -lab work for SIADH pending at this time -doing well overall. Will continue with current management (2) Skin wound from surgical incision Current Visit: No Status: Acute Plan: Skin wound from surgical incision -currently on IV vancomycin and p.o. Levaquin need to be continued for 6 weeks from 10/08/18 (3) Chronic a-fib Current Visit: Yes Status: Chronic Plan: Currently on beta-vanessa anti coagulation (4) CAD (coronary artery disease) Onset Date: 02/20/16 Current Visit: No Status: Chronic Qualifiers: Coronary Disease-Associated Artery/Lesion type: [place] artery [place] vs. transplanted heart: [place] heart Associated angina: with unstable angina Qualified Code(s): I25.110 - Atherosclerotic heart disease of [place] coronary artery with unstable angina pectoris (5) CHF (congestive heart failure) Onset Date: 06/07/14 Current Visit: No Status: Chronic Plan: Currently CHF medication on hold. Lasix spironolactone and Metazalone on hold at this time due to hyponatremia Qualifiers: Heart failure type: diastolic Heart failure chronicity: chronic Qualified Code(s): I50.32 - Chronic diastolic (congestive) heart failure (6) COPD (chronic obstructive pulmonary disease) Current Visit: No Status: Chronic Qualifiers: COPD type: unspecified COPD Qualified Code(s): J44.9 - Chronic obstructive pulmonary disease, unspecified - Plan Pending clinical improvement at this time. Currently patient has been worked up for hyponatremia most likely secondary to SIADH versus medication overuse. Will continue to monitor patient closely and continue on IV fluids and IV antibiotics for wound infection. Discharge Plan: Home Plan to discharge in: Greater than 2 days - Code Status/Comfort Care Code Status Assessed: Yes Critical Care: No
[2018-10-18] MEDS: NA CHLORIDE 0.9% 1,000 ML IV SCH (14:30)
[2018-10-18] MEDS: RIVAROXABAN 15 MG TABLET PO SCH (16:05)
[2018-10-18] MEDS: ATORVASTATIN 40 MG TAB PO SCH (20:49)
[2018-10-18] MEDS ORDERED: MELATONIN 3 MG TABLET PO ONE (21:05)
[2018-10-18 21:11] LABS: Potassium 3.8 mmol/L (3.5-5.1)
[2018-10-18] MEDS ORDERED: D5W 1,000 ML IV SCH (22:00)
[2018-10-19] MEDS: BENZONATATE 100 MG CAP PO PRN ×3 (00:03→17:11)
--- NOTE | 2018-10-19 01:48 | PN ---
Date of Progress Note: 10/18/2018 Chief Complaint: Hyponatremia, hypoosmolar; hypovolemia. History Of Present Illness: The patient is 83-year-old man with history of congestive heart failure, arthritis, COPD, pulmonary hypertension, aortic stenosis, coronary artery disease with abdominal aor tic aneurysm, atrial fibrillation. The patient presented to the hospital because of dizziness. The patient was found to have hyponatremia. Sodium level was 116. The patient was started on IV normal saline to correct hypovolemia and to treat hyponatremia. Sodium level gradually improved. The patie nt was taken off metolazone and spironolactone, which was additional culprit for hyponatremia. The p atient is advancing with diet. He denies PND, orthopnea. Review of Systems: Denies fever, chills. Physical Examination: Lungs: Clear to auscultation bilaterally. Heart: S1-S2. Abdomen: Soft, benign, nontender. Extremities: Slight edema. Laboratory Data: Sodium 120, potassium 3.2, chloride 78, bicarbonate 36, BUN 17, creatinine 0.9, shirley cium 8.6. Impression And Plan: 1.Hyponatremia, hypoosmolar, multifactorial, chronic with acute component secondary to diuresis and volume depletion. Plan is to continue IV normal saline for hydration. 2.The patient cannot take diuretic at this point. The patient is hypovolemic. Plan is to check cor tisol level, TSH level to rule out hypothyroidism and adrenal insufficiency. 3.Hypokalemia. Plan is to monitor renal function, adjust replacement with potassium and magnesium. 4.Pulmonary hypertension, chronic obstructive pulmonary disease per primary team. 5.The patient has history of edema, currently diuretic on hold due to hyponatremia. Continue IV fluids. Monitor fluid balance. Adjust treatment accordingly. EB/MODL Voice ID: [id number] Report ID: [id number]
[2018-10-19] MEDS: ALBUTEROL 2.5 MG/3 ML NEB SOL IH SCH ×4 (01:50→19:30)
[2018-10-19] MEDS: IPRATROPIUM BROM 0.5MG/2.5ML IH SCH ×4 (01:50→19:30)
[2018-10-19] MEDS ORDERED: POTASSIUM CL SA 10 MEQ TAB PO ONE (02:30)
[2018-10-19] MEDS: guaiFENesin 100 MG/5 ML UCUP PO PRN ×5 (03:11→20:33)
[2018-10-19 05:23] LABS: Absolute Lymphocytes (CBC) 0.2 K/uL (0.7-4.9); Basophils % 0.2 % (0-1.3); Eosinophils % 0.8 % (0-4.4); Hematocrit 28.9 % (39.6-49.0); Lymphocytes % 3.2 % (15.3-44.8); MPV 7.1 fL (7.6-11.3); Monocytes % 7.2 % (3.3-12.3); RBC Red Blood Cell Count 3.15 M/uL (4.33-5.43)
[2018-10-19 05:35] LABS: BUN Blood Urea Nitrogen 14 mg/dL (7-18); Bicarbonate 34 mmol/L (21-32); Glucose Level 261 mg/dL (74-106); Magnesium 1.8 mg/dL (1.8-2.4); Potassium 4.1 mmol/L (3.5-5.1); Sodium Level 123 mmol/L (136-145)
[2018-10-19] MEDS ORDERED: MAGNESIUM SULFATE 1 gm IVPB 1 GM/100 ML BAG IV ONE (06:00)
[2018-10-19] MEDS: LEVOTHYROXINE SOD 0.05 MG TABLET PO SCH (07:32)
[2018-10-19] MEDS: DOCOSAHEXANOIC AC/EPA 1000 MG PO SCH (08:49)
[2018-10-19] MEDS: HOME MED 1 EA UNK (Fluticasone/Vilanterol [Breo Ellipta 200-25 Mcg Inh] 1 EACH) IH SCH (08:49)
[2018-10-19] MEDS: SILDENAFIL CITRATE 20 MG TABLET PO SCH ×2 (08:50→20:32)
[2018-10-19] MEDS: ASPIRIN EC 81 MG TAB PO SCH (08:53)
[2018-10-19] MEDS: POTASSIUM CL SA 10 MEQ TAB PO SCH (08:53)
[2018-10-19] MEDS: MAGNESIUM OXIDE 400 MG TAB PO SCH ×2 (08:53→20:32)
[2018-10-19] MEDS: LACTOBACILLUS/ACIDOPHILUS TAB PO SCH (08:53)
[2018-10-19] MEDS: levoFLOXacin 500 MG TAB PO SCH (08:54)
[2018-10-19] MEDS: predniSONE 10 MG TAB PO SCH ×2 (08:54→20:31)
[2018-10-19] MEDS: THIAMINE HCL 100 MG TABLET PO SCH (08:54)
[2018-10-19] MEDS: ANTIARTHRITIC COMBINATION NO 2 900 MG PO SCH ×2 (08:55→20:33)
[2018-10-19] MEDS: METOPROLOL TAR 25 MG TAB PO SCH ×2 (08:55→20:31)
[2018-10-19] MEDS: VANCOMYCIN 1.5 GM in NA CHLORIDE 0.9% 500 ML IV SCH ×2 (08:56→21:00)
[2018-10-19] MEDS: PANTOPRAZOLE 40MG TABLET PO SCH (08:59)
[2018-10-19] MEDS ORDERED: NA CHLORIDE 0.9% 1,000 ML IV SCH (10:00)
--- NOTE | 2018-10-19 10:55 | P.PN ---
Subjective Date of Service: 10/19/18 Chief Complaint: hyponatremia Patient seen and examined at bedside with RN. Chart reviewed. Case discussed with nephrology at this time. Currently patient is doing much better than before. No complaints to offer overnight. States that his weakness is getting better however still there. Review of Systems 10-point ROS is otherwise unremarkable Physical Examination - Vital Signs Temperature: 97.3 F Blood Pressure: 132/77 Pulse: 76 Respirations: 18 Pulse Ox (%): 97 - Physical Exam General: Alert, In no apparent distress, Oriented x3 Respiratory: Clear to auscultation bilaterally, Normal air movement Cardiovascular: Regular rate/rhythm, Normal S1 S2 Gastrointestinal: Normal bowel sounds, No tenderness Musculoskeletal: No tenderness Integumentary: No rashes Neurological: Normal speech, Normal tone, Normal affect Lymphatics: No axilla or inguinal lymphadenopathy - Studies Microbiology Data (last 24 hrs): 10/16/18 21:55 Clean Catch Urine [place] Count - Final 10/16/18 21:55 Clean Catch Urine - Final No growth. Medications List Reviewed: Yes Assessment And Plan - Current Problems (Diagnosis) (1) Hyponatremia Current Visit: No Status: Acute Plan: Symptomatic hyponatremia. Currently symptoms resolved. SIADH versus medication side effect -nephrology consulted. Appreciated recommendations -currently patient on IV fluids NS at 100 mL an hr -sodium at 128 today, slowly improving -hold Lasix, spironolactone at this time -doing well overall. Will continue with current management (2) Skin wound from surgical incision Current Visit: No Status: Acute Plan: Skin wound from surgical incision -currently on IV vancomycin and p.o. Levaquin need to be continued for 6 weeks from 10/08/18 - 11/19/18 (3) Chronic a-fib Current Visit: Yes Status: Chronic Plan: Currently on beta-vanessa and anti coagulation (4) CAD (coronary artery disease) Onset Date: 02/20/16 Current Visit: No Status: Chronic Plan: Restarted on home medication Qualifiers: Coronary Disease-Associated Artery/Lesion type: [place] artery [place] vs. transplanted heart: [place] heart Associated angina: with unstable angina Qualified Code(s): I25.110 - Atherosclerotic heart disease of [place] coronary artery with unstable angina pectoris (5) CHF (congestive heart failure) Onset Date: 06/07/14 Current Visit: No Status: Chronic Plan: Currently CHF medication on hold. Lasix spironolactone and Metazalone on hold at this time due to hyponatremia Qualifiers: Heart failure type: diastolic Heart failure chronicity: chronic Qualified Code(s): I50.32 - Chronic diastolic (congestive) heart failure (6) COPD (chronic obstructive pulmonary disease) Current Visit: No Status: Chronic Plan: Kev[place] cinthia Qualifiers: COPD type: unspecified COPD Qualified Code(s): J44.9 - Chronic obstructive pulmonary disease, unspecified - Plan Pending clinical improvement at this time. Currently patient has been worked up for hyponatremia most likely secondary to SIADH versus medication overuse. Will continue to monitor patient closely and continue on IV fluids and IV antibiotics for wound infection. Discharge Plan: Home Plan to discharge in: Greater than 2 days - Code Status/Comfort Care Code Status Assessed: Yes Critical Care: No
--- NOTE | 2018-10-19 15:20 | RAD REPORT ---
EXAM DESCRIPTION: RAD - Chest Pa And Lat (2 Views) - 10/19/2018 3:05 pm CLINICAL HISTORY: edema/ auditory crackles Chest pain. COMPARISON: Chest Single View dated 10/16/2018; Chest Single View dated 10/08/2018; Chest Single View d ated 10/03/2018; Chest Single View dated 09/22/2018 FINDINGS: Small left pleural effusion is suspected. Lungs are diffusely emphysematous. The heart is mildly enlarged in size with a dual lead pacer device present. Right-sided PICC line has tip SVC.
[2018-10-19] MEDS: RIVAROXABAN 15 MG TABLET PO SCH (17:11)
[2018-10-19] MEDS: SODIUM CHLORIDE 1 GM TAB PO SCH (17:11)
--- NOTE | 2018-10-19 19:42 | P.PN ---
Subjective Date of Service: 10/19/18 Chief Complaint: hyponatremia Subjective: Worsening Pt with chronic hyponatremia today initially improved on IVF , now worsen pedal edmea and rales on exam will order 2 view CXR fluid restricition Will rpt serum osmol, urine osmol and lytes urine osmol trending up, and that likely why pt is not responding to NS will consider tolvaptan vs salt and lasix if no improvement Physical Examination - Vital Signs Temperature: 97.2 F Blood Pressure: 99/55 Pulse: 79 Respirations: 16 Pulse Ox (%): 97 - Physical Exam General: In no apparent distress, Oriented x3 HEENT: Atraumatic Neck: Supple, Without JVD or thyroid abnormality Respiratory: Crackles/rales Cardiovascular: Regular rate/rhythm, Normal S1 S2, No gallops, No murmurs, Edema Gastrointestinal: Normal bowel sounds, Soft and benign - Studies Microbiology Data (last 24 hrs): 10/16/18 21:[address] Count - Final 10/16/18 21:55 Clean Catch Urine - Final No growth. Medications List Reviewed: Yes Assessment And Plan - Current Problems (Diagnosis) (1) Hyponatremia Current Visit: No Status: Acute - Plan HYponatremia initially metolazone induced now pt with signs of fluid overload will rpt TSH, urine osmol and lytes fluid restriction corrcetd NA today 126 cotrisol and uric acid wnl CHF on IVF now will order CXR and decide about IVF accordingly COPD on inhalers and steroids Afib rate controlled
[2018-10-19] MEDS: ATORVASTATIN 40 MG TAB PO SCH (20:31)
[2018-10-19] MEDS: DOCUSATE NA 100 MG CAP PO PRN (20:33)
[2018-10-19] MEDS: MELATONIN 3 MG TABLET PO PRN (21:04)
[2018-10-20] MEDS: ALBUTEROL 2.5 MG/3 ML NEB SOL IH SCH ×4 (01:05→19:40)
[2018-10-20] MEDS: IPRATROPIUM BROM 0.5MG/2.5ML IH SCH ×4 (01:05→19:40)
[2018-10-20] MEDS: BENZONATATE 100 MG CAP PO PRN ×3 (01:29→17:20)
[2018-10-20] MEDS: LEVOTHYROXINE SOD 0.05 MG TABLET PO SCH (06:03)
[2018-10-20 06:30] LABS: Magnesium 1.9 mg/dL (1.8-2.4); Potassium 4.4 mmol/L (3.5-5.1)
[2018-10-20] MEDS: ANTIARTHRITIC COMBINATION NO 2 900 MG PO SCH ×2 (09:00→21:00)
[2018-10-20] MEDS: guaiFENesin 100 MG/5 ML UCUP PO PRN ×3 (09:28→21:26)
[2018-10-20] MEDS: HOME MED 1 EA UNK (Fluticasone/Vilanterol [Breo Ellipta 200-25 Mcg Inh] 1 EACH) IH SCH (09:29)
[2018-10-20] MEDS: THIAMINE HCL 100 MG TABLET PO SCH ×2 (09:29→09:31)
[2018-10-20] MEDS: MAGNESIUM OXIDE 400 MG TAB PO SCH ×2 (09:30→21:22)
[2018-10-20] MEDS: SODIUM CHLORIDE 1 GM TAB PO SCH ×2 (09:31→17:20)
[2018-10-20] MEDS: levoFLOXacin 500 MG TAB PO SCH (09:31)
[2018-10-20] MEDS: PANTOPRAZOLE 40MG TABLET PO SCH (09:31)
[2018-10-20] MEDS: LACTOBACILLUS/ACIDOPHILUS TAB PO SCH (09:31)
[2018-10-20] MEDS: SILDENAFIL CITRATE 20 MG TABLET PO SCH ×2 (09:31→21:24)
[2018-10-20] MEDS: DOCOSAHEXANOIC AC/EPA 1000 MG PO SCH (09:31)
[2018-10-20] MEDS: predniSONE 10 MG TAB PO SCH (09:31)
[2018-10-20] MEDS: POTASSIUM CL SA 10 MEQ TAB PO SCH (09:32)
[2018-10-20] MEDS: ASPIRIN EC 81 MG TAB PO SCH (09:32)
[2018-10-20] MEDS: METOPROLOL TAR 25 MG TAB PO SCH ×2 (09:32→21:23)
[2018-10-20] MEDS: VANCOMYCIN 1.5 GM in NA CHLORIDE 0.9% 500 ML IV SCH (10:08)
--- NOTE | 2018-10-20 10:49 | P.PN ---
Subjective Date of Service: 10/20/18 Chief Complaint: hyponatremia Patient seen and examined at bedside with RN. Chart reviewed. Case discussed with nephrology at this time. Currently patient is doing much better than before. No complaints to offer overnight. Complains about having some pain bilateral lower extremity this morning Review of Systems 10-point ROS is otherwise unremarkable Physical Examination - Vital Signs Temperature: 97.5 F Blood Pressure: 109/74 Pulse: 80 Respirations: 18 Pulse Ox (%): 100 - Physical Exam General: Alert, In no apparent distress Respiratory: Normal air movement, Crackles/rales Cardiovascular: Regular rate/rhythm, Normal S1 S2 Gastrointestinal: Normal bowel sounds, No tenderness Musculoskeletal: No tenderness, Swelling (2+ edema) Integumentary: No rashes Neurological: Normal speech, Normal tone, Normal affect Lymphatics: No axilla or inguinal lymphadenopathy - Studies Microbiology Data (last 24 hrs): 10/16/18 21:55 Clean Catch Urine [place] Count - Final 10/16/18 21:55 Clean Catch Urine - Final No growth. Medications List Reviewed: Yes Assessment And Plan - Current Problems (Diagnosis) (1) Hyponatremia Current Visit: No Status: Acute Plan: Symptomatic hyponatremia. Currently symptoms resolved. SIADH versus medication side effect -nephrology consulted. Appreciated recommendations -stop IV fluids at this time. Started on salt tabs. -sodium at 129 today, slowly improving -will restart Lasix at this time. Will continue to hold spironolactone -doing well overall. (2) Skin wound from surgical incision Current Visit: No Status: Acute Plan: Skin wound from surgical incision -currently on IV vancomycin and p.o. Levaquin need to be continued for 6 weeks from 10/08/18 - 11/19/18 (3) Chronic a-fib Current Visit: Yes Status: Chronic Plan: Currently on beta-vanessa and anticoagulation (4) CAD (coronary artery disease) Onset Date: 02/20/16 Current Visit: No Status: Chronic Plan: Restarted on home medication Qualifiers: Coronary Disease-Associated Artery/Lesion type: [place] artery [place] vs. transplanted heart: [place] heart Associated angina: with unstable angina Qualified Code(s): I25.110 - Atherosclerotic heart disease of [place] coronary artery with unstable angina pectoris (5) CHF (congestive heart failure) Onset Date: 06/07/14 Current Visit: No Status: Chronic Plan: Currently volume overloaded on the chest x-ray -IV fluids have been discontinued -patient restarted on Lasix at this time -will monitor closely -will continue to hold spironolactone Qualifiers: Heart failure type: diastolic Heart failure chronicity: chronic Qualified Code(s): I50.32 - Chronic diastolic (congestive) heart failure (6) COPD (chronic obstructive pulmonary disease) Current Visit: No Status: Chronic Plan: Duo nebs, and uses home oxygen at 2 L nasal cannula Qualifiers: COPD type: unspecified COPD Qualified Code(s): J44.9 - Chronic obstructive pulmonary disease, unspecified - Plan Pending clinical improvement at this time. Will continue with IV antibiotics for wound infection. Will monitor patient for 24-48 hr after salt tabs and restarting Lasix. If improvement patient and can be discharged home under stable condition versus [facility] if accepted back there for custodial facility. Discharge Plan: Home Plan to discharge in: Greater than 2 days - Code Status/Comfort Care Code Status Assessed: Yes Critical Care: No
[2018-10-20] MEDS: FUROSEMIDE 20 MG TABLET PO SCH (11:55)
--- NOTE | 2018-10-20 14:07 | PN ---
Date of Progress Note: 10/20/2018 Subjective: The patient sleepy, still have some shortness of breath. Physical Examination: Vital Signs: Blood pressure 180/83, pulse of 54. The patient had good urine output, voiding. Chest: Crackles bilateral. Heart: S1 and S2. Systolic murmur. Abdomen: Soft and nontender. Extremities: Trace edema. Laboratory Data: WBC 5.4, H and H 9.7/28.9, platelet 184. Sodium 129, potassium 4.4, bicarb 34, BUN 16, creatinine 0.9, calcium 8.4, magnesium 1.9. Current Medications: The patient on its include: 1.Levaquin. 2.Vancomycin. 3.Breathing treatment. 4.Xifaxan. 5.Atorvastatin. 6.Metoprolol. 7.Revatio. 8.Tylenol. 9.Ipratropium. 10.Salt tablet 1 g. 11.Docusate. 12.Magnesium oxide. 13.Melatonin. 14.KCl. 15.Pyridium. 16.Thiamine. Assessment And Plan: 1.Hyponatremia, originally was depletional. Currently, slightly on the wet side. I agree with salt tablet. I am going to start the patient on Lasix 20 mg. Sodium appropriately rising and we will fo llow up the patient. We will place the patient on a fluid restriction and continue to monitor the pa tient. 2.Hypertension, controlled, optimal. 3.Adrenal insufficiency with the present infection and hyponatremia. I going to go ahead and increa se prednisone to the stress dose, which is equal to 20 in the morning, 10 at night and we will monito r the patient. 4.Urinary tract infection. Continue current antibiotic. We will follow up with primary. LATISHA/LORRI Voice ID: [id number] Report ID: [id number]
[2018-10-20] MEDS: RIVAROXABAN 15 MG TABLET PO SCH (17:20)
[2018-10-20] MEDS ORDERED: predniSONE 10 MG TAB PO SCH (21:00)
[2018-10-20] MEDS: MELATONIN 3 MG TABLET PO PRN (21:22)
[2018-10-20] MEDS: ATORVASTATIN 40 MG TAB PO SCH (21:23)
[2018-10-20] MEDS: DOCUSATE NA 100 MG CAP PO PRN (21:30)
[2018-10-21] MEDS: ALBUTEROL 2.5 MG/3 ML NEB SOL IH SCH ×3 (01:05→13:55)
[2018-10-21] MEDS: IPRATROPIUM BROM 0.5MG/2.5ML IH SCH ×3 (01:05→13:55)
[2018-10-21] MEDS: BENZONATATE 100 MG CAP PO PRN ×2 (01:36→12:55)
[2018-10-21] MEDS: VANCOMYCIN 1.5 GM in NA CHLORIDE 0.9% 500 ML IV SCH (03:24)
[2018-10-21 04:20] VITALS: TEMP 97.3
[2018-10-21] MEDS: guaiFENesin 100 MG/5 ML UCUP PO PRN (04:52)
[2018-10-21 05:57] LABS: Potassium 4.6 mmol/L (3.5-5.1)
[2018-10-21] MEDS: LEVOTHYROXINE SOD 0.05 MG TABLET PO SCH (06:43)
[2018-10-21] MEDS: SILDENAFIL CITRATE 20 MG TABLET PO SCH (08:43)
[2018-10-21] MEDS: LACTOBACILLUS/ACIDOPHILUS TAB PO SCH (08:44)
[2018-10-21] MEDS: DOCOSAHEXANOIC AC/EPA 1000 MG PO SCH (08:44)
[2018-10-21] MEDS: MAGNESIUM OXIDE 400 MG TAB PO SCH (08:44)
[2018-10-21] MEDS: SODIUM CHLORIDE 1 GM TAB PO SCH (08:44)
[2018-10-21] MEDS: FUROSEMIDE 20 MG TABLET PO SCH (08:45)
[2018-10-21] MEDS: levoFLOXacin 500 MG TAB PO SCH (08:45)
[2018-10-21] MEDS: POTASSIUM CL SA 10 MEQ TAB PO SCH (08:46)
[2018-10-21] MEDS: DOCUSATE NA 100 MG CAP PO PRN (08:46)
[2018-10-21] MEDS: ASPIRIN EC 81 MG TAB PO SCH (08:46)
[2018-10-21] MEDS: PANTOPRAZOLE 40MG TABLET PO SCH (08:47)
[2018-10-21] MEDS: THIAMINE HCL 100 MG TABLET PO SCH (08:47)
[2018-10-21] MEDS: METOPROLOL TAR 25 MG TAB PO SCH (08:48)
[2018-10-21] MEDS: HOME MED 1 EA UNK (Fluticasone/Vilanterol [Breo Ellipta 200-25 Mcg Inh] 1 EACH) IH SCH (08:49)
[2018-10-21 08:50] VITALS: BP 167/92
[2018-10-21] MEDS: ANTIARTHRITIC COMBINATION NO 2 900 MG PO SCH (08:50)
[2018-10-21] MEDS ORDERED: predniSONE 10 MG TAB PO SCH (09:00)
[2018-10-21 11:01] VITALS: O2SAT 98
--- NOTE | 2018-10-21 11:44 | P.DS ---
Admission Date: 10/17/18 Discharge Date: 10/21/18 Reason for Admission: hyponatremia Consultations: Nephrology - Problems (1) Hyponatremia Current Visit: No Status: Acute (2) Skin wound from surgical incision Current Visit: No Status: Acute (3) Chronic a-fib Current Visit: Yes Status: Chronic (4) CAD (coronary artery disease) Onset Date: 02/20/16 Current Visit: No Status: Chronic Qualifiers: Coronary Disease-Associated Artery/Lesion type: [place] artery [place] vs. transplanted heart: [place] heart Associated angina: with unstable angina Qualified Code(s): I25.110 - Atherosclerotic heart disease of [place] coronary artery with unstable angina pectoris (5) CHF (congestive heart failure) Onset Date: 06/07/14 Current Visit: No Status: Chronic Qualifiers: Heart failure type: diastolic Heart failure chronicity: chronic Qualified Code(s): I50.32 - Chronic diastolic (congestive) heart failure (6) COPD (chronic obstructive pulmonary disease) Current Visit: No Status: Chronic Qualifiers: COPD type: unspecified COPD Qualified Code(s): J44.9 - Chronic obstructive pulmonary disease, unspecified Brief History of Present Illness: Mr Dan is an 83 years old male with history of multiple medical problems, admitted about 2 weeks ago due to hyponatremia, came to ER today complaining of dizziness. His symptoms started about 3 days ago. He states that every time he stand up to go to the restroom, he become very dizzy and is about to faint. He had a lab work done today, and was found hyponatremic again, sodium level was 116. Then he was transferred to ER for further evaluation. At my encounter, the patient is alert and oriented, able to provide a coherent story. Lab work in ER shows sodium level of 117, UA abnormal consistent with UTI. serum osmolality low , urine osmolality more than 100, consistent with SIADH. Allergies Hospital Course: Overall during the hospital stay patient remained stable [id number] for his congestive heart failure which were all placed on hold and patient was started on normal saline here in the hospital. Patient had marked improvement in his symptoms with improvement in his sodium and was taken off the fluids here in the hospital. Lasix were started again and patient did well overall. When his sodium level was 132 and patient was able to ambulate and patient [facility] where he was to continue taking his IV antibiotics for possible wound infection. Vital Signs/Physical Exam: Temp Pulse Resp BP Pulse Ox 97.3 F 80 18 167/92 H 100 10/21/18 08:00 10/21/18 08:48 10/21/18 08:00 10/21/18 08:48 10/21/18 08:00 General: Alert, In no apparent distress HEENT: Atraumatic, PERRLA, EOMI Neck: Supple, JVD not distended Respiratory: Clear to auscultation bilaterally, Normal air movement Cardiovascular: Regular rate/rhythm, Normal S1 S2 Gastrointestinal: Normal bowel sounds, No tenderness Musculoskeletal: No tenderness Integumentary: No rashes Neurological: Normal speech, Normal tone, Normal affect Lymphatics: No axilla or inguinal lymphadenopathy Laboratory Data at Discharge: WBC 5.4 K/uL (4.3-10.9) D 10/19/18 05:00 Hgb 9.7 g/dL (13.6-17.9) L 10/19/18 05:00 Hct 28.9 % (39.6-49.0) L 10/19/18 05:00 Plt Count 184 K/uL (152-406) 10/19/18 05:00 PT 24.2 SECONDS (9.5-12.5) H 10/16/18 22:00 INR 2.11 10/16/18 22:00 Sodium 132 mmol/L (136-145) L 10/21/18 05:00 Potassium 4.6 mmol/L (3.5-5.1) 10/21/18 05:00 BUN 18 mg/dL (7-18) 10/21/18 05:00 Creatinine 0.89 mg/dL (0.55-1.3) 10/21/18 05:00 Glucose 110 mg/dL (74-106) H 10/21/18 05:00 Uric Acid 4.7 mg/dL (3.5-7.2) D 10/17/18 13:15 Phosphorus 2.3 mg/dL (2.5-4.9) L 10/19/18 05:00 Magnesium 1.9 mg/dL (1.8-2.4) 10/20/18 06:00 Total Bilirubin 0.5 mg/dL (0.2-1.0) 10/16/18 22:00 AST 24 U/L (15-37) 10/16/18 22:00 ALT 23 U/L (12-78) 10/16/18 22:00 Alkaline Phosphatase 58 U/L (45-117) 10/16/18 22:00 Home Medications: Acetaminophen [Tylenol] 650 mg PO Q6H PRN 10/17/18 Albuterol Sulfate [Albuterol Sulfate 0.083% Neb Soln] 1 unit IH Q12H PRN Antiarthritic Combination No.2 [Glucosamine-Chondroitin] 900 mg PO BID 10/17/18 Aspirin [Aspirin EC 81 MG] 81 mg PO DAILY 10/17/18 Atorvastatin Calcium [Lipitor] 40 mg PO BEDTIME 10/17/18 Benzonatate [Tessalon Perle*] 100 mg PO Q8H PRN 10/17/18 Docosahexanoic AC/Epa [Fish Oil 1,000 MG*] 1,000 mg PO DAILY 10/17/18 Docusate Sodium [Dulcolax Stool Softener] 200 mg PO BID PRN 10/17/18 Fluticasone/Vilanterol [Breo Ellipta 200-25 Mcg INH] 1 each IH DAILY 10/17/18 Furosemide [Lasix] 20 mg PO DAILY 10/17/18 Guaifenesin [Kim-Tussin] 10 ml PO Q6H PRN 10/17/18 Ipratropium/Albuterol Sulfate [Iprat-Albut 0.5-3(2.5) mg/3 ml] 1 unit IH Q6H Lactobacillus Rhamnosus GG [Culturelle] 1 each PO DAILY 10/17/18 Levaquin Solution 500 mg IV DAILY 10/17/18 Levothyroxine Sodium 50 mcg PO DAILY 10/17/18 Magnesium Oxide [Mag 0X Tab] 400 mg PO BID 10/17/18 Metoprolol Tartrate [Lopressor] 25 mg PO BID 10/17/18 Omeprazole 20 mg PO DAILY 10/17/18 Phenazopyrididine [Pyridium*] 100 mg PO DIRECTED 10/17/18 Polyethyl Gly 3350 [Glycolax*] 17 gm PO BID PRN 10/17/18 Potassium Chloride 20 meq PO DAILY 10/17/18 Rivaroxaban [Xarelto] 15 mg PO DAILY 10/17/18 Sennosides/Docusate Sodium [Senna-Docusate Sodium Tablet] 2 each PO BID PRN Sildenafil Citrate [Revatio] 20 mg PO BID 10/17/18 Spironolactone [Aldactone] 25 mg PO TID 10/17/18 Vancomycin [Vancocin HCl*] 1 gm IV DAILY 10/17/18 Vit A/Vit C/Vit E/Zinc/Copper [Preservision Areds Softgel] 1 cap PO BID metOLazone [Zaroxolyn] 1.5 mg PO DAILY 10/17/18 predniSONE [Deltasone] 10 mg PO BID 10/17/18 Tiotropium [Spiriva Handihaler] 18 mcg IH DAILY 10/19/18
--- NOTE | 2018-10-21 12:04 | P.PN ---
Subjective Date of Service: 10/21/18 Chief Complaint: hyponatremia Subjective: Improving Pt with chronic hyponatremia today no overnight events Na improved to 132 can be discharged from nephrology point of view Cont to hold metolazone and aldactone after discharge Physical Examination - Vital Signs Temperature: 97.3 F Blood Pressure: 167/92 Pulse: 80 Respirations: 18 Pulse Ox (%): 100 - Physical Exam General: In no apparent distress, Oriented x3 HEENT: Atraumatic Neck: Supple, Without JVD or thyroid abnormality Respiratory: Crackles/rales (mild basal rales ) Cardiovascular: Regular rate/rhythm, Normal S1 S2, Edema (trace Lt pedal edema ) Gastrointestinal: Normal bowel sounds, No ascites - Studies Medications List Reviewed: Yes Assessment And Plan - Current Problems (Diagnosis) (1) Hyponatremia Current Visit: No Status: Acute - Plan hypoosmolar HYponatremia initially metolazone induced now pt with signs of fluid overload improved on salt tablets and lasix CHF \ cont lasix to hold metolazone and aldactone after discharge COPD on inhalers and steroids Afib rate controlled
== END 2018-10-21 14:52 | DRG 641 ==
LOC: ER 21:14 → ERHOLD 10-17 00:28 → 2ND 10-17 01:20
PROVIDERS: ADMIT Internal Medicine; ATTEND Family Medicine
DX: E87.1 Hypo-osmolality and hyponatremia (principal); I50.32 Chronic diastolic (congestive) heart failure; N39.0 Urinary tract infection, site not specified; E27.40 Unspecified adrenocortical insufficiency; T81.49XA Infection following a procedure, other surgical site, initial encounter; I48.2 Chronic atrial fibrillation; I25.10 Atherosclerotic heart disease of native coronary artery without angina pectoris; J44.9 Chronic obstructive pulmonary disease, unspecified; I27.20 Pulmonary hypertension, unspecified; G62.9 Polyneuropathy, unspecified; E87.6 Hypokalemia; Z87.891 Personal history of nicotine dependence; Z95.2 Presence of prosthetic heart valve; Z95.0 Presence of cardiac pacemaker
CPT/HCPCS: 36415; 51702; 71045; 71046; 80048; 80076; 80202; 81003; 81015; 82533; 83735; 83880; 83930; 83935; 84100; 84132; 84300; 84443; 84484; 84550; 85025; 85610; 86850; 86900; 86901; 87086; 87088; 93005; 94640; 96360; 96361; 97116; 97163; 99285; J0696; J3370; J3475; J7030; J7512

== ENCOUNTER 2018-12-03 09:00 | Emergency (ER) | payer OTHER, BC ==
[2018-12-03] MEDS ORDERED: EPINEPHrine 1 MG/10 ML SYR IV ONE (09:01)
--- OUTSIDE RECORDS SUMMARY | 2018-12-03 09:04 | XMS REPORT | Clinical Summary ---
:1935 Author Organization Formerly [facility] Address [address] [place] [address] Care Team Providers Name Role Phone Pcp, [...] vitamins Take by mouth 2 0 Active A,C,Z-dgam-stysth (two) times (PRESERVISION daily. AREDS) [phone] wzoc-qg-ucel Cap docusate sodium Take 200 mg by 0 Active (COLACE) 100 MG mouth 2 (two) capsule times daily. glucosamine-chondr Take 1 tablet by 0 Active oitin 500-400 mg mouth 2 (two) tablet times daily. omega Take 1 capsule by 0 Active 2-nyl-ufb-fish oil mouth daily. (FISH OIL) 1,000 mg [...] mg total) by 19 020 mouth daily. dextrose 50 % in Inject 25 mLs 0 09/22/19 Active water (DEXTROSE (12.5 g total) 19 50%, D50W,) Syrg intravenously as injection needed (blood sugar less than 70 and patient unable to take PO juice or soda). insulin lispro Inject 0-12 Units 10 mL 0 09/22/1909/20/2 Active (HUMALOG) 100 subcutaneously as 19 020 unit/mL injection needed (High blood sugar). insulin lispro Inject 0-4 Units 10 mL 0 09/22/1909/20/2 Active (HUMALOG) 100 subcutaneously 19 020 unit/mL injection every night as needed (High blood sugar). ipratropium-albute Take 3 mLs by 0 09/21/ 05//2 Active rol (DUO-NEB) 0.5 nebulization 19 020 mg-3 mg(2.5 mg every 6 (six) base)/3 mL hours for 360 nebulizer solution days. metoprolol Take 1 tablet (25 0 09/21/ Active (LOPRESSOR) 25 MG mg total) by 020 tablet mouth 2 (two) times daily. pantoprazole Take 1 tablet (40 0 09/23/19 Active (PROTONIX) 40 MG mg total) by 19 tablet mouth daily. senna-docusate Take 2 tablets by 0 09/21/ Active (SENOKOT S) 8.6-50 mouth 2 (two) [...] 0 Discontinued MISC route daily. 019 bisacodyl Take 2 tablets 30 tablet 0 09/22/19 (DULCOLAX) 5 mg EC (10 mg total) by 019 tablet mouth daily as needed for [...] Take 17 g by 14 each 0 09/21/09/24/2 glycol (GLYCOLAX) mouth 2 (two) 019 17 [...] Abdominal aortic aneurysm without rupture (HCC) after 12/02/2017 Family History Medical History Relation Name Comments [...] Not on file Implants Implanted Type Area Dental Laboratory Supervisor Device Shelf Model / Identifier Expiration Serial / Lot Date Patch Vasc Paulette-Grd 4x4cm [id number] - [id number] IMPLANTS N/A: [employer] 12/23/2022 [id number] / Implanted: Qty: 1 on 09/13/2018 by Pillo rBand MD Chest TECH: SURG INNOV / [id number] Valve Mitrl Epic 33mm [id number] - [id number] IMPLANTS N/A: ST MARVA 06/2021 [id number] / Implanted: Qty: 1 on 09/13/2018 by Pillo Brand MD Chest MED: CARDIAC SURG [id number] / Valve Heart Bambi 3 29mm [id number] - [id number] Valves Aorta KENT LIFESCI 12/15/2019 [id number] / Implanted: Qty: 1 on 03/04/2018 by Mauricio Clark MD [id number] / Procedures Procedure Name Priority Date/Time Associated [...] 438 ms QTC Calculation(Bazett) 505 ms R [place] 268 degrees T [place] 79 degrees Ventricular-paced rhythm Abnormal ECG When [...] 472 ms QTC Calculation(Bazett) 544 ms R [place] 267 degrees T [place] 69 degrees Ventricular-paced rhythm Abnormal ECG ECG 12-LEAD Routine 09/13/2018 5:27 PM CDT ECG 12-LEAD Routine 09/13/2018 5:27 PM CDT Procedure Note - Interface, External Ris In - 09/13/2018 5:51 PM CDT Ventricular Rate 80 BPM Atrial Rate 58 BPM QRS Duration 150 ms Q-T Interval 470 ms QTC Calculation(Bazett) 542 ms R [place] 268 degrees T [place] 65 degrees Ventricular-paced rhythm Abnormal ECG OXYGEN [...] 502 ms QTC Calculation(Bazett) 542 ms R [place] -89 degrees T [place] 81 degrees Ventricular-paced rhythm Biventricular pacemaker detected [...] CATH REPORT - SCAN 03/09/2018 10:40 AM SOFTWARE TRAINER RHYTHM STRIP - SCAN 03/09/2018 10:40 AM SOFTWARE TRAINER TRANSFUSION SERVICE REPORT - 03/05/2018 5:52 PM [...] 446 ms QTC Calculation(Bazett) 491 ms R [place] -81 degrees T [place] 78 degrees Ventricular-paced rhythm with occasional Premature [...] procedure are in the results section. after 12/02/2017 Results RHYTHM STRIP - SCAN (09/22/2018 1:31 PM CDT)Only the most recent of3 resultswithin the time period is included. Narrative Performed At POC-Glucose meter (09/21/2018 12:24 PM CDT)Only the most recent of26 resultswithin the time period is included. POC-Glucose Meter 151 (H)Comment: TESTED AT 70 - 110 mg/dL [facility] [address] [facility] [address] Specimen Blood Performing Organization Address City/State/Zipcode Phone Number [address] [phone] CENTER CBC (Hemogram only) (09/21/2018 6:14 AM CDT)Only the most recent of5 resultswithin the time period is included. WBC 7.8 3.5 - 10.5 K/L [facility] RBC 3.57 (L) 4.63 - 6.08 M/L [facility] Hemoglobin 10.9 (L) 13.7 - 17.5 GM/DL [facility] Hematocrit 36.5 (L) 40.1 - 51.0 % [facility] MCV 102.2 (H) 79.0 - 92.2 fL [facility] MCH 30.5 25.7 - 32.2 pg [facility] MCHC 29.9 (L) 32.3 - 36.5 GM/DL [facility] RDW 13.6 11.6 - 14.4 % [facility] Platelets 182 150 - 450 K/CU MM [facility] MPV 9.5 9.4 - 12.4 fL [facility] nRBC 0 0 - 0 /100 WBC [facility] Specimen Blood Performing Organization Address City/[facility]/Zipcode Phone Number [address] [phone] CENTER Magnesium (09/21/2018 6:14 AM CDT)Only the most recent of11 resultswithin the time period is included. Magnesium 2.1 1.6 - 2.6 mg/dL [facility] Specimen Blood Performing Organization Address [facility] Phone Number [address] [address] CENTER Basic Metabolic Panel (09/21/2018 6:14 AM CDT)Only the most recent of11 resultswithin the time period is included. Sodium 138 136 - 145 meq/L [facility] Potassium 4.4 3.5 - 5.1 meq/L [facility] Chloride 97 (L) 98 - 107 meq/L [facility] CO2 34 (H) 22 - 29 meq/L [facility] BUN 19 7 - 21 mg/dL [facility] Creatinine 0.90 0.57 - 1.25 mg/dL [facility] Glucose 88 70 - 105 mg/dL [facility] Calcium 8.7 8.4 - 10.2 mg/dL [facility] EGFR 81Comment: ESTIMATED GFR IS mL/min/1.73 sq m [facility] NOT ACCURATE [facility] CLEARANCE IN PREDICTING GLOMERULAR FILTRATION RATE. ESTIMATED GFR IS NOT APPLICABLE FOR DIALYSIS PATIENTS. Specimen Blood Performing Organization Address City/[facility]/Zipcode Phone Number [facility] [address] [place] [address] [phone] [facility] Blood gas, arterial (09/19/2018 4:25 PM CDT)Only the most recent of14 resultswithin the time period is included. pH, Arterial 7.48 (H) 7.35 - 7.45 [facility] pCO2, Arterial 52 (H) 35 - 45 mmHg [facility] pO2, Arterial 84 80 - 90 mmHg [facility] O2 Sat, Arterial 96.9 96.0 - 97.0 % [facility] HCO3, Arterial 38 (H) 21 - 29 mmol/L [facility] Base Excess, Arterial 12.8 (H) -2.0 - 3.0 mmol/L [facility] Patient Temperature 36.4 C [facility] FIO2 28.0 % [facility] Specimen Blood, Arterial Performing Organization Address City/[facility]/Zipcode Phone Number [facility] [address] [place] [phone] [facility] XR chest 1 view portable / bedside (09/19/2018 6:48 AM CDT)Only the most recent of10 resultswithin the time period is included. Specimen Narrative Performed At FINAL REPORT RIS Comparison: 09/18/2018 TECHNIQUE: Single view of the chest FINDINGS: There are nonspecific mildly prominent interstitial markings laterally. Small left pleural effusion with adjacent airspace disease. No gross new lung parenchymal changes. Support lines and tubes are stable. Signed: Dick Brown MD Report Verified Date/Time:09/19/2018 08:20:07 Reading Location: [facility] C0[facility] Transitional Reading Room Procedure Note Interface, External [...] Report Verified Date/Time: 09/19/2018 08:20:07 Reading Location: [facility] C013 Transitional Reading Room Performing Organization Address City/[facility] Phone Number [facility] RIS ECG 12 lead (09/18/2018 12:54 AM CDT)Only the most recent of5 resultswithin the time period is included. Specimen Narrative Performed At Ventricular Rate 73 BPM GE MUSE Atrial Rate 43 BPM QRS Duration 156 ms Q-T Interval 442 ms QTC Calculation(Bazett) 486 ms R [place] -89 degrees T [place] 83 degrees Ventricular-paced rhythm Abnormal ECG When compared with ECG of 18-SEP-2018 00:54, Significant changes have occurred Confirmed by Alon ONEIL MICHAEL ([id number]) on 09/20/2018 7:44:57 AM Procedure Note Interface, External Ris In - 09/20/2018 7:45 AM CDT Ventricular Rate 73 BPM Atrial Rate 43 BPM QRS Duration 156 ms Q-T Interval 442 ms QTC Calculation(Bazett) 486 ms R [place] -89 degrees T [place] 83 degrees Ventricular-paced rhythm Abnormal ECG When compared with ECG of 18-SEP-2018 00:54, Significant changes have occurred Confirmed by Alon ONEIL MICHAEL ([id number]) on 09/20/2018 7:44:57 AM Performing Organization Address City/[facility] Phone Number [facility] MUSE CBC with platelet count + automated diff (09/17/2018 5:49 AM CDT)Only the most recent of5 resultswithin the time period is included. WBC 6.0 3.5 - 10.5 K/L [facility] RBC 3.15 (L) 4.63 - 6.08 M/L [facility] Hemoglobin 9.8 (L) 13.7 - 17.5 GM/DL [facility] Hematocrit 31.0 (L) 40.1 - 51.0 % [facility] MCV 98.4 (H) 79.0 - 92.2 fL [facility] MCH 31.1 25.7 - 32.2 pg [facility] MCHC 31.6 (L) 32.3 - 36.5 GM/DL [facility] RDW 13.6 11.6 - 14.4 % [facility] Platelets 95 (L) 150 - 450 K/CU MM [facility] MPV 10.2 9.4 - 12.4 fL [facility] nRBC 0 0 - 0 /100 WBC [facility] % Neutros 89 % [facility] % Lymphs 4 % [facility] % Monos 6 % [facility] % Eos 0 % [facility] % Baso 0 % [facility] # Neutros 5.30 1.78 - 5.38 K/L [facility] # Lymphs 0.25 (L) 1.32 - 3.57 K/L [facility] # Monos 0.38 0.30 - 0.82 K/L [facility] # Eos 0.00 (L) 0.04 - 0.54 K/L [facility] # Baso 0.01 0.01 - 0.08 K/L [facility] Immature Granulocytes-Relative 1 0 - 1 % [facility] Specimen Blood Performing Organization Address City/State/Zipcode Phone Number [facility] [address] [place] [address] CENTER Oxygen saturation, measured (09/16/2018 6:01 AM CDT)Only the most recent of7 resultswithin the time period is included. O2 Saturation (Measured) 69.7 % [facility] Specimen Blood Performing Organization Address City/State/Zipcode Phone Number [address] [address] CENTER Calcium, Ionized (09/16/2018 6:01 AM CDT)Only the most recent of9 resultswithin the time period is included. Calcium, Ion 1.13 1.12 - 1.27 mmol/L [facility] pH, Blood 7.42 [facility] Specimen Blood Performing Organization Address City/[facility] Phone Number [address] [address] CENTER Potassium (09/15/2018 3:32 PM CDT)Only the most recent of2 resultswithin the time period is included. Potassium 4.3 3.5 - 5.1 meq/L [facility] Specimen Blood Narrative Performed At Check Serum Potassium level 2 hours after [facility] oral potassium replacement completed or 30 min after intravenous potassium replacement. Performing Organization Address City/[facility] Phone Number [address] [address] CENTER Phosphorus (09/15/2018 4:21 AM CDT)Only the most recent of3 resultswithin the time period is included. Phosphorus 3.0 2.3 - 4.7 mg/dL [facility] Specimen Blood Performing Organization Address City/State/Zipcode Phone Number [address] [address] CENTER Hepatic function panel (09/14/2018 10:12 AM CDT) Protein, Total 5.4 (L) 6.0 - 8.3 gm/dL [facility] Albumin 3.1 (L) 3.5 - 5.0 g/dL [facility] Total Bilirubin 0.4 0.2 - 1.2 mg/dL [facility] Bilirubin, Direct 0.3 0.1 - 0.5 mg/dL [facility] Alkaline Phosphatase 36 (L) 40 - 150 U/L [facility] AST 53 (H) 5 - 34 U/L [facility] ALT 17 6 - 55 U/L [facility] Specimen Blood Performing Organization Address [facility] Phone Number [address] [address] CENTER Lactic Acid, Arterial (09/14/2018 2:46 AM CDT)Only the most recent of7 resultswithin the time period is included. Lactate, Art 2.9 (H) 0.5 - 2.2 mmol/L [facility] Specimen Blood, Arterial Performing Organization Address [facility] Phone Number [address] [address] [phone] CENTER Glucose-Stat Lab (09/13/2018 11:37 PM CDT)Only the most recent of8 resultswithin the time period is included. Glucose 192 (H) 70 - 110 mg/dL [facility] Specimen Blood, Arterial Performing Organization Address [facility] Phone Number [address] [address] [phone] CENTER Potassium-Stat Lab (09/13/2018 8:32 PM CDT)Only the most recent of8 resultswithin the time period is included. Potassium 3.2 (L) 3.6 - 5.5 meq/L [facility] Specimen Blood, Arterial Performing Organization Address [facility] Phone Number [address] [address] CENTER Sodium Na-Stat Lab (09/13/2018 8:32 PM CDT)Only the most recent of8 resultswithin the time period is included. Sodium 140 135 - 148 meq/L [facility] Specimen Blood, Arterial Performing Organization Address [facility] Phone Number [address] [address] CENTER HGB/HCT (H&H)-Stat Lab (09/13/2018 8:32 PM CDT)Only the most recent of8 resultswithin the time period is included. Hemoglobin 11.5 (L) 13.0 - 16.8 g/dL [facility] Hematocrit 34.0 (L) 40.0 - 50.0 % [facility] Specimen Blood, Arterial Performing Organization Address [facility] Phone Number [address] [address] CENTER aPTT (09/13/2018 2:15 PM CDT)Only the most recent of2 resultswithin the time period is included. PTT 30.0 22.5 - 36.0 seconds [facility] Specimen Blood Performing Organization Address [facility] Phone Number [address] [address] CENTER Prothrombin time/INR (09/13/2018 2:15 PM CDT)Only the most recent of2 resultswithin the time period is included. Protime 16.8 (H) 11.7 - 14.7 seconds [facility] INR 1.4 <=5.9 [facility] Specimen Blood Narrative Performed At RECOMMENDED COUMADIN/WARFARIN INR THERAPY [facility] RANGES STANDARD DOSE: 2.0 - 3.0 Includes: PROPHYLAXIS for venous thrombosis, systemic embolization; TREATMENT for venous thrombosis and/or pulmonary embolus. HIGH RISK: Target INR is 2.5-3.5 for patients with mechanical heart valves. Performing Organization Address City/[facility] Phone Number [facility] [address] [address] [facility] Fibrinogen (09/13/2018 2:15 PM CDT) Fibrinogen 321 225 - 434 mg/dl [facility] Specimen Blood Performing Organization Address City/[facility] Phone Number [address] [address] [facility] POC ACTIVATED CLOTTING TIME (09/13/2018 12:50 PM CDT)Only the most recent of7 resultswithin the time period is included. Activated Clotting Time 114Comment: TESTED AT sec [facility] [address] [address] Specimen Blood Performing Organization Address [facility] Phone Number [address] [address] [facility] Tissue Exam (09/13/2018 11:46 AM CDT) Case Report Surgical Pathology Report Case: [id number] [facility] Authorizing Provider:Pillo Brand, Collected: 09/13/2018 1146 [facility] Ordering Location: [facility] Received: 09/13/2018 1237 [employer] Pathologist: Yousif Alfonso MD Specimen:Leaflets DIAGNOSIS HEART, MITRAL VALVE, VALVULECTOMY: [facility] FIBROMYXOID THICKENING WITH FOCAL SCLEROSIS [facility] Signing Pathologist Direct Phone Line: [phone] CPT Code(s) 10065; 66370 [facility] CLINICAL HISTORY Mitral valve insufficiency, [facility] unspecified etiology [facility] GROSS DESCRIPTION The specimen is received in [facility] formalin labeled with the [facility] patient's information as well as "leaflets". It contains a 4.5 x 2.5 x 0.6 cm aggregate of ash-white membranous mitral valve leaflets. The leaflets are flexible ash-yellow focal flat end. Pinpoint calcification is present. No vegetations are seen. No masses are appreciated. The specimen is submitted representatively in a single cassette following decalcification. RC/pl MICROSCOPIC DESCRIPTION Performed [facility] Specimen Tissue Performing Organization Address City/State/Zipcode Phone Number [facility] [address] [place] [address] CENTER SRINIVASA (09/13/2018 9:09 AM CDT) Narrative [...] is included. ABO/RH AUTOMATED (BEAKER) A POSITIVE [facility] Ab Scrn NEGATIVE [facility] Specimen Blood Performing Organization Address City/[facility] Phone Number [address] [address] Hemoglobin A1c (09/07/2018 2:00 PM CDT) Hemoglobin A1C 6.0 4.3 - 6.1 % [facility] Specimen Blood Performing Organization Address City/[facility] Phone Number [address] [address] CENTER Lipid panel (09/07/2018 2:00 PM CDT) Triglycerides 143 mg/dL [facility] Cholesterol 143 mg/dL [facility] HDL 40 mg/dL [facility] LDL Calculated 74 mg/dL [facility] Specimen Blood Narrative Performed At Triglyceride Reference Range: [facility] Low Risk <150 [id number] High Risk 200-499 Very High Risk>=500 Cholesterol Reference Range: Low Risk <200 [id number] High Risk>240 HDL Cholesterol Reference Range: Low Risk >=60 High Risk <40 LDL Cholesterol Reference Range: Optimal<100 Near [id number] Unbplmdnhl674-414 Xcfy407-389 Very High >=190 Performing Organization Address City/[facility] Phone Number [facility] [address] [place] [address] [facility] Comprehensive metabolic panel (09/07/2018 2:00 PM CDT) [facility], Total 7.5 6.0 - 8.3 gm/dL [facility] Albumin 4.1 3.5 - 5.0 g/dL [facility] Alkaline Phosphatase 56 40 - 150 U/L [facility] Total Bilirubin 0.5 0.2 - 1.2 mg/dL [facility] Sodium 135 (L) 136 - 145 meq/L [facility] Potassium 3.0 (L) 3.5 - 5.1 meq/L [facility] Chloride 84 (L) 98 - 107 meq/L [facility] CO2 39 (H) 22 - 29 meq/L [facility] BUN 64 (H) 7 - 21 mg/dL [facility] Creatinine 1.96 (H) 0.57 - 1.25 mg/dL [facility] Glucose 114 (H) 70 - 105 mg/dL [facility] Calcium 9.9 8.4 - 10.2 mg/dL [facility] AST 23 5 - 34 U/L [facility] ALT 16 6 - 55 U/L [facility] EGFR 33Comment: ESTIMATED GFR mL/min/1.73 sq m [facility] IS NOT ACCURATE [facility] CREATININE CLEARANCE IN PREDICTING GLOMERULAR FILTRATION RATE. ESTIMATED GFR IS NOT APPLICABLE FOR DIALYSIS PATIENTS. Specimen Blood Performing Organization Address City/State/Zipcode Phone Number [facility] [address] [place] [address] [phone] [facility] CARDIAC CATH REPORT - SCAN (03/09/2018 10:40 AM SOFTWARE TRAINER) Narrative Performed At ECHOCARDIOGRAM REPORT - SCAN (03/05/2018 10:20 AM CDT) Narrative Performed At Prepare Leuko-Red RBC (03/04/2018 11:52 AM CDT) CROSSMATCH COMPATIBLE SAFETRACE TX Unit ABO A Pos SAFETRACE TX UNIT NUMBER [id number] SAFETRACE TX Status RETURNED FROM ISSUE SAFETRACE TX Blood Bank Product RED BLOOD CELLS SAFETRACE TX PRODUCT CODE [id number] [facility]AFET[facility] [place] CROSSMATCH COMPATIBLE SAFETRACE TX Unit ABO A Pos SAFETRACE TX UNIT NUMBER [id number] [facility]AFET[facility]ACE TX Status RETURNED FROM ISSUE SAFETRACE TX Blood Bank Product RED BLOOD CELLS SAFET[place]ACE [place] PRODUCT CODE [id number] [facility] [place] Specimen Other Performing Organization Address City/State/Zipcode Phone Number SAFETRACE [place] Transesophageal echo (03/04/2018 7:32 AM CDT) Ejection Fraction [facility] ECHO HEARTLAB MKCKESSON CPA Specimen Narrative Performed At Transesophageal Echocardiography Report (SRINIVASA) [facility] ECHO HEARTLAB MK[facility] CPACS Demographics Patient Name Billie DAN of Study 03/04/2018 MUSTAPHA [id number] GenderMale Visit Number [id number] RaceUnkno [id number] Room Number C633 Number Date of Birth1935 Referring Physician Amber Martínez MD Age82 year(s) Consumer Lender Jam Lopez Physician MD Josep Fellow DANG [...] Study 03/04/2018 MUSTAPHA Gender Male Visit Number [id number] Race Unknown Room Number C633 Number Date of 1935 Referring Physician Amber Martínez MD Age 82 year(s) Consumer Lender Jam Lopez Physician MD Josep Fellow DANG [...] TR Gradient: 45.63 mmHg Performing Organization Address City/[facility] Phone Number [facility] ECHO HEART[facility] MK[facility] CPACS PT/aPTT (03/04/2018 7:00 AM CDT) Protime 13.7 11.7 - 14.7 seconds [facility] INR 1.0 <=5.9 [facility] PTT 23.9 22.5 - 36.0 seconds [facility] Specimen Blood Narrative Performed At RECOMMENDED COUMADIN/WARFARIN INR THERAPY [facility] RANGES STANDARD DOSE: 2.0 - 3.0 Includes: PROPHYLAXIS for venous thrombosis, systemic embolization; TREATMENT for venous thrombosis and/or pulmonary embolus. HIGH RISK: Target INR is 2.5-3.5 for patients with mechanical heart valves. Performing Organization Address [facility] [facility] Phone Number [address] [address] [place] B-type Natriuretic Factor (BNP) (03/04/2018 7:00 AM CDT) BNP 187 (H) 0 - 100 pg/mL [facility] Specimen Blood Performing Organization Address [facility] Phone Number [address] [address] [phone] [place] Albumin (03/04/2018 7:00 AM CDT) Albumin 3.6 3.5 - 5.0 g/dL [facility] Specimen Blood Performing Organization Address [facility] Phone Number [address] [address] CENTER CTA chest (02/17/2018 2:27 PM CDT) Specimen Narrative Performed At Addendum Begins GE RIS REPORT STATUS:A Addendum: I agree with the previously described non vascular findings by Dr. Viramontes. Signed: Cleve Stacy MD Report Verified Date/Time:02/18/2018 14:14:33 Reading Location: [facility] P048 Angio Body Reading Room Addendum [...] patent, with replaced right hepatic artery. The RPETTY is patent. There are single left and [...] measures 9.1 and 9.3 mm, respectively with ekzy-cv-nxfrdrowcxbisapgnm and nocalcific atherosclerosis present. The minimum and [...] 4.An addendum will be dictated by the Country Manager Radiologist regarding the nonvascular findings. Signed: Sg Viramontes MD Report Verified Date/Time:02/17/2018 16:19:13 Reading Location: [place] [address] Cardiology MRI Procedure Note Interface, External Ris In - 02/18/2018 2:16 PM CDT Addendum Begins REPORT STATUS:A Addendum: I agree with the previously described non vascular findings by Dr. Viramontes. Signed: Cleve Stacy MD Report Verified Date/Time: 02/18/2018 14:14:33 Reading Location: [place] [address] Angio Body Reading Room Addendum Ends FINAL [...] measures 9.1 and 9.3 mm, respectively with ltvk-fm-kiqtscux tortuosity and no calcific atherosclerosis present. The [...] An addendum will be dictated by the Country Manager Radiologist regarding the nonvascular findings. Signed: Sg Viramontes MD Report Verified Date/Time: 02/17/2018 16:19:13 Reading Location: [place] [id number] Cardiology MRI Performing Organization Address City/State/Zipcode Phone Number [facility] CTA abdomen & pelvis (02/17/2018 2:27 PM CDT) Specimen Narrative Performed At Addendum Begins [facility] REPORT STATUS:A Addendum: I agree with the previously described non vascular findings by Dr. Viramontes. Signed: Cleve Stacy MD Report Verified Date/Time:02/18/2018 14:14:33 Reading Location: [facility] P048 Angio Body Reading Room Addendum [...] measures 9.1 and 9.3 mm, respectively with msrd-fi-disqgnzkgusxfwfksr and nocalcific atherosclerosis present. The minimum and [...] 4.An addendum will be dictated by the Country Manager Radiologist regarding the nonvascular findings. Signed: Sg Viramontes MD Report Verified Date/Time:02/17/2018 16:19:13 Reading Location: [place] [address] Cardiology MRI Procedure Note Interface, External Ris In - 02/18/2018 2:16 PM CDT Addendum Begins REPORT STATUS:A Addendum: I agree with the previously described non vascular findings by Dr. Viramontes. Signed: Cleve Stacy MD Report Verified Date/Time: 02/18/2018 14:14:33 Reading Location: [place] [id number] Angio Body Reading Room Addendum Ends FINAL [...] measures 9.1 and 9.3 mm, respectively with xkmn-iq-xzknecft tortuosity and no calcific atherosclerosis present. The [...] An addendum will be dictated by the Country Manager Radiologist regarding the nonvascular findings. Signed: Sg Viramontes MD Report Verified Date/Time: 02/17/2018 16:19:13 Reading Location: [place] [address] Cardiology MRI Performing Organization Address City/[facility] Phone Number GE RIS POC-Creatinine (02/17/2018 2:01 PM CDT) POC-Creatinine 1.7 (H)Comment: TESTED AT 0.6 - 1.3 mg/dL [facility] [address] [facility] [place] [address] POC-EGFR 39 mL/min/1.73M2 [facility] Specimen Blood Performing Organization Address [facility] Phone Number [facility] [address] [place] [address] [phone] CENTER after 12/02/2017 Insurance Payer Benefit Plan / Subscriber ID Type Phone Address Group MEDICARE MEDICARE A B xxxxxxxxxxx Medicare BLUE CROSS/BLUE [place]MN[place] xxxxxxxxxxxx PPO [phone] [address] [place] [address] Advance Directives For more information, please contact:[address] [phone] Code Status Date Activated Date Inactivated Comments Full Code 09/14/2018 1:10 PM 09/21/2018 3:41 PM This code status was determined by: Patient Full Code 03/04/2018 1:51 PM 09/13/2018 6:19 AM This code status was determined by: Patient Full Code 03/04/2018 1:51 PM 03/04/2018 1:51 PM This code status was determined by: Patient
--- OUTSIDE RECORDS SUMMARY | 2018-12-03 09:06 | XMS REPORT ---
[...] Medications Results No Known Results Summary Purpose [employer] Submission
--- OUTSIDE RECORDS SUMMARY | 2018-12-03 09:06 | XMS REPORT ---
[...] Medications Results No Known Results Summary Purpose [employer] [place] Submission
--- OUTSIDE RECORDS SUMMARY | 2018-12-03 09:06 | XMS REPORT ---
:1935 Author Organization [facility] Address [address] [place] [address] [address]. Vela [address] [place] [address] Care Team Providers Name Role Phone FARHAN [...] (BEAKER) (test 151 mg/dL 70-110 TESTED AT [facility] [address] [facility] dqrg=9105) [facility] [address] [id number] 07:58:00 Test Item Value Reference Range Comments MAGNESIUM (BEAKER) (test itym=919) 2.1 mg/dL 1.6-2.6 BASIC METABOLIC [id number] 07:58:00 Test Item Value Reference Range Comments SODIUM (BEAKER) (test 138 meq/L 136-145 stdk=047) POTASSIUM (BEAKER) (test 4.4 meq/L 3.5-5.1 noel=529) CHLORIDE (BEAKER) (test 97 meq/L 98-107 evkx=209) CO2 (BEAKER) (test 34 meq/L 22-29 rotz=537) BLOOD UREA NITROGEN 19 mg/dL 7-21 (BEAKER) (test aisl=206) CREATININE (BEAKER) (test 0.90 mg/dL 0.57-1.25 ltff=105) GLUCOSE RANDOM (BEAKER) 88 mg/dL 70-105 (test amgv=478) CALCIUM (BEAKER) (test 8.7 mg/dL 8.4-10.2 ogiz=301) EGFR (BEAKER) (test 81 mL/min/1.73 sq m ESTIMATED GFR IS NOT wqmh=3865) ACCURATE CREATININE CLEARANCE IN PREDICTING GLOMERULAR FILTRATION RATE. ESTIMATED GFR IS NOT APPLICABLE FOR DIALYSIS PATIENTS. CBC (HEMOGRAM ONLY)2018-09-21 06:38:00 Test Item Value Reference Range Comments WHITE BLOOD CELL COUNT (BEAKER) (test vcuw=261) 7.8 K/ L 3.5-10.5 RED BLOOD CELL COUNT (BEAKER) (test vxwq=623) 3.57 M/ L 4.63-6.08 HEMOGLOBIN (BEAKER) (test urvt=238) 10.9 GM/DL 13.7-17.5 HEMATOCRIT (BEAKER) (test tddi=730) 36.5 % 40.1-51.0 MEAN CORPUSCULAR VOLUME (BEAKER) (test osvr=041) 102.2 fL 79.0-92.2 MEAN CORPUSCULAR HEMOGLOBIN (BEAKER) (test 30.5 pg 25.7-32.2 lmxc=720) MEAN CORPUSCULAR HEMOGLOBIN CONC (BEAKER) (test 29.9 GM/DL 32.3-36.5 yeky=527) RED CELL DISTRIBUTION WIDTH (BEAKER) (test 13.6 % 11.6-14.4 nusj=391) PLATELET COUNT (BEAKER) (test ygua=453) 182 K/CU MM 150-450 MEAN PLATELET VOLUME (BEAKER) (test ucmf=739) 9.5 fL 9.4-12.4 NUCLEATED RED BLOOD CELLS (BEAKER) (test 0 /100 WBC 0-0 ymix=435) TISSUE [id number] 11:06:00Surgical Pathology Report Case: [id number] Authorizing Provider: Farhan Brand, Collected: 09/13/2018 1146 OrderingLocation: [facility] Received: 2018 1237 PERIOPERATIVE SERVICES Pathologist: Yousif Alfonso MD Specimen: Leaflets HEART, MITRAL VALVE, VALVULECTOMY:FIBROMYXOID THICKENING WITH FOCAL SCLEROSIS Signing Pathologist Direct Phone Line:[phone] signed by Yousif Alfonso MD on 09/20/2018 at 11:06 [id number]; [id number] valve insufficiency, unspecified etiology The specimen is [...] in a single cassette following decalcification. [facility] ([facility] ONLY)2018-09-20 10:51:00 Test Item Value Reference Range Comments WHITE BLOOD CELL COUNT (BEAKER) (test iwkz=071) 9.3 K/ L 3.5-10.5 RED BLOOD CELL COUNT (BEAKER) (test fefo=698) 3.29 M/ L 4.63-6.08 HEMOGLOBIN (BEAKER) (test qwgr=827) 10.4 GM/DL 13.7-17.5 HEMATOCRIT (BEAKER) (test zwwq=588) 33.4 % 40.1-51.0 MEAN CORPUSCULAR VOLUME (BEAKER) (test xkes=072) 101.5 fL 79.0-92.2 MEAN CORPUSCULAR HEMOGLOBIN (BEAKER) (test 31.6 pg 25.7-32.2 ridg=267) MEAN CORPUSCULAR HEMOGLOBIN CONC (BEAKER) (test 31.1 GM/DL 32.3-36.5 oqlo=470) RED CELL DISTRIBUTION WIDTH (BEAKER) (test 13.7 % 11.6-14.4 snwn=687) PLATELET COUNT (BEAKER) (test tnoa=990) 168 K/CU MM 150-450 MEAN PLATELET VOLUME (BEAKER) (test urjj=153) 9.7 fL 9.4-12.4 NUCLEATED RED BLOOD CELLS (BEAKER) (test 0 /100 WBC 0-0 bjnb=859) [id number] 05:51:00 Test Item Value Reference Range Comments MAGNESIUM (BEAKER) (test rvzf=559) 2.4 mg/dL 1.6-2.6 BASIC METABOLIC [id number] 05:51:00 Test Item Value Reference Range Comments SODIUM (BEAKER) (test 139 meq/L 136-145 vbpp=975) POTASSIUM (BEAKER) (test 4.5 meq/L 3.5-5.1 nzsb=458) CHLORIDE (BEAKER) (test 95 meq/L 98-107 knbx=732) CO2 (BEAKER) (test 38 meq/L 22-29 yoio=617) BLOOD UREA NITROGEN 20 mg/dL 7-21 (BEAKER) (test vppg=035) CREATININE (BEAKER) (test 0.90 mg/dL 0.57-1.25 liqq=323) GLUCOSE RANDOM (BEAKER) 100 mg/dL 70-105 (test isqx=300) CALCIUM (BEAKER) (test 8.8 mg/dL 8.4-10.2 xwvn=628) EGFR (BEAKER) (test 81 mL/min/1.73 sq m ESTIMATED GFR IS NOT vvow=9825) ACCURATE CREATININE CLEARANCE IN PREDICTING GLOMERULAR FILTRATION RATE. ESTIMATED GFR IS NOT APPLICABLE FOR DIALYSIS PATIENTS. BLOOD GAS, [id number] 16:58:00 Test Item Value Reference Range Comments PH ARTERIAL (BEAKER) (test kcbi=557) 7.48 7.35-7.45 PCO2 ARTERIAL (BEAKER) (test gvch=594) 52 mmHg 35-45 PO2 ARTERIAL (BEAKER) (test aywz=349) 84 mmHg 80-90 O2 SATURATION ARTERIAL (BEAKER) (test sbpz=938) 96.9 % 96.0-97.0 HCO3 ARTERIAL (BEAKER) (test tnff=371) 38 mmol/L 21-29 BASE EXCESS ARTERIAL (BEAKER) (test lfqs=503) 12.8 mmol/L -2.0-3.0 PATIENT TEMPERATURE (BEAKER) (test vvqm=7270) 36.4 C FIO2 (BEAKER) (test slkr=7788) 28.0 % RAD, CHEST, 1 VIEW, NON [id number] 08:20:00Reason for exam:->s/p MVRShould this be performed at the bedside?->YesFINAL REPORT Comparison: 09/18/2018 TECHNIQUE: Single view of the chest FINDINGS: There are nonspecific mildly prominent interstitial markings laterally. Small left pleural effusion with adjacent airspace disease. No gross new lung parenchymal changes. Support lines and tubes arestable. Signed: Dick Browneport Verified Date/Time: 09/19/2018 08:20:07 Reading Location: [address] Reading Room POCT-GLUCOSE [id number] 07:51:00 Test Item Value Reference Range Comments POC-GLUCOSE METER (BEAKER) 128 mg/dL 70-110 TESTED AT [address] (test bavp=2692) [facility] [address] BASIC METABOLIC [id number] 07:46:00 Test Item Value Reference Range Comments SODIUM (BEAKER) (test 140 meq/L 136-145 iseq=479) POTASSIUM (BEAKER) (test 4.3 meq/L 3.5-5.1 nfis=121) CHLORIDE (BEAKER) (test 94 meq/L 98-107 lwhs=288) CO2 (BEAKER) (test 42 meq/L 22-29 nrkn=559) BLOOD UREA NITROGEN 21 mg/dL 7-21 (BEAKER) (test ofmh=332) CREATININE (BEAKER) (test 1.03 mg/dL 0.57-1.25 lwvt=532) GLUCOSE RANDOM (BEAKER) 97 mg/dL 70-105 (test aojf=291) CALCIUM (BEAKER) (test 8.8 mg/dL 8.4-10.2 lswo=496) EGFR (BEAKER) (test 69 mL/min/1.73 sq m ESTIMATED GFR IS NOT uhtb=5990) ACCURATE CREATININE CLEARANCE IN PREDICTING GLOMERULAR FILTRATION RATE. ESTIMATED GFR IS NOT APPLICABLE FOR DIALYSIS PATIENTS. [id number] 07:32:00 Test Item Value Reference Range Comments MAGNESIUM (BEAKER) (test vvic=909) 2.2 mg/dL 1.6-2.6 POCT-GLUCOSE [id number] 21:39:00 Test Item Value Reference Range Comments POC-GLUCOSE METER (BEAKER) 131 mg/dL 70-110 TESTED AT [address] (test spbm=8368) [facility] [address] POCT-GLUCOSE [id number] 17:39:00 Test Item Value Reference Range Comments POC-GLUCOSE METER (BEAKER) 143 mg/dL 70-110 TESTED AT [address] (test qcps=1596) [facility] [address] POCT-GLUCOSE [id number] 12:32:00 Test Item Value Reference Range Comments POC-GLUCOSE METER (BEAKER) 123 mg/dL 70-110 TESTED AT [address] (test yhxj=8345) [facility] [address] RAD, CHEST, 1 VIEW, NON [id number] 08:29:00Reason for exam:->s/p MVRShould this be performed [...] Verified Date/Time : 09/18/2018 08:29:07 Reading Location: [address] Neuro Reading Room POCT-GLUCOSE [id number] 08:06:00 Test Item Value Reference Range Comments POC-GLUCOSE METER (BEAKER) 97 mg/dL 70-110 TESTED AT [address] (test lkga=8104) [place] [address] [id number] 01:49:00 Test Item Value Reference Range Comments MAGNESIUM (BEAKER) (test wthx=946) 2.3 mg/dL 1.6-2.6 BASIC METABOLIC [id number] 01:49:00 Test Item Value Reference Range Comments SODIUM (BEAKER) (test 138 meq/L 136-145 hgeh=648) POTASSIUM (BEAKER) (test 3.8 meq/L 3.5-5.1 vpjr=888) CHLORIDE (BEAKER) (test 94 meq/L 98-107 fene=213) CO2 (BEAKER) (test 36 meq/L 22-29 yiyu=653) BLOOD UREA NITROGEN 30 mg/dL 7-21 (BEAKER) (test hcru=464) CREATININE (BEAKER) (test 1.04 mg/dL 0.57-1.25 cbag=962) GLUCOSE RANDOM (BEAKER) 122 mg/dL 70-105 (test qnek=919) CALCIUM (BEAKER) (test 8.8 mg/dL 8.4-10.2 pbht=764) EGFR (BEAKER) (test 69 mL/min/1.73 sq m ESTIMATED GFR IS NOT ixkw=8095) ACCURATE CREATININE CLEARANCE IN PREDICTING GLOMERULAR FILTRATION RATE. ESTIMATED GFR IS NOT APPLICABLE FOR DIALYSIS PATIENTS. RAD, CHEST, 1 VIEW, NON [id number] 22:42:00Reason for exam:->shortness of breathShould this be [...] [place] Verified Date/Time: 2018 22:42:10 Reading Location: [facility] C013Y CT Body Reading Room POCT- GLUCOSE [id number] 21:28:00 Test Item Value Reference Range Comments POC-GLUCOSE METER (BEAKER) 148 mg/dL 70-110 TESTED AT [address] (test equq=5088) [facility] [address] POCT-GLUCOSE [id number] 17:16:00 Test Item Value Reference Range Comments POC-GLUCOSE METER (BEAKER) 231 mg/dL 70-110 TESTED AT [address] (test pkcy=6829) [facility] [address] POCT-GLUCOSE [id number] 12:37:00 Test Item Value Reference Range Comments POC-GLUCOSE METER (BEAKER) 150 mg/dL 70-110 TESTED AT [address] (test bxft=1326) [facility] [address] RAD, CHEST, 1 VIEW, NON [id number] 09:37:00Reason for exam:->s/p MVRShould this be performed at the bedside?->YesFINAL REPORT Chest one view. Clinical history: s/p MVR Comparison: 2018Discussion: A frontal chest is provided. Cardiomediastinal contours are unchanged. 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 There is mild vascular congestion. Small bilateral pleural effusions. No new consolidation. No pneumothorax. Signed: Erin Marrero Verified Date/Time: 09/17/2018 09:37:37 Reading Location: [facility] Radiology Reading Room POCT-GLUCOSE [id number] 09:04:00 Test Item Value Reference Range Comments POC-GLUCOSE METER (BEAKER) 159 mg/dL 70-110 TESTED AT [facility] [address] [facility] (test acjt=4602) [facility] [address] [id number] 06:49:00 Test Item Value Reference Range Comments MAGNESIUM (BEAKER) (test nqsa=277) 1.8 mg/dL 1.6-2.6 BASIC METABOLIC [id number] 06:49:00 Test Item Value Reference Range Comments SODIUM (BEAKER) (test 135 meq/L 136-145 lgzu=683) POTASSIUM (BEAKER) (test 4.0 meq/L 3.5-5.1 fbun=052) CHLORIDE (BEAKER) (test 94 meq/L 98-107 lwpo=451) CO2 (BEAKER) (test 35 meq/L 22-29 atbz=791) BLOOD UREA NITROGEN 28 mg/dL 7-21 (BEAKER) (test dsdp=995) CREATININE (BEAKER) (test 1.00 mg/dL 0.57-1.25 kxet=726) GLUCOSE RANDOM (BEAKER) 141 mg/dL 70-105 (test wyrx=783) CALCIUM (BEAKER) (test 8.6 mg/dL 8.4-10.2 auwe=693) EGFR (BEAKER) (test 72 mL/min/1.73 sq m ESTIMATED GFR IS NOT xidp=1355) ACCURATE CREATININE CLEARANCE IN PREDICTING GLOMERULAR FILTRATION RATE. ESTIMATED GFR IS NOT APPLICABLE FOR DIALYSIS PATIENTS. CBC W/PLT COUNT & AUTO [id number] 06:14:00 Test Item Value Reference Range Comments WHITE BLOOD CELL COUNT (BEAKER) (test tnsb=635) 6.0 K/ L 3.5-10.5 RED BLOOD CELL COUNT (BEAKER) (test ydvl=024) 3.15 M/ L 4.63-6.08 HEMOGLOBIN (BEAKER) (test qojs=563) 9.8 GM/DL 13.7-17.5 HEMATOCRIT (BEAKER) (test penv=788) 31.0 % 40.1-51.0 MEAN CORPUSCULAR VOLUME (BEAKER) (test ofrj=308) 98.4 fL 79.0-92.2 MEAN CORPUSCULAR HEMOGLOBIN (BEAKER) (test 31.1 pg 25.7-32.2 yxzn=141) MEAN CORPUSCULAR HEMOGLOBIN CONC (BEAKER) (test 31.6 GM/DL 32.3-36.5 ppua=253) RED CELL DISTRIBUTION WIDTH (BEAKER) (test 13.6 % 11.6-14.4 qrny=147) PLATELET COUNT (BEAKER) (test lvqo=992) 95 K/CU MM 150-450 MEAN PLATELET VOLUME (BEAKER) (test ussb=919) 10.2 fL 9.4-12.4 NUCLEATED RED BLOOD CELLS (BEAKER) (test 0 /100 WBC 0-0 udre=088) NEUTROPHILS RELATIVE PERCENT (BEAKER) (test 89 % qket=250) LYMPHOCYTES RELATIVE PERCENT (BEAKER) (test 4 % zyos=330) MONOCYTES RELATIVE PERCENT (BEAKER) (test 6 % gwmf=350) EOSINOPHILS RELATIVE PERCENT (BEAKER) (test 0 % lkiu=181) BASOPHILS RELATIVE PERCENT (BEAKER) (test 0 % wldf=056) NEUTROPHILS ABSOLUTE COUNT (BEAKER) (test 5.30 K/ L 1.78-5.38 sqnd=784) LYMPHOCYTES ABSOLUTE COUNT (BEAKER) (test 0.25 K/ L 1.32-3.57 geut=287) MONOCYTES ABSOLUTE COUNT (BEAKER) (test inmd=085) 0.38 K/ L 0.30-0.82 EOSINOPHILS ABSOLUTE COUNT (BEAKER) (test 0.00 K/ L 0.04-0.54 vmcf=061) BASOPHILS ABSOLUTE COUNT (BEAKER) (test nkrn=657) 0.01 K/ L 0.01-0.08 IMMATURE GRANULOCYTES-RELATIVE PERCENT (BEAKER) 1 % 0-1 (test drra=5154) POCT-GLUCOSE [id number] 17:47:00 Test Item Value Reference Range Comments POC-GLUCOSE METER (BEAKER) 178 mg/dL 70-110 TESTED AT [address] (test tdpd=7965) [facility] [address] POCT-GLUCOSE [id number] 15:19:00 Test Item Value Reference Range Comments POC-GLUCOSE METER (BEAKER) 173 mg/dL 70-110 TESTED AT [address] (test nfpc=4530) [facility] [address] POCT-GLUCOSE [id number] 12:18:00 Test Item Value Reference Range Comments POC-GLUCOSE METER (BEAKER) 166 mg/dL 70-110 TESTED AT [address] (test hedt=7208) [facility] [address] POCT-GLUCOSE [id number] 07:56:00 Test Item Value Reference Range Comments POC-GLUCOSE METER (BEAKER) 127 mg/dL 70-110 TESTED AT [address] (test sfav=7594) [facility] [address] [id number] 07:34:00 Test Item Value Reference Range Comments MAGNESIUM (BEAKER) (test homg=839) 2.0 mg/dL 1.6-2.6 BASIC METABOLIC [id number] 07:34:00 Test Item Value Reference Range Comments SODIUM (BEAKER) (test 133 meq/L 136-145 yvtk=422) POTASSIUM (BEAKER) (test 4.0 meq/L 3.5-5.1 xvln=384) CHLORIDE (BEAKER) (test 98 meq/L 98-107 jluf=969) CO2 (BEAKER) (test 30 meq/L 22-29 ytki=377) BLOOD UREA NITROGEN 22 mg/dL 7-21 (BEAKER) (test mabc=308) CREATININE (BEAKER) (test 0.93 mg/dL 0.57-1.25 rcqn=485) GLUCOSE RANDOM (BEAKER) 127 mg/dL 70-105 (test txxy=964) CALCIUM (BEAKER) (test 8.7 mg/dL 8.4-10.2 kvio=289) EGFR (BEAKER) (test 78 mL/min/1.73 sq m ESTIMATED GFR IS NOT ympq=4398) ACCURATE CREATININE CLEARANCE IN PREDICTING GLOMERULAR FILTRATION RATE. ESTIMATED GFR IS NOT APPLICABLE FOR DIALYSIS PATIENTS. OXYGEN SATURATION, [id number] 07:10:00 Test Item Value Reference Range Comments O2 SATURATION (MEASURED) (BEAKER) (test cmut=8436) 69.7 % CALCIUM, [id number] 07:05:00 Test Item Value Reference Range Comments CALCIUM IONIZED (BEAKER) (test tprr=913) 1.13 mmol/L 1.12-1.27 PH, BLOOD (BEAKER) (test npfk=6412) 7.42 RAD, CHEST, 1 VIEW, NON [id number] 06:56:00Reason for exam:->pOST oPShould this be performed [...] Johnson [place] Verified Date/Time: 06:56:55 Reading Location: [address] Body Reading Room CBC ( HEMOGRAM ONLY)2018-09-16 06:54:00 Test Item Value Reference Range Comments WHITE BLOOD CELL COUNT (BEAKER) (test xklx=316) 6.6 K/ L 3.5-10.5 RED BLOOD CELL COUNT (BEAKER) (test ouar=240) 3.02 M/ L 4.63-6.08 HEMOGLOBIN (BEAKER) (test tdpo=585) 9.6 GM/DL 13.7-17.5 HEMATOCRIT (BEAKER) (test jmmn=561) 29.5 % 40.1-51.0 MEAN CORPUSCULAR VOLUME (BEAKER) (test etol=565) 97.7 fL 79.0-92.2 MEAN CORPUSCULAR HEMOGLOBIN (BEAKER) (test 31.8 pg 25.7-32.2 grty=432) MEAN CORPUSCULAR HEMOGLOBIN CONC (BEAKER) (test 32.5 GM/DL 32.3-36.5 uwip=873) RED CELL DISTRIBUTION WIDTH (BEAKER) (test 13.6 % 11.6-14.4 rovx=629) PLATELET COUNT (BEAKER) (test jqdy=537) 66 K/CU MM 150-450 MEAN PLATELET VOLUME (BEAKER) (test axti=612) 10.5 fL 9.4-12.4 NUCLEATED RED BLOOD CELLS (BEAKER) (test 0 /100 WBC 0-0 jczg=857) BLOOD GAS, [id number] 06:45:00 Test Item Value Reference Range Comments PH ARTERIAL (BEAKER) (test brqn=735) 7.41 7.35-7.45 PCO2 ARTERIAL (BEAKER) (test aujo=666) 54 mmHg 35-45 PO2 ARTERIAL (BEAKER) (test ogly=263) 108 mmHg 80-90 O2 SATURATION ARTERIAL (BEAKER) (test bgbx=255) 97.9 % 96.0-97.0 HCO3 ARTERIAL (BEAKER) (test fptv=077) 34 mmol/L 21-29 BASE EXCESS ARTERIAL (BEAKER) (test kywc=545) 8.1 mmol/L -2.0-3.0 PATIENT TEMPERATURE (BEAKER) (test ajis=3381) 37.0 C FIO2 (BEAKER) (test tlqw=6271) 32.0 % POCT-GLUCOSE [id number] 22:27:00 Test Item Value Reference Range Comments POC-GLUCOSE METER (BEAKER) 124 mg/dL 70-110 TESTED AT [address] (test egcj=2241) [facility] [address] POCT-GLUCOSE [id number] 17:04:00 Test Item Value Reference Range Comments POC-GLUCOSE METER (BEAKER) 118 mg/dL 70-110 TESTED AT [address] (test yeev=6531) [place] [id number] 15:54:00 Test Item Value Reference Range Comments POTASSIUM (BEAKER) (test grcv=861) 4.3 meq/L 3.5-5.1 Check Serum Potassium level 2 hours after oral potassium replacement completed or 30 min after intravenous potassium replacement.POCT-GLUCOSE [id number] 13:42:00 Test Item Value Reference Range Comments POC-GLUCOSE METER (BEAKER) 156 mg/dL 70-110 TESTED AT [address] (test fzya=7882) [place] [id number] 12:27:00 Test Item Value Reference Range Comments POTASSIUM (BEAKER) (test jbaf=572) 3.8 meq/L 3.5-5.1 Check Serum Potassium level 2 hours after oral potassium replacement completed or 30 min after intravenous potassium replacement.CALCIUM, [id number] 12: 00:00 Test Item Value Reference Range Comments CALCIUM IONIZED (BEAKER) (test cjjs=975) 1.15 mmol/L 1.12-1.27 PH, BLOOD (BEAKER) (test qgev=9531) 7.44 Check serum Ionized Calcium level after 4 hours after IV Calcium replacement.RAD , CHEST, 1 VIEW, NON [id number] 09:53:00Reason for exam:-> PneumothoraxShould this be performed [...] MDRep[place] Verified Date/Time: 09/15/2018 09:53:56 Reading Location: [facility] Radiology Reading Room POCT- GLUCOSE [id number] 08:07:00 Test Item Value Reference Range Comments POC-GLUCOSE METER (BEAKER) 148 mg/dL 70-110 TESTED AT [address] (test gfer=1047) [place] [address] RAD, CHEST, 1 VIEW, NON [id number] 06:19:00Reason for exam:->pOST oPShould this be performed [...] Butlereport Verified Date/Time: 09/15/2018 06:19:31 Reading Location: [address] Neuro Reading Room OXYGEN SATURATION, [id number] 05:38:00 Test Item Value Reference Range Comments O2 SATURATION (MEASURED) (BEAKER) (test wcyw=5512) 70.0 % [id number] 05:28:00 Test Item Value Reference Range Comments PHOSPHORUS (BEAKER) (test gzyc=797) 3.0 mg/dL 2.3-4.7 [id number] 05:28:00 Test Item Value Reference Range Comments MAGNESIUM (BEAKER) (test gzfd=315) 2.3 mg/dL 1.6-2.6 BASIC METABOLIC [id number] 05:28:00 Test Item Value Reference Range Comments SODIUM (BEAKER) (test 137 meq/L 136-145 uozx=117) POTASSIUM (BEAKER) (test 3.6 meq/L 3.5-5.1 dlrt=640) CHLORIDE (BEAKER) (test 101 meq/L 98-107 igmy=597) CO2 (BEAKER) (test 29 meq/L 22-29 mffe=077) BLOOD UREA NITROGEN 25 mg/dL 7-21 (BEAKER) (test tthg=294) CREATININE (BEAKER) (test 1.21 mg/dL 0.57-1.25 fehy=111) GLUCOSE RANDOM (BEAKER) 122 mg/dL 70-105 (test gtky=873) CALCIUM (BEAKER) (test 8.5 mg/dL 8.4-10.2 ebxw=610) EGFR (BEAKER) (test 58 mL/min/1.73 sq m ESTIMATED GFR IS NOT rcyo=8911) ACCURATE CREATININE CLEARANCE IN PREDICTING GLOMERULAR FILTRATION RATE. ESTIMATED GFR IS NOT APPLICABLE FOR DIALYSIS PATIENTS. CBC (HEMOGRAM ONLY)2018-09-15 05:00:00 Test Item Value Reference Range Comments WHITE BLOOD CELL COUNT (BEAKER) (test sjtw=983) 6.8 K/ L 3.5-10.5 RED BLOOD CELL COUNT (BEAKER) (test rqej=276) 3.13 M/ L 4.63-6.08 HEMOGLOBIN (BEAKER) (test fvyh=801) 9.7 GM/DL 13.7-17.5 HEMATOCRIT (BEAKER) (test iryf=343) 31.2 % 40.1-51.0 MEAN CORPUSCULAR VOLUME (BEAKER) (test yydm=038) 99.7 fL 79.0-92.2 MEAN CORPUSCULAR HEMOGLOBIN (BEAKER) (test 31.0 pg 25.7-32.2 mksd=230) MEAN CORPUSCULAR HEMOGLOBIN CONC (BEAKER) (test 31.1 GM/DL 32.3-36.5 lsgs=501) RED CELL DISTRIBUTION WIDTH (BEAKER) (test 13.9 % 11.6-14.4 ilxg=709) PLATELET COUNT (BEAKER) (test crst=039) 58 K/CU MM 150-450 MEAN PLATELET VOLUME (BEAKER) (test rnhb=450) 10.1 fL 9.4-12.4 NUCLEATED RED BLOOD CELLS (BEAKER) (test 0 /100 WBC 0-0 clpg=594) OXYGEN SATURATION, [id number] 04:53:00 Test Item Value Reference Range Comments O2 SATURATION (MEASURED) (BEAKER) (test bwaj=6941) 96.3 % CALCIUM, [id number] 04:52:00 Test Item Value Reference Range Comments CALCIUM IONIZED (BEAKER) (test kvtj=192) 1.07 mmol/L 1.12-1.27 PH, BLOOD (BEAKER) (test wejg=0232) 7.41 BLOOD GAS, [id number] 04:51:00 Test Item Value Reference Range Comments PH ARTERIAL (BEAKER) (test ukej=855) 7.42 7.35-7.45 PCO2 ARTERIAL (BEAKER) (test wwze=946) 51 mmHg 35-45 PO2 ARTERIAL (BEAKER) (test bzlq=349) 98 mmHg 80-90 O2 SATURATION ARTERIAL (BEAKER) (test auqy=643) 97.6 % 96.0-97.0 HCO3 ARTERIAL (BEAKER) (test sydi=783) 33 mmol/L 21-29 BASE EXCESS ARTERIAL (BEAKER) (test mddd=790) 6.8 mmol/L -2.0-3.0 PATIENT TEMPERATURE (BEAKER) (test ybid=9947) 36.5 C FIO2 (BEAKER) (test pltx=6672) 32.0 % POCT-GLUCOSE [id number] 22:08:00 Test Item Value Reference Range Comments POC-GLUCOSE METER (BEAKER) 139 mg/dL 70-110 TESTED AT [address] (test oufy=9890) [facility] [address] POCT-GLUCOSE [id number] 18:13:00 Test Item Value Reference Range Comments POC-GLUCOSE METER (BEAKER) 137 mg/dL 70-110 TESTED AT [address] (test xwln=9198) [facility] [address] POCT-GLUCOSE [id number] 14:12:00 Test Item Value Reference Range Comments POC-GLUCOSE METER (BEAKER) 129 mg/dL 70-110 TESTED AT [address] (test nldn=5058) [facility] [address] HEPATIC FUNCTION [id number] 10:48:00 Test Item Value Reference Range Comments TOTAL PROTEIN (BEAKER) (test lphx=456) 5.4 gm/dL 6.0-8.3 ALBUMIN (BEAKER) (test zxmb=7130) 3.1 g/dL 3.5-5.0 BILIRUBIN TOTAL (BEAKER) (test mvja=261) 0.4 mg/dL 0.2-1.2 BILIRUBIN DIRECT (BEAKER) (test gqsi=404) 0.3 mg/dL 0.1-0.5 ALKALINE PHOSPHATASE (BEAKER) (test ydyg=535) 36 U/L 40-150 AST (SGOT) (BEAKER) (test lith=676) 53 U/L 5-34 ALT (SGPT) (BEAKER) (test iiug=482) 17 U/L 6-55 RAD, CHEST, 1 VIEW, NON [id number] 07:56:00Reason for exam:->pOST oPShould this be performed at the bedside?->YesFINAL REPORT Chest one view. Clinical history: pOST oP Comparison: 2018Discussion: A frontal chest is provided. Cardiomediastinal contours are unchanged. [place] catheter tip has been advanced, and now projects over the expected location of right interlobar/lower lobar artery. ET and feeding tube have been removed. Right IJ line, right chest tube are in stable position. There is mild interstitial edema. Small left effusion with mild bibasilar atelectasis. No pneumothorax. Signed: Erin Marrero Verified Date/Time: 07:56:51 Reading Location: [facility] Radiology Reading Room POCT-GLUCOSE [id number] 06:37:00 Test Item Value Reference Range Comments POC-GLUCOSE METER ([employer]) 128 mg/dL 70-110 TESTED AT [address] (test vopc=8174) [place] [address] POCT-GLUCOSE [id number] 06:37:00 Test Item Value Reference Range Comments POC-GLUCOSE METER ([employer]) 164 mg/dL 70-110 TESTED AT [address] (test sfkp=7763) [place] [id number] 06:10:00 Test Item Value Reference Range Comments ACTIVATED CLOTTING TIME 114 sec TESTED AT [place] [id number] [employer] (test uqko=967) [place] [address] [id number] 06:10:00 Test Item Value Reference Range Comments ACTIVATED CLOTTING TIME 522 sec TESTED AT [place] [id number] [employer]) (test imkd=705) [place] [address] [id number] 06:10:00 Test Item Value Reference Range Comments ACTIVATED CLOTTING TIME 510 sec TESTED AT [place] [address] [employer]) (test bucm=179) [place] [address] [id number] 06:10:00 Test Item Value Reference Range Comments ACTIVATED CLOTTING TIME 549 sec TESTED AT [place] [address] [employer]) (test zyxf=678) [place] [address] [id number] 06:10:00 Test Item Value Reference Range Comments ACTIVATED CLOTTING TIME 516 sec TESTED AT [place] [address] [facility] (BEAKER[facility] (test ofcd=153) [place] [address] [id number] 06:09:00 Test Item Value Reference Range Comments ACTIVATED CLOTTING TIME 472 sec TESTED AT [address] (BEAKER) (test egqw=435) [place] [address] BLOOD GAS, [id number] 04:55:00 Test Item Value Reference Range Comments PH ARTERIAL (BEAKER) (test hjjd=011) 7.37 7.35-7.45 PCO2 ARTERIAL (BEAKER) (test riwp=808) 54 mmHg 35-45 PO2 ARTERIAL (BEAKER) (test ybmg=884) 93 mmHg 80-90 O2 SATURATION ARTERIAL (BEAKER) (test zkkw=857) 96.6 % 96.0-97.0 HCO3 ARTERIAL (BEAKER) (test mxac=963) 30 mmol/L 21-29 BASE EXCESS ARTERIAL (BEAKER) (test bxpy=434) 4.3 mmol/L -2.0-3.0 PATIENT TEMPERATURE (BEAKER) (test tjfw=9066) 37.3 C FIO2 (BEAKER) (test qzma=5585) 40.0 % POCT-GLUCOSE [id number] 03:53:00 Test Item Value Reference Range Comments POC-GLUCOSE METER (BEAKER) 212 mg/dL 70-110 TESTED AT [address] (test pywz=5191) [place] [address] POCT-GLUCOSE [id number] 03:53:00 Test Item Value Reference Range Comments POC-GLUCOSE METER (BEAKER) 211 mg/dL 70-110 TESTED AT [address] (test hxso=2142) [place] [address] BASIC METABOLIC [id number] 03:23:00 Test Item Value Reference Range Comments SODIUM (BEAKER) (test 143 meq/L 136-145 doak=097) POTASSIUM (BEAKER) (test 4.2 meq/L 3.5-5.1 beak=654) CHLORIDE (BEAKER) (test 105 meq/L 98-107 fvjw=716) CO2 (BEAKER) (test 29 meq/L 22-29 roww=484) BLOOD UREA NITROGEN 32 mg/dL 7-21 (BEAKER) (test feng=252) CREATININE (BEAKER) (test 1.43 mg/dL 0.57-1.25 uthh=674) GLUCOSE RANDOM (BEAKER) 193 mg/dL 70-105 (test pduy=794) CALCIUM (BEAKER) (test 8.2 mg/dL 8.4-10.2 zvxr=655) EGFR (BEAKER) (test 47 mL/min/1.73 sq m ESTIMATED GFR IS NOT krtn=0595) ACCURATE CREATININE CLEARANCE IN PREDICTING GLOMERULAR FILTRATION RATE. ESTIMATED GFR IS NOT APPLICABLE FOR DIALYSIS PATIENTS. [id number] 03:23:00 Test Item Value Reference Range Comments MAGNESIUM (BEAKER) (test jrxb=512) 2.6 mg/dL 1.6-2.6 [id number] 03:23:00 Test Item Value Reference Range Comments PHOSPHORUS (BEAKER) (test owbm=715) 3.0 mg/dL 2.3-4.7 LACTIC ACID, [id number] 03:17:00 Test Item Value Reference Range Comments LACTATE BLOOD ARTERIAL (2) (BEAKER) (test 2.9 mmol/L 0.5-2.2 sxtx=7460) CBC (HEMOGRAM ONLY)[id number] 02:56:00 Test Item Value Reference Range Comments WHITE BLOOD CELL COUNT (BEAKER) (test keau=170) 8.2 K/ L 3.5-10.5 RED BLOOD CELL COUNT (BEAKER) (test sdfj=738) 3.09 M/ L 4.63-6.08 HEMOGLOBIN (BEAKER) (test ybdd=903) 9.8 GM/DL 13.7-17.5 HEMATOCRIT (BEAKER) (test cdpg=306) 31.2 % 40.1-51.0 MEAN CORPUSCULAR VOLUME (BEAKER) (test ezrt=167) 101.0 fL 79.0-92.2 MEAN CORPUSCULAR HEMOGLOBIN (BEAKER) (test 31.7 pg 25.7-32.2 rydh=545) MEAN CORPUSCULAR HEMOGLOBIN CONC (BEAKER) (test 31.4 GM/DL 32.3-36.5 qprg=837) RED CELL DISTRIBUTION WIDTH (BEAKER) (test 14.0 % 11.6-14.4 nsoa=616) PLATELET COUNT (BEAKER) (test aedd=337) 76 K/CU MM 150-450 MEAN PLATELET VOLUME (BEAKER) (test yqvw=816) 9.6 fL 9.4-12.4 NUCLEATED RED BLOOD CELLS (BEAKER) (test 0 /100 WBC 0-0 hlgf=493) CALCIUM, [id number] 02:56:00 Test Item Value Reference Range Comments CALCIUM IONIZED (BEAKER) (test fsmj=675) 1.09 mmol/L 1.12-1.27 PH, BLOOD (BEAKER) (test jyxv=1485) 7.32 OXYGEN SATURATION, [id number] 02:56:00 Test Item Value Reference Range Comments O2 SATURATION (MEASURED) (BEAKER) (test hdwj=9615) 72.5 % LACTIC ACID, [id number] 02:25:00 Test Item Value Reference Range Comments LACTATE BLOOD ARTERIAL (2) (BEAKER) (test 3.2 mmol/L 0.5-2.2 yyho=9061) BLOOD GAS, [id number] 23:43:00 Test Item Value Reference Range Comments PH ARTERIAL (BEAKER) (test zfmo=774) 7.31 7.35-7.45 PCO2 ARTERIAL (BEAKER) (test kgir=872) 55 mmHg 35-45 PO2 ARTERIAL (BEAKER) (test uyel=128) 83 mmHg 80-90 O2 SATURATION ARTERIAL (BEAKER) (test yrxr=043) 95.5 % 96.0-97.0 HCO3 ARTERIAL (BEAKER) (test boyf=078) 27 mmol/L 21-29 BASE EXCESS ARTERIAL (BEAKER) (test uxgz=536) 0.3 mmol/L -2.0-3.0 PATIENT TEMPERATURE (BEAKER) (test vxfi=0017) 36.4 C FIO2 (BEAKER) (test mmhf=4448) 40.0 % GLUCOSE-STAT [id number] 23:43:00 Test Item Value Reference Range Comments GLUCOSE RANDOM (BEAKER) (test bnot=851) 192 mg/dL 70-110 OXYGEN SATURATION, [id number] 23:42:00 Test Item Value Reference Range Comments O2 SATURATION (MEASURED) (BEAKER) (test lgdl=6223) 72.2 % BLOOD GAS, [id number] 21:02:00 Test Item Value Reference Range Comments PH ARTERIAL (BEAKER) (test tydr=214) 7.35 7.35-7.45 PCO2 ARTERIAL (BEAKER) (test rntb=004) 49 mmHg 35-45 PO2 ARTERIAL (BEAKER) (test tdwm=040) 78 mmHg 80-90 O2 SATURATION ARTERIAL (BEAKER) (test nzdd=315) 94.4 % 96.0-97.0 HCO3 ARTERIAL (BEAKER) (test zewe=382) 26 mmol/L 21-29 BASE EXCESS ARTERIAL (BEAKER) (test ssrf=963) 0.3 mmol/L -2.0-3.0 PATIENT TEMPERATURE (BEAKER) (test fgaq=5122) 37.6 C FIO2 (BEAKER) (test usjl=6233) 40.0 % POTASSIUM-STAT [id number] 21:02:00 Test Item Value Reference Range Comments POTASSIUM (BEAKER) (test ohyd=542) 3.2 meq/L 3.6-5.5 HGB/HCT (H&H) - STAT [id number] 21:02:00 Test Item Value Reference Range Comments HEMOGLOBIN (BEAKER) (test mwpi=736) 11.5 g/dL 13.0-16.8 HEMATOCRIT (BEAKER) (test suur=669) 34.0 % 40.0-50.0 LACTIC ACID, [id number] 21:02:00 Test Item Value Reference Range Comments LACTATE BLOOD ARTERIAL (2) (BEAKER) (test 6.2 mmol/L 0.5-2.2 acej=1700) SODIUM NA-STAT [id number] 21:01:00 Test Item Value Reference Range Comments SODIUM (BEAKER) (test xdax=991) 140 meq/L 135-148 [id number] 21:01:00 Test Item Value Reference Range Comments MAGNESIUM (BEAKER) (test ysbg=560) 2.6 mg/dL 1.6-2.6 OXYGEN SATURATION, [id number] 20:55:00 Test Item Value Reference Range Comments O2 SATURATION (MEASURED) (BEAKER) (test lmlr=5262) 66.6 % CALCIUM, [id number] 20:53:00 Test Item Value Reference Range Comments CALCIUM IONIZED (BEAKER) (test egkz=723) 1.16 mmol/L 1.12-1.27 PH, BLOOD (BEAKER) (test byyk=5627) 7.33 LACTIC ACID, [id number] 18:37:00 Test Item Value Reference Range Comments LACTATE BLOOD ARTERIAL (2) 3.9 mmol/L 0.5-2.2 Specimen slightly hemolyzed (BEAKER) (test xxqo=2623) OXYGEN SATURATION, [id number] 16:34:00 Test Item Value Reference Range Comments O2 SATURATION (MEASURED) (BEAKER) (test jzuz=1339) 68.1 % RAD, CHEST, 1 VIEW, NON [id number] 15:01:00Reason for exam:->pOST oPShould this be performed at the bedside?->YesFINAL REPORT EXAM: Frontal chest radiograph HISTORY PROVIDED: Postop COMPARISON: 03/05/2018 IMPRESSION:The tip of an endotracheal tube terminates approximately 3.8 cm above the ahsan. An enteric tube descends below the diaphragm with its tip off the field of view. The tip of a right IJ approach [place] catheter projects over the pulmonary outflow tract. [...] MDReport Verified Date/Time: 09/13/2018 15:01:54 Reading Location: [facility] Reading Room [id number] 14:46:00 Test Item Value Reference Range Comments MAGNESIUM (BEAKER) (test 3.0 mg/dL 1.6-2.6 Specimen slightly hemolyzed uepy=233) [id number] 14:46:00 Test Item Value Reference Range Comments PHOSPHORUS (BEAKER) (test 2.0 mg/dL 2.3-4.7 Specimen slightly hemolyzed qgjz=151) BASIC METABOLIC [id number] 14:46:00 Test Item Value Reference Range Comments SODIUM (BEAKER) (test 142 meq/L 136-145 sojn=991) POTASSIUM (BEAKER) (test 3.4 meq/L 3.5-5.1 Specimen slightly extv=184) hemolyzed CHLORIDE (BEAKER) (test 102 meq/L 98-107 dqea=609) CO2 (BEAKER) (test 29 meq/L 22-29 eqpa=832) BLOOD UREA NITROGEN 33 mg/dL 7-21 (BEAKER) (test iajf=699) CREATININE (BEAKER) (test 1.23 mg/dL 0.57-1.25 Specimen slightly hhpd=298) hemolyzed GLUCOSE RANDOM (BEAKER) 165 mg/dL 70-105 (test bmap=747) CALCIUM (BEAKER) (test 8.8 mg/dL 8.4-10.2 yapw=547) EGFR (BEAKER) (test 56 mL/min/1.73 sq m ESTIMATED GFR IS NOT boan=0868) ACCURATE CREATININE CLEARANCE IN PREDICTING GLOMERULAR FILTRATION RATE. ESTIMATED GFR IS NOT APPLICABLE FOR DIALYSIS PATIENTS. LACTIC ACID, [id number] 14:42:00 Test Item Value Reference Range Comments LACTATE BLOOD ARTERIAL (2) 1.5 mmol/L 0.5-2.2 Specimen slightly hemolyzed (BEAKER) (test zezg=8079) [id number] 14:38:00 Test Item Value Reference Range Comments FIBRINOGEN LEVEL (BEAKER) (test dmjk=339) 321 mg/dl 225-434 [id number] 14:38:00 Test Item Value Reference Range Comments PARTIAL THROMBOPLASTIN TIME (BEAKER) (test 30.0 seconds 22.5-36.0 pulv=574) PROTHROMBIN [id number] 14:37:00 Test Item Value Reference Range Comments PROTIME (BEAKER) (test tmzw=054) 16.8 seconds 11.7-14.7 INR (BEAKER) (test gknh=544) 1.4 <=5.9 RECOMMENDED COUMADIN/WARFARIN INR THERAPY RANGESSTANDARD DOSE: 2.0 - 3.0 Includes: PROPHYLAXIS forvenous thrombosis, systemic embolization; TREATMENT for venous thrombosis and/or pulmonary embolus.HIGH RISK: Target INR is 2.5-3.5 for patients with mechanical heart valves.CBC W/PLT COUNT & AUTO [id number] 14:35:00 Test Item Value Reference Range Comments WHITE BLOOD CELL COUNT (BEAKER) (test abkb=841) 9.4 K/ L 3.5-10.5 RED BLOOD CELL COUNT (BEAKER) (test gjpi=692) 3.49 M/ L 4.63-6.08 HEMOGLOBIN (BEAKER) (test gyyv=707) 11.0 GM/DL 13.7-17.5 HEMATOCRIT (BEAKER) (test quzw=715) 34.5 % 40.1-51.0 MEAN CORPUSCULAR VOLUME (BEAKER) (test eten=066) 98.9 fL 79.0-92.2 MEAN CORPUSCULAR HEMOGLOBIN (BEAKER) (test 31.5 pg 25.7-32.2 mqzq=194) MEAN CORPUSCULAR HEMOGLOBIN CONC (BEAKER) (test 31.9 GM/DL 32.3-36.5 zhog=481) RED CELL DISTRIBUTION WIDTH (BEAKER) (test 13.5 % 11.6-14.4 uppd=381) PLATELET COUNT (BEAKER) (test snsg=598) 91 K/CU MM 150-450 MEAN PLATELET VOLUME (BEAKER) (test lrts=479) 9.5 fL 9.4-12.4 NUCLEATED RED BLOOD CELLS (BEAKER) (test 0 /100 WBC 0-0 qmay=993) NEUTROPHILS RELATIVE PERCENT (BEAKER) (test 86 % mxfd=208) LYMPHOCYTES RELATIVE PERCENT (BEAKER) (test 5 % esro=076) MONOCYTES RELATIVE PERCENT (BEAKER) (test 8 % ujzz=477) EOSINOPHILS RELATIVE PERCENT (BEAKER) (test 0 % rniy=379) BASOPHILS RELATIVE PERCENT (BEAKER) (test 1 % gxea=979) NEUTROPHILS ABSOLUTE COUNT (BEAKER) (test 8.01 K/ L 1.78-5.38 rwst=315) LYMPHOCYTES ABSOLUTE COUNT (BEAKER) (test 0.48 K/ L 1.32-3.57 koab=989) MONOCYTES ABSOLUTE COUNT (BEAKER) (test gjxp=112) 0.75 K/ L 0.30-0.82 EOSINOPHILS ABSOLUTE COUNT (BEAKER) (test 0.02 K/ L 0.04-0.54 taul=453) BASOPHILS ABSOLUTE COUNT (BEAKER) (test ddga=500) 0.05 K/ L 0.01-0.08 IMMATURE GRANULOCYTES-RELATIVE PERCENT (BEAKER) 1 % 0-1 (test hsyz=8047) CALCIUM, [id number] 14:24:00 Test Item Value Reference Range Comments CALCIUM IONIZED (BEAKER) (test jbrg=829) 1.14 mmol/L 1.12-1.27 PH, BLOOD (BEAKER) (test yflr=1162) 7.36 BLOOD GAS, [id number] 14:22:00 Test Item Value Reference Range Comments PH ARTERIAL (BEAKER) (test zmhq=606) 7.41 7.35-7.45 PCO2 ARTERIAL (BEAKER) (test dupi=318) 48 mmHg 35-45 PO2 ARTERIAL (BEAKER) (test rjxp=242) 111 mmHg 80-90 O2 SATURATION ARTERIAL (BEAKER) (test vdsd=457) 98.1 % 96.0-97.0 HCO3 ARTERIAL (BEAKER) (test mjig=385) 30 mmol/L 21-29 BASE EXCESS ARTERIAL (BEAKER) (test divk=642) 4.1 mmol/L -2.0-3.0 PATIENT TEMPERATURE (BEAKER) (test hxtq=6718) 36.6 C FIO2 (BEAKER) (test dsbo=9235) 60.0 % SODIUM NA-STAT [id number] 12:58:00 Test Item Value Reference Range Comments SODIUM (BEAKER) (test utpo=997) 138 meq/L 135-148 CALCIUM, [id number] 12:58:00 Test Item Value Reference Range Comments CALCIUM IONIZED (BEAKER) (test tmbh=531) 1.26 mmol/L 1.12-1.27 PH, BLOOD (BEAKER) (test jpwc=7808) 7.41 BLOOD GAS, [id number] 12:58:00 Test Item Value Reference Range Comments PH ARTERIAL (BEAKER) (test qkvp=187) 7.42 7.35-7.45 PCO2 ARTERIAL (BEAKER) (test cnph=527) 53 mmHg 35-45 PO2 ARTERIAL (BEAKER) (test qstw=796) 237 mmHg 80-90 O2 SATURATION ARTERIAL (BEAKER) (test szwi=265) 99.5 % 96.0-97.0 HCO3 ARTERIAL (BEAKER) (test qqmp=550) 34 mmol/L 21-29 BASE EXCESS ARTERIAL (BEAKER) (test gjic=942) 7.7 mmol/L -2.0-3.0 PATIENT TEMPERATURE (BEAKER) (test kgje=1283) 36.4 C FIO2 (BEAKER) (test oqxm=6979) 100.0 % POTASSIUM-STAT [id number] 12:58:00 Test Item Value Reference Range Comments POTASSIUM (BEAKER) (test ejoi=398) 2.9 meq/L 3.6-5.5 GLUCOSE-STAT [id number] 12:58:00 Test Item Value Reference Range Comments GLUCOSE RANDOM (BEAKER) (test gaib=990) 162 mg/dL 70-110 HGB/HCT (H&H) - STAT [id number] 12:58:00 Test Item Value Reference Range Comments HEMOGLOBIN (BEAKER) (test virg=080) 9.6 g/dL 13.0-16.8 HEMATOCRIT (BEAKER) (test oxff=920) 28.0 % 40.0-50.0 LACTIC ACID, [id number] 11:53:00 Test Item Value Reference Range Comments LACTATE BLOOD ARTERIAL (2) 0.7 mmol/L 0.5-2.2 Specimen slightly hemolyzed (BEAKER) (test jfkf=5232) SODIUM NA-STAT [id number] 11:52:00 Test Item Value Reference Range Comments SODIUM (BEAKER) (test pgdp=518) 137 meq/L 135-148 POTASSIUM-STAT [id number] 11:52:00 Test Item Value Reference Range Comments POTASSIUM (BEAKER) (test ndjv=663) 3.9 meq/L 3.6-5.5 BLOOD GAS, [id number] 11:52:00 Test Item Value Reference Range Comments PH ARTERIAL (BEAKER) (test zfev=651) 7.46 7.35-7.45 PCO2 ARTERIAL (BEAKER) (test ksow=818) 47 mmHg 35-45 PO2 ARTERIAL (BEAKER) (test igmg=602) 320 mmHg 80-90 O2 SATURATION ARTERIAL (BEAKER) (test xjco=964) 99.7 % 96.0-97.0 HCO3 ARTERIAL (BEAKER) (test ltdq=643) 33 mmol/L 21-29 BASE EXCESS ARTERIAL (BEAKER) (test tdvd=015) 8.0 mmol/L -2.0-3.0 PATIENT TEMPERATURE (BEAKER) (test zpra=3556) 35.2 C FIO2 (BEAKER) (test gzcm=3302) 70.0 % GLUCOSE-STAT [id number] 11:52:00 Test Item Value Reference Range Comments GLUCOSE RANDOM (BEAKER) (test gixm=003) 161 mg/dL 70-110 HGB/HCT (H&H) - STAT [id number] 11:52:00 Test Item Value Reference Range Comments HEMOGLOBIN (BEAKER) (test byxw=330) 9.4 g/dL 13.0-16.8 HEMATOCRIT (BEAKER) (test kntb=107) 28.0 % 40.0-50.0 BLOOD GAS, [id number] 11:25:00 Test Item Value Reference Range Comments PH ARTERIAL (BEAKER) (test deen=501) 7.46 7.35-7.45 PCO2 ARTERIAL (BEAKER) (test lmvx=703) 48 mmHg 35-45 PO2 ARTERIAL (BEAKER) (test drqy=489) 294 mmHg 80-90 O2 SATURATION ARTERIAL (BEAKER) (test roeg=990) 99.7 % 96.0-97.0 HCO3 ARTERIAL (BEAKER) (test jxug=428) 36 mmol/L 21-29 BASE EXCESS ARTERIAL (BEAKER) (test irwg=193) 8.6 mmol/L -2.0-3.0 PATIENT TEMPERATURE (BEAKER) (test ukll=9443) 30.8 C FIO2 (BEAKER) (test gxer=1749) 65.0 % POTASSIUM-STAT [id number] 11:25:00 Test Item Value Reference Range Comments POTASSIUM (BEAKER) (test xpeh=553) 3.3 meq/L 3.6-5.5 GLUCOSE-STAT [id number] 11:25:00 Test Item Value Reference Range Comments GLUCOSE RANDOM (BEAKER) (test cvff=370) 152 mg/dL 70-110 HGB/HCT (H&H) - STAT [id number] 11:25:00 Test Item Value Reference Range Comments HEMOGLOBIN (BEAKER) (test sdlu=373) 10.5 g/dL 13.0-16.8 HEMATOCRIT (BEAKER) (test xixw=574) 31.0 % 40.0-50.0 SODIUM NA-STAT [id number] 11:24:00 Test Item Value Reference Range Comments SODIUM (BEAKER) (test ivfx=670) 139 meq/L 135-148 BLOOD GAS, [id number] 10:59:00 Test Item Value Reference Range Comments PH ARTERIAL (BEAKER) (test wxnd=022) 7.52 7.35-7.45 PCO2 ARTERIAL (BEAKER) (test jtka=469) 41 mmHg 35-45 PO2 ARTERIAL (BEAKER) (test ikzm=524) 278 mmHg 80-90 O2 SATURATION ARTERIAL (BEAKER) (test exar=587) 99.7 % 96.0-97.0 HCO3 ARTERIAL (BEAKER) (test xicy=690) 35 mmol/L 21-29 BASE EXCESS ARTERIAL (BEAKER) (test akdf=984) 9.2 mmol/L -2.0-3.0 PATIENT TEMPERATURE (BEAKER) (test nwag=5869) 30.8 C FIO2 (BEAKER) (test jymj=9293) 65.0 % POTASSIUM-STAT [id number] 10:59:00 Test Item Value Reference Range Comments POTASSIUM (BEAKER) (test jbrn=741) 3.4 meq/L 3.6-5.5 GLUCOSE-STAT [id number] 10:59:00 Test Item Value Reference Range Comments GLUCOSE RANDOM (BEAKER) (test gswi=210) 131 mg/dL 70-110 HGB/HCT (H&H) - STAT [id number] 10:59:00 Test Item Value Reference Range Comments HEMOGLOBIN (BEAKER) (test btuc=957) 10.1 g/dL 13.0-16.8 HEMATOCRIT (BEAKER) (test pzkf=907) 30.0 % 40.0-50.0 SODIUM NA-STAT [id number] 10:58:00 Test Item Value Reference Range Comments SODIUM (BEAKER) (test mdqe=732) 137 meq/L 135-148 LACTIC ACID, [id number] 10:56:00 Test Item Value Reference Range Comments LACTATE BLOOD ARTERIAL (2) (BEAKER) (test 0.7 mmol/L 0.5-2.2 byhz=9007) POTASSIUM-STAT [id number] 10:28:00 Test Item Value Reference Range Comments POTASSIUM (BEAKER) (test wbxt=035) 2.3 meq/L 3.6-5.5 BLOOD GAS, [id number] 10:27:00 Test Item Value Reference Range Comments PH ARTERIAL (BEAKER) (test xhky=421) 7.50 7.35-7.45 PCO2 ARTERIAL (BEAKER) (test uhhi=090) 45 mmHg 35-45 PO2 ARTERIAL (BEAKER) (test sdtp=051) 393 mmHg 80-90 O2 SATURATION ARTERIAL (BEAKER) (test hmwx=896) 99.8 % 96.0-97.0 HCO3 ARTERIAL (BEAKER) (test asic=298) 37 mmol/L 21-29 BASE EXCESS ARTERIAL (BEAKER) (test avca=195) 10.4 mmol/L -2.0-3.0 PATIENT TEMPERATURE (BEAKER) (test spns=4621) 30.5 C FIO2 (BEAKER) (test nbbe=6210) 65.0 % GLUCOSE-STAT [id number] 10:27:00 Test Item Value Reference Range Comments GLUCOSE RANDOM (BEAKER) (test okye=024) 135 mg/dL 70-110 HGB/HCT (H&H) - STAT [id number] 10:27:00 Test Item Value Reference Range Comments HEMOGLOBIN (BEAKER) (test drfs=947) 9.9 g/dL 13.0-16.8 HEMATOCRIT (BEAKER) (test vntu=585) 29.0 % 40.0-50.0 SODIUM NA-STAT [id number] 10:26:00 Test Item Value Reference Range Comments SODIUM (BEAKER) (test vpkw=972) 136 meq/L 135-148 CALCIUM, [id number] 09:11:00 Test Item Value Reference Range Comments CALCIUM IONIZED (BEAKER) (test kcvx=912) 1.07 mmol/L 1.12-1.27 PH, BLOOD (BEAKER) (test rbbh=4187) 7.49 BLOOD GAS, [id number] 09:09:00 Test Item Value Reference Range Comments PH ARTERIAL (BEAKER) (test huqb=038) 7.50 7.35-7.45 PCO2 ARTERIAL (BEAKER) (test ukez=378) 50 mmHg 35-45 PO2 ARTERIAL (BEAKER) (test vpuo=934) 450 mmHg 80-90 O2 SATURATION ARTERIAL (BEAKER) (test dmca=781) 99.9 % 96.0-97.0 HCO3 ARTERIAL (BEAKER) (test ipvh=843) 39 mmol/L 21-29 BASE EXCESS ARTERIAL (BEAKER) (test laqz=968) 13.3 mmol/L -2.0-3.0 PATIENT TEMPERATURE (BEAKER) (test zjkz=6037) 36.0 C FIO2 (BEAKER) (test gfeb=6457) 100.0 % POTASSIUM-STAT [id number] 09:09:00 Test Item Value Reference Range Comments POTASSIUM (BEAKER) (test hcab=537) 2.7 meq/L 3.6-5.5 GLUCOSE-STAT [id number] 09:09:00 Test Item Value Reference Range Comments GLUCOSE RANDOM (BEAKER) (test ztky=811) 120 mg/dL 70-110 HGB/HCT (H&H) - STAT [id number] 09:09:00 Test Item Value Reference Range Comments HEMOGLOBIN (BEAKER) (test fnwj=654) 12.2 g/dL 13.0-16.8 HEMATOCRIT (BEAKER) (test sglu=506) 36.0 % 40.0-50.0 SODIUM NA-STAT [id number] 09:08:00 Test Item Value Reference Range Comments SODIUM (BEAKER) (test kssn=224) 139 meq/L 135-148 POCT-GLUCOSE [id number] 06:29:00 Test Item Value Reference Range Comments POC-GLUCOSE METER (BEAKER) 124 mg/dL 70-110 TESTED AT [facility] [address] [place] [address] (test zvfr=6122) [facility] [address] HEMOGLOBIN [id number] 15:34:00 Test Item Value Reference Range Comments HEMOGLOBIN A1C (BEAKER) (test bqby=580) 6.0 % 4.3-6.1 [id number] 14:48:00 Test Item Value Reference Range Comments MAGNESIUM (BEAKER) (test giar=808) 2.5 mg/dL 1.6-2.6 COMPREHENSIVE METABOLIC [id number] 14:48:00 Test Item Value Reference Range Comments TOTAL PROTEIN (BEAKER) 7.5 gm/dL 6.0-8.3 (test cdsv=427) ALBUMIN (BEAKER) (test 4.1 g/dL 3.5-5.0 gisb=7562) ALKALINE PHOSPHATASE 56 U/L 40-150 (BEAKER) (test qosh=911) BILIRUBIN TOTAL (BEAKER) 0.5 mg/dL 0.2-1.2 (test msgy=040) SODIUM (BEAKER) (test 135 meq/L 136-145 hczo=884) POTASSIUM (BEAKER) (test 3.0 meq/L 3.5-5.1 wuzl=309) CHLORIDE (BEAKER) (test 84 meq/L 98-107 uwns=840) CO2 (BEAKER) (test 39 meq/L 22-29 cybr=095) BLOOD UREA NITROGEN 64 mg/dL 7-21 (BEAKER) (test rgvp=434) CREATININE (BEAKER) (test 1.96 mg/dL 0.57-1.25 prmq=452) GLUCOSE RANDOM (BEAKER) 114 mg/dL 70-105 (test mblf=570) CALCIUM (BEAKER) (test 9.9 mg/dL 8.4-10.2 oivg=424) AST (SGOT) (BEAKER) (test 23 U/L 5-34 heod=024) ALT (SGPT) (BEAKER) (test 16 U/L 6-55 mjgy=648) EGFR (BEAKER) (test 33 mL/min/1.73 sq m ESTIMATED GFR IS NOT egmq=7847) ACCURATE CREATININE CLEARANCE IN PREDICTING GLOMERULAR FILTRATION RATE. ESTIMATED GFR IS NOT APPLICABLE FOR DIALYSIS PATIENTS. LIPID [id number] 14:48:00 Test Item Value Reference Range Comments TRIGLYCERIDES (BEAKER) (test kqiz=050) 143 mg/dL CHOLESTEROL (BEAKER) (test yurz=102) 143 mg/dL HDL CHOLESTEROL (BEAKER) (test ewzu=868) 40 mg/dL LDL CHOLESTEROL CALCULATED (BEAKER) (test 74 mg/dL xtpe=926) Triglyceride Reference Range: Low Risk <150 Borderline 150- 199 High Risk 200-499 Very High Risk >=500Cholesterol Reference Range: Low Risk <200 Borderline 200-239 High Risk > 240HDL Cholesterol Reference Range: Low Risk >=60 High Risk <40LDL Cholesterol Reference Range: Optimal <100 Near Optimal 100-129 Borderline 130-159 High 160-189 Very High >=190PROTHROMBIN [id number] 14:42:00 Test Item Value Reference Range Comments PROTIME (BEAKER) (test givh=253) 15.8 seconds 11.7-14.7 INR (BEAKER) (test eudx=280) 1.3 <=5.9 RECOMMENDED COUMADIN/WARFARIN INR THERAPY RANGESSTANDARD DOSE: 2.0 - 3.0 Includes: PROPHYLAXIS forvenous thrombosis, systemic embolization; TREATMENT for venous thrombosis and/or pulmonary embolus.HIGH RISK: Target INR is 2.5-3.5 for patients with mechanical heart valves.[id number] 14:42:00 Test Item Value Reference Range Comments PARTIAL THROMBOPLASTIN TIME (BEAKER) (test 31.6 seconds 22.5-36.0 tync=555) CBC W/PLT COUNT & AUTO [id number] 14:34:00 Test Item Value Reference Range Comments WHITE BLOOD CELL COUNT (BEAKER) (test ocko=914) 6.9 K/ L 3.5-10.5 RED BLOOD CELL COUNT (BEAKER) (test ygbo=130) 4.45 M/ L 4.63-6.08 HEMOGLOBIN (BEAKER) (test wcpf=012) 13.9 GM/DL 13.7-17.5 HEMATOCRIT (BEAKER) (test kzyw=401) 43.0 % 40.1-51.0 MEAN CORPUSCULAR VOLUME (BEAKER) (test vnzw=105) 96.6 fL 79.0-92.2 MEAN CORPUSCULAR HEMOGLOBIN (BEAKER) (test 31.2 pg 25.7-32.2 bpzx=934) MEAN CORPUSCULAR HEMOGLOBIN CONC (BEAKER) (test 32.3 GM/DL 32.3-36.5 fxig=523) RED CELL DISTRIBUTION WIDTH (BEAKER) (test 13.2 % 11.6-14.4 jrjj=996) PLATELET COUNT (BEAKER) (test nogs=787) 179 K/CU MM 150-450 MEAN PLATELET VOLUME (BEAKER) (test jqof=747) 9.8 fL 9.4-12.4 NUCLEATED RED BLOOD CELLS (BEAKER) (test 0 /100 WBC 0-0 wkam=431) NEUTROPHILS RELATIVE PERCENT (BEAKER) (test 74 % iqlb=697) LYMPHOCYTES RELATIVE PERCENT (BEAKER) (test 9 % qdkv=549) MONOCYTES RELATIVE PERCENT (BEAKER) (test 13 % jowo=346) EOSINOPHILS RELATIVE PERCENT (BEAKER) (test 3 % tpst=130) BASOPHILS RELATIVE PERCENT (BEAKER) (test 1 % uwwi=272) NEUTROPHILS ABSOLUTE COUNT (BEAKER) (test 5.08 K/ L 1.78-5.38 qnck=967) LYMPHOCYTES ABSOLUTE COUNT (BEAKER) (test 0.58 K/ L 1.32-3.57 vdpf=752) MONOCYTES ABSOLUTE COUNT (BEAKER) (test 0.89 K/ L 0.30-0.82 tnfb=579) EOSINOPHILS ABSOLUTE COUNT (BEAKER) (test 0.20 K/ L 0.04-0.54 pihg=781) BASOPHILS ABSOLUTE COUNT (BEAKER) (test 0.08 K/ L 0.01-0.08 yeqh=338) IMMATURE GRANULOCYTES-RELATIVE PERCENT (BEAKER) 0 % 0-1 (test akua=1963) RAD, CHEST, 1 VIEW, NON [id number] 05:11:00post-operative day 1Reason for exam:->chfShould this be [...] Simental Verified Date/Time: 03/05/2018 05:11:04 Reading Location: [address] Reading Room BASIC METABOLIC [id number] 04:22:00 Test Item Value Reference Range Comments SODIUM (BEAKER) (test 136 meq/L 136-145 akaw=288) POTASSIUM (BEAKER) (test 4.9 meq/L 3.5-5.1 Specimen slightly aihn=618) hemolyzed CHLORIDE (BEAKER) (test 98 meq/L 98-107 jzfe=916) CO2 (BEAKER) (test 31 meq/L 22-29 liwl=673) BLOOD UREA NITROGEN 44 mg/dL 7-21 (BEAKER) (test nxar=783) CREATININE (BEAKER) (test 1.48 mg/dL 0.57-1.25 Specimen slightly hcoq=735) hemolyzed GLUCOSE RANDOM (BEAKER) 98 mg/dL 70-105 (test fnxz=310) CALCIUM (BEAKER) (test 9.6 mg/dL 8.4-10.2 qhqk=149) EGFR (BEAKER) (test 46 mL/min/1.73 sq m ESTIMATED GFR IS NOT bcof=4360) ACCURATE CREATININE CLEARANCE IN PREDICTING GLOMERULAR FILTRATION RATE. ESTIMATED GFR IS NOT APPLICABLE FOR DIALYSIS PATIENTS. CBC W/PLT COUNT & AUTO [id number] 03:39:00 Test Item Value Reference Range Comments WHITE BLOOD CELL COUNT (BEAKER) (test bxek=910) 10.2 K/ L 3.5-10.5 RED BLOOD CELL COUNT (BEAKER) (test gbhw=607) 4.09 M/ L 4.63-6.08 HEMOGLOBIN (BEAKER) (test dpac=013) 13.0 GM/DL 13.7-17.5 HEMATOCRIT (BEAKER) (test juyo=968) 40.8 % 40.1-51.0 MEAN CORPUSCULAR VOLUME (BEAKER) (test kvzf=677) 99.8 fL 79.0-92.2 MEAN CORPUSCULAR HEMOGLOBIN (BEAKER) (test 31.8 pg 25.7-32.2 ieiv=520) MEAN CORPUSCULAR HEMOGLOBIN CONC (BEAKER) (test 31.9 GM/DL 32.3-36.5 lbpf=120) RED CELL DISTRIBUTION WIDTH (BEAKER) (test 14.7 % 11.6-14.4 hbiv=447) PLATELET COUNT (BEAKER) (test fkpc=207) 134 K/CU MM 150-450 MEAN PLATELET VOLUME (BEAKER) (test bixp=603) 9.6 fL 9.4-12.4 NUCLEATED RED BLOOD CELLS (BEAKER) (test 0 /100 WBC 0-0 rqah=144) NEUTROPHILS RELATIVE PERCENT (BEAKER) (test 82 % aouw=457) LYMPHOCYTES RELATIVE PERCENT (BEAKER) (test 7 % elif=038) MONOCYTES RELATIVE PERCENT (BEAKER) (test 9 % gfrf=453) EOSINOPHILS RELATIVE PERCENT (BEAKER) (test 1 % ulnc=158) BASOPHILS RELATIVE PERCENT (BEAKER) (test 0 % scek=821) NEUTROPHILS ABSOLUTE COUNT (BEAKER) (test 8.40 K/ L 1.78-5.38 wpqs=975) LYMPHOCYTES ABSOLUTE COUNT (BEAKER) (test 0.73 K/ L 1.32-3.57 fnax=451) MONOCYTES ABSOLUTE COUNT (BEAKER) (test 0.89 K/ L 0.30-0.82 byba=571) EOSINOPHILS ABSOLUTE COUNT (BEAKER) (test 0.07 K/ L 0.04-0.54 aeey=005) BASOPHILS ABSOLUTE COUNT (BEAKER) (test 0.01 K/ L 0.01-0.08 pfdt=178) IMMATURE GRANULOCYTES-RELATIVE PERCENT (BEAKER) 1 % 0-1 (test kgwe=5505) [id number] 10:36:00 Test Item Value Reference Range Comments ACTIVATED CLOTTING TIME 235 sec TESTED AT [facility] [address] [facility] (BEAKER) (test ltch=205) [facility] [address] SODIUM NA-STAT [id number] 10:24:00 Test Item Value Reference Range Comments SODIUM (BEAKER) (test nyvm=662) 136 meq/L 135-148 POTASSIUM-STAT [id number] 10:24:00 Test Item Value Reference Range Comments POTASSIUM (BEAKER) (test zdmt=078) 4.2 meq/L 3.6-5.5 BLOOD GAS, [id number] 10:24:00 Test Item Value Reference Range Comments PH ARTERIAL (BEAKER) (test grfs=086) 7.40 7.35-7.45 PCO2 ARTERIAL (BEAKER) (test ksnk=059) 50 mmHg 35-45 PO2 ARTERIAL (BEAKER) (test zktp=877) 507 mmHg 80-90 O2 SATURATION ARTERIAL (BEAKER) (test twyo=703) 99.9 % 96.0-97.0 HCO3 ARTERIAL (BEAKER) (test idpt=427) 30 mmol/L 21-29 BASE EXCESS ARTERIAL (BEAKER) (test dorb=629) 4.3 mmol/L -2.0-3.0 PATIENT TEMPERATURE (BEAKER) (test pjxc=9488) 37.0 C FIO2 (BEAKER) (test vfgx=3878) 21.0 % GLUCOSE-STAT [id number] 10:24:00 Test Item Value Reference Range Comments GLUCOSE RANDOM (BEAKER) (test ssrj=356) 131 mg/dL 70-110 HGB/HCT (H&H) - STAT [id number] 10:24:00 Test Item Value Reference Range Comments HEMOGLOBIN (BEAKER) (test rcgj=179) 13.2 g/dL 13.0-16.8 HEMATOCRIT (BEAKER) (test deqv=105) 39.0 % 40.0-50.0 CALCIUM, [id number] 10:24:00 Test Item Value Reference Range Comments CALCIUM IONIZED (BEAKER) (test gvpg=165) 1.01 mmol/L 1.12-1.27 PH, BLOOD (BEAKER) (test gquo=0606) 7.40 B-TYPE NATRIURETIC FACTOR (BNP)2018-03-04 07:29:00 Test Item Value Reference Range Comments B-TYPE NATRIURETIC PEPTIDE (BEAKER) (test 187 pg/mL 0-100 lgac=100) BASIC METABOLIC [id number] 07:22:00 Test Item Value Reference Range Comments SODIUM (BEAKER) (test 138 meq/L 136-145 zlqk=123) POTASSIUM (BEAKER) (test 4.3 meq/L 3.5-5.1 bqgk=020) CHLORIDE (BEAKER) (test 98 meq/L 98-107 cqch=248) CO2 (BEAKER) (test 32 meq/L 22-29 jppu=606) BLOOD UREA NITROGEN 57 mg/dL 7-21 (BEAKER) (test kwme=385) CREATININE (BEAKER) (test 1.54 mg/dL 0.57-1.25 rehi=580) GLUCOSE RANDOM (BEAKER) 115 mg/dL 70-105 (test gael=178) CALCIUM (BEAKER) (test 9.3 mg/dL 8.4-10.2 qmcq=054) EGFR (BEAKER) (test 44 mL/min/1.73 sq m ESTIMATED GFR IS NOT yjfz=1009) ACCURATE CREATININE CLEARANCE IN PREDICTING GLOMERULAR FILTRATION RATE. ESTIMATED GFR IS NOT APPLICABLE FOR DIALYSIS PATIENTS. [id number] 07:16:00 Test Item Value Reference Range Comments PROTIME (BEAKER) (test hdgy=568) 13.7 seconds 11.7-14.7 INR (BEAKER) (test kxzz=357) 1.0 <=5.9 PARTIAL THROMBOPLASTIN TIME (BEAKER) (test 23.9 seconds 22.5-36.0 gpqn=514) RECOMMENDED COUMADIN/WARFARIN INR THERAPY RANGESSTANDARD DOSE: 2.0 - 3.0 Includes: PROPHYLAXIS forvenous thrombosis, systemic embolization; TREATMENT for venous thrombosis and/or pulmonary embolus.HIGH RISK: Target INR is 2.5-3.5 for patients with mechanical heart valves.[id number] 07:16:00 Test Item Value Reference Range Comments ALBUMIN (BEAKER) (test qkuo=9626) 3.6 g/dL 3.5-5.0 CBC W/PLT COUNT & AUTO [id number] 07:11:00 Test Item Value Reference Range Comments WHITE BLOOD CELL COUNT (BEAKER) (test rzzq=842) 8.6 K/ L 3.5-10.5 RED BLOOD CELL COUNT (BEAKER) (test nutw=149) 4.62 M/ L 4.63-6.08 HEMOGLOBIN (BEAKER) (test vaoz=758) 14.6 GM/DL 13.7-17.5 HEMATOCRIT (BEAKER) (test llgu=434) 46.0 % 40.1-51.0 MEAN CORPUSCULAR VOLUME (BEAKER) (test ppcx=153) 99.6 fL 79.0-92.2 MEAN CORPUSCULAR HEMOGLOBIN (BEAKER) (test 31.6 pg 25.7-32.2 bapj=970) MEAN CORPUSCULAR HEMOGLOBIN CONC (BEAKER) (test 31.7 GM/DL 32.3-36.5 dajm=344) RED CELL DISTRIBUTION WIDTH (BEAKER) (test 14.7 % 11.6-14.4 cpgq=528) PLATELET COUNT (BEAKER) (test aiqj=605) 160 K/CU MM 150-450 MEAN PLATELET VOLUME (BEAKER) (test owmu=505) 9.0 fL 9.4-12.4 NUCLEATED RED BLOOD CELLS (BEAKER) (test 0 /100 WBC 0-0 qnwp=275) NEUTROPHILS RELATIVE PERCENT (BEAKER) (test 89 % ilrl=166) LYMPHOCYTES RELATIVE PERCENT (BEAKER) (test 4 % ywmk=488) MONOCYTES RELATIVE PERCENT (BEAKER) (test 5 % elyh=575) EOSINOPHILS RELATIVE PERCENT (BEAKER) (test 1 % arbs=802) BASOPHILS RELATIVE PERCENT (BEAKER) (test 0 % itub=383) NEUTROPHILS ABSOLUTE COUNT (BEAKER) (test 7.65 K/ L 1.78-5.38 vdad=289) LYMPHOCYTES ABSOLUTE COUNT (BEAKER) (test 0.34 K/ L 1.32-3.57 kini=794) MONOCYTES ABSOLUTE COUNT (BEAKER) (test 0.41 K/ L 0.30-0.82 xppp=311) EOSINOPHILS ABSOLUTE COUNT (BEAKER) (test 0.06 K/ L 0.04-0.54 irfj=711) BASOPHILS ABSOLUTE COUNT (BEAKER) (test 0.02 K/ L 0.01-0.08 wnfx=366) IMMATURE GRANULOCYTES-RELATIVE PERCENT (BEAKER) 1 % 0-1 (test halj=6363) CT, CTA, [id number] 14:14:00Addendum BeginsREPORT STATUS:A Addendum: I agree with the previously described non vascular findings by Dr. Viramontes. Signed: Cleve Stacy MDReport Verified Date/Time: 02/18/201814: 14:33 Reading Location: [place] [address] Angio Body Reading RoomAddendum EndsFINAL REPORT CT [...] measures 9.1 and 9.3 mm, respectively with qrpb-lm-ccgkqvwa tortuosity and no calcific atherosclerosis present. The [...] An addendum will be dictated by the Yarn Sorter Radiologist regarding the nonvascular findings. Signed: Sg Viramontes MDReport Verified Date/Time: 02/17/2018 16:19:13 Reading Location: [place] [address], CTA [id number] 14:14:00Addendum BeginsREPORT STATUS:A Addendum: I agree with the previously described non vascular findings by Dr. Viramontes. Signed: Cleve Stacy MDReport Verified Date/ Time: 02/18/201814:14:33 Reading Location: [place] [address] Angio Body Reading RoomAddendum EndsFINAL REPORT CT [...] measures 9.1 and 9.3 mm, respectively with nezt-po-xngyioxw tortuosity and no calcific atherosclerosis present. The [...] An addendum will be dictated by the Yarn Sorter Radiologist regarding the nonvascular findings. Signed: Sg Viramontes MDReport Verified Date/Time: 02/17/2018 16:19:13 Reading Location: [place] [address] Cardiology MRI [id number] 14:05:00 Test Item Value Reference Range Comments POC-CREATININE (NOE) 1.7 mg/dL 0.6-1.3 TESTED AT [facility] [address] [facility] (test hitr=2072) [facility] [address] POC-EGFR (BEAKER) (test 39 mL/min/1.73M2 tyby=0370)
--- OUTSIDE RECORDS SUMMARY | 2018-12-03 09:06 | XMS REPORT ---
[...] Date Date Clonidine HCl [facility] 02359672050 0.3 MG Orally Active 1 tablet Once a day Lipitor [facility] 93954393445 40 MG Orally Active 1 tablet Once a day Breo Ellipta [facility] 66691637853 100-25 MCG/INH Active 1 puff Inhalation Once a day Albuterol Sulfate [facility] 30065330378 108 (90 Base) Active 2 puffs as HFA MCG/ACT needed Inhalation every 6 hrs Uloric [facility] 37747982093 40 MG Orally Active 1 tablet Once a day Omeprazole ND 08478411807 20 MG Orally Active 1 capsule Once a day Ferrous Gluconate [facility] 41754033061 324 (38 Fe) MG Active 1 tablet Orally Once a day Potassium [facility] 91182120443 20 MEQ Orally Active 1 packet Chloride Twice a day with food Magnesium [facility] 58075232726 400 MG Orally Active 1 capsule Twice a day with food PredniSONE [facility] 88491802741 10 MG Orally Active 1 tablet Once a day as needed Diamox Sequels NDC 0 Active not defined Nasonex [facility] 09924036087 50 MCG/ACT Active 2 sprays Nasally Once a in each day nostril Levothyroxine [facility] 20035356969 50 MCG Orally Active 1 tablet Sodium Once a day on an empty stomach in the morning Tadalafil [facility] 85355002041 5 MG Orally Active 1 tablet Eight a day as needed Furosemide [facility] 18985380230 20 MG Orally Active 1 tablet Three times a day Xarelto [facility] 19688568654 15 MG Orally Active 1 tablet Once a day with food Atorvastatin [facility] 92764507277 40 MG Orally Active 1 tablet Calcium Once a day Amoxicillin-Pot [facility] 02946591751 500-125 MG Active not Clavulanate Orally defined Docusate Sodium [facility] 49903766861 100 MG Orally Active 1 capsule Once a day as needed Colace [facility] 98060679506 100 MG Orally Active 1 capsule Once a day as needed Fish Oil [facility] 45779212805 1200 MG Orally Active 1 capsule Twice a day Metoprolol [facility] 27123764537 100 MG Orally Active 1 capsule Succinate Once a day MiraLax [facility] 53155034613 - Orally Once a Active 1 packet day mixed with 8 ounces of fluid Prilosec [facility] 30260273139 20 MG Orally Active 1 capsule Once a day Spironolactone [facility] 30078735888 25 MG Orally Active 1 tablet Three times a day Results No Known Results Summary Purpose eClinicalWorks Submission
[2018-12-03] MEDS ORDERED: ESMOLOL IV ONE (09:15)
--- NOTE | 2018-12-03 11:06 | ER ---
Nurse's Notes [facility] Name: Reji Dan Age: 83 yrs Sex: Male : 1935 Arrival Date: 12/03/2018 Time: 09:02 Bed 3 Private MD: Diagnosis: Cardiopulmonary Arrest Presentation: 12/03 08:55 Presenting complaint: EMS states: FOUND PULSELESS AND APNEIC BY SON \T\ \R\0755. CPR bp STARTED BY PD, DEFIBRILLATED BY AED x2. [facility] STARTED ALS \T\ 0806. 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 Care prior to arrival: Oral intubation, CPR via thumper performed by bystander performed by EMS was defibrillated and is still in progress IV initiated. LEFT TIBIA IO Glucose check: 251. Compressions began prior to arrival. 08:55 Method Of Arrival: EMS: [facility] bp 08:55 Acuity: SILVINO 1 bp Historical: - Allergies: 10:31 Iodinated Contrast Media - IV Dye; bp 10:31 Clindamycin; bp - Home Meds: 10:31 UNKNOWN [Active]; bp - PMHx: 10:31 ADD/ADHD; CHF; constipation; COPD; DYSPHAGIA; GERD; High Cholesterol; Hypertension; bp Hypokalemia; Hypothyroidism; macular degeneration; Mitral Valve Insufficiency; MRSA; Pacemaker; Painful urination; - Immunization history:: Adult Immunizations unknown. - Social history:: Smoking status: unknown. Screenin:55 Abuse screen: Denies threats or abuse. Denies injuries from another. Nutritional bp screening: No deficits noted. Tuberculosis screening: No symptoms or risk factors identified. Fall Risk None identified. Assessment: 08:55 General: SEE TRIAGE TAB. bp 08:55 CPR assessment: unresponsive, pupils fixed \T\ dilated, no respiratory effort, intubated, bp Ambu ventilation, pulses present w/ compressions. Cardiac rhythm is PEA. Neuro: Level of Consciousness is unresponsive. EENT: No deficits noted. Cardiovascular: No deficits noted. Respiratory: Respiratory effort is NONE. GI: Abdomen is round. : No signs and/or symptoms were reported regarding the genitourinary system. Derm: No deficits noted. 09:20 Reassessment: TIME OF PER DR HONG. bp 09:45 Reassessment: GABRIELLE DICKERSON AT B/S, PT CLEARED FOR RELEASE WITHOUT ME. bp 10:06 Reassessment: [facility] CONTACTED, COORDINATOR OTF FONSECA, REF [id number]. bp 10:27 Reassessment: PER [facility] COORDINATOR, PT FINAL DISPOSITION ON HOLD UNTIL [facility] bp SPEAKS WITH NEXT OF KIN. 12:55 Reassessment: BODY PICKED UP BY [facility]. [place] [facility] NOTIFIED. bp Vital Signs: 08:55 bp 09:03 Weight 81.65 kg (M); aa5 08:55 PEA ON MONITOR bp ED Course: 08:55 Patient has correct armband on for positive identification. Placed in gown. Bed in low bp position. Call light in reach. Side rails up X2. 08:55 Inserted intraosseous access in left, using aseptic technique tibial tuberosity. bp 08:57 Inserted saline lock: 18 gauge in right antecubital area, using aseptic technique. bp Blood collected. 09:02 Patient arrived in ED. dm5 09:24 Dustin Hong MD is Attending Physician. eb 09:27 called the [facility] to call out the Glassware Defect Repairer. eb 10:25 Anthony Mathur, DANIELLE is Primary Nurse. bp 10:33 No provider procedures requiring assistance completed. PT . bp 10:38 Triage completed. bp 11:05 Dustin Hong MD is Pronouncing Provider. 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 eb Arya has been sent. Administered Medications: 09:15 Drug: Esmolol 50 mcg/kg/min Route: IV; Rate: calculated rate; Site: right antecubital; bp 10:42 Follow up: IV Status: Completed infusion; IV Intake: 100ml bp Intake: 10:42 IV: 100ml; Total: 100ml. bp Outcome: 09:20 Outcome Patient bp 09:20 Patient : Time of 09:20 Pronounced by Dustin Hong MD 09:20 Condition: 12:56 Patient left the ED. bp Signatures: Dionne Riley RN RN Dustin Wadsworth MD MD kdr Calderon, Audri RN RN [facility] Anthony Mathur RN RN bp Botello, Elizabeth eb
--- NOTE | 2018-12-03 11:06 | EDPHYS ---
Physician Documentation [facility] Name: Reji Dan Age: 83 yrs Sex: Male : 1935 Arrival Date: 12/03/2018 Time: 09:02 Bed 3 Private MD: ED Physician Dustin Engle HPI: 12/03 10:40 This 83 yrs old Male presents to ER via EMS with complaints of CPR. kdr 10:40 Preceding the arrest, the patient was found down by family. The arrest occurred at [facility]. Pre-hospital course: The arrest was not witnessed by others. Bystanders at the scene did not perform CPR. EMS care prior to arrival: initiation of ACLS, peripheral IV, was successfully placed. intubation was successfully performed, oxygen, 100% by ET tube. EMS on scene time was 45 minutes were spent at scene. The patient had an approximate down time of 8:00 AM. He was last seen well last evening but had apparently posted on [employer] at or shortly before 8:00 AM. He was found by his son shortly thereafter unresponsive and slumped over in his chair. It is unknown whether or not the patient has recently seen a physician. Historical: - Allergies: 10:31 Iodinated Contrast Media - IV Dye; bp 10:31 Clindamycin; bp - Home Meds: 10:31 UNKNOWN [Active]; bp - PMHx: 10:31 ADD/ADHD; CHF; constipation; COPD; DYSPHAGIA; GERD; High Cholesterol; Hypertension; bp Hypokalemia; Hypothyroidism; macular degeneration; Mitral Valve Insufficiency; MRSA; Pacemaker; Painful urination; - Immunization history:: Adult Immunizations unknown. - Social history:: Smoking status: unknown. ROS: 10:58 Constitutional: Unable to obtain kdr 10:58 Unable to obtain ROS due to obtunded state, patient is on ventilator. Exam: 10:58 Constitutional: This is a well developed, well nourished patient who is unresponsive kdr and intubated. His initial rhythm appeared to be V-fib without a pulse Head/Face: Normocephalic, atraumatic. Neck: Trachea midline, no thyromegaly or masses palpated, and no cervical lymphadenopathy. Supple, full range of motion without nuchal rigidity, or vertebral point tenderness. No Meningismus. Chest/axilla: Normal chest wall appearance and motion. Nontender with no deformity. No lesions are appreciated. Respiratory: Lungs have equal breath sounds bilaterally, clear to auscultation and percussion. No rales, rhonchi or wheezes noted. No increased work of breathing, no retractions or nasal flaring. Back: No spinal tenderness. No costovertebral tenderness. Full range of motion. Skin: Warm, dry with normal turgor. Normal color with no rashes, no lesions, and no evidence of cellulitis. MS/ Extremity: Pulses equal, no cyanosis. Neurovascular intact. Full, normal range of motion. 10:58 Cardiovascular: Rhythm: asystole, V-fib/PEA/paced rhythm. 10:58 Respiratory: Breath sounds: Present and essentially clear bilaterally. Vital Signs: 08:55 bp 09:03 Weight 81.65 kg (M); aa5 08:55 PEA ON MONITOR bp Procedures: 10:58 CPR: See CPR flow sheet. The presenting cardiac rhythm is V fib. the patient was kdr intubated prior to arrival, [facility], despite ED evaluation and treatment, the patient . Family notified. CPR was stopped at 09:20. MDM: 10:58 Data reviewed: vital signs, nurses notes, lab test result(s). Counseling: I had a kdr detailed discussion with the patient and/or guardian regarding: the historical points, exam findings, and any diagnostic results supporting the discharge/admit diagnosis, lab results, the need for outpatient follow up. 11:05 Patient medically screened. kdr Administered Medications: 09:15 Drug: Esmolol 50 mcg/kg/min Route: IV; Rate: calculated rate; Site: right antecubital; bp 10:42 Follow up: IV Status: Completed infusion; IV Intake: 100ml bp Disposition: 11:04 . kdr Disposition: Patient pronounced on 12/03/18 09:20 by Dutsin Engle. Impression: Cardiopulmonary Arrest. - Released to Home. Signatures: Dustin Engle MD MD kdr Calderon, Audri RN RN aa5 Anthony Mathur RN RN bp Corrections: (The following items were deleted from the chart) 12:56 11:05 12/03/2018 11:05 Patient pronounced on 12/03/2018 at 09:20 by Dustin Engle. bp Impression: Cardiopulmonary Arrest. Released to Home. kdr
[2018-12-03 13:09] LABS: Arterial Blood Carboxyhemoglob 0.5 % (0-1.5); Blood Gas Oxyhemoglobin 31.6 % (94-97)
== END 2018-12-03 12:56 | disposition expired ==
LOC: ER 09:00
DX: I46.9 Cardiac arrest, cause unspecified (principal); F90.9 Attention-deficit hyperactivity disorder, unspecified type; I11.0 Hypertensive heart disease with heart failure; I50.9 Heart failure, unspecified; J44.9 Chronic obstructive pulmonary disease, unspecified; E78.00 Pure hypercholesterolemia, unspecified; E03.9 Hypothyroidism, unspecified; Z88.1 Allergy status to other antibiotic agents; Z91.041 Radiographic dye allergy status
CPT/HCPCS: 82805; J0171; 36680; 92950; 96365; 99285